=== PATIENT | female | born 1995 | race Caucasian/White ===

== ENCOUNTER 2021-05-22 11:01 | Outpatient (REF) | payer OTHER, SELFPAY ==
[2021-05-22 12:09] LABS: MANUAL DIFF FLAG NO
[2021-05-22 12:16] LABS: Basophils Absolute Auto 0.1 X10*3/uL (0.0-0.2); Basophils Percent Auto 0.7 % (0-2); Eosinophils Percent Auto 0.5 % (0-4); Hematocrit 39.1 % (37.0-47.0); Hemoglobin 13.2 g/dl (12.0-16.0); Imm Gran Abs Auto 0.02 X10*3/uL (0.00-0.03); Imm Gran Pct Auto 0.3 % (0.0-0.4); Lymphocytes Absolute Auto 2.3 X10*3/uL (1.2-4.9); Lymphocytes Percent Auto 31.6 % (20-40); Mean Corpuscular HGB Conc 33.8 g/dl (31.0-35.0); Mean Corpuscular Hemoglobin 28.9 pg (27.0-33.0); Mean Corpuscular Volume 85.7 fL (80.0-98.0); Mean Platelet Volume 9.1 fL (9.4-12.3); Monocytes Absolute Auto 0.3 X10*3/uL (0.1-1.2); Monocytes Percent Auto 4.5 % (2-11); Neutrophils Absolute Auto 4.6 x10*3/uL (2.0-8.3); Neutrophils Percent Auto 62.4 % (45-73); Platelet Count 284 X10*3/uL (160-400); Red Blood Count 4.56 X10*6/uL (4.20-5.50); Red Cell Distribution Width 11.9 % (11.0-16.0); White Blood Count 7.3 X10*3/uL (4.8-10.8)
[2021-05-22 12:42] LABS: Alanine Aminotransferase 13 U/L (0-31); Albumin Level 4.6 g/dL (3.5-5.0); Alkaline Phosphatase 74 U/L (39-117); Anion Gap 10 (12-20); Aspartate Amino Transferase 12 U/L (5-31); Bilirubin Total 1.2 mg/dL (0.0-1.0); Blood Urea Nitrogen 8 mg/dL (9-16); C Reactive Protein 0.02 mg/dL (< or = 0.50); Calcium 10.1 mg/dL (8.4-10.2); Carbon Dioxide 28 mmol/L (22-29); Chloride 105 mmol/L (96-108); Estimated Glomerular Filt Rate > 60; Glucose Random 91 mg/dL (60-115); Potassium 3.7 mmol/L (3.3-5.1); Sodium 139 mmol/L (135-145); Total Protein 7.5 g/dL (6.5-8.0)
[2021-05-22 13:02] LABS: Ferritin 52 ng/mL (10-122); Vitamin D 25-OH Total 23.4 ng/mL (>30)
[2021-05-22 13:14] LABS: Folate 10.3 ng/mL (> or = 4.0); Vitamin B12 386 pg/mL (200-900)
[2021-05-23 03:56] LABS: HBS Num1 > 1000.00 mIU/mL (0-7.99); HBc Num1 0.09 S/CO (0.00-0.79); Hepatitis B Core Antibody Nonreactive (Nonreactive); ~Hepatitis B Surface Antibody REACTIVE (Nonreactive)
[2021-05-23 04:09] LABS: Hepatitis A Antibody IgM 0.38 Index (0-0.79); Hepatitis B Surface Antigen Negative (Negative); ~HepC Num1 0.11 S/CO (0.00-0.79); ~Hepatitis A Antibody IgM Nonreactive (Nonreactive); ~Hepatitis C Antibody Nonreactive (Nonreactive)
[2021-05-24 08:31] LABS: EBV-NA IgG Index <18.00 U/mL; EBV-VCA IgG Ab <18.00 U/mL; EBV-VCA IgM Ab <36.00 U/mL
[2021-05-24 22:17] LABS: TS Negative Control Passed; TS Panel A 0; TS Panel B 0; TS Positive Control Passed; TSpotTB Negative (Negative)
[2021-05-25 11:21] LABS: Nicotinamide <20 ng/mL; Vit B3 - Nicotinic Acid <20 ng/mL
[2021-05-26 17:11] LABS: Vitamin C 0.3 mg/dL (0.3-2.7)
[2021-05-27 16:37] LABS: Vitamin K1 172 pg/mL (130-1500)
[2021-05-28 06:06] LABS: Vitamin B6 3.6 ng/mL (2.1-21.7)
[2021-05-28 13:46] LABS: Zinc 77 mcg/dL (60-130)
[2021-05-28 16:36] LABS: Vitamin A 56 mcg/dL (38-98)
[2021-05-28 16:56] LABS: Alpha-Tocopherol 15.4 mg/L (5.7-19.9); Beta-Gamma Tocopherol <1.0 mg/L (<=4.3)
[2021-05-29 15:06] LABS: Vitamin B5 (Pantothenic Acid) <40 ng/mL (<275)
== END 2021-05-22 11:02 | disposition home or self-care (01) ==
LOC: HO.LAB 11:01
PROVIDERS: PCP Hospitalist; Referring Provider Hospitalist; Visit Provider Internal Medicine Gastroenterology
DX: Z01.84 Encounter for antibody response examination (principal); Z11.1 Encounter for screening for respiratory tuberculosis; K50.80 Crohn's disease of both small and large intestine without complications; K75.81 Nonalcoholic steatohepatitis (NASH)
CPT/HCPCS: 36415; 80053; 81335; 82180; 82306; 82607; 82728; 82746; 84207; 84446; 84590; 84591; 84597; 84630; 85025; 86140; 86481; 86664; 86665; 86704; 86706; 86709; 86803; 87340

== ENCOUNTER 2021-06-10 14:55 | Outpatient (REF) | payer OTHER, SELFPAY ==
[2021-06-10 15:29] LABS: COVID-19 Test Positive (Negative); IDNOW Serial# 08D9AD1C
== END 2021-06-10 14:56 | disposition home or self-care (01) ==
LOC: HO.LAB 14:55
PROVIDERS: Visit Provider Internal Medicine
DX: Z20.822 Contact with and (suspected) exposure to COVID-19 (principal)
CPT/HCPCS: 87635

== ENCOUNTER 2021-07-20 12:00 | Outpatient (REF) | payer OTHER, SELFPAY | END 2021-07-20 12:01 | disposition home or self-care (01) | LOC: HO.MDS 12:00 | PROVIDERS: PCP Hospitalist; Visit Provider Internal Medicine Gastroenterology | DX: K50.80 Crohn's disease of both small and large intestine without complications (principal) | CPT/HCPCS: 96375; 96413; 96415; J1745 ==

== ENCOUNTER 2021-09-12 11:50 | Outpatient (REF) | payer OTHER, SELFPAY | END 2021-09-12 11:51 | disposition home or self-care (01) | LOC: HO.MDS 11:50 | PROVIDERS: PCP Hospitalist; Visit Provider Internal Medicine Gastroenterology | DX: K50.80 Crohn's disease of both small and large intestine without complications (principal) | CPT/HCPCS: 96375; 96413; 96415; J1745 ==

== ENCOUNTER → 2021-09-21 10:47 | Outpatient (BNVA) | payer OTHER, SELFPAY | PROVIDERS: PCP Hospitalist; Referring Provider Hospitalist; Visit Provider Internal Medicine Gastroenterology | DX: Z13.89 Encounter for screening for other disorder (principal) ==

== ENCOUNTER 2021-11-06 11:42 | Outpatient (REF) | payer OTHER, SELFPAY | END 2021-11-06 11:43 | disposition home or self-care (01) | LOC: HO.MDS 11:42 | PROVIDERS: PCP Hospitalist; Visit Provider Internal Medicine Gastroenterology | DX: K50.80 Crohn's disease of both small and large intestine without complications (principal) | CPT/HCPCS: 96375; 96413; 96415; J1745 ==

== ENCOUNTER 2021-12-04 09:21 | Outpatient (REF) | payer SELFPAY ==
[2021-12-04 10:28] LABS: Alanine Aminotransferase 15 U/L (0-31); Albumin Level 4.7 g/dL (3.5-5.0); Alkaline Phosphatase 81 U/L (39-117); Anion Gap 13 (12-20); Aspartate Amino Transferase 18 U/L (5-31); Bilirubin Total 1.1 mg/dL (0.0-1.0); Blood Urea Nitrogen 12 mg/dL (9-16); Calcium 9.4 mg/dL (8.4-10.2); Carbon Dioxide 23 mmol/L (22-29); Chloride 107 mmol/L (96-108); Cholesterol 180 mg/dL; Estimated Glomerular Filt Rate > 60; Glucose Fasting 90 mg/dL (60-99); HDL Cholesterol 57 mg/dL; LDL Cholesterol Calculated 111 mg/dl; Potassium 4.4 mmol/L (3.3-5.1); Sodium 139 mmol/L (135-145); Total Protein 7.7 g/dL (6.5-8.0); Triglycerides 62 mg/dL
== END 2021-12-04 09:22 | disposition home or self-care (01) ==
LOC: HO.LAB 09:21
PROVIDERS: PCP Hospitalist; Visit Provider Hospitalist
DX: Z00.00 Encounter for general adult medical examination without abnormal findings (principal)
CPT/HCPCS: 36415; 80053; 80061; 84443

== ENCOUNTER 2022-01-21 10:26 | Outpatient (REF) | payer OTHER, SELFPAY | END 2022-01-21 10:27 | disposition home or self-care (01) | LOC: HO.MDS 10:26 | PROVIDERS: Visit Provider Internal Medicine Gastroenterology | DX: K50.80 Crohn's disease of both small and large intestine without complications (principal) | CPT/HCPCS: 96375; 96413; 96415; J1200; J1745; Q5103 ==

== ENCOUNTER 2022-03-18 08:02 | Outpatient (REF) | payer OTHER, SELFPAY | END 2022-03-18 08:03 | disposition home or self-care (01) | LOC: HO.MDS 08:02 | PROVIDERS: Visit Provider Internal Medicine Gastroenterology | DX: K50.80 Crohn's disease of both small and large intestine without complications (principal) | CPT/HCPCS: 96375; 96413; 96415; J1200; Q5103 ==

== ENCOUNTER 2022-05-13 08:22 | Outpatient (REF) | payer OTHER, SELFPAY ==
[2022-05-13 10:29] LABS: Hematocrit 42.2 % (37.0-47.0); Hemoglobin 14.4 g/dl (12.0-16.0); Mean Corpuscular HGB Conc 34.1 g/dl (31.0-35.0); Mean Corpuscular Hemoglobin 28.9 pg (27.0-33.0); Mean Corpuscular Volume 84.7 fL (80.0-98.0); Platelet Count 286 X10*3/uL (160-400); Red Blood Count 4.98 X10*6/uL (4.20-5.50); Red Cell Distribution Width 11.9 % (11.0-16.0); White Blood Count 8.2 X10*3/uL (4.8-10.8)
[2022-05-13 11:22] LABS: Alanine Aminotransferase 16 U/L (0-31); Albumin Level 4.8 g/dL (3.5-5.0); Alkaline Phosphatase 67 U/L (39-117); Anion Gap 11 (12-20); Aspartate Amino Transferase 15 U/L (5-31); Bilirubin Total 1.5 mg/dL (0.0-1.0); Blood Urea Nitrogen 9 mg/dL (9-16); Calcium 9.7 mg/dL (8.4-10.2); Carbon Dioxide 27 mmol/L (22-29); Chloride 102 mmol/L (96-108); Estimated Glomerular Filt Rate > 60; Glucose Random 76 mg/dL (60-115); Potassium 4.2 mmol/L (3.3-5.1); Sodium 136 mmol/L (135-145); Total Protein 7.3 g/dL (6.5-8.0)
[2022-05-15 11:38] LABS: CRP High Sensitivity <0.3 mg/L
[2022-05-15 22:44] LABS: TS Negative Control Passed; TS Panel A 0; TS Panel B 0; TS Positive Control Passed; TSpotTB Negative (Negative)
== END 2022-05-13 08:23 | disposition home or self-care (01) ==
LOC: HO.MDS 08:22
PROVIDERS: Visit Provider Internal Medicine Gastroenterology
DX: K50.80 Crohn's disease of both small and large intestine without complications (principal)
CPT/HCPCS: 36415; 80053; 85027; 86141; 86481; 96375; 96413; 96415; J1200; Q5103

== ENCOUNTER 2022-07-08 09:31 | Outpatient (REF) | payer OTHER, SELFPAY | END 2022-07-08 09:32 | disposition home or self-care (01) | LOC: HO.MDS 09:31 | PROVIDERS: Visit Provider Internal Medicine Gastroenterology | DX: K50.80 Crohn's disease of both small and large intestine without complications (principal); R19.7 Diarrhea, unspecified; G47.419 Narcolepsy without cataplexy; R41.9 Unspecified symptoms and signs involving cognitive functions and awareness | CPT/HCPCS: 36415; 80230; 82542; 96375; 96413; 96415; J1200; Q5103 ==

== ENCOUNTER 2022-08-07 13:17 | Outpatient (REF) | payer OTHER, SELFPAY ==
[2022-08-08 14:23] LABS: Influenza A PCR NEGATIVE (Negative); Influenza B PCR NEGATIVE (Negative); Resp Syncy Virus RNA Qual PCR NEGATIVE (Negative); SARS COV2 PCR INHOUSE NEGATIVE (Negative)
== END 2022-08-07 13:18 | disposition home or self-care (01) ==
LOC: HO.LNP 13:17
PROVIDERS: Visit Provider Hospitalist
DX: Z20.822 Contact with and (suspected) exposure to COVID-19 (principal); R68.89 Other general symptoms and signs
CPT/HCPCS: 0241U

== ENCOUNTER → 2022-08-26 15:47 | Outpatient (BNVA) | payer OTHER, SELFPAY | PROVIDERS: PCP Hospitalist; Visit Provider Nurse Practitioner Family | DX: Z13.89 Encounter for screening for other disorder (principal) ==

== ENCOUNTER 2022-12-24 09:00 | Outpatient (AMB) | payer OTHER, SELFPAY ==
[2022-12-24 09:02] VITALS: BP 120/78; PULSE 81; O2SAT 99; BMI 22.5
--- NOTE | 2022-12-24 09:02 | A.OFFVIS_ITS ---
Intake Vital Signs 12/24/22 09:02 Height 5 ft 8 in Weight 148 lb BMI 22.5 BP 120/78 Blood Pressure Location Lt brachial Position Sitting Pulse 81 Pulse Source Pulse Oximeter Pulse Oximetry (%) 99 Oxygen Delivery Method Room Air Intake Visit Reasons: 4 mo f/u Narcolepsy Intake Note: Pt presents as a 4 month f/u for Narcolepsy. pt states Things are going good, no concerns. Broadcasting Equipment Mechanic Required: No Allergies cat dander Allergy (Mild, Verified 12/24/22 09:06) sneezing pollen extracts Allergy (Verified 12/24/22 09:06) Unknown Medication List - Last Reconciled 12/24/22 by TIFFANIE Beltrán armodafinil 150 mg PO QAM 30 days ascorbate calcium (vitamin C) 500 mg PO DAILY bupropion HCl 150 mg PO QAM calcium carb and citrate-vitD3 600 mg-12.5 mcg (500 unit) ER 2 tabs PO DAILY docosahexaenoic acid (Algal [place]-3 DHA) mg PO fluoxetine 60 mg (3 x 20 mg) PO QAM 3 months fluticasone propionate 50 mcg/actuation (Allergy Relief (fluticasone)) 2 sprays intranasal DAILY 1 month glycopyrrolate 1 mg PO BID-TID PRN infliximab-dyyb (Inflectra) IV levonorgestrel (Mirena) intrauterine loratadine (Allergy Relief (loratadine)) 10 mg PO DAILY magnesium 250 mg PO DAILY melatonin mg PO PRN pitolisant (Wakix) 17.8 mg PO DAILY 30 days propranolol ER 60 mg PO BEDTIME 30 days sodium oxybate (Xyrem) 4.5 grams (9 mL) PO BID 30 days axjchor-orxv-tbpgl-oreg-capryl 100 mg-150 mg- 50 mg-150 mg caps PO zinc 15 mg PO DAILY HPI HPI Comments History of Present Illness Details Left-handed 27-yr-old female presents for f/u visit. She has been experiencing left 2nd-4th finger numbness and tingling, and she has noticed this in the right hand as well. She can wake uo with boyd numbness and tingling- can last for hours. Feels her left hand is weaker than right. Last week she misplaced her armodafinil- she thinks she may have thrown it out. Without the Armodafinil, she increased her caffeine intake- which helped but was not as effective and caused increased tremors. 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 [facility] Surgical History History of appendectomy (~2014) History of esophagogastroduodenoscopy (EGD) History of laparoscopy History of wisdom tooth extraction Hx of colonoscopy Family History Paternal Grandmother Substance abuse Maternal Grandmother Substance abuse Maternal Uncle Substance abuse Mother Bipolar 2 disorder Sister Panic attack Depression Maternal Grandfather Prostate cancer Paternal Grandfather Prostate cancer Cancer of kidney Other Anxiety Social History (Updated 12/24/22 @ 09:08 by Sheree Freeman CMA) Housing: Condominium Alcohol intake: never Patient Tobacco Use Status: Never used Tobacco e-Cigarette/Vaping Use: Never Used Substance Use Type: Marijuana service: No Current occupational status: employed 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 @ [employer] Cognitive needs: No Hearing needs: No Vision needs: No Review of Systems Const All systems reviewed & are unremarkable except as noted in HPI and below Physical Exam Vital Signs: Last Vital Signs Pulse 81 12/24/22 09:02 BP 120/78 12/24/22 09:02 Pulse Ox 99 12/24/22 09:02 Oxygen Delivery Method Room Air 12/24/22 09:02 BMI result Body Mass Index 22.5 Const General: cooperative and no acute distress Orientation/consciousness: patient oriented x3 HEENT Head: Yes normocephalic Resp Effort & Inspection: normal respiratory effort and able to speak in complete sentences Neuro Other: LUE- positive Tinnel, Phalen, medical compression test RUE- mild discomfort in hand/wrist elicited from Tinnel, Phalen, medical compression test MS 5/5, however left hand grasp just slightly weaker than non-dominant right hand. General: patient oriented x3, gait normal and CN's II-XI intact bilaterally Cognition (Neuro): normal cognition Motor exam (neuro): 5/5 motor strength present throughout Deep tendon reflexes (DTR's): Right triceps reflex intensity grade: 3+, Left triceps reflex intensity grade: 3+, Rt Biceps (C5, C6): 3+, Left biceps reflex intensity grade: 3+, Right brachioradialis reflex intensity grade: 3+, Left brachioradialis reflex intensity grade: 3+, Right patellar reflex intensity grade: 3+ and Left patellar reflex intensity grade: 3+ Psych Appearance: grossly normal Mental Status: mental status grossly normal Speech and movement: Normal speech and movement present Affect: normal affect Attitude: cooperative Thought process: Normal thought process present Thought content: Normal thought content present Insight: Good insight present (Psych) Judgement: Good judgement present (Psych) Assessment & Plan Assessment & Plan (1) Narcolepsy without cataplexy: Code(s): G47.419 - Narcolepsy without cataplexy (2) Tremor: Comment: ? familial, medication induced- h/o quetiapine and lamotrigine use, ? exaggerated physiological. Code(s): R25.1 - Tremor, unspecified (3) Paresthesia: Code(s): R20.2 - Paresthesia of skin Plan For BUE L > R numbness and parestehsias: Check labs for common etiologies. Pt advised to undergo BUE EMG/NCS Trial a LUE carpal-tunnel style wrist splint at night. For narcolespy: Continue Xyrem 4.5G bid (during nighttime). Continue Pitolisant 17.8mg po qam. Continue Armodafinil 150mg qam- keep locked up w/ her other narcolespy tx's. Continue Propranol ER 60mg qhs- helping HR control and tremor. Continue to optimize sleep hygiene. In regards to family planning- Pt again advised to have a high-risk OB consult- will refer pt to [facility]. Discussed if she were to come off her narcolepsy tx's, we would develop a plan to minimize her narcolepsy s/s. Future considerations: Sunosi. F/u in 4 months or sooner prn new/worsening s/s. Orders: Orders Vitamin B12 and Folate Today G47.419 - Narcolepsy without cataplexy, R00.0 - Tachycardia, unspecified, R20.2 - Paresthesia of skin, R25.1 - Tremor, unspecified Comprehensive Met. Panel Today G47.419 - Narcolepsy without cataplexy, R00.0 - Tachycardia, unspecified, R20.2 - Paresthesia of skin, R25.1 - Tremor, unspecified Hemoglobin A1c Today G47.419 - Narcolepsy without cataplexy, R00.0 - Tachycardia, unspecified, R20.2 - Paresthesia of skin, R25.1 - Tremor, unspecified TSH reflex Free T4 Today G47.419 - Narcolepsy without cataplexy, R00.0 - Tachycardia, unspecified, R20.2 - Paresthesia of skin, R25.1 - Tremor, unspecified Complete Blood Count Auto Diff Today G47.419 - Narcolepsy without cataplexy, R00.0 - Tachycardia, unspecified, R20.2 - Paresthesia of skin, R25.1 - Tremor, unspecified Erythrocyte Sedimentation Rate Today G47.419 - Narcolepsy without cataplexy, R00.0 - Tachycardia, unspecified, R20.2 - Paresthesia of skin, R25.1 - Tremor, unspecified NE electromyogram (EMG) Today R20.2 - Paresthesia of skin, R25.1 - Tremor, unspecified Referrals Maternal- Medicine Referral G47.419 - Narcolepsy without cataplexy, K50.80 - Crohn's disease of both small and large intestine without complications Coding Level of Care Code Est Pt Level 4 (18549) Diagnoses Narcolepsy without cataplexy G47.419 Tremor R25.1 Paresthesia R20.2
== END 2022-12-24 10:10 | disposition home or self-care (01) ==
PROVIDERS: Visit Provider Nurse Practitioner Family
DX: G47.419 Narcolepsy without cataplexy (principal); R25.1 Tremor, unspecified; R20.2 Paresthesia of skin
CPT/HCPCS: 99214

== ENCOUNTER → 2022-12-24 09:00 | Outpatient (BNVA) | payer OTHER, SELFPAY | PROVIDERS: Visit Provider Nurse Practitioner Family ==

== ENCOUNTER 2023-01-13 08:58 | Outpatient (AMB) | payer OTHER, SELFPAY ==
--- NOTE | 2023-01-13 09:01 | MHC.OFFVIS ---
Intake Vital Signs 01/13/23 09:02 Height 5 ft 8 in Weight 143 lb 4.807 oz BMI 21.8 BP 118/76 Blood Pressure Location Lt brachial Position Sitting Pulse 87 Intake Visit Reasons: 6 month follow up Intake Note: Rina presents in the office as a 6 month follow up. CC: She states that she is not having any concerns today just here for a follow up. Tire Curer Required: No Allergies cat dander Allergy (Mild, Verified 01/13/23 09:05) sneezing pollen extracts Allergy (Verified 01/13/23 09:05) Unknown HPI 6 month follow up HPI Details 27 yr old f with hx of anxiety, narcolepsy, anxiety,? Crohns disease being seen for f/u RECAP: Dx with Crohns 2014 aged 19 she had been having pain on her initial presentation at the time, She has disease of small and large bowels Has been receiving remicade 500 mg q 8 weeks with good response Has also tried MTX and folic acid for 1 yr in the past never smoker Surgeries: ileal resection, appendectomy, 2015 ovarian torsion and adhesions? 2016 IMAGINg: MRe: 2018-- no inflammation EGD/colonoscopy-- 2020 at [place] and was apparently nml LABS: TB test neg 05/23 Vit c low vit D low hep b ab pos I increased the dose of inflectra due to undetectable trough level INTERIM: She feels overall pretty well, actually unclear whether she got the higher dose of inflectra due to insuranc eissues no blood in stools goes to toilet once a day at least no mouth ulcers she denies joint swelling or pain narcolepsy is controlled taking Vit supplments EXAM: GENERAL: The patient is well developed and nontoxic. VITAL SIGNS:see workflow HEENT: Nonicteric sclerae, PERRLA, EOMI. Oropharynx clear. Moist mucous membranes. Conjunctivae appear well perfused. No thyroid mass. CHEST: Chest wall is nontender. HEART: Regular rate and rhythm without murmurs. LUNGS: Clear to auscultation bilaterally. ABDOMEN: Soft, positive bowel sounds, nontender, no organomegaly.no flank tenderness SKIN: No rash, no excessive bruising, petechiae, or purpura. NEUROLOGIC: Cranial nerves II-XII intact without motor/sensory deficit. A/P: 1/ Crohns -large and small bowel - dose increased to 650 mg due to undetectable trough, no antibodies seen but unlcear if she got this dose due to insurance issues PLAN: 1/ check wiht home infusion compant actual dose she is getting and remeasure levels before next infusion ?? PFSH Surgical History History of appendectomy (~2014) History of esophagogastroduodenoscopy (EGD) History of laparoscopy History of wisdom tooth extraction Hx of colonoscopy Family History Paternal Grandmother Substance abuse Maternal Grandmother Substance abuse Maternal Uncle Substance abuse Mother Bipolar 2 disorder Sister Panic attack Depression Maternal Grandfather Prostate cancer Paternal Grandfather Prostate cancer Cancer of kidney Other Anxiety Social History Housing: Condominium Alcohol intake: never Patient Tobacco Use Status: Never used Tobacco e-Cigarette/Vaping Use: Never Used Substance Use Type: Marijuana service: No Current occupational status: employed 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
[2023-01-13 09:02] VITALS: BP 118/76; PULSE 87; BMI 21.8
== END 2023-01-13 09:25 | disposition home or self-care (01) ==
PROVIDERS: PCP Hospitalist; Visit Provider Internal Medicine Gastroenterology
DX: K50.80 Crohn's disease of both small and large intestine without complications (principal)
CPT/HCPCS: 99213

== ENCOUNTER → 2023-01-13 08:58 | Outpatient (BNVA) | payer OTHER, SELFPAY | PROVIDERS: PCP Hospitalist; Visit Provider Internal Medicine Gastroenterology ==

== ENCOUNTER 2023-01-29 08:45 | Outpatient (REF) | payer OTHER, SELFPAY ==
--- NOTE | 2023-01-29 08:51 | EMG_ITS ---
Please see scanned EMG / Nerve Conduction Report. MTDD
== END 2023-01-29 08:46 | disposition home or self-care (01) ==
LOC: HO.NEURO 08:45
PROVIDERS: PCP Hospitalist; Visit Provider Nurse Practitioner Family
DX: R20.2 Paresthesia of skin (principal); R25.1 Tremor, unspecified
CPT/HCPCS: 95885; 95913

== ENCOUNTER 2023-04-29 07:55 | Outpatient (AMB) | payer OTHER, SELFPAY ==
--- NOTE | 2023-04-29 07:56 | A.OFFVIS_ITS ---
Intake Vital Signs 04/29/23 07:57 Height 5 ft 8 in Weight 151 lb BMI 23.0 BP 110/74 Blood Pressure Location Rt brachial Position Sitting Pulse 94 Pulse Source Pulse Oximeter Pulse Oximetry (%) 99 Oxygen Delivery Method Room Air Intake Visit Reasons: 4m follow up Narcolepsy/Confirmed Intake Note: Patient presents for 4 month follow up. Allergies cat dander Allergy (Mild, Verified 04/29/23 07:59) sneezing pollen extracts Allergy (Verified 04/29/23 07:59) Unknown Medication List - Last Reconciled 04/29/23 by TIFFANIE Beltrán armodafinil 150 mg PO QAM 30 days ascorbate calcium (vitamin C) 500 mg PO DAILY bupropion HCl 150 mg PO QAM calcium carb and citrate-vitD3 600 mg-12.5 mcg (500 unit) ER 2 tabs PO DAILY fluoxetine 60 mg (3 x 20 mg) PO QAM 3 months fluticasone propionate 50 mcg/actuation (Allergy Relief (fluticasone)) 2 sprays intranasal DAILY 1 month glycopyrrolate 1 mg PO BID-TID PRN infliximab-dyyb (Inflectra) 650 mg IV levonorgestrel (Mirena) intrauterine loratadine (Allergy Relief (loratadine)) 10 mg PO DAILY magnesium 250 mg PO DAILY melatonin mg PO PRN omega 2-fro-fwb-fish oil 300-1,000 mg (Fish Oil) 1 cap PO DAILY pitolisant (Wakix) 17.8 mg PO DAILY 30 days propranolol ER 60 mg PO BEDTIME 30 days sodium oxybate (Xyrem) 4.5 grams (9 mL) PO BID 30 days iejpzux-grbj-ukkzx-oreg-capryl 100 mg-150 mg- 50 mg-150 mg caps PO zinc 15 mg PO DAILY HPI HPI Comments History of Present Illness Details 27-yr-old female presents for f/u visit. Pt denies any significant interval medical changes. Pt reports her narcolepsy symptoms are well-controlled on her current regimen. She is compliant w/ her regimen. She has not been noticing as much as tremor. She has noted decreased heart rate- now HR running in the 70s. She is noticing less anxiety overall. Tolerating the Propranolol ER 60mg qhs well- no lightheadedness. [facility] Surgical History Hx of colonoscopy History of esophagogastroduodenoscopy (EGD) History of wisdom tooth extraction History of laparoscopy History of appendectomy (~2014) Family History Paternal Grandmother Substance abuse Maternal Grandmother Substance abuse Maternal Uncle Substance abuse Mother Bipolar 2 disorder Sister Panic attack Depression Maternal Grandfather Prostate cancer Paternal Grandfather Prostate cancer Cancer of kidney Other Anxiety Housing: Condominium Alcohol intake: never Patient Tobacco Use Status: Never used Tobacco e-Cigarette/Vaping Use: Never Used Substance Use Type: Marijuana service: No Current occupational status: employed 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 @ [facility] Cognitive needs: No Hearing needs: No Vision needs: No Review of Systems Const All systems reviewed & are unremarkable except as noted in HPI and below Physical Exam Vital Signs: Last Vital Signs Pulse 94 04/29/23 07:57 BP 110/74 04/29/23 07:57 Pulse Ox 99 04/29/23 07:57 Oxygen Delivery Method Room Air 04/29/23 07:57 BMI result Body Mass Index 23.0 Const General: cooperative and no acute distress Orientation/consciousness: patient oriented x3 HEENT Head: Yes normocephalic Resp Effort & Inspection: normal respiratory effort and able to speak in complete sentences Neuro Other: BUE very mild postural tremor. General: patient oriented x3, gait normal and CN's II-XI intact bilaterally Cognition (Neuro): normal cognition Motor exam (neuro): 5/5 motor strength present throughout Psych Appearance: grossly normal Mental Status: mental status grossly normal Speech and movement: Normal speech and movement present Affect: normal affect Attitude: cooperative Thought process: Normal thought process present Thought content: Normal thought content present Insight: Good insight present (Psych) Judgement: Good judgement present (Psych) Assessment & Plan Assessment & Plan (1) Narcolepsy without cataplexy: Code(s): G47.419 - Narcolepsy without cataplexy (2) Tremor: Comment: ? familial, medication induced- h/o quetiapine and lamotrigine use, ? exaggerated physiological. Code(s): R25.1 - Tremor, unspecified Plan For BUE L > R numbness and parestehsias: Will monitor. BUE EMG/NCS- normal. LUE carpal-tunnel style wrist splint at night. ? For narcolespy: Continue Xyrem 4.5G bid (during nighttime). Continue Pitolisant 17.8mg po qam. Continue Armodafinil 150mg qam- keep locked up w/ her other narcolespy tx's. Continue Propranol ER 60mg qhs- helping HR control and tremor. Continue to optimize sleep hygiene. In regards to family planning- Pt again advised to have a high-risk OB consult- referal resent to [facility] last week- pt to notify us if she does not hear from them in 1-2 wks. Discussed if she were to come off her narcolepsy tx's, we would develop a plan to minimize her narcolepsy s/s. Future considerations: Sunosi. ? F/u in 4 months or sooner prn new/worsening s/s. Orders: Orders Zinc Today R25.1 - Tremor, unspecified Copper, serum Today R25.1 - Tremor, unspecified Coding Level of Care Code Est Pt Level 4 (56292) Diagnoses Narcolepsy without cataplexy G47.419 Tremor R25.1
[2023-04-29 07:57] VITALS: BP 110/74; PULSE 94; O2SAT 99; BMI 23.0
== END 2023-04-29 08:34 | disposition home or self-care (01) ==
PROVIDERS: PCP Hospitalist; Visit Provider Nurse Practitioner Family
DX: G47.419 Narcolepsy without cataplexy (principal); R25.1 Tremor, unspecified
CPT/HCPCS: 99214

== ENCOUNTER → 2023-04-29 07:55 | Outpatient (BNVA) | payer OTHER, SELFPAY | PROVIDERS: PCP Hospitalist; Visit Provider Nurse Practitioner Family | DX: R25.1 Tremor, unspecified (principal); R00.0 Tachycardia, unspecified; R20.2 Paresthesia of skin; G47.419 Narcolepsy without cataplexy; K50.80 Crohn's disease of both small and large intestine without complications ==

== ENCOUNTER 2023-05-16 09:00 | Outpatient (AMB) | payer OTHER, SELFPAY ==
[2023-05-16 09:04] VITALS: BP 119/72; PULSE 76; BMI 23.1
--- NOTE | 2023-05-16 09:04 | MHC.OFFVIS ---
Intake Vital Signs 05/16/23 09:04 Height 5 ft 8 in Weight 152 lb BMI 23.1 BP 119/72 Blood Pressure Location Lt brachial Position Sitting Pulse 76 Intake Visit Reasons: 4 month follow up Intake Note: Patient foll0w up for Crohn's disease. Patient denies any GI issues. 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 Required: No Accompanied by: Self / Same As Patient Allergies cat dander Allergy (Mild, Verified 05/16/23 09:04) sneezing pollen extracts Allergy (Verified 05/16/23 09:04) Unknown HPI 4 month follow up HPI Details 27 yr old f with hx of anxiety, narcolepsy, anxiety, Crohns disease being seen for f/u RECAP: Dx with Crohns 2014 aged 19 she had been having pain on her initial presentation at the time, She has disease of small and large bowels Has been receiving remicade 500 mg q 8 weeks with good response Has also tried MTX and folic acid for 1 yr in the past never smoker Surgeries: ileal resection, appendectomy, 2015 ovarian torsion and adhesions 2015 IMAGINg: MRe: 2018-- no inflammation EGD/colonoscopy-- 2020 at [place] and was apparently nml LABS: TB test neg 05/23 Vit c low vit D low hep b ab pos I increased the dose of inflectra due to undetectable trough level INTERIM: she is on higher dose of inflectra now 650 mg and tolerating well stress at work goes to toilet once a day at least--no blood in stools no mouth ulcers she denies joint swelling or pain no skin rashes taking Vit supplements as before--she stopped tumeric due to nausea EXAM: GENERAL: The patient is well developed and nontoxic. VITAL SIGNS:see workflow HEENT: Nonicteric sclerae, PERRLA, EOMI. Oropharynx clear. Moist mucous membranes. Conjunctivae appear well perfused. No thyroid mass. CHEST: Chest wall is nontender. HEART: Regular rate and rhythm without murmurs. LUNGS: Clear to auscultation bilaterally. ABDOMEN: Soft, positive bowel sounds, nontender, no organomegaly.no flank tenderness SKIN: No rash, no excessive bruising, petechiae, or purpura. NEUROLOGIC: Cranial nerves II-XII intact without motor/sensory deficit. A/P: 1/ Crohns -large and small bowel - dose increased to 650 mg due to undetectable trough, no antibodies seen PLAN: 1/ check trough level again on higher dose and recheck routine labs 2/ vitamin levels [facility] Surgical History Hx of colonoscopy History of esophagogastroduodenoscopy (EGD) History of wisdom tooth extraction History of laparoscopy History of appendectomy (~2014) Family History Paternal Grandmother Substance abuse Maternal Grandmother Substance abuse Maternal Uncle Substance abuse Mother Bipolar 2 disorder Sister Panic attack Depression Maternal Grandfather Prostate cancer Paternal Grandfather Prostate cancer Cancer of kidney Other Anxiety Social History Housing: Condominium Alcohol intake: never Patient Tobacco Use Status: Never used Tobacco e-Cigarette/Vaping Use: Never Used Substance Use Type: Marijuana service: No Current occupational status: employed 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 @ [employer] Cognitive needs: No Hearing needs: No Vision needs: No Physical Exam Vital Signs: Last Vital Signs Pulse 76 05/16/23 09:04 BP 119/72 05/16/23 09:04 BMI result Body Mass Index 23.1 Assessment & Plan Assessment & Plan (1) Crohn's disease of both small and large intestine: Code(s): K50.80 - Crohn's disease of both small and large intestine without complications Plan: A/P: 1/ Crohns -large and small bowel - dose increased to 650 mg due to undetectable trough, no antibodies seen PLAN: 1/ check trough level again on higher dose and recheck routine labs 2/ vitamin levels (2) Vitamin C deficiency: Code(s): E54 - Ascorbic acid deficiency Plan: A/P: 1/ Crohns -large and small bowel - dose increased to 650 mg due to undetectable trough, no antibodies seen PLAN: 1/ check trough level again on higher dose and recheck routine labs 2/ vitamin levels (3) Vitamin D deficiency: Code(s): E55.9 - Vitamin D deficiency, unspecified Plan: A/P: 1/ Crohns -large and small bowel - dose increased to 650 mg due to undetectable trough, no antibodies seen PLAN: 1/ check trough level again on higher dose and recheck routine labs 2/ vitamin levels Orders: Orders Vitamin C Today E54 - Ascorbic acid deficiency, E55.9 - Vitamin D deficiency, unspecified, K50.80 - Crohn's disease of both small and large intestine without complications Vitamin D 25-OH Total Today E54 - Ascorbic acid deficiency, E55.9 - Vitamin D deficiency, unspecified, K50.80 - Crohn's disease of both small and large intestine without complications Vitamin E Today E54 - Ascorbic acid deficiency, E55.9 - Vitamin D deficiency, unspecified, K50.80 - Crohn's disease of both small and large intestine without complications Vitamin B1 Today E54 - Ascorbic acid deficiency, E55.9 - Vitamin D deficiency, unspecified, K50.80 - Crohn's disease of both small and large intestine without complications Vitamin B3 (Niacin) Today E54 - Ascorbic acid deficiency, E55.9 - Vitamin D deficiency, unspecified, K50.80 - Crohn's disease of both small and large intestine without complications Vitamin B5 (Pantothenic Acid) Today E54 - Ascorbic acid deficiency, E55.9 - Vitamin D deficiency, unspecified, K50.80 - Crohn's disease of both small and large intestine without complications Ferritin Today E54 - Ascorbic acid deficiency, E55.9 - Vitamin D deficiency, unspecified, K50.80 - Crohn's disease of both small and large intestine without complications Vitamin K1 Today E54 - Ascorbic acid deficiency, E55.9 - Vitamin D deficiency, unspecified, K50.80 - Crohn's disease of both small and large intestine without complications Vitamin A Today E54 - Ascorbic acid deficiency, E55.9 - Vitamin D deficiency, unspecified, K50.80 - Crohn's disease of both small and large intestine without complications T Spot TB Today K50.80 - Crohn's disease of both small and large intestine without complications Vitamin B6 Today E54 - Ascorbic acid deficiency, E55.9 - Vitamin D deficiency, unspecified, K50.80 - Crohn's disease of both small and large intestine without complications Vitamin B12 and Folate Today E54 - Ascorbic acid deficiency, E55.9 - Vitamin D deficiency, unspecified, K50.80 - Crohn's disease of both small and large intestine without complications Zinc Today E54 - Ascorbic acid deficiency, E55.9 - Vitamin D deficiency, unspecified, K50.80 - Crohn's disease of both small and large intestine without complications Coding Level of Care Code Est Pt Level 3 (45081) Diagnoses Crohn's disease of both small and large intestine K50.80 Vitamin C deficiency E54 Vitamin D deficiency E55.9
== END 2023-05-16 09:24 | disposition home or self-care (01) ==
PROVIDERS: PCP Hospitalist; Visit Provider Internal Medicine Gastroenterology
DX: K50.80 Crohn's disease of both small and large intestine without complications (principal); E54 Ascorbic acid deficiency; E55.9 Vitamin D deficiency, unspecified
CPT/HCPCS: 99213

== ENCOUNTER → 2023-05-16 09:00 | Outpatient (BNVA) | payer OTHER, SELFPAY | PROVIDERS: PCP Hospitalist; Visit Provider Internal Medicine Gastroenterology ==

== ENCOUNTER 2023-06-24 16:03 | Outpatient (REF) | payer OTHER, SELFPAY ==
[2023-06-24 16:34] LABS: MANUAL DIFF FLAG NO
[2023-06-24 16:55] LABS: Basophils Absolute Auto 0.1 X10*3/uL (0.0-0.2); Basophils Percent Auto 0.8 % (0-2); Eosinophils Absolute Auto 0.1 X10*3/uL (0.0-0.4); Eosinophils Percent Auto 1.1 % (0-4); Hematocrit 43.9 % (37.0-47.0); Hemoglobin 14.9 g/dl (12.0-16.0); Imm Gran Abs Auto 0.02 X10*3/uL (0.00-0.03); Imm Gran Pct Auto 0.2 % (0.0-0.4); Lymphocytes Absolute Auto 3.3 X10*3/uL (1.2-4.9); Lymphocytes Percent Auto 34.9 % (20-40); Mean Corpuscular HGB Conc 33.9 g/dl (31.0-35.0); Mean Corpuscular Volume 88.5 fL (80.0-98.0); Mean Platelet Volume 9.6 fL (9.4-12.3); Monocytes Absolute Auto 0.5 X10*3/uL (0.1-1.2); Monocytes Percent Auto 5.6 % (2-11); Neutrophils Absolute Auto 5.4 x10*3/uL (2.0-8.3); Neutrophils Percent Auto 57.4 % (45-73); Platelet Count 335 X10*3/uL (160-400); Red Blood Count 4.96 X10*6/uL (4.20-5.50); Red Cell Distribution Width 11.6 % (11.0-16.0); White Blood Count 9.5 X10*3/uL (4.8-10.8)
[2023-06-24 17:03] LABS: Estimated Average Glucose 85 mg/dL; Hemoglobin A1c % 4.6 % (<6.0)
[2023-06-24 17:26] LABS: Alanine Aminotransferase 21 U/L (0-31); Albumin Level 4.8 g/dL (3.5-5.0); Alkaline Phosphatase 68 U/L (39-117); Anion Gap 10 (12-20); Aspartate Amino Transferase 15 U/L (5-31); Bilirubin Total 1.1 mg/dL (0.0-1.0); Blood Urea Nitrogen 11 mg/dL (9-16); C Reactive Protein < 0.04 mg/dL (< or = 0.50); Calcium 9.8 mg/dL (8.4-10.2); Carbon Dioxide 29 mmol/L (22-29); Chloride 102 mmol/L (96-108); Estimated Glomerular Filt Rate > 60; Glucose Random 83 mg/dL (60-115); Potassium 3.6 mmol/L (3.3-5.1); Sodium 137 mmol/L (135-145)
[2023-06-24 17:28] LABS: Alanine Aminotransferase 21 U/L (0-31); Albumin Level 4.7 g/dL (3.5-5.0); Alkaline Phosphatase 69 U/L (39-117); Anion Gap 10 (12-20); Aspartate Amino Transferase 15 U/L (5-31); Bilirubin Total 1.1 mg/dL (0.0-1.0); Blood Urea Nitrogen 11 mg/dL (9-16); Calcium 9.8 mg/dL (8.4-10.2); Carbon Dioxide 29 mmol/L (22-29); Chloride 102 mmol/L (96-108); Estimated Glomerular Filt Rate > 60; Glucose Random 83 mg/dL (60-115); Potassium 3.6 mmol/L (3.3-5.1); Sodium 137 mmol/L (135-145); Total Protein 8.1 g/dL (6.5-8.0)
[2023-06-24 17:37] LABS: Erythrocyte Sedimentation Rate 2 MM/HR (0-20)
[2023-06-24 17:43] LABS: Ferritin 62 ng/mL (10-122); TSH reflex Free T4 2.04 uIU/mL (0.32-4.0); Vitamin D 25-OH Total 32.7 ng/mL (>30)
[2023-06-24 17:52] LABS: Folate 11.9 ng/mL (> or = 4.0); Vitamin B12 1946 pg/mL (200-900)
[2023-06-24 17:56] LABS: Folate 11.7 ng/mL (> or = 4.0); Vitamin B12 1763 pg/mL (200-900)
[2023-06-27 15:19] LABS: Copper, serum 81 mcg/dL (70-175); Zinc 75 mcg/dL (60-130)
[2023-06-28 00:44] LABS: Zinc 85 mcg/dL (60-130)
[2023-06-28 07:07] LABS: Vitamin A 67 mcg/dL (38-98)
[2023-06-28 15:53] LABS: Alpha-Tocopherol 147.6 mg/L (5.7-19.9); Beta-Gamma Tocopherol <1.0 mg/L (<=4.3)
[2023-06-28 17:53] LABS: Vitamin C 1.4 mg/dL (0.3-2.7)
[2023-06-28 23:43] LABS: Vitamin B5 (Pantothenic Acid) <40 ng/mL (<275)
[2023-06-29 15:44] LABS: Vitamin B6 7.8 ng/mL (2.1-21.7)
[2023-06-29 17:09] LABS: Vitamin K1 169 pg/mL (130-1500)
[2023-06-30 15:13] LABS: Vitamin B1 16 nmol/L (8-30)
[2023-07-02 18:39] LABS: Nicotinamide 24 ng/mL; Vit B3 - Nicotinic Acid <20 ng/mL
== END 2023-06-24 16:04 | disposition home or self-care (01) ==
LOC: HO.LAB 16:03
PROVIDERS: Absent Provider Internal Medicine Gastroenterology; Visit Provider Nurse Practitioner Family
DX: E54 Ascorbic acid deficiency (principal); K50.80 Crohn's disease of both small and large intestine without complications; E55.9 Vitamin D deficiency, unspecified; K75.81 Nonalcoholic steatohepatitis (NASH); R25.1 Tremor, unspecified; R00.0 Tachycardia, unspecified; R20.2 Paresthesia of skin; G47.419 Narcolepsy without cataplexy; Z79.899 Other long term (current) drug therapy
CPT/HCPCS: 36415; 80053; 80230; 82180; 82306; 82525; 82542; 82607; 82728; 82746; 83036; 84207; 84425; 84443; 84446; 84590; 84591; 84597; 84630; 85025; 85652; 86140

== ENCOUNTER 2023-07-11 08:01 | Outpatient (AMB) | payer OTHER, SELFPAY ==
--- NOTE | 2023-07-11 08:18 | A.OFFPC_ITS ---
Vital Signs 07/11/23 08:19 Height 5 ft 8 in Weight 152 lb 4 oz BMI 23.1 BP 108/70 Blood Pressure Location Rt brachial Position Sitting Respiration 13 Pulse 102 H Pulse Source Pulse Oximeter Temp 97.8 F Temp Source Temporal Artery Scan Pulse Oximetry (%) 99 Oxygen Delivery Method Room Air Intake Visit Reasons: blood in urine, cramping Intake Note: Patient states that she also has blood in stool now. Patient states she had a stomach bug in the beginning of the week. Patient is states that she urinating less now. Patient states that when she is passing stool her anus begins to hurt and stomach begins to cramp. Commercial Insurance Underwriter Required: No Accompanied by: Self / Same As Patient Allergies cat dander Allergy (Mild, Verified 07/11/23 09:03) sneezing pollen extracts Allergy (Verified 07/11/23 09:03) Unknown Medication List - Last Reconciled 07/11/23 by Fanta Meyers, LIQUEFACTION SUPERVISOR- armodafinil 150 mg PO QAM 30 days ascorbate calcium (vitamin C) 500 mg PO DAILY bupropion HCl 150 mg PO QAM calcium carb and citrate-vitD3 600 mg-12.5 mcg (500 unit) ER 2 tabs PO DAILY fluoxetine 60 mg (3 x 20 mg) PO QAM 3 months fluticasone propionate 50 mcg/actuation (Allergy Relief (fluticasone)) 2 sprays intranasal DAILY 1 month glycopyrrolate 1 mg PO BID-TID PRN infliximab-dyyb (Inflectra) 650 mg IV levonorgestrel (Mirena) intrauterine loratadine (Allergy Relief (loratadine)) 10 mg PO DAILY magnesium 250 mg PO DAILY melatonin mg PO PRN omega 8-ore-roj-fish oil 300-1,000 mg (Fish Oil) 1 cap PO DAILY pitolisant (Wakix) 17.8 mg PO DAILY 30 days propranolol ER 60 mg PO BEDTIME 30 days sodium oxybate (Xyrem) 4.5 grams (9 mL) PO BID 30 days zinc 15 mg PO DAILY Tobacco use date assessed: 07/11/23 Dental Screening Dental Screen Date: 07/11/23 Did you have a dental visit in the last 12 months?: Yes Did you have a dental problem in the last 6 months where you did not have access to dental care?: No Was dental information given to patient?: Patient has dentist HPI HPI Comments History of Present Illness Details and friday at chicken she cooked at home - maybe undercooked Friday night started to feel sick to stomach; nauseas. Next AM upon waking cramping, heartburn, nausea. Took Tums. Tried to eat bland diet but this increased heartburn. Drank h20 and vomited x 1 Ate rice and soup and then developed vomiting and diarrhea. Used otc anti diarrheal on Friday night Friday AM felt better. cont w bland diet. No vomiting or diarrhea. Bucklin like she was dehydrated from the days prior. Drank h20. Friday missed work. Cont bland diet. All sx resolved. Returned to work on Friday w/o incident Fears becoming ill so limiting diet a lot. Reports chronic GI issues at baseline. Yesterday noticed blood in urine - bright red with pink tinged urine. Nothing upon wiping. Has IUD - no periods or vaginal bleeding. Thought maybe she had back pain. but really unsure. Last night reports blood in stool described as red streaks and BRBPR. Has chrons and this has happened before. [facility] Medical History (Updated 07/11/23 @ 08:48 by Fanta Meyers, [facility]) No pertinent past medical history Surgical History Hx of colonoscopy History of esophagogastroduodenoscopy (EGD) History of wisdom tooth extraction History of laparoscopy History of appendectomy (~2014) Family History Paternal Grandmother Substance abuse Maternal Grandmother Substance abuse Maternal Uncle Substance abuse Mother Bipolar 2 disorder Sister Panic attack Depression Maternal Grandfather Prostate cancer Paternal Grandfather Prostate cancer Cancer of kidney Other Anxiety Social History Housing: Condominium Alcohol intake: never Patient Tobacco Use Status: Never used Tobacco e-Cigarette/Vaping Use: Never Used Substance Use Type: Marijuana service: No Current occupational status: employed 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 Aiden Bajwa, Deborah Thompson, Bennie Bobby and colleagues, with an educational max from [employer]. Review of Systems Const All systems reviewed & are unremarkable except as noted in HPI and below Physical exam (Primary Care) Vital Signs: Last Vital Signs Temp 97.8 F 07/11/23 08:19 Pulse 102 H 07/11/23 08:19 Resp 13 07/11/23 08:19 BP 108/70 07/11/23 08:19 Pulse Ox 99 07/11/23 08:19 Oxygen Delivery Method Room Air 07/11/23 08:19 BMI result Body Mass Index 23.1 Tobacco/Smoking Status: Tobacco use Status Tobacco use date assessed 07/11/23 07/11/23 08:29 Patient Tobacco Use Status Never used Tobacco 07/11/23 08:19 e-Cigarette/Vaping Use Never Used 07/11/23 08:19 Thrive Assessment: Date of Thrive Assessment Date Thrive assessed 08/07/22 07/11/23 08:19 Const Other: Awake alert oriented no acute distress Sclera is nonicteric Mucous membranes moist Regular rate and rhythm Lung sounds clear to auscultation bilat CVAT negative bilat Abdomen soft, bowel sounds within normal limits x4 quads, no hepatosplenomegaly, no peritoneal signs Results AMB Urinalysis, Automated UA Leukoctes 1 Chavo/uL Last Edit by MATHEUS Peters on 07/11/23 09:36 UA Nitrite Negative Last Edit by MATHEUS Peters on 07/11/23 09:36 UA Urobilinogen 0 mg/dL Last Edit by MATHEUS Peters on 07/11/23 09:36 UA Protein 0 mg/dL Last Edit by MATHEUS Peters on 07/11/23 09:36 UA pH 8.0 Last Edit by MATHEUS Peters on 07/11/23 09:36 UA Blood 0 Ron/uL Last Edit by MATHEUS Peters on 07/11/23 09:36 UA Specific [place] 1.015 Last Edit by MATHEUS Peters on 07/11/23 09: 36 UA Ketone Negative Last Edit by MATHEUS Peters on 07/11/23 09:36 UA Bilirubin 0 mg/dL Last Edit by MATHEUS Peters on 07/11/23 09:36 UA Glucose 0 mg/dL Last Edit by MATHEUS Peters on 07/11/23 09:36 Assessment and Plan Assessment & Plan (1) Hematuria: Code(s): R31.9 - Hematuria, unspecified Qualifiers: Hematuria type: gross Qualified Code(s): R31.0 - Gross hematuria Plan: Urine dip done today negative for blood. We will send for urine culture. Advised this may be related to her decreased p.o. intake over the last few days. However the urine dip today does not show any signs of dehydration. Advised to hydrate liberally she will be called with the urine culture results and of course treated appropriately as needed for any positive findings (2) Passage of bloody stools: Code(s): K92.1 - Melena Plan: In the setting of Crohn's disease. We will check labs today along with stool samples to rule out infectious pathology as she reports that her symptoms started after eating undercooked chicken. At this time I have advised her to eat diet as tolerated. I will follow up with her once the results are back and treat as needed Plan Total time spent caring for the patient today was 60 minutes. This includes time spent before the visit reviewing the chart, time spent during the visit, and time spent after the visit on documentation This note is constructed using voice recognition software. While every effort has been made to ensure accuracy in rn family, still errors may have been included Sometimes, these errors may affect the content or meaning of the given sentence . Orders: Orders Complete Blood Count no Diff Today K92.1 - Melena, R31.9 - Hematuria, unspecified Camplyobacter jejuni Antibody Today K92.1 - Melena, R31.9 - Hematuria, unspecified Comprehensive Met. Panel Today K92.1 - Melena, R31.9 - Hematuria, unspecified AMB Urinalysis Automated Today K92.1 - Melena, R31.9 - Hematuria, unspecified Urine Culture Today K92.1 - Melena, R31.9 - Hematuria, unspecified H pylori Ag Stool Today K92.1 - Melena, R31.9 - Hematuria, unspecified Cyclospora & Isospora Stool Today K92.1 - Melena, R31.9 - Hematuria, unspecified Other Ref Test - Misc Today K92.1 - Melena, R31.9 - Hematuria, unspecified Coding Level of Care Code Est Pt Level 5 (80454) Diagnoses Gross hematuria R31.0 Hematuria type: gross Passage of bloody stools K92.1
[2023-07-11 08:19] VITALS: BP 108/70; PULSE 102; RESP 13; TEMP 36.6; O2SAT 99; BMI 23.1
== END 2023-07-11 09:39 | disposition home or self-care (01) ==
PROVIDERS: PCP Family Medicine; Visit Provider Nurse Practitioner Family
DX: K92.1 Melena (principal); R31.9 Hematuria, unspecified; R31.0 Gross hematuria
CPT/HCPCS: 81003; 99215

== ENCOUNTER 2023-07-11 09:01 | Outpatient (REF) | payer OTHER, SELFPAY | END 2023-07-11 09:02 | disposition home or self-care (01) | LOC: HO.LAB 09:01 | PROVIDERS: Visit Provider Nurse Practitioner Family | DX: K21.9 Gastro-esophageal reflux disease without esophagitis (principal); R31.9 Hematuria, unspecified | CPT/HCPCS: 87086; 87147 ==

== ENCOUNTER 2023-07-11 10:05 | Outpatient (REF) | payer OTHER, SELFPAY ==
[2023-07-11 11:44] LABS: MANUAL DIFF FLAG NO
[2023-07-11 11:53] LABS: Basophils Percent Auto 0.4 % (0-2); Eosinophils Absolute Auto 0.1 X10*3/uL (0.0-0.4); Eosinophils Percent Auto 0.6 % (0-4); Hemoglobin 14.4 g/dl (12.0-16.0); Imm Gran Abs Auto 0.03 X10*3/uL (0.00-0.03); Imm Gran Pct Auto 0.4 % (0.0-0.4); Lymphocytes Absolute Auto 2.7 X10*3/uL (1.2-4.9); Lymphocytes Percent Auto 34.1 % (20-40); Mean Corpuscular HGB Conc 34.3 g/dl (31.0-35.0); Mean Corpuscular Hemoglobin 29.8 pg (27.0-33.0); Monocytes Absolute Auto 0.4 X10*3/uL (0.1-1.2); Neutrophils Absolute Auto 4.7 x10*3/uL (2.0-8.3); Neutrophils Percent Auto 59.5 % (45-73); Platelet Count 306 X10*3/uL (160-400); Red Blood Count 4.83 X10*6/uL (4.20-5.50); Red Cell Distribution Width 11.6 % (11.0-16.0); White Blood Count 7.8 X10*3/uL (4.8-10.8)
[2023-07-11 12:38] LABS: Alanine Aminotransferase 28 U/L (0-31); Albumin Level 4.4 g/dL (3.5-5.0); Alkaline Phosphatase 64 U/L (39-117); Anion Gap 12 (12-20); Aspartate Amino Transferase 17 U/L (5-31); Bilirubin Total 1.1 mg/dL (0.0-1.0); Blood Urea Nitrogen 11 mg/dL (9-16); Calcium 9.1 mg/dL (8.4-10.2); Carbon Dioxide 27 mmol/L (22-29); Chloride 103 mmol/L (96-108); Estimated Glomerular Filt Rate > 60; Glucose Random 85 mg/dL (60-115); Potassium 3.7 mmol/L (3.3-5.1); Sodium 138 mmol/L (135-145); Total Protein 7.7 g/dL (6.5-8.0)
[2023-07-17 21:58] LABS: Camplyobacter jejuni Antibody <0.90
== END 2023-07-11 10:06 | disposition home or self-care (01) ==
LOC: HO.WFDLDS 10:05
PROVIDERS: Visit Provider Nurse Practitioner Family
DX: R25.1 Tremor, unspecified (principal); R00.0 Tachycardia, unspecified; R20.2 Paresthesia of skin; G47.419 Narcolepsy without cataplexy; K92.1 Melena; R31.9 Hematuria, unspecified
CPT/HCPCS: 36415; 80053; 85025; 85027; 86625

== ENCOUNTER 2023-08-26 08:28 | Outpatient (AMB) | payer OTHER, SELFPAY ==
--- NOTE | 2023-08-26 08:38 | A.OFFVIS_ITS ---
Intake Vital Signs 08/26/23 08:39 Height 5 ft 8 in Weight 154 lb BMI 23.4 BP 110/74 Blood Pressure Location Rt brachial Position Sitting Pulse 72 Pulse Source Pulse Oximeter Pulse Oximetry (%) 98 Oxygen Delivery Method Room Air Intake Visit Reasons: 4 mo f/u - Narcolepsy-LVM Intake Note: Patient presents for 4 month follow up narcolepsy. Allergies cat dander Allergy (Mild, Verified 08/26/23 08:44) sneezing pollen extracts Allergy (Verified 08/26/23 08:44) Unknown Medication List - Last Reconciled 08/26/23 by TIFFANIE Beltrán armodafinil 150 mg PO QAM 30 days ascorbate calcium (vitamin C) 500 mg PO DAILY bupropion HCl 150 mg PO QAM calcium carb and citrate-vitD3 600 mg-12.5 mcg (500 unit) ER 2 tabs PO DAILY fluoxetine 40 mg PO QAM fluticasone propionate 50 mcg/actuation (Allergy Relief (fluticasone)) 2 sprays intranasal DAILY 1 month glycopyrrolate 1 mg PO BID-TID PRN 30 days infliximab-dyyb (Inflectra) 650 mg IV levonorgestrel (Mirena) intrauterine loratadine (Allergy Relief (loratadine)) 10 mg PO DAILY magnesium 250 mg PO DAILY melatonin mg PO PRN omega 9-zsj-nda-fish oil 300-1,000 mg (Fish Oil) 1 cap PO DAILY pitolisant (Wakix) 17.8 mg PO DAILY 30 days propranolol ER 60 mg PO BEDTIME 30 days sodium oxybate (Xyrem) 4.5 grams (9 mL) PO BID 30 days sodium oxybate ER (Lumryz) 9 grams PO BEDTIME 30 days zinc 15 mg PO DAILY HPI HPI Comments History of Present Illness Details 27-yr-old female presents for f/u visit. Pt denies any significant interval medical changes. Pt has been receiving her Xyrem through a special bridge program through customer management specialist. Her Narcolepsy s/s are well-controlled on her current regimen. She is starting to wean off of her antidepressants, as she feels as these were started as her hypersomnia was attributed to depression prior to her being dx'd w/ narcolepsy. She is noticing more dreams. She does note, that prior to staring narcolepsy tx, she would easily fall asleep during the day and would quickly dream. She denies any h/o cataplexy s/s. [facility] Medical History (Updated 08/26/23 @ 21:15 by TIFFANIE Beltrán) No pertinent past medical history Surgical History Hx of colonoscopy History of esophagogastroduodenoscopy (EGD) History of wisdom tooth extraction History of laparoscopy History of appendectomy (~2014) Family History Paternal Grandmother Substance abuse Maternal Grandmother Substance abuse Maternal Uncle Substance abuse Mother Bipolar 2 disorder Sister Panic attack Depression Maternal Grandfather Prostate cancer Paternal Grandfather Prostate cancer Cancer of kidney Other Anxiety Social History Housing: Condominium Alcohol intake: never Patient Tobacco Use Status: Never used Tobacco e-Cigarette/Vaping Use: Never Used Substance Use Type: Marijuana service: No Current occupational status: employed 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 @ [facility] Cognitive needs: No Hearing needs: No Vision needs: No Physical Exam Vital Signs: Last Vital Signs Pulse 72 08/26/23 08:39 BP 110/74 08/26/23 08:39 Pulse Ox 98 08/26/23 08:39 Oxygen Delivery Method Room Air 08/26/23 08:39 BMI result Body Mass Index 23.4 Const General: cooperative and no acute distress Orientation/consciousness: patient oriented x3 Resp Effort & Inspection: normal respiratory effort and able to speak in complete sentences Neuro General: patient oriented x3 Cranial nerves: Yes CN's II-XII intact bilaterally Cognition (Neuro): normal cognition Psych Appearance: grossly normal Mental Status: mental status grossly normal Speech and movement: Normal speech and movement present Affect: normal affect Attitude: cooperative Assessment & Plan Assessment & Plan (1) Narcolepsy without cataplexy: Comment: MSLT results in setting of pt h/o hypersomnia, early onset REM c/w narcolepsy. Code(s): G47.419 - Narcolepsy without cataplexy (2) Tremor: Comment: ? familial, medication induced- h/o quetiapine and lamotrigine use, ? exaggerated physiological. Code(s): R25.1 - Tremor, unspecified Plan For BUE L > R numbness and parestehsias: Will monitor. BUE EMG/NCS- normal. LUE carpal-tunnel style wrist splint at night. ? For narcolespy: Trial Lumryz 9 gm qhs- reviewed instructions for use. Continue Xyrem 4.5G bid (during nighttime)- her insurance does not cover this. Continue Pitolisant 17.8mg po qam. Continue Armodafinil 150mg qam- keep locked up w/ her other narcolespy tx's. Continue Propranol ER 60mg qhs- helping HR control and tremor. Continue to optimize sleep hygiene. In regards to family planning- Pt has been advised to have high-risk OB consult- referal resent to [facility] last week- pt to notify us if she does not hear from them in 1-2 wks. Discussed if she were to come off her narcolepsy tx's, we would develop a plan to minimize her narcolepsy s/s. Future considerations: [place]. ? F/u in 4 months or sooner prn new/worsening s/s. Medications: New sodium oxybate ER (Lumryz) 9 grams PO BEDTIME 30 ea 1RF narcolepsy 30 days Changed From fluoxetine 60 mg (3 x 20 mg) PO QAM 270 caps 0RF 3 months To fluoxetine 40 mg PO QAM Coding Level of Care Code Est Pt Level 4 (73478) Diagnoses Narcolepsy without cataplexy G47.419 Tremor R25.1
[2023-08-26 08:39] VITALS: BP 110/74; PULSE 72; O2SAT 98; BMI 23.4
== END 2023-08-26 09:44 | disposition home or self-care (01) ==
PROVIDERS: PCP Hospitalist; Visit Provider Nurse Practitioner Family
DX: G47.419 Narcolepsy without cataplexy (principal); R25.1 Tremor, unspecified
CPT/HCPCS: 99214

== ENCOUNTER → 2023-08-26 08:28 | Outpatient (BNVA) | payer OTHER, SELFPAY | PROVIDERS: PCP Hospitalist; Visit Provider Nurse Practitioner Family ==

== ENCOUNTER 2023-09-05 09:02 | Outpatient (AMB) | payer OTHER, SELFPAY ==
--- NOTE | 2023-09-05 09:06 | A.OFFVIS_ITS ---
Intake Vital Signs 09/05/23 09:08 Height 5 ft 8 in Weight 156 lb 8.451 oz BMI 23.8 BP 138/76 Blood Pressure Location Lt brachial Position Sitting Pulse 88 Intake Visit Reasons: 4 month follow up Intake Note: Rina presents in the office as a 4 month follow up. CC: She has a medical leave form for you to sign. She is switching jobs. Allergies cat dander Allergy (Mild, Verified 09/05/23 09:08) sneezing pollen extracts Allergy (Verified 09/05/23 09:08) Unknown HPI 4 month follow up HPI Details 27 yr old f with hx of anxiety, narcolep sy, anxiety, Crohns disease being seen for f/u RECAP: Dx with Crohns 2014 aged 19 she had been having pain on her initial presentation at the time, She has disease of small and large bowels Has been receiving remicade 500 mg q 8 weeks with good response Has also tried MTX and folic acid for 1 yr in the past never smoker Surgeries: ileal resection, appendectomy, 2015 ovarian torsion and adhesions 2015 IMAGINg: MRe: 2018-- no inflammation EGD/colonoscopy-- 2020 at [place] and was apparently nml LABS: TB test neg 05/23 Vit c low vit D low hep b ab pos I increased the dose of inflectra due to undetectable trough level INTERIM: She has been doing well on inflectra 650 mg she had isolated epsiode of nausea, diarrhea for few days Jun 2023--now back to normal she is changing jobs, hoping for less stress no mouth ulcers she denies joint swelling or pain no skin rashes still taking vitamin supplements EXAM: GENERAL: The patient is well developed and nontoxic. VITAL SIGNS:see workflow HEENT: Nonicteric sclerae, PERRLA, EOMI. Oropharynx clear. Moist mucous membranes. Conjunctivae appear well perfused. No thyroid mass. CHEST: Chest wall is nontender. HEART: Regular rate and rhythm without murmurs. LUNGS: Clear to auscultation bilaterally. ABDOMEN: Soft, positive bowel sounds, nontender, no organomegaly.no flank tenderness SKIN: No rash, no excessive bruising, petechiae, or purpura. NEUROLOGIC: Cranial nerves II-XII intact without motor/sensory deficit. A/P: 1/ Crohns -large and small bowel - dose increased to 650 mg due to undetectable trough, no antibodies seen--seems to be doing well PLAN: 1/ still needs to get TB test 2/ fill out FMLA paper work 3/ needs colonoscopy for screening with chromoendoscopy PFSH Medical History No pertinent past medical history Surgical History Hx of colonoscopy History of esophagogastroduodenoscopy (EGD) History of wisdom tooth extraction History of laparoscopy History of appendectomy (~2014) Family History Paternal Grandmother Substance abuse Maternal Grandmother Substance abuse Maternal Uncle Substance abuse Mother Bipolar 2 disorder Sister Panic attack Depression Maternal Grandfather Prostate cancer Paternal Grandfather Prostate cancer Cancer of kidney Other Anxiety Social History Housing: Condominium Alcohol intake: never Patient Tobacco Use Status: Never used Tobacco e-Cigarette/Vaping Use: Never Used Substance Use Type: Marijuana service: No Current occupational status: employed 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 @ [employer] Cognitive needs: No Hearing needs: No Vision needs: No Physical Exam Vital Signs: Last Vital Signs Pulse 88 09/05/23 09:08 BP 138/76 09/05/23 09:08 BMI result Body Mass Index 23.8 Assessment & Plan Assessment & Plan (1) Crohn's disease of both small and large intestine: Code(s): K50.80 - Crohn's disease of both small and large intestine without complications Plan: PLAN: 1/ still needs to get TB test 2/ fill out FMLA paper work 3/ needs colonoscopy for screening with chromoendoscopy Medications: New sodium,potassium,mag sulfates 17.5-3.13-1.6 gram (Suprep Bowel Prep Kit) DILUTE; drink 1/2 at 6-8 pm and half at 11 PM- 1AM 354 mL 0RF Coding Level of Care Code Est Pt Level 4 (06915) Diagnoses Crohn's disease of both small and large intestine K50.80
[2023-09-05 09:08] VITALS: BP 138/76; PULSE 88; BMI 23.8
== END 2023-09-05 09:51 | disposition home or self-care (01) ==
PROVIDERS: PCP Hospitalist; Visit Provider Internal Medicine Gastroenterology
DX: K50.80 Crohn's disease of both small and large intestine without complications (principal)
CPT/HCPCS: 99214

== ENCOUNTER → 2023-09-05 09:02 | Outpatient (BNVA) | payer OTHER, SELFPAY | PROVIDERS: PCP Hospitalist; Visit Provider Internal Medicine Gastroenterology ==

== ENCOUNTER 2023-11-17 08:05 | Outpatient (AMB) | payer OTHER, SELFPAY ==
--- NOTE | 2023-11-17 08:07 | MHC.PC.OV ---
Vital Signs 11/17/23 08:14 Height 5 ft 6.34 in Weight 152 lb BMI 24.3 BP 98/72 Blood Pressure Location Rt brachial Position Sitting Respiration 12 Pulse 84 Pulse Source Pulse Oximeter Temp 98.4 F Temp Source Oral Pulse Oximetry (%) 98 Oxygen Delivery Method Room Air Intake Visit Reasons: PE transfer of care Intake Note: New patient visit [employer] Required: No Is last menstrual period known: No Allergies cat dander Allergy (Mild, Verified 11/17/23 08:28) sneezing pollen extracts Allergy (Verified 11/17/23 08:28) Unknown Medication List - Last Reconciled 11/17/23 by Fanta Meyers, [employer] armodafinil 150 mg PO QAM 30 days ascorbate calcium (vitamin C) 500 mg PO DAILY bupropion HCl XL 150 mg PO QAM calcium carb and citrate-vitD3 600 mg-12.5 mcg (500 unit) ER 2 tabs PO DAILY fluticasone propionate 50 mcg/actuation (Allergy Relief (fluticasone)) 2 sprays intranasal DAILY 1 month glycopyrrolate 1 mg PO BID-TID PRN 30 days infliximab-dyyb (Inflectra) 650 mg IV levonorgestrel (Mirena) intrauterine loratadine (Allergy Relief (loratadine)) 10 mg PO DAILY magnesium 250 mg PO DAILY melatonin mg PO PRN omega 1-ncz-usp-fish oil 300-1,000 mg (Fish Oil) 1 cap PO DAILY pitolisant (Wakix) 17.8 mg PO DAILY 30 days propranolol ER 60 mg PO BEDTIME 30 days sodium oxybate ER (Lumryz) 9 grams PO BEDTIME 30 days sodium,potassium,mag sulfates 17.5-3.13-1.6 gram (Suprep Bowel Prep Kit) DILUTE; drink 1/2 at 6-8 pm and half at 11 PM- 1AM zinc 15 mg PO DAILY Tobacco use date assessed: 11/17/23 Dental Screening Dental Screen Date: 07/11/23 HPI HPI Comments History of Present Illness Details 27-year-old female with MDD, generalized anxiety disorder, narcolepsy, seasonal allergies, vitamin-D deficiency, Crohn's disease status post colonoscopy, EGD, wisdom tooth extraction, laparoscopy, ileal resection, appendectomy, 2015, ovarian torsion and adhesions 2015 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 Will have repeat 01/2024 Tdap 2019 [facility] @ [facility] Here today to est care and for a CPE Vision: last eye exam 2018, does not wear corrective lenses or glasses Skin: has rash on left upper arm, being treated by Derm w/ topical steroids. Mom with severe osteoporosis. She is worried about this. States hx of right foot fracture, had a DEXA done at that time. Was placed on high dose Ca+. This was in 2020. Working on tapering off mental health meds; feeling better. On BB to prevent tachy r/t stimulant meds used for Narcolepsy Tremor are also controlled on BB Routine mgmt for Crohns and Narcolepsy Seasonal allergies controlled w/ flonase and claritin Last set of labs 07/2023 reviewed. [facility] Medical History (Updated 11/17/23 @ 08:53 by TIFFANIE Mckenzie-) Anxiety with depression No pertinent past medical history Surgical History Hx of colonoscopy History of esophagogastroduodenoscopy (EGD) History of wisdom tooth extraction History of laparoscopy History of appendectomy (~2014) Family History Paternal Grandmother Substance abuse Maternal Grandmother Substance abuse Maternal Uncle Substance abuse Mother Bipolar 2 disorder Sister Panic attack Depression Maternal Grandfather Prostate cancer Paternal Grandfather Prostate cancer Cancer of kidney Other Anxiety Social History (Updated 11/17/23 @ 08:11 by Lillian Gandhi CMA) Housing: Condominium Alcohol intake: never Patient Tobacco Use Status: Never used Tobacco e-Cigarette/Vaping Use: Never Used service: No Current occupational status: employed 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 1. Little interest or pleasure in doing things: not at all 2. Feeling down, depressed, or hopeless: not at all 3. Trouble falling or staying asleep, or sleeping too much: not at all 4. Feeling tired or having little energy: not at all 5. Poor appetite or overeating: not at all 6. Feeling bad about yourself - or that you are a failure or have let yourself or your family down: not at all 7. Trouble concentrating on things, such as reading the newspaper or watching television: not at all 8. Moving or speaking so slowly that other people could have noticed. Or the opposite - being so fidgety or restless that you have been moving around a lot more than usual: not at all 9. Thoughts that you would be better off or of hurting yourself in some way: not at all Total score: 0 Depression Screening Interpretation: Negative Depression Screening Done: Yes 82586 - PHQ-9 Billing: Yes Source: Developed by Drs. Aiden Bajwa, Deborah Thompson, Bennie Bobby and colleagues, with an educational max from [employer]. Thrive Questionnaire Date Thrive assessed: 11/17/23 I am a: Patient What is your living situation today?: I have a steady place to live Within the past 12 months, did the food you bought not last and you didn't have the money to get more?: Never true Within the past 12 months, did you worry whether your food would run out before you got money to buy more?: Never true Do you have trouble paying for medicines?: No Do you have trouble getting transportation to medical appointments?: No Do you have trouble paying your heating and electricity bill?: No Do you have trouble taking care of your child, family member or friend?: No Do you have trouble with day-to-day activities such as bathing, preparing meals, shopping, managing finances, etc.?: No Are you currently unemployed and looking for a job?: No Are you interested in more education?: No Please select the resources that you would like help with: None Currently or been in a relationship where the following occur: no concerns reported THRIVE Score: 0 AUDIT C Alcohol Use Questionnaire (AUDIT-C) 1. How often do you have a drink containing alcohol?: Monthly or less 2. How many drinks containing alcohol do you have on a typical day when you are drinking?: 1 or 2 3. How often do you have six or more drinks on one occasion?: Never Total Score: 1 Score Reviewed/Action Taken: Yes KEILA-7 AMB Questionnaire KEILA-7 Date KEILA - 7 assessed: 11/17/23 Feeling nervous, anxious, or on edge: 0 = Not at all Not being able to stop or control worryin = Not at all Worrying too much about different things: 0 = Not at all Trouble relaxin = Not at all Being so restless that it is hard to sit still: 0 = Not at all Becoming easily annoyed or irritable: 0 = Not at all Feeling afraid as if something awful might happen: 0 = Not at all Total KEILA-7 score (0-4 normal; 5-9 mild; 10-14 moderate; 15-21 severe): 0 Source: Developed by Drs. Aiden Bajwa, Deborah Thompson, Bennie Bobby and colleagues, with an educational max from [employer]. KEILA-7 Assessment Billing KEILA-7 Assessment Tool: KEILA-7 Assessment 24070 Review of Systems Const Details: Constitutional: Denies fever. Skin: Denies rash. Eye: Denies eye pain. ENMT: Denies sore throat and nasal congestion. Respiratory: Denies shortness of breath and cough. Gastrointestinal: Denies nausea, vomiting or abdominal pain. Cardiovascular: Denies chest pain and syncope. Genitourinary: Denies dysuria. Musculoskeletal: Denies back pain and extremity pain. Neurologic: Denies headaches, confusion, and weakness. Psychiatric: Denies suicidal thoughts and substance abuse. Allergy/ Immunologic: Denies impaired immunity. Physical exam (Primary Care) Vital Signs: Last Vital Signs Temp 98.4 F 11/17/23 08:14 Pulse 84 11/17/23 08:14 Resp 12 11/17/23 08:14 BP 98/72 11/17/23 08:14 Pulse Ox 98 11/17/23 08:14 Oxygen Delivery Method Room Air 11/17/23 08:14 BMI result Body Mass Index 24.3 Tobacco/Smoking Status: Tobacco use Status Tobacco use date assessed 11/17/23 11/17/23 08:11 Patient Tobacco Use Status Never used Tobacco 11/17/23 08:11 e-Cigarette/Vaping Use Never Used 11/17/23 08:11 PHQ-9: PHQ-9 Score PHQ-9: Total score 0 11/17/23 08:25 Depression Screening Interpretation: Negative Thrive Assessment: Date of Thrive Assessment Date Thrive assessed 11/17/23 11/17/23 08:16 Currently or been in a relationship where the following occur: no concerns reported Const Other: General: Well developed, well nourished, in no acute distress. Appears stated age. Head: Normocephalic, atraumatic. Eyes: Pupils are equal, round and reactive to light and accommodation. Conjunctivae are clear. Vision grossly normal. Ears: TMs clear AU, EACS WNL Nose: Patent, without discharge. Mouth: There are no ulcers or lesions noted. No inflammation, no post nasal drip, no plaques nor exudates. Neck: Supple, no adenopathy or thyromegaly. Lungs: Clear to auscultation bilaterally. No rales, rhonchi or wheeze noted. Good air flow in all limon. Heart: Regular rate and rhythm. No murmurs, click, rubs or gallops are noted. Abdomen: Bowel sounds present in all quadrants. The abdomen is soft, nontender, with no masses or organomegaly noted. No hernias are noted. Musculoskeletal: Joints are nontender, without swelling, redness, or effusions. Range of motion is observed to be normal. Pulses: Peripheral pulses are equal and palpable bilaterally. Extremities: No clubbing, cyanosis nor edema is noted. Neurologic: Gait and station normal. Cranial Nerves 2-12 intact. Motor strength grossly symmetrical and intact. No sensory loss. Balance normal. Skin: No ulcers or lesions noted. Turgor is good. Skin color is good. Hair and nails are without abnormalities. Left upper arm is an erythematous plaque with secondary excoriation Center scabbed without signs and symptoms of infection. Psych: Normal eye contact, affect and mood appropriate, and normal interactions. Patient is alert and appropriate to context. Assessment and Plan Assessment & Plan (1) Encounter for general adult medical examination without abnormal findings: Code(s): Z00.00 - Encounter for general adult medical examination without abnormal findings (2) Crohn's disease of both small and large intestine: Comment: Managed by [facility]. Code(s): K50.80 - Crohn's disease of both small and large intestine without complications Qualifiers: Digestive disease complication type: without complication Qualified Code(s): K50.80 - Crohn's disease of both small and large intestine without complications (3) Family hx osteoporosis: Comment: We will order a DEXA scan today given the family history as well as Crohn's. She is already currently on calcium plus vitamin-D. If DEXA is positive will refer to Rheumatology for further evaluation and treatment. Code(s): Z82.62 - Family history of osteoporosis (4) Tremor: Comment: Managed by Neurology with propranolol. Code(s): R25.1 - Tremor, unspecified (5) Narcolepsy without cataplexy: Comment: MSLT results in setting of pt h/o hypersomnia, early onset REM c/w narcolepsy. Managed by [facility] Neurology Code(s): G47.419 - Narcolepsy without cataplexy (6) Seasonal allergies: Comment: Well controlled with Claritin and Flonase Code(s): J30.2 - Other seasonal allergic rhinitis (7) Vitamin D deficiency: Comment: On supplementation Code(s): E55.9 - Vitamin D deficiency, unspecified (8) Vitamin C deficiency: Comment: On supplementation Code(s): E54 - Ascorbic acid deficiency (9) MDD (major depressive disorder), recurrent episode: Comment: Active with Psychiatry. Working on tapering off all of her medications. Code(s): F33.9 - Major depressive disorder, recurrent, unspecified Qualifiers: Major depression episode severity: mild Qualified Code(s): F33.0 - Major depressive disorder, recurrent, mild (10) KEILA (generalized anxiety disorder): Comment: See MDD care plan Code(s): F41.1 - Generalized anxiety disorder Orders: Orders XR DEXA appendicular skeleton Today K50.80 - Crohn's disease of both small and large intestine without complications, Z82.62 - Family history of osteoporosis Patient Instructions: RTO 1 year for CPE, sooner as needed. Health screenings for women You should visit your health care provider from time to time, even if you are healthy. The purpose of these visits is to: Screen for medical issues Assess your risk for future medical problems Encourage a healthy lifestyle Update vaccinations and other preventive care services Help you get to know your provider in case of an illness Information Even if you feel fine, you should still see your provider for regular checkups. These visits can help you avoid problems in the future. For example, the only way to find out if you have high blood pressure is to have it checked regularly. High blood sugar and high cholesterol levels also may not have any symptoms in the early stages. A simple blood test can check for these conditions. There are specific times when you should see your provider or receive specific health screenings. The [place] Preventive Services Task Force publishes a list of recommended screenings. Below are screening guidelines for women ages 18 to 39. BLOOD PRESSURE SCREENING Your blood pressure should be checked at least once every 3 to 5 years if: Your blood pressure is in the normal range (top number less than 120 mm Hg and bottom number less than 80 mm Hg) You don't have risk factors for high blood pressure Ask your provider if you need your blood pressure checked more often if: The top number is 120 to 129 mm Hg or the bottom number is 70 to 79 mm Hg You have diabetes, heart disease, kidney problems, are overweight, or have certain other health conditions You have a first-degree relative with high blood pressure You are Black You had high blood pressure during a If the top number is 130 mm Hg or greater or the bottom number is 80 mm Hg or greater, this is considered stage 1 hypertension. Schedule an appointment with your provider to learn how you can reduce your blood pressure. Watch for blood pressure screenings in your area. Ask your provider if you can stop in to have your blood pressure checked. BREAST CANCER SCREENING Experts do not agree about the benefits of breast self-exams in finding breast cancer or saving lives. Talk to your provider about what is best for you. A screening mammogram is not recommended for most women under age 40. Your provider may discuss and recommend mammograms, MRI scans, or ultrasounds if you have an increased risk for breast cancer, such as: A mother or sister who had breast cancer at a young age (most often starting screening earlier than the age the close relative was diagnosed) You carry a high-risk genetic marker CERVICAL CANCER SCREENING Cervical cancer screening should start at age 21 years unless your provider advises otherwise. After the first test: Women ages 21 through 29 should have a Pap test every 3 years. Exoprts do not agree on whether HPV testing is recommended for this age group. Women ages 30 through 65 should be screened with either a Pap test every 3 years or the HPV test every 5 years or both tests every 5 years (called cotesting ). Women who have been treated for precancer (cervical dysplasia) should continue to have Pap tests for 20 years after treatment or until age 65, whichever is longer. If you have had your uterus and cervix removed (total hysterectomy), and you have not been diagnosed with cervical cancer or precancer (high grade cervical neoplasia), you do not need cervical cancer screening. CHOLESTEROL SCREENING Cholesterol screening should begin at: Age 45 for women with no known risk factors for coronary heart disease Age 20 for women with known risk factors for coronary heart disease Repeat cholesterol screening should take place: Every 5 years for women with normal cholesterol levels More often if changes occur in lifestyle (including weight gain and diet) More often if you have diabetes, heart disease, kidney problems, or certain other conditions DIABETES SCREENING You should be screened for diabetes starting at age 35 and then repeated every 3 years if you have no risk factors for diabetes. Screening may need to start earlier and be repeated more often if you have other risk factors for diabetes, such as: You have a first degree relative with diabetes. You are overweight or have obesity. You have high blood pressure, prediabetes, or a history of heart disease. Screening for diabetes should be done if you are planning to become and you are overweight and have other risk factors such as high blood pressure. DENTAL EXAM Go to the dentist once or twice every year for an exam and cleaning. Your dentist will evaluate if you need more frequent visits. EYE EXAM Have an eye exam every 5 to 10 years before age 40. If you have vision problems, have an eye exam every 2 years or more often if recommended by your provider. You should have an eye exam that includes an examination of your retina (back of your eye) at least every year if you have diabetes. IMMUNIZATIONS Commonly needed vaccines include: Flu shot: get one every year. COVID-19 vaccine: ask your provider what is best for you. Tetanus-diphtheria and acellular pertussis (Tdap) vaccine: have one at or after age 19 as one of your tetanus-diphtheria vaccines if you did not receive it as an adolescent. Tetanus-diphtheria: have a booster (or Tdap) every 10 years. Varicella vaccine: receive 2 doses if you never had chickenpox or the varicella vaccine. Hepatitis B vaccine: receive 2, 3, or 4 doses, depending on your exact circumstances. Measles, mumps, and rubella (MMR) vaccine: receive 1 to 2 doses if you are not already immune to MMR. Your provider can tell you if you are immune. Ask your provider about the human papillomavirus (HPV) vaccine if: You have not received the HPV vaccine in the past You have not completed the full vaccine series (you should catch up on this shot) Ask your provider if you should receive other immunizations if you have certain health problems that increase your risk for some diseases such as pneumonia. INFECTIOUS DISEASE SCREENING Women who are sexually active should be screened for chlamydia and gonorrhea up until age 25. Women 25 years and older should be screened for chlamydia and gonorrhea if at high risk. Screening for hepatitis C: All adults ages 18 to 79 should get a one-time test for hepatitis C. people should be screened at every . Screening for human immunodeficiency virus (HIV): All people ages 15 to 65 should get a one-time test for HIV. Depending on your lifestyle and medical history, you may also need to be screened for infections such as syphilis and HIV, as well as other infections. PHYSICAL EXAM All adults should visit their provider from time to time, even if they are healthy. The purpose of these visits is to: Screen for disease Assess your risk of future medical problems Encourage a healthy lifestyle Update your vaccinations and other preventive care services Maintain a relationship with a provider in case of an illness Your height, weight, and BMI should be checked at every exam. During your exam, your provider may ask you about: Depression and anxiety Diet and exercise Alcohol and tobacco use Safety issues, such as using seat belts, smoke detectors, and intimate partner violence Your medicines and risk for interactions SKIN SELF-EXAM Your provider may check your skin for signs of skin cancer, especially if you're at high risk, such as if you: Have had skin cancer before Have close relatives with skin cancer Have a weakened immune system OTHER SCREENING Talk with your provider about colon cancer screening if you have a strong family history of colon cancer or polyps, or if you have had inflammatory bowel disease or polyps yourself. Routine bone density screening of women under 40 is not recommended. Coding Level of Care Code Est Pt Prev Care 18-39y(34464) Diagnoses Encounter for general adult medical examination without abnormal findings Z00.00 Crohn's disease of both small and large intestine without complication K50.80 Digestive disease complication type: without complication Family hx osteoporosis Z82.62 Tremor R25.1 Narcolepsy without cataplexy G47.419 Seasonal allergies J30.2 Vitamin D deficiency E55.9 Vitamin C deficiency E54 Mild episode of recurrent major depressive disorder F33.0 Major depression episode severity: mild KEILA (generalized anxiety disorder) F41.1 Additional Codes KEILA-7 Assessment Billing - KEILA-7 Assessment Tool: KEILA-7 Assessment 30467 ([id number])
[2023-11-17 08:14] VITALS: BP 98/72; PULSE 84; RESP 12; TEMP 36.9; O2SAT 98; BMI 24.3
== END 2023-11-17 08:44 | disposition home or self-care (01) ==
PROVIDERS: PCP Nurse Practitioner Family; Visit Provider Nurse Practitioner Family
DX: Z00.00 Encounter for general adult medical examination without abnormal findings (principal); K50.80 Crohn's disease of both small and large intestine without complications; F33.0 Major depressive disorder, recurrent, mild; Z82.62 Family history of osteoporosis; R25.1 Tremor, unspecified; G47.419 Narcolepsy without cataplexy; J30.2 Other seasonal allergic rhinitis; E55.9 Vitamin D deficiency, unspecified; E54 Ascorbic acid deficiency; F41.1 Generalized anxiety disorder
CPT/HCPCS: 99395

== ENCOUNTER 2023-12-12 08:22 | Outpatient (REF) | payer OTHER, SELFPAY ==
--- NOTE | ~2023-12-12 | MM_ITS ---
EXAMINATION: BONE DENSITOMETRY CLINICAL INDICATION: Crohn's disease of both small and large intestine without complication. COMPARISON: This is the patient's baseline examination. TECHNIQUE: Using a [employer] DXA System (software version: 13.1) manufactured by [employer], dual-energy x-ray absorptiometry was performed of the lumbar spine and left hip. The images are of good technical quality. Based on ISCD (International Society for Clinical Densitometry) standards of reporting, Z-scores instead of T-scores are reported in this premenopausal woman. Summary results are attached. FINDINGS: AP SPINE L1-L4: BMD 0.911 g/cm2, T-score -2.2, Z-score -2.4, Z-score below expected range for age. LEFT FEMUR, NECK: BMD 0.846 g/cm2, T-score -1.4, Z-score -1.4, Z-score within expected range for age. LEFT FEMUR, TOTAL: BMD 0.912 g/cm2, T-score -0.8, Z-score -0.9, Z-score within expected range for age. IDENTIFIED RISK FACTORS: Secondary osteoporosis (intestinal or bowel disease). HISTORY OF FRACTURE: None listed. MEDICATIONS: Calcium or multivitamin. Vitamin D. MM/XR DEXA axial skeleton IMPRESSION: 1. DIAGNOSIS: Based on the lowest Z-score value of -2.4 in the lumbar spine, the patient's bone density is below the expected range for age. 2. 10-YEAR FRACTURE RISK PREDICTION, FRAX: Not performed in this patient outside the age range of 40-90 years. 3. Treatment Recommendations: NOF guidelines recommend consideration for treatment in postmenopausal women and men age 50 and older presenting with the following: -A hip or vertebral (clinical or morphometric) fracture. -T-score less than or equal to -2.5 at the femoral neck or spine after appropriate evaluation to exclude secondary causes. -Low bone mass at the hip or spine and a 10-year fracture probability by FRAX of greater than or equal to 3% for hip fracture or greater than or equal to 20% for major osteoporotic fracture based on the [place] adapted WHO algorithm. 4. Other Recommendations: All treatment decisions require clinical judgment and consideration of individual patient factors, including patient preferences, comorbidities, previous drug use, risk factors not captured in the FRAX model (e.g. frailty, falls, vitamin D deficiency, increased bone turnover, interval significant decline in bone density) and possible under or overestimation of fracture risk by FRAX. Additional medical evaluation for secondary cause of low bone mineral density may be appropriate. FUTURE SCAN RECOMMENDATION: People with diagnosed cases of osteoporosis or at high risk for fracture should have regular bone mineral density tests. For patients eligible for Medicare, routine testing is allowed once every 2 years. The testing frequency can be increased to one year for patients who have rapidly progressing disease, those who are receiving or discontinuing medical therapy to restore bone mass, or have additional risk factors.
== END 2023-12-12 08:23 | disposition home or self-care (01) ==
LOC: HO.MAMMO 08:22
PROVIDERS: PCP Nurse Practitioner Family; Visit Provider Nurse Practitioner Family
DX: Z13.820 Encounter for screening for osteoporosis (principal); K50.80 Crohn's disease of both small and large intestine without complications; Z82.62 Family history of osteoporosis; M81.8 Other osteoporosis without current pathological fracture
CPT/HCPCS: 77080

== ENCOUNTER → 2024-01-13 07:43 | Day surgery (SDC) | payer OTHER, SELFPAY ==
[2024-01-09 13:51] VITALS: BMI 23.7
--- NOTE | 2024-01-12 12:44 | HO.ANESPROP2 ---
HPI - Anesthesia Eval Consult details Narrative: Cx'd d/t unable to obtain IV access 28yo F for [facility]oscopy and Colonoscopy PMFSH Active Problems Active Problems: All Active Problems KEILA (generalized anxiety disorder) (Acute) MDD (major depressive disorder), recurrent episode (Acute) Encounter for general adult medical examination without abnormal findings (Acute) Family hx osteoporosis (Acute) Tremor (Acute) Narcolepsy without cataplexy (Acute) Seasonal allergies (Acute) Normal physical exam (Acute) Vitamin D deficiency (Acute) Vitamin C deficiency (Acute) Crohn's disease of both small and large intestine (Acute) Past Medical History Medical History (Updated 01/22/24 @ 13:20 by TIFFANIE Beltrán) No pertinent past medical history Anxiety with depression Family History Family History Paternal Grandmother Substance abuse Maternal Grandmother Substance abuse Maternal Uncle Substance abuse Mother Bipolar 2 disorder Sister Panic attack Depression Maternal Grandfather Prostate cancer Paternal Grandfather Prostate cancer Cancer of kidney Other Anxiety Surgical History Surgical History Hx of colonoscopy History of esophagogastroduodenoscopy (EGD) History of wisdom tooth extraction History of laparoscopy History of appendectomy (~2014) Social History Social History Housing: Condominium Alcohol intake: never Patient Tobacco Use Status: Never used Tobacco e-Cigarette/Vaping Use: Never Used service: No Current occupational status: employed 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 @ [facility] Cognitive needs: No Hearing needs: No Vision needs: No Meds Allergies Allergy/AdvReac Type Severity Reaction Status Date / Time cat dander Allergy Mild sneezing Verified 01/22/24 10:59 pollen extracts Allergy Unknown Verified 01/22/24 10:59 Home Medications ?Medication ?Instructions ?Recorded ?Confirmed ?Last Taken ?Type levonorgestrel 21 mcg/24 hr (up to intrauterine 04/04/21 01/22/24 Unknown History 8 years) 52 mg intrauterine device (Mirena) zinc 50 mg tablet 15 mg PO DAILY 05/22/21 01/22/24 Unknown History melatonin 5 mg capsule mg PO PRN Sleep 04/08/22 01/22/24 Unknown History ascorbate calcium (vitamin C) 500 500 mg PO DAILY 08/26/22 01/22/24 Unknown History mg tablet calcium carb,cit ER 600 mg-vit D3 2 tab PO DAILY 11/12/22 01/22/24 Unknown History 12.5 mcg (500 unit) tablet,ext.rel magnesium 250 mg tablet 250 mg PO DAILY 11/12/22 01/22/24 Unknown History omega 3-nue-evd-fish oil 300 1 cap PO DAILY 01/13/23 01/22/24 Unknown History mg-1,000 mg capsule (Fish Oil) infliximab-dyyb 100 mg intravenous 650 mg IV 04/29/23 01/22/24 Unknown History solution (Inflectra) Exam Height,Weight and Vital Signs: Height 5 ft 8 in Weight 70.76 kg Pertinent Lab Results Pertinent Lab Results: Laboratory Tests 07/11/23 07/11/23 10:15 10:20 WBC 7.8 Hgb 14.4 Hct 42.0 Plt Count 306 Sodium 138 Potassium 3.7 Chloride 103 Carbon Dioxide 27 BUN 11 Creatinine 0.58 Assessment and Plan Assessment Anesthesia Assessment: Chart Reviewed
--- NOTE | 2024-01-13 10:59 | P.HPSUR_ITS ---
Pre-Procedural Eval Section A - 24 Hr Update-Section A only Date of Service: 01/13/24 Section B - Complete if H&P > 30 days Chief Complaint: Encounter for screening for malignant neoplasm of Relevant Family History (Specify if Yes): No Relevant Social History: Other (specify) (thc) Present Medications: see Short Stay Collaborative assessment Medical History: Significant History (crohns) History of Previous Operations: Relevant previous surgery/procedure and date(s) (Hx of colonoscopy History of esophagogastroduodenoscopy (EGD) History of wisdom tooth extraction History of laparoscopy History of appendectomy (~2014)) Allergies: Allergies Allergy/AdvReac Type Severity Reaction Status Date / Time cat dander Allergy Mild sneezing Verified 11/17/23 08:28 pollen extracts Allergy Unknown Verified 11/17/23 08:28 Review of Systems Sugical H&P ROS: Negative: Constitution, Cardiovascular, Respiratory, Neurological, Psychiatric, Hem-Onc, Allergic/Immunologic, Gastrointestinal, Genitourinary, Musculoskeletal, Integumentary, Endocrine and Eyes/Ears/Nose/Th roat Exam Surgical H&P Exam: Normal: HEENT, Normal: Heart, Normal: Lungs, Normal: Extremities, Normal: Abdomen, Normal: Skin and Normal: Neurological Plan Diagnosis/Plan: Unchanged I have reviewed the history and physical and performed a pertinent physical examination on my patient. No changes have occurred unless specified. Time Spent With Patient Time: Total time managing care of this patient today ____ minutes.
[2024-01-13 11:08] LABS: UPreg QC Valid YES; Urine Pregnancy NEGATIVE (NEGATIVE)
[2024-01-13 11:18] VITALS: BMI 22.3
[2024-01-13 11:29] VITALS: BP 125/82; PULSE 73; RESP 15; TEMP 36.8; O2SAT 100
[2024-01-13 11:34] VITALS: BMI 22.3
--- NOTE | 2024-01-13 13:30 | PC.NURSE ---
Several iv insertion attempts by 3 RN's and Anesthesia - unsuccessful. Pt procedure canceled.
== END ==
LOC: HO.SSS 07:44
PROVIDERS: Nurse Practitioner; PCP Nurse Practitioner Family; Visit Provider Internal Medicine Gastroenterology
DX: Z12.11 Encounter for screening for malignant neoplasm of colon (principal); Z53.8 Procedure and treatment not carried out for other reasons; K50.80 Crohn's disease of both small and large intestine without complications; Z79.620 Long term (current) use of immunosuppressive biologic
CPT/HCPCS: 81025; Q9968

== ENCOUNTER 2024-01-22 10:55 | Outpatient (AMB) | payer OTHER, SELFPAY ==
--- NOTE | 2024-01-22 10:57 | MHC.OFFVIS ---
Vital Signs 01/22/24 10:58 Height 5 ft 8 in Weight 147 lb BMI 22.3 BP 114/78 Blood Pressure Location Rt brachial Position Sitting Pulse 94 Pulse Source Pulse Oximeter Pulse Oximetry (%) 99 Oxygen Delivery Method Room Air Intake Visit Reasons: follow up Narcolepsy-LVM Intake Note: Patient presents for follow up narcolepsy. Allergies cat dander Allergy (Mild, Verified 01/22/24 10:59) sneezing pollen extracts Allergy (Verified 01/22/24 10:59) Unknown Medication List - Last Reconciled 01/22/24 by TIFFANIE Beltrán armodafinil 150 mg PO QAM 30 days ascorbate calcium (vitamin C) 500 mg PO DAILY bupropion HCl XL 150 mg PO QAM calcium carb and citrate-vitD3 600 mg-12.5 mcg (500 unit) ER 2 tabs PO DAILY fluticasone propionate 50 mcg/actuation (Allergy Relief (fluticasone)) 2 sprays intranasal DAILY 1 month glycopyrrolate 1 mg PO BID-TID PRN 30 days infliximab-dyyb (Inflectra) 650 mg IV levonorgestrel (Mirena) intrauterine loratadine (Allergy Relief (loratadine)) 10 mg PO DAILY magnesium 250 mg PO DAILY melatonin mg PO PRN omega 5-qgc-krx-fish oil 300-1,000 mg (Fish Oil) 1 cap PO DAILY pitolisant (Wakix) 17.8 mg PO DAILY 30 days propranolol ER 60 mg PO BEDTIME 30 days sodium oxybate ER (Lumryz) 9 grams PO BEDTIME 30 days sodium,potassium,mag sulfates 17.5-3.13-1.6 gram (Suprep Bowel Prep Kit) DILUTE; drink 1/2 at 6-8 pm and half at 11 PM- 1AM zinc 15 mg PO DAILY HPI Comments Details: 28-yr-old female presents for f/u visit. Pt denies any significant interval medical changes. Since the last visit, pt switched from Xyrem to Lumryz. Pt reports she has toelrated the switch well. Her narcolepsy s/s are well-controlled on her current tx regimen. She does note that she thinks she is sleeping more soundly. And has started to notice more numbness/tingling in her extremities upon awakening- as if she has not moved enough during the night. Her partner tells her that she does move, but ends up in weird positions. She has had numbness in her right posterior 1st finger. Denies weakness. Tried a finger brace but this caused distal forearm discomfort. Notes her mother has a h/o UE palsy x's 2- once from napping proprred on her arm during a [place] flight, another from falling asleep on the same arm. Dtr states [facility] Medical History (Updated 01/22/24 @ 13:20 by TIFFANIE Beltrán) No pertinent past medical history Anxiety with depression Surgical History Hx of colonoscopy History of esophagogastroduodenoscopy (EGD) History of wisdom tooth extraction History of laparoscopy History of appendectomy (~2014) Family History Paternal Grandmother Substance abuse Maternal Grandmother Substance abuse Maternal Uncle Substance abuse Mother Bipolar 2 disorder Sister Panic attack Depression Maternal Grandfather Prostate cancer Paternal Grandfather Prostate cancer Cancer of kidney Other Anxiety Social History Housing: Condominium Alcohol intake: never Patient Tobacco Use Status: Never used Tobacco e-Cigarette/Vaping Use: Never Used service: No Current occupational status: employed 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 Cognitive needs: No Hearing needs: No Vision needs: No Review of Systems Const All systems reviewed & are unremarkable except as noted in HPI and below Physical Exam Vital Signs: Last Vital Signs Pulse 94 01/22/24 10:58 BP 114/78 01/22/24 10:58 Pulse Ox 99 01/22/24 10:58 Oxygen Delivery Method Room Air 01/22/24 10:58 BMI result Body Mass Index 22.3 Const General: cooperative and no acute distress Orientation/consciousness: patient oriented x3 Resp Effort & Inspection: normal respiratory effort and able to speak in complete sentences Neuro Other: Right wrist- + medial and radial nerve compression and Tinnel tests, + Phalen. Right posterior 1st thumb decreased sensation. BUE MS 5/5 Richard R > L muscle tightness. Spurling neg- but does cause non-radiating discomfort. BUE mild postural tremor. General: patient oriented x3, gait normal and CN's II-XI intact bilaterally Cognition (Neuro): normal cognition Motor exam (neuro): 5/5 motor strength present throughout Deep tendon reflexes (DTR's): Right triceps reflex intensity grade: 2+, Left triceps reflex intensity grade: 2+, Rt Biceps (C5, C6): 2+, Left biceps reflex intensity grade: 2+, Right brachioradialis reflex intensity grade: 2+, Left brachioradialis reflex intensity grade: 2+, Right patellar reflex intensity grade: 2+ and Left patellar reflex intensity grade: 2+ Psych Appearance: grossly normal Mental Status: mental status grossly normal Speech and movement: Clear speech present Affect: normal affect Attitude: cooperative Thought process: Normal thought process present Assessment & Plan Assessment & Plan (1) Narcolepsy without cataplexy: Comment: MSLT results in setting of pt h/o hypersomnia, early onset REM c/w narcolepsy. Managed by [facility] Code(s): G47.419 - Narcolepsy without cataplexy Category: Medical (2) Tremor: Comment: Managed by Neurology with propranolol. Code(s): R25.1 - Tremor, unspecified Category: Medical (3) Paresthesia of right thumb: Code(s): R20.2 - Paresthesia of skin Category: Medical Plan For BUE L > R numbness and paresthesias: 01/22/23, BUE EMG/NCS- normal. LUE carpal-tunnel style wrist splint at night. Try using a softer carpal tunnel splint/brace to RUE at night. Offered referral to OT- pt declines at this time. Trial Ibuprofen 600-800mg q 6-8hrs prn w/ food. Advised to discuss w/ her mother if she has been evaluated for possibility of HNPP- Hereditary neuropathy with liability to pressure palsies. Pt herself has not had EMG evidence of neuropathy, however does have clinical indications. Pt declines f/u EMG/NCS at this time. Advised to be aware to avoid body positioning that increases risk for compressive neuropathies, such as crossing legs, resting head on hands during naps, etc. Future considerations- referral to society reporter or ortho. Trial of alpha-lipoic acid. ? For narcolepsy: Continue Lumryz 9 gm qhs- as pt is having good clincial effect from use. Continue Pitolisant 17.8mg po qam. Continue Armodafinil 150mg qam- keep locked up w/ her other narcolespy tx's. Continue Propranol ER 60mg qhs- helping HR control and tremor. Continue to optimize sleep hygiene. In regards to family planning- high-risk OB consult. Discussed if she were to come off her narcolepsy tx's, we would develop a plan to minimize her narcolepsy s/s. Future considerations: [place]. Previous trials: Continue Xyrem 4.5G bid (during nighttime)- her insurance no longer covers this. For tremor: Continue Propranolol. ? F/u in 4-6 months or sooner prn new/worsening s/s. Coding Level of Care Code Est Pt Level 4 (21761) Diagnoses Narcolepsy without cataplexy G47.419 Tremor R25.1 Paresthesia of right thumb R20.2
[2024-01-22 10:58] VITALS: BP 114/78; PULSE 94; O2SAT 99; BMI 22.3
== END 2024-01-22 11:48 | disposition home or self-care (01) ==
PROVIDERS: PCP Hospitalist; Visit Provider Nurse Practitioner Family
DX: G47.419 Narcolepsy without cataplexy (principal); R25.1 Tremor, unspecified; R20.2 Paresthesia of skin
CPT/HCPCS: 99214

== ENCOUNTER → 2024-01-22 10:55 | Outpatient (BNVA) | payer OTHER, SELFPAY | PROVIDERS: PCP Hospitalist; Visit Provider Nurse Practitioner Family ==

== ENCOUNTER 2024-03-31 15:28 | Outpatient (REF) | payer OTHER, SELFPAY ==
[2024-04-03 03:14] LABS: TS Negative Control Passed; TS Panel A 0; TS Panel B 0; TS Positive Control Passed; TSpotTB Negative (Negative)
== END 2024-03-31 15:29 | disposition home or self-care (01) ==
LOC: HO.LAB 15:28
PROVIDERS: PCP Nurse Practitioner Family; Visit Provider Nurse Practitioner Family
DX: Z11.1 Encounter for screening for respiratory tuberculosis (principal)
CPT/HCPCS: 36415; 86481

== ENCOUNTER 2024-04-02 08:43 | Outpatient (AMB) | payer OTHER, SELFPAY ==
--- NOTE | 2024-04-02 08:44 | A.OFFVIS_ITS ---
Intake Visit Reasons: 6 month f/u Intake Note: Rina presents as a phone call 6 month follow up. CC: She states she has been having some cramping and diarrhea. She gets the usual constipation but that is after she takes an antidiarrheal medication. Pesticide Use Medical Coordinator Required: No Allergies cat dander Allergy (Mild, Verified 01/22/24 10:59) sneezing pollen extracts Allergy (Verified 01/22/24 10:59) Unknown HPI HPI 6 month f/u: Details: 28 yr old f with hx of anxiety, narcolepsy, anxiety, Crohns disease being seen for f/u RECAP: Dx with Crohns 2014 aged 19 she had been having pain on her initial presentation at the time, She has disease of small and large bowels Has been receiving remicade 500 mg q 8 weeks with good response Has also tried MTX and folic acid for 1 yr in the past never smoker Surgeries: ileal resection, appendectomy, 2015 ovarian torsion and adhesions 2015 IMAGINg: MRe: 2018-- no inflammation EGD/colonoscopy-- 2020 at [facility] and was apparently nml LABS: TB test neg 05/23 Vit c low vit D low hep b ab pos I increased the dose of inflectra due to undetectable trough level she was supposed to get colonoscopy but was cancelled as anesthesia could not get access INTERIM: She conts doing well on inflectra 650 mg she has occ bouts of mix of diarrhea and constipation, unsure if due to stress no mouth ulcers she denies joint swelling or pain no skin rashes EXAM: GENERAL: The patient is well developed and nontoxic, seems relaxed A/P: 1/ Crohns -large and small bowel - dose increased to 650 mg due to undetectable trough, no antibodies seen--seems to be doing well with occ bouts of altered bowel habits ?co existent IBS or bile acid PLAN: 1/recheck labs and lactoferrin, may need to change treatment, maybe add bila acid binder 2/ she will r/s for colonoscopy, discussed a picc line but she doesn;t want to do it PFSH Medical History No pertinent past medical history Anxiety with depression Surgical History Hx of colonoscopy History of esophagogastroduodenoscopy (EGD) History of wisdom tooth extraction History of laparoscopy History of appendectomy (~2014) Family History Paternal Grandmother Substance abuse Maternal Grandmother Substance abuse Maternal Uncle Substance abuse Mother Bipolar 2 disorder Sister Panic attack Depression Maternal Grandfather Prostate cancer Paternal Grandfather Prostate cancer Cancer of kidney Other Anxiety Social History Housing: Condominium Alcohol intake: never Patient Tobacco Use Status: Never used Tobacco e-Cigarette/Vaping Use: Never Used service: No Current occupational status: employed 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 @ [facility] Cognitive needs: No Hearing needs: No Vision needs: No Telehealth Telehealth Telehealth Platform: [employer] Location of provider rendering services: practice address Location of patient: address on file Patient Identification confirmed using: Name, : Yes Telehealth method: video Patient verbally consented to treatment: Yes Patient verbally consented to billing insurance company: Yes Patient informed of any privacy concerns related to visit: Yes Minutes spent on Phone/Video with Pt.: 16 Assessment & Plan Assessment & Plan (1) Crohn's disease of both small and large intestine: Comment: Managed by [facility]. Code(s): K50.80 - Crohn's disease of both small and large intestine without complications Category: Medical Qualifiers: Digestive disease complication type: without complication Qualified Code(s): K50.80 - Crohn's disease of both small and large intestine without complications Plan: see above Orders: Orders C Reactive Protein Today K50.80 - Crohn's disease of both small and large intestine without complications Comprehensive Met. Panel Today K50.80 - Crohn's disease of both small and large intestine without complications, K75.81 - Nonalcoholic steatohepatitis ([place]ANGURA) Complete Blood Count Auto Diff Today K50.80 - Crohn's disease of both small and large intestine without complications Lactoferrin, Fecal, Quant. Today K50.80 - Crohn's disease of both small and large intestine without complications, K51.50 - Left sided colitis without complications Coding Level of Care Code Tele Est Pt Level 3 (89739) Diagnoses Crohn's disease of both small and large intestine without complication K50.80 Digestive disease complication type: without complication
== END 2024-04-02 13:11 | disposition home or self-care (01) ==
LOC: HO.HGI 08:43
PROVIDERS: PCP Nurse Practitioner Family; Visit Provider Internal Medicine Gastroenterology
DX: K50.80 Crohn's disease of both small and large intestine without complications (principal)
CPT/HCPCS: 99213

== ENCOUNTER → 2024-04-02 08:43 | Outpatient (BNVA) | payer OTHER, SELFPAY | PROVIDERS: PCP Nurse Practitioner Family; Visit Provider Internal Medicine Gastroenterology ==

== ENCOUNTER 2024-04-16 09:15 | Outpatient (AMB) | payer OTHER, SELFPAY ==
--- NOTE | 2024-04-16 09:17 | MHC.OFFVIS ---
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 Patient states her symptoms have been constant for the past few weeks. She says her symptoms range but she is having something going on daily. She has numbness in her right thumb and tingling in her wrist that radiates half way up her forearm. She says some days at the end of the day her thumb becomes sore or if she uses her right hand for a long period of time such as driving. She says she has some difficulty with lifting, pinching, and grasping. She Marco Antonio reports her right hand will occasionally cramps after prolonged use. She has tried an OTC hand braces, compression gloves and sleeves however found no relief and developed stiffness. She has googled hand exercises but says these didn't seem to improve anything. She slept wrong on her hand one day and says thinks she may have compresses a nerve. 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 The patient states that she is on medication for narcolepsy, and this causes her to go into a deep sleep where she frequently falls asleep in strange positions with her hands and wrists. The patient states that approximately 2-3 weeks ago, she experienced when he these episodes, and awoke to numbness being present on the dorsal aspect of her right thumb. Patient also states that approximately 1-2 weeks ago she fell asleep in an awkward position in her left hand and wrist, and began to experience a wrist drop, but the patient states that this resolved the next day. Patient does state that she has continued to experience weakness in the right hand since this incident as well. Denies any other numbness or tingling in the right hand, or any numbness and tingling in the left hand. No other acute complaints or concerns at this time. [facility] Medical History No pertinent past medical history Anxiety with depression Surgical History Hx of colonoscopy History of esophagogastroduodenoscopy (EGD) History of wisdom tooth extraction History of laparoscopy History of appendectomy (~2014) Family History Paternal Grandmother Substance abuse Maternal Grandmother Substance abuse Maternal Uncle Substance abuse Mother Bipolar 2 disorder Sister Panic attack Depression Maternal Grandfather Prostate cancer Paternal Grandfather Prostate cancer Cancer of kidney Other Anxiety Social History Housing: Condominium Alcohol intake: never Patient Tobacco Use Status: Never used Tobacco e-Cigarette/Vaping Use: Never Used service: No Current occupational status: employed 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 Normal sensation to all other digits in the right hand today. Normal sensation in the tips of all digits of the left hand today. No thenar or intrinsic wasting. Good APB muscle firing and good finger cross. Patient is able to make a thumbs up Vascular: Capillary refill brisk. ROM: Patient can make a fist and extend all their digits. Skin: No lacerations or abrasions noted. General: No ecchymosis. No erythema or evidence of infection. Assessment & Plan Assessment & Plan (1) Paresthesia of right thumb: Code(s): R20.2 - Paresthesia of skin Category: Medical Plan 1. Paresthesia of dorsal aspect of right thumb Likely secondary to positioning while asleep Ongoing for approximately 2-3 weeks Patient is educated about this condition and the typical recovery course At this time, patient was informed that these nerve palsies that occur due to sleeping position can take weeks to even 1-2 months to heal Patient was offered EMG and nerve conduction study to assess the health of the nerves of the right upper extremity, but patient states she would like to defer this for now, as she did have an EMG done in 2022 and reports that this was a very unpleasant experience Patient is also provided with bilateral Velcro wrist splints to be worn while sleeping in order to keep the bilateral hands and wrists in a position where they are less likely to experience a nerve palsy Patient was amenable to this plan Patient will follow-up in 6 weeks for reassessment, sooner with any acute concerns Coding Level of Care Code New Pt Level 3 (81340) Diagnoses Paresthesia of right thumb R20.2
[2024-04-16 09:19] VITALS: BMI 22.0
== END 2024-04-16 10:07 | disposition home or self-care (01) ==
PROVIDERS: PCP Hospitalist
DX: R20.2 Paresthesia of skin (principal)
CPT/HCPCS: 99203

== ENCOUNTER → 2024-04-16 09:15 | Outpatient (BNVA) | payer OTHER, SELFPAY | PROVIDERS: PCP Hospitalist ==

== ENCOUNTER 2024-08-05 08:07 | Outpatient (AMB) | payer OTHER, SELFPAY ==
--- NOTE | 2024-08-05 08:12 | A.OFFVIS_ITS ---
Vital Signs 08/05/24 08:17 Height 5 ft 8 in Weight 155 lb BMI 23.6 BP 100/70 Blood Pressure Location Rt brachial Position Sitting Intake Visit Reasons: Follow up Intake Note: Patient presents follow up narcolepsy/Tremor Overhauler Helper Required: No Accompanied by: Self / Same As Patient Allergies cat dander Allergy (Mild, Verified 08/05/24 08:14) sneezing pollen extracts Allergy (Verified 08/05/24 08:14) Unknown Medication List - Last Reconciled 08/05/24 by TIFFANIE Beltrán armodafinil 150 mg PO QAM 90 days ascorbate calcium (vitamin C) 500 mg PO DAILY bupropion HCl XL (Wellbutrin XL) 300 mg PO QAM calcium carb, citrate-vit D3 600 mg-12.5 mcg (500 unit) ER 2 tabs PO DAILY fluticasone propionate 50 mcg/actuation (Allergy Relief (fluticasone)) 2 sprays intranasal DAILY 1 month glycopyrrolate 1 mg PO BID-TID PRN 30 days infliximab-dyyb (Inflectra) 650 mg IV levonorgestrel (Mirena) intrauterine loratadine (Allergy Relief (loratadine)) 10 mg PO DAILY magnesium 250 mg PO DAILY mecobalamin (vitamin B12) 1,000 mcg PO DAILY melatonin mg PO PRN omega 1-xpk-exj-fish oil 300-1,000 mg (Fish Oil) 1 cap PO DAILY pitolisant (Wakix) 17.8 mg PO DAILY 30 days propranolol ER 60 mg PO BEDTIME 90 days sodium oxybate ER (Lumryz) 9 grams PO BEDTIME 30 days zinc 15 mg PO DAILY HPI Comments Details: 28-yr-old female presents for f/u visit for narcolepsy and BLE paresthesia. Narcolepsy: - Patient reports that symptoms are currently controlled, but there is difficu lty distinguishing between fatigue from narcolepsy versus fatigue due to inadequate sleep from late nights caused by anxiety. Anxiety and Depression: - Reporting some difficulty with anxiety and depression; Wellbutrin dosage has been increased. Patient is in therapy and under psychiatric care. Sleep - Bedtime varies; consistency is an issue due to variable sleep routines. - Sleep onset delayed by late nights due to anxiety. - Wake time not fixed; recommended to maintain a regular wake-up time. - Reports trouble with maintaining consistent sleep pattern. - Tries different alarm mechanisms to ensure waking. Employment - Engaged in a position with autonomy but lacks structured schedule. - Experiences challenges with managing time effectively due to variability in work structure. - Reports benefit from structured environments. Paresthesias: - Patient states that she started hand therapy, which was very effective. She has adopted better ergonomic equipment for her workspace, which is also helping. [facility] Medical History No pertinent past medical history Anxiety with depression Surgical History Hx of colonoscopy History of esophagogastroduodenoscopy (EGD) History of wisdom tooth extraction History of laparoscopy History of appendectomy (~2014) Family History Paternal Grandmother Substance abuse Maternal Grandmother Substance abuse Maternal Uncle Substance abuse Mother Bipolar 2 disorder Sister Panic attack Depression Maternal Grandfather Prostate cancer Paternal Grandfather Prostate cancer Cancer of kidney Other Anxiety Social History Housing: Condominium Alcohol intake: never Patient Tobacco Use Status: Never used Tobacco e-Cigarette/Vaping Use: Never Used service: No Current occupational status: employed 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 Cognitive needs: No Hearing needs: No Vision needs: No Physical Exam Vital Signs: Last Vital Signs BP 100/70 08/05/24 08:17 BMI result Body Mass Index 23.6 Const General: cooperative and no acute distress Orientation/consciousness: patient oriented x3 Resp Effort & Inspection: normal respiratory effort and able to speak in complete sentences Neuro Other: No visible tremor today General: patient oriented x3, gait normal and CN's II-XI intact bilaterally Cognition (Neuro): normal cognition Motor exam (neuro): 5/5 motor strength present throughout Psych Appearance: grossly normal Mental Status: mental status grossly normal Speech and movement: Clear speech present Affect: normal affect Attitude: cooperative Thought process: Normal thought process present Assessment & Plan Assessment & Plan (1) Narcolepsy without cataplexy: Comment: MSLT results in setting of pt h/o hypersomnia, early onset REM c/w narcolepsy. Managed by [facility] Neurology Code(s): G47.419 - Narcolepsy without cataplexy Category: Medical (2) Tremor: Comment: Managed by Neurology with propranolol. Code(s): R25.1 - Tremor, unspecified Category: Medical (3) Paresthesia of right thumb: Code(s): R20.2 - Paresthesia of skin Category: Medical Plan Discussion Notes We discussed the management of narcolepsy, emphasizing the importance of maintaining a regular wake-up time and the role of physical activity to enhance sleep quality. We reviewed the overlap between anxiety-related sleep disturbances and narcoleptic symptoms, and strategies to differentiate between them. The patient expressed understanding and agreed to work with her psychiatrist regarding anxiety management and its impact on sleep. Encouragement was provided to explore consistent routines and avoid sleep procrastination. We touched on the use of Wellbutrin and Hher narcolepsy medications in managing her symptoms and the need to align medication timing with her daily schedule. Patient was informed and verbally consented to the use of an ambient scribe for clinic note documentation during this visit. For BUE L > R numbness and paresthesias: 01/22/23, BUE EMG/NCS- normal. LUE carpal-tunnel style wrist splint at night. Continue PT exercises and using work space ergonomic equipment. ? For narcolepsy: Continue Lumryz 9 gm qhs- as pt is having good clincial effect from use. Continue Pitolisant 17.8mg po qam. Continue Armodafinil 150mg qam- keep locked up w/ her other narcolespy tx's. Continue Propranol ER 60mg qhs- helping HR control and tremor. Encouraged to optimize sleep hygiene- with emphasis on maintaining a consistent wake up time and regular physical activity.. Previous discussion: in regards to family planning- high-risk OB consult. Discussed if she were to come off her narcolepsy tx's, we would develop a plan to minimize her narcolepsy s/s. Future considerations: [place]. Previous trials: Continue Xyrem 4.5G bid (during nighttime)- her insurance no longer covers this. For tremor: Continue Propranolol. ? F/u in 4-6 months or sooner prn new/worsening s/s. Coding Level of Care Code Est Pt Level 4 (01533) Diagnoses Narcolepsy without cataplexy G47.419 Tremor R25.1 Paresthesia of right thumb R20.2
[2024-08-05 08:17] VITALS: BP 100/70; BMI 23.6
--- OUTSIDE RECORDS SUMMARY | 2024-08-05 08:18 | XMS_ITS | Encounter Summary ---
Author Organization [facility] Address [address] [place] [address] Care Team Providers Care Compliance Review Officer Name Role Phone Steve Zamarripa MD Primary Care Provider [phone] Marco Mathur MD Unavailable [phone] Steve Zamarripa MD Unavailable [phone] Pcp, No Primary Care Provider Unavailabl e Steve Zamarripa MD Primary Care Provider [phone] Pcp, No Primary Care Provider Unavailabl e Encounter Details Date Type Department Care Team (Late st Contact Info) Description 10/01/2017 Scanned Document [address] [phone] Provider, Generic Social History Tobacco Use Types Packs/Day Years Used Date Smoking Tobacco: Never Smokeless Tobacco: Never Alcohol Use Standard Drinks/Week Comments Yes 0 (1 standard drink = 0.6 oz pur e alcohol) drinks once or twice a month Sex and Gender Information Value Date Recorded Sex Assigned at Not on file Gender Identity Not on file Sexual Orientation Not on file documented as of this encounter Plan of Treatment Not on file documented as of this encounter Visit Diagnoses Not on filedocumented in this encounter Care Teams Compliance Review Officer Relationship Specialty Start Date End Date Steve Zamarripa MD PCP - General Family Medicine 06/04/16 02/05/21 Steve Zamarripa MD [facility] [place] [address] PCP - [place] Commercial Attributed 01/01/20 07/30/20 Pcp, No PCP - General General Medicine 02/06/21 06/10/22 Steve Zamarripa MD PCP - General 06/11/22 08/27/22 Pcp, No PCP - General General Medicine 08/28/22 Marco Mathur MD [address] [place] [address] Job Setter Pediatric Gastroenterology 11/26/18 documented as of this encounter
--- OUTSIDE RECORDS SUMMARY | 2024-08-05 08:18 | XMS_ITS | Encounter Summary ---
Author Organization [facility] Address [address] [place] [address] Care Team Providers Care Cyber Workforce Developer And Manager Name Role Phone Steve Zamarripa MD Primary Care Provider [phone] Marco Mathur MD Unavailable [phone] Steve Zamarripa MD Unavailable [phone] Pcp, No Primary Care Provider Unavailabl e Steve Zamarripa MD Primary Care Provider [phone] Pcp, No Primary Care Provider Unavailabl e Encounter Details Date Type Department Care Team (Late st Contact Info) Description 10/01/2017 Scanned Document [address] [phone] Provider, Generic Social History Tobacco [...] on filedocumented in this encounter Care Teams Cyber Workforce Developer And Manager Relationship Specialty Start Date End Date Steve Zamarripa MD PCP - General Family Medicine 06/04/16 02/05/21 Steve Zamarripa MD [facility] [place] [address] PCP - [place] Commercial Attributed 01/01/20 07/30/20 Pcp, No PCP - General General Medicine 02/06/21 06/10/22 Steve Zamarripa MD PCP - General 06/11/22 08/27/22 Pcp, No PCP - General General Medicine 08/28/22 Marco Mathur MD [address] [place] [address] [place] Dyer Pediatric Gastroenterology 11/26/18 documented as of this encounter
--- OUTSIDE RECORDS SUMMARY | 2024-08-05 08:18 | XMS_ITS | Encounter Summary ---
Author Organization [facility] Address [address] [place] [address] Care Team Providers Care Media Account Executive Name Role Phone Steve Zamarripa MD Primary Care Provider [phone] Marco Mathur MD Unavailable [phone] Steve Zamarripa MD Unavailable [phone] Pcp, No Primary Care Provider Unavailabl e Steve Zamarripa MD Primary Care Provider [phone] Pcp, No Primary Care Provider Unavailabl e Encounter Details Date Type Department Care Team (Late st Contact Info) Description 07/09/2018 Scanned Document [address] [phone] Pulmonary, Scan Social History Tobacco Use Types Packs/Day Years [...] on filedocumented in this encounter Care Teams Media Account Executive Relationship Specialty Start Date End Date Steve Zamarripa MD PCP - General Family Medicine 06/04/16 02/05/21 Steve Zamarripa MD [facility] [place] [address] PCP - [place] Commercial Attributed 01/01/20 07/30/20 Pcp, No PCP - General General Medicine 02/06/21 06/10/22 Steve Zamarripa MD PCP - General 06/11/22 08/27/22 Pcp, No PCP - General General Medicine 08/28/22 Marco Mathur MD [address] [place] [address] [place] Pediatric Gastroenterology 11/26/18 documented as of this encounter
--- OUTSIDE RECORDS SUMMARY | 2024-08-05 08:18 | XMS_ITS | Encounter Summary ---
Author Organization [facility] Address [address] [place] [address] Care Team Providers Care Actuarial Intern Name Role Phone Steve Zamarripa MD Primary Care Provider [phone] Marco Mathur MD Unavailable [phone] Steve Zamarripa MD Unavailable [phone] Pcp, No Primary Care Provider Unavailabl e Setve Zamarripa MD Primary Care Provider [phone] Pcp, No Primary Care Provider Unavailabl e Encounter Details Date Type Department Care Team (Late st Contact Info) Description 06/18/2018 Scanned Document [address] [phone] Pediatric Gastroenterology, Scan Social History Tobacco Use Types Packs/Day [...] on filedocumented in this encounter Care Teams Actuarial Intern Relationship Specialty Start Date End Date Steve Zamarripa MD PCP - General Family Medicine 06/04/16 02/05/21 Steve Zamarripa MD [address] [place] [address] PCP - [place] Commercial Attributed 01/01/20 07/30/20 Pcp, No PCP - General General Medicine 02/06/21 06/10/22 Steve Zamarripa MD PCP - General 06/11/22 08/27/22 Pcp, No PCP - General General Medicine 08/28/22 Marco Mathur MD [address] [place] [address] Chemical Tester Pediatric Gastroenterology 11/26/18 documented as of this encounter
--- OUTSIDE RECORDS SUMMARY | 2024-08-05 08:18 | XMS_ITS | Encounter Summary ---
Author Organization [facility] Address [address] [place] [address] Care Team Providers Care Geriatric Aide Name Role Phone Steve Zamarripa MD Primary Care Provider [phone] Marco Mathur MD Unavailable [phone] Steve Zamarripa MD Unavailable [phone] Pcp, No Primary Care Provider Unavailabl e Steve Zamraripa MD Primary Care Provider [phone] Pcp, No Primary Care Provider Unavailabl e Encounter Details Date Type Department Care Team (Late st Contact Info) Description 11/27/2017 Scanned Document [address] [phone] Provider, Generic Social History Tobacco [...] on filedocumented in this encounter Care Teams Geriatric Aide Relationship Specialty Start Date End Date Steve Zamarripa MD PCP - General Family Medicine 06/04/16 02/05/21 Steve Zamarripa MD [facility] [place] [address] PCP - [place] Commercial Attributed 01/01/20 07/30/20 Pcp, No PCP - General General Medicine 02/06/21 06/10/22 Steve Zamarripa MD PCP - General 06/11/22 08/27/22 Pcp, No PCP - General General Medicine 08/28/22 Marco Mathur MD [address] [place] [address] Plastics Nurse Pediatric Gastroenterology 11/26/18 documented as of this encounter
--- OUTSIDE RECORDS SUMMARY | 2024-08-05 08:18 | XMS_ITS | Encounter Summary ---
Author Organization [facility] Address [address] [place] [address] Care Team Providers Care Supervising Bailiff Name Role Phone Steve Zamarripa MD Primary Care Provider [phone] Marco Mathur MD Unavailable [phone] Steve Zamarripa MD Unavailable [phone] Pcp, No Primary Care Provider Unavailabl e Steve Zamarripa MD Primary Care Provider [phone] Pcp, No Primary Care Provider Unavailabl e Encounter Details Date Type Department Care Team (Late st Contact Info) Description 08/24/2017 Scanned Document [address] [phone] Provider, Generic Social History Tobacco [...] on filedocumented in this encounter Care Teams Supervising Bailiff Relationship Specialty Start Date End Date Steve Zamarripa MD PCP - General Family Medicine 06/04/16 02/05/21 Steve Zamarripa MD [facility] [place] [address] PCP - [place] Commercial Attributed 01/01/20 07/30/20 Pcp, No PCP - General General Medicine 02/06/21 06/10/22 Steve Zamarripa MD PCP - General 06/11/22 08/27/22 Pcp, No PCP - General General Medicine 08/28/22 Marco Mathur MD [address] [place] [address] [place] Pediatric Gastroenterology 11/26/18 documented as of this encounter
--- OUTSIDE RECORDS SUMMARY | 2024-08-05 08:19 | XMS_ITS | Encounter Summary ---
Author Organization [facility] Address [address] [place] [address] Care Team Providers Care Pourer Off Name Role Phone Steve Zamarripa MD Primary Care Provider [phone] Marco Mathur MD Unavailable [phone] Steve Zamarripa MD Unavailable [phone] Pcp, No Primary Care Provider Unavailabl e Steve Zamarripa MD Primary Care Provider [phone] Pcp, No Primary Care Provider Unavailabl e Encounter Details Date Type Department Care Team (Late st Contact Info) Description 08/23/2017 Scanned Document [address] [phone] Provider, Generic Social History Tobacco [...] on filedocumented in this encounter Care Teams Pourer Off Relationship Specialty Start Date End Date Steve Zamarripa MD PCP - General Family Medicine 06/04/16 02/05/21 Steve Zamarripa MD [facility] [place] [address] PCP - [place] Commercial Attributed 01/01/20 07/30/20 Pcp, No PCP - General General Medicine 02/06/21 06/10/22 Steve Zamarripa MD PCP - General 06/11/22 08/27/22 Pcp, No PCP - General General Medicine 08/28/22 Marco Mathur MD [address] [place] [address] [place] Selector Pediatric Gastroenterology 11/26/18 documented as of this encounter
--- OUTSIDE RECORDS SUMMARY | 2024-08-05 08:19 | XMS_ITS | Encounter Summary ---
Author Organization [facility] Address [address] [place] [address] Care Team Providers Care Rental Salesperson Name Role Phone Steve Zamarripa MD Primary Care Provider [phone] Marco Mathur MD Unavailable [phone] Steve Zamarripa MD Unavailable [phone] Pcp, No Primary Care Provider Unavailabl e Steve Zamarripa MD Primary Care Provider [phone] Pcp, No Primary Care Provider Unavailabl e Encounter Details Date Type Department Care Team (Late st Contact Info) Description 09/11/2018 Scanned Document [address] [phone] Steve Zamarripa MD [address] [place] [id number] Social History Tobacco Use Types Packs/Day Years [...] on filedocumented in this encounter Care Teams Rental Salesperson Relationship Specialty Start Date End Date Steve Zamarripa MD PCP - General Family Medicine 06/04/16 02/05/21 Steve Zamarripa MD [address] [place] [address] [place] [address] PCP - [place] Commercial Attributed 01/01/20 07/30/20 Pcp, No PCP - General General Medicine 02/06/21 06/10/22 Steve Zamarripa MD PCP - General 06/11/22 08/27/22 Pcp, No PCP - General General Medicine 08/28/22 Marco Mathur MD [address] [place] [address] Machine Shop Worker Pediatric Gastroenterology 11/26/18 documented as of this encounter
--- OUTSIDE RECORDS SUMMARY | 2024-08-05 08:19 | XMS_ITS | Encounter Summary ---
Author Organization [facility] Address [address] [place] [address] Care Team Providers Care Sand Worker Name Role Phone Steve Zamarripa MD Primary Care Provider [phone] Marco Mathur MD Unavailable [phone] Steve Zamarripa MD Unavailable [phone] Pcp, No Primary Care Provider Unavailabl e Steve Zamarripa MD Primary Care Provider [phone] Pcp, No Primary Care Provider Unavailabl e Encounter Details Date Type Department Care Team (Late st Contact Info) Description 08/23/2017 Scanned Document [address] [phone] Provider, Generic Social History Tobacco [...] on filedocumented in this encounter Care Teams Sand Worker Relationship Specialty Start Date End Date Steve Zamarripa MD PCP - General Family Medicine 06/04/16 02/05/21 Steve Zamarripa MD [facility] [place] [address] PCP - [place] Commercial Attributed 01/01/20 07/30/20 Pcp, No PCP - General General Medicine 02/06/21 06/10/22 Steve Zamarripa MD PCP - General 06/11/22 08/27/22 Pcp, No PCP - General General Medicine 08/28/22 Marco Mathur MD [address] [place] [address] Manager Cardiovascular Pediatric Gastroenterology 11/26/18 documented as of this encounter
--- OUTSIDE RECORDS SUMMARY | 2024-08-05 08:20 | XMS_ITS | Encounter Summary ---
Author Organization [facility] Address [address] [place] [address] Care Team Providers Care Reliability Manager Name Role Phone Jessica Cotto MD Primary Care Provider [phone] Steve Zamarripa MD Primary Care Provider [phone] Marco Mathur MD Unavailable [phone] Reason for Visit * Reason Comments Medication Refill Encounter Details Date Type Department Care Team (Late st Contact Info) Description 08/02/2015 Refill [facility] Gastroenterology, [address], [address] [place] [address] Marco Mathur MD [address] [place] [address] Crohn's disease of both small and large intestine without complication (Primary Dx) Social History Tobacco Use Types Packs/Day Years Used Date Smoking Tobacco: Never Smokeless Tobacco: Never Alcohol Use Standard Drinks/Week Comments Not Asked 0 (1 standard drink = 0.6 oz pur e alcohol) Comments No Sex and Gender Information Value Date Recorded Sex Assigned at Not on file Legal Sex Female 2:23 AM EST Gender Identity Not on file Sexual Orientation Not on file documented as of this encounter Miscellaneous Notes * Telephone Encounter - Pat Alegre RN - 08/03/2015 9:23 AM EST Dose is correct documented in this encounter Plan of Treatment Not on file documented as of this encounter Visit Diagnoses Diagnosis Crohn's disease of both small and large intestine without complication- Primary documented in this encounter Care Teams Reliability Manager Relationship Specialty Start Date End Date Jessica Cotto MD [address] [place], [place] [id number] PCP - General 12/10/14 11/11/16 Steve Zamarripa MD [address] [place] [address] PCP - General Internal Medicine 11/12/16 Marco Mathur MD [address] [place] [address] Consulting Physician Gastroenterology 11/12/18 documented as of this encounter
--- OUTSIDE RECORDS SUMMARY | 2024-08-05 08:20 | XMS_ITS | Encounter Summary ---
Author Organization [facility] Address [address] [place] [address] Care Team Providers Care Nut Sifter Name Role Phone Steve Zamarripa MD Primary Care Provider [phone] Marco Mathur MD Unavailable [phone] Steve Zamarripa MD Unavailable [phone] Pcp, No Primary Care Provider Unavailabl e Steve Zamarripa MD Primary Care Provider [phone] Pcp, No Primary Care Provider Unavailabl e Encounter Details Date Type Department Care Team (Late st Contact Info) Description 06/12/2017 Scanned Document [address] [phone] Provider, Generic Social History Tobacco Use Types Packs/Day Years Used Date Smoking Tobacco: Never Alcohol Use Standard Drinks/Week Comments [...] on filedocumented in this encounter Care Teams Nut Sifter Relationship Specialty Start Date End Date Steve Zamarripa MD PCP - General Family Medicine 06/04/16 02/05/21 Steve Zamarripa MD [address] [place], [place] [address] [address] PCP - [place] Commercial Attributed 01/01/20 07/30/20 Pcp, No PCP - General General Medicine 02/06/21 06/10/22 Steve Zamarripa MD PCP - General 06/11/22 08/27/22 Pcp, No PCP - General General Medicine 08/28/22 Marco Mathur MD [address] [place] [address] Chip Crusher Operator Pediatric Gastroenterology 11/26/18 documented as of this encounter
--- OUTSIDE RECORDS SUMMARY | 2024-08-05 08:20 | XMS_ITS | Clinical Summary ---
Author Organization [facility] Address [address] [place] [address] Care Team Providers Care Pet Resort Concierge Name Role Phone Steve Zamarripa MD Primary Care Provider [phone] Allergies No known active allergies Medications FLUoxetine (PROzac) 20 mg capsule daily. 60mg daily 0 8 Active levonorgestrel (MIRENA) intrauterine device 1 Intra Uterine Device by intrauterine route once. Active CALCIUM CARBONATE-VITAMI N D3 ORAL 1200-800 Active buPROPion SR (WELLBUTRIN SR) 200 mg 12 hr tablet 150 mg daily. 8 Active inFLIXimab (REMICADE) 100 mg injection Infuse 400 mg/kg into a venous catheter. EVERY 8 WEEKS Active ZINC GLUCONATE-ZINC PICOLINATE ORAL 0 Active magnesium glycinate 100 mg tablet 200 mg. 0 Active glycopyrrolate (ROBINUL) 1 mg tablet Take 1 mg by mouth 2 times daily. 0 Active hydrOXYzine (ATARAX) 50 mg tablet Take 50 mg by mouth as needed for itching. Active doxepin (SINEquan) 10 mg capsule 2 Active propranolol LA (INDERAL LA) 60 mg 24 hr capsule Take by mouth. 2 Active loratadine (CLARITIN) 10 mg tablet Take 10 mg by mouth daily. Active fluticasone propionate (FLONASE) 50 mcg/actuation nasal spray INSTILL 2 SPRAYS IN EACH NOSTRIL DAILY FOR 1 MONTH 2 Active pitolisant (Wakix) 4.45 mg tabletIndication s:Primary narcolepsy without cataplexy Take 8.9 mg by mouth daily. Take two 4.45 mg tablets every morning. 14 tablet 2 Active Additional Information Patient taking differently: 17.8 mgoral Daily,(No instructions reported), Reported on 02/11/2022 sodium oxybate (Xyrem) 500 mg/mL solutionIndicati ons:Primary narcolepsy without cataplexy 4.5 gm + (2.5-4 hours later) 4.5 gm = total dose at night of 9 grams 540 mL 5 2 Active pitolisant (Wakix) 17.8 mg tablet Take 17.8 mg by mouth daily. 30 tablet 11 2 Active Active Problems Problem Noted Date Diagnosed Date Low bone density in premenopausal patient 2020 Overview (05/21/2021): Last Assessment & Plan: May be related to glucocorticoids or may be genetic. No other serious risk factors identified. Usually with low bone density in premenopausal patients, decision to treat with antiresorptives is based on overall risk of fracture, defined by Z score <-3, chronic daily prednisone use >7.5 mg daily, frequent steroid pulses >30 mg for several weeks, definite osteoporotic fractures, or rapid decline in BMD. Stress fractures would not typically be considered osteoporotic fractures and actually have been shown to heal more slowly on bisphosphonates. She does not otherwise have any risk factors that would place her at moderate- high risk for fractures in the next 10-20 years. Per GIOP guidelines I would recommend repeating DEXA in ~1 year to ensure no rapid (>10%) decline in BMD. Otherwise I would recommend continuing calcium and vit D supplementation (agree with current doses) and starting weight-bearing strength training. My goal would be to improve her BMD as much as possible over the next 6-7 years using these lifestyle interventions. Primary narcolepsy without cataplexy 12/30/2017 Overview (12/30/2017): Diagnosed on MSLT 09/21/2016 with mean sleep latency 5 minutes and REM on 3 out of 5 naps. On modafinil. Immunosuppression 11/21/2016 Depression 11/21/2016 Anxiety 06/13/2016 History of resection of small bowel 06/13/2016 Overview (12/30/2017): Overview: In 2014 Moderate episode of recurrent major depressive d isorder 06/13/2016 Small bowel obstruction due to adhesions 016 Acute epigastric pain 11/21/2015 Benign ovarian cyst 11/09/2015 Crohn's disease of both small and large intestin e 11/09/2015 Ileitis 12/12/2014 Right lower quadrant abdominal pain 12/12/2014 Immunizations Name Administration Dates Next Due HPV, Quadrivalent 11/30/2013,07/31/2013,06/02/19 14 Influenza TIV (IM) 03/19/2021,03/24/2018 Influenza, Quadrivalent 03/03/2017 PPD Test 10/07/2016,01/06/2015 Pneumococcal Polysaccharide PCV-23 06/13/2016 Social History Tobacco Use Types Packs/Day Years Used Date Smoking Tobacco: Never Smokeless Tobacco: Never Alcohol Use Standard Drinks/Week Comments Yes 0 (1 standard drink = 0.6 oz pure alcohol) I occasionally have a beer maybe once a month Comments Unknown Sex and Gender Information Value Date Recorded Sex Assigned at Female 01/02/2021 10:39 AM EDT Legal Sex Female 5:03 AM EST Gender Identity Female 01/02/2021 10:39 AM EDT Sexual Orientation Not on file Last Filed Vital Signs Vital Sign Reading Time Taken Comments Blood Pressure 118/70 11/07/2021 11:30 AM EDT Pulse 96 11/07/2021 11:30 AM EDT Temperature 36.4 ??C (97.5 ??F) 05/21/2021 1:38 PM ES T Respiratory Rate 15 11/07/2021 11:30 AM EDT Oxygen Saturation 98% 11/07/2021 11:30 AM EDT Inhaled Oxygen Concentration - - Weight 71.2 kg (157 lb) 11/07/2021 11:30 AM EDT Height 172.7 cm (5' 8 ) 11/07/2021 11:30 AM EDT Body Mass Index 23.87 11/07/2021 11:30 AM EDT Plan of Treatment Health Maintenance Due Date Last Done Comments HIV Screening 1996 Hepatitis C Screening 2014 Zoster Vaccines (1 of 2) 12/09/2015 Pneumococcal Vaccine: Pediatrics (0 to 5 Years) and At-Risk Patients (6 to 64 Years) (2 of 2 - PCV) 06/13/2017 06/13/2016 Hepatitis B Vaccines (4 of 4 - Hep B Twinrix 4-dose series) 02/03/2020 10/26/2020, 09/28/2020, 02/02/2019 COVID-19 Vaccine (3 - Moderna risk series) 09/01/2020 08/04/2020, 06/30/2020 Pap Smear 09/20/2023 09/19/2020 Influenza Vaccine (#1) 2024 , 03/09/2021, 03/05/2020, Additional history exists DTaP,Tdap,and Td Vaccines (2 - Td or Tdap) 11/26/2028 11/26/2018 HPV Vaccines Completed 11/30/2013, 03/0 06/2013, 06/02/2013 Hepatitis A Vaccines Aged Out 10/26/2020, 09/28/2020, 02/02/2019 No longer eligible based on patient's age to complete this topic MMR Vaccines Aged Out No longer eligi ble based on patient's age to complete this topic Meningococcal Vaccine Aged Out No franklin chris eligible based on patient's age to complete this topic Insurance () [facility] Member Subscriber Plan / Payer (Ef fective 2021-Present) Name:Andree Boss Relation to Subscriber:Self Name:Andree Boss Payer ID:[id number] (NAIC) Type:HMO Address: [place] [id number] [facility] PPO Care Teams Pet Resort Concierge Relationship Specialty Start Date End Date Steve Zamarripa MD PCP - General Internal Medicine 07/09/18
--- OUTSIDE RECORDS SUMMARY | 2024-08-05 08:20 | XMS_ITS | Encounter Summary ---
Author Organization [facility] Address [address] [place] [address] Care Team Providers Care Senior Consumer Insights Consultant Name Role Phone Jessica Cotto MD Primary Care Provider [phone] Steve Zamarripa MD Primary Care Provider [phone] Marco Mathur MD Unavailable [phone] Reason for Visit * Reason Comments Medication Refill Encounter Details Date Type Department Care Team (Late st Contact Info) Description 08/11/2015 Refill [facility] Gastroenterology, [address], [address] [place] [address] Marco Mathur MD [address] [place] [address] Crohn's disease of both small and large [...] Telephone Encounter - Pat Alegre RN - 08/11/2015 10:44 AM EST Dose correct documented in this encounter Plan of Treatment Not on file documented as of this encounter Visit Diagnoses Diagnosis Crohn's disease of both small and large intestine without complication- Primary documented in this encounter Care Teams Senior Consumer Insights Consultant Relationship Specialty Start Date End Date Jessica Cotto MD [address] [place], [place] [address] PCP - General 12/10/14 11/11/16 Steve Zamarripa MD [address] [place] [address] PCP - General Internal Medicine 11/12/16 Marco Mathur MD [address] [place] [address] Consulting Physician Gastroenterology 11/12/18 documented as of this encounter
--- OUTSIDE RECORDS SUMMARY | 2024-08-05 08:20 | XMS_ITS | Encounter Summary ---
Author Organization [facility] Address [address] [place] [address] Care Team Providers Care Hook Up Driver Name Role Phone Steve Zamarripa MD Primary Care Provider [phone] Marco Mathur MD Unavailable [phone] Steve Zamarripa MD Unavailable [phone] Pcp, No Primary Care Provider Unavailabl e Steve Zamarripa MD Primary Care Provider [phone] Pcp, No Primary Care Provider Unavailabl e Encounter Details Date Type Department Care Team (Late st Contact Info) Description 09/20/2016 Scanned Document [address] [id number] Provider, Generic Social History Tobacco [...] on filedocumented in this encounter Care Teams Hook Up Driver Relationship Specialty Start Date End Date Steve Zamarripa MD PCP - General Family Medicine 06/04/16 02/05/21 Steve Zamarripa MD [address] [place], [place] [address] [address] PCP - [place] Commercial Attributed 01/01/20 07/30/20 Pcp, No PCP - General General Medicine 02/06/21 06/10/22 Steve Zamarripa MD PCP - General 06/11/22 08/27/22 Pcp, No PCP - General General Medicine 08/28/22 Marco Mathur MD [address] [place] [address] [employer] Pediatric Gastroenterology 11/26/18 documented as of this encounter
--- OUTSIDE RECORDS SUMMARY | 2024-08-05 08:20 | XMS_ITS | Encounter Summary ---
Author Organization [facility] Address [address] [place] [address] Care Team Providers Care Pastoral Worker Name Role Phone Jessica Cotto MD Primary Care Provider [phone] Steve Zamarripa MD Primary Care Provider [phone] Marco Mathur MD Unavailable [phone] Reason for Visit * Reason Comments Medication Refill Encounter Details Date Type Department Care Team (Late st Contact Info) Description 08/26/2016 Refill [facility] Gastroenterology, [address], [address] [place] [address] Marco Mathur MD [address] [place] [address] Crohn's disease of both small and large intestine without complication (Primary Dx) Social History Tobacco Use Types Packs/Day Years Used Date Smoking Tobacco: Never Smokeless Tobacco: Never Alcohol Use Standard Drinks/Week Comments Yes 0 (1 standard drink = 0.6 oz pur e alcohol) occasional Comments No Sex and Gender Information Value Date Recorded Sex Assigned at Not on file Legal Sex Female 2:23 AM EST Gender Identity Not on file Sexual Orientation Not on file documented as of this encounter Miscellaneous Notes * Telephone Encounter - Vilma Segura RN - 08/26/2016 11:13 AM EDT Last visit-05/23/16 Next visit-11/21/16 Weight-60.2 kg Current dose-correct as noted Allergies-reviewed documented in this encounter Plan of Treatment Not on file documented as of this encounter Visit Diagnoses Diagnosis Crohn's disease of both small and large intestine without complication- Primary documented in this encounter Care Teams Pastoral Worker Relationship Specialty Start Date End Date Jessica Cotto MD [address] [place] [address] PCP - General 12/10/14 11/11/16 Steve Zamarripa MD [address] [place] [address] PCP - General Internal Medicine 11/12/16 Marco Mathur MD [address] [place] [address] Consulting Physician Gastroenterology 11/12/18 documented as of this encounter
--- OUTSIDE RECORDS SUMMARY | 2024-08-05 08:20 | XMS_ITS | Encounter Summary ---
Author Organization [facility] Address [address] [place] [address] Care Team Providers Care Rotary Soil Stabilizer Name Role Phone Steve Zamarripa MD Primary Care Provider [phone] Encounter Details Date Type Department Care Team (Late st Contact Info) Description 04/20/2021 Orders Only [facility] Department of Pulmonology [address] [place] [address] Cj Batista MD [address] [place] [address] Social History Tobacco Use Types Packs/Day Years [...] AM EDT Sexual Orientation Not on file COVID-19 Exposure Response Date Recorded In the last month, have you been in contact with someone who was confirmed or suspected to have Coronavirus / COVID-19? No / Unsure 04/19/2021 10:11 AM EST documented as of this encounter Plan of Treatment Not on file documented as of this encounter Visit Diagnoses Not on filedocumented in this encounter Care Teams Rotary Soil Stabilizer Relationship Specialty Start Date End Date Steve Zamarripa MD PCP - General Internal Medicine 07/09/18 documented as of this encounter
--- OUTSIDE RECORDS SUMMARY | 2024-08-05 08:20 | XMS_ITS | Encounter Summary ---
Author Organization [facility] Address [address] [place] [address] Care Team Providers Care Forestry Tree Pruner Name Role Phone Jessica Cotto MD Primary Care Provider [phone] Steve Zamarripa MD Primary Care Provider [phone] Marco Mathur MD Unavailable [phone] Reason for Visit * Reason Comments Medication Refill Encounter Details Date Type Department Care Team (Late st Contact Info) Description 08/19/2016 Refill [facility] Gastroenterology, [address], [address] [place] [address] Marco Mathur MD [address] [place] [address] Crohn's disease of both small and large [...] Telephone Encounter - Pat Alegre RN - 08/19/2016 1:24 PM EDT Dose correct Seen in May documented in this encounter Plan of Treatment Not on file documented as of this encounter Visit Diagnoses Diagnosis Crohn's disease of both small and large intestine without complication- Primary documented in this encounter Care Teams Forestry Tree Pruner Relationship Specialty Start Date End Date Jessica Cotto MD [address] [place], [place] [id number] PCP - General 12/10/14 11/11/16 Steve Zamarripa MD [address] [place] [address] PCP - General Internal Medicine 11/12/16 aMrco Mathur MD [address] [place] [address] Consulting Physician Gastroenterology 11/12/18 documented as of this encounter
--- OUTSIDE RECORDS SUMMARY | 2024-08-05 08:20 | XMS_ITS | Encounter Summary ---
Author Organization [facility] Address [address] [place] [address] Care Team Providers Care Sales Program Manager Name Role Phone Steve Zamarripa MD Primary Care Provider [phone] Marco Mathur MD Unavailable [phone] Steve Zamarripa MD Unavailable [phone] Pcp, No Primary Care Provider Unavailabl e Steve Zamarripa MD Primary Care Provider [phone] Pcp, No Primary Care Provider Unavailabl e Encounter Details Date Type Department Care Team (Late st Contact Info) Description 07/26/2017 Telephone [facility] [address] [id number] Verónica Vogel [address] [place] [address] Social History Tobacco Use Types Packs/Day Years [...] encounter Miscellaneous Notes * Telephone Encounter - Verónica Vogel - 07/26/2017 12:03 PM EST CC (MARÍA) documented in this encounter Plan of Treatment Not on file documented as of this encounter Visit Diagnoses Not on filedocumented in this encounter Care Teams Sales Program Manager Relationship Specialty Start Date End Date Steve Zamarripa MD PCP - General Family Medicine 06/04/16 02/05/21 Steve Zamarripa MD [address] [place] [address] PCP - [place] Commercial Attributed 01/01/20 07/30/20 Pcp, No PCP - General General Medicine 02/06/21 06/10/22 Steve Zamarripa MD PCP - General 06/11/22 08/27/22 Pcp, No PCP - General General Medicine 08/28/22 Marco Mathur MD [address] [place] [address] Heat Treater Pediatric Gastroenterology 11/26/18 documented as of this encounter
--- OUTSIDE RECORDS SUMMARY | 2024-08-05 08:20 | XMS_ITS | Encounter Summary ---
Author Organization [facility] Address [address] [place] [address] Care Team Providers Care Guest Experience Representative Name Role Phone Jessica Cotto MD Primary Care Provider [phone] Steve Zamarripa MD Primary Care Provider [phone] Marco Mathur MD Unavailable [phone] Reason for Visit * Reason Comments Medication Refill Encounter Details Date Type Department Care Team (Late st Contact Info) Description 02/09/2016 Refill [facility] Gastroenterology, [address], [address] [place] [address] Marco Mathur MD [address] [place] [address] Crohn's disease of both small and large [...] Telephone Encounter - Pat Alegre RN - 02/09/2016 9:38 AM EDT Dose correct Seen November 2015 documented in this encounter Plan of Treatment Not on file documented as of this encounter Visit Diagnoses Diagnosis Crohn's disease of both small and large intestine without complication- Primary documented in this encounter Care Teams Guest Experience Representative Relationship Specialty Start Date End Date Jessica Cotto MD [address] [place], [place] [id number] PCP - General 12/10/14 11/11/16 Steve Zamarripa MD [address] [place] [address] PCP - General Internal Medicine 11/12/16 Marco Mathur MD [address] [place] [address] Consulting Physician Gastroenterology 11/12/18 documented as of this encounter
--- OUTSIDE RECORDS SUMMARY | 2024-08-05 08:20 | XMS_ITS | Encounter Summary ---
Author Organization [facility] Address [address] [place] [address] Care Team Providers Care Frame Pulley Mortising Machine Operator Name Role Phone Steve Zamarripa MD Primary Care Provider [phone] Encounter Details Date Type Department Care Team (Late st Contact Info) Description 07/23/2017 3:47 PM EST Hospital Encounter [facility] [address] [place] [address] Víctor Rutledge MD [address] [place] [address] Social History Tobacco Use Types Packs/Day Years [...] clear. Cardiomediastinal and hilar silhouette are unremarkable. ??Pulmonary vascularity is normal. No pleural effusion or pneumothorax. Osseous structures are intact for age. Procedure Note Gopi Gonzalez MD - 07/23/2017 XR CHEST 2 VIEWS: 07/23/2017 3:47 PM CLINICAL HISTORY: Cough. Cough. FINDINGS: Lungs are clear. Cardiomediastinal and hilar silhouette are unremarkable.Pulmonary vascularity is normal. No pleural effusion or pneumothorax.Osseous structures are intact for age. IMPRESSION: Normal chest. [facility] LOTT IMG DIAGNOSTIC IMAGI NG ORDERABLES documented in this encounter Visit Diagnoses Not on filedocumented in this encounter Care Teams Frame Pulley Mortising Machine Operator Relationship Specialty Start Date End Date Steve Zamarripa MD PCP - General Family Medicine 06/04/16 02/05/21 documented as of this encounter
--- OUTSIDE RECORDS SUMMARY | 2024-08-05 08:20 | XMS_ITS | Encounter Summary ---
Author Organization [facility] Address [address] [place] [address] Care Team Providers Care Cryptological Technician Name Role Phone Jessica Cotto MD Primary Care Provider [phone] Steve Zamarripa MD Primary Care Provider [phone] Marco Mathur MD Unavailable [phone] Reason for Visit * Reason Comments Medication Refill Encounter Details Date Type Department Care Team (Late st Contact Info) Description 06/05/2016 Refill [facility] Gastroenterology, [address], [address] [place] [address] Marco Mathur MD [address] [place] [address] Crohn's disease of both small and large [...] Telephone Encounter - Pat Alegre RN - 06/05/2016 3:02 PM EST Dose correct Seen in May documented in this encounter Plan of Treatment Not on file documented as of this encounter Visit Diagnoses Diagnosis Crohn's disease of both small and large intestine without complication- Primary documented in this encounter Care Teams Cryptological Technician Relationship Specialty Start Date End Date Jessica Cotto MD [address] [place], [place] [id number] PCP - General 12/10/14 11/11/16 Steve Zamarripa MD [address] [place] [address] PCP - General Internal Medicine 11/12/16 Marco Mathur MD [address] [place] [address] Consulting Physician Gastroenterology 11/12/18 documented as of this encounter
--- OUTSIDE RECORDS SUMMARY | 2024-08-05 08:20 | XMS_ITS | Encounter Summary ---
Author Organization [facility] Address [address] [place] [address] Care Team Providers Care Operator Command Support Systems Name Role Phone Steve Zamarripa MD Primary Care Provider [phone] Encounter Details Date Type Department Care Team (Late st Contact Info) Description 12/20/2021 Orders Only [facility] Department of Pulmonology [address] [place] [address] Cj Batista MD [address] [place] [address] Social History Tobacco Use Types Packs/Day Years [...] AM EDT Sexual Orientation Not on file documented as of this encounter Plan of Treatment Not on file documented as of this encounter Visit Diagnoses Not on filedocumented in this encounter Care Teams Operator Command Support Systems Relationship Specialty Start Date End Date Steve Zamarripa MD PCP - General Internal Medicine 07/09/18 documented as of this encounter
--- OUTSIDE RECORDS SUMMARY | 2024-08-05 08:20 | XMS_ITS | Encounter Summary ---
Author Organization [facility] Address [address] [place] [address] Care Team Providers Care Airborne Mission Systems Name Role Phone Steve Zamarripa MD Primary Care Provider [phone] Marco Mathur MD Unavailable [phone] Steve Zamarripa MD Unavailable [phone] Pcp, No Primary Care Provider Unavailabl e Steve Zamarripa MD Primary Care Provider [phone] Pcp, No Primary Care Provider Unavailabl e Encounter Details Date Type Department Care Team (Late st Contact Info) Description 05/29/2017 Scanned Document [address] [phone] Provider, Generic Social History Tobacco [...] on filedocumented in this encounter Care Teams [employer] Systems Relationship Specialty Start Date End Date Steve Zamarripa MD PCP - General Family Medicine 06/04/16 02/05/21 Steve Zamarripa MD [address] [place], [place] [address] [place] [address] PCP - [place] Commercial Attributed 01/01/20 07/30/20 Pcp, No PCP - General General Medicine 02/06/21 06/10/22 Steve Zamarripa MD PCP - General 06/11/22 08/27/22 Pcp, No PCP - General General Medicine 08/28/22 Marco Mathur MD [address] [place] [address] Videotape Operator Pediatric Gastroenterology 11/26/18 documented as of this encounter
--- OUTSIDE RECORDS SUMMARY | 2024-08-05 08:20 | XMS_ITS | Clinical Summary ---
Author Organization [facility] Address [address] [place] [address] Care Team Providers Care Drafter Cartographic Name Role Phone Marco Mathur MD Unavailable [phone] Pcp, No Primary Care Provider Unavailabl e Allergies No known active allergies Medications Medication Sig Dispensed Refills Start Date End Date Status FLUoxetine (PROzac) 40 MG capsule 40 mg daily. Active inFLIXimab (REMICADE) 100 MG injection Infuse 400 mg/kg into a venous catheter once. 400mg infusion every 8 weeks Active modafinil (PROVIGIL) 200 MG tablet Take 200 mg by mouth daily. Active levonorgestrel (MIRENA) 20 mcg/24hr IUD 1 each by Intrauterine route once. Active Probiotic Product (PROBIOTIC-10 PO) Take by mouth Acti ve buPROPion (WELLBUTRIN SR) 200 MG 12 hr tablet 200 mg 2 (two) times a day. 04/07/2018 Active Cholecalciferol (VITAMIN D-[address]) 1000 units tablet Take 1,000 Units by mouth daily Active multivitamin (multivitamin) Tab tablet Take 1 tablet by mouth daily Active ondansetron (ZOFRAN) 4 MG tablet 4 mg. 12/06/2016 Active XYREM 500 MG/ML Solution 08/12/2018 Active Active Problems Problem Noted Date Diagnosed Date Narcolepsy 08/01/2017 Moderate episode of recurrent major depressive d isorder 06/13/2016 Anxiety 06/13/2016 History of resection of small bowel 06/13/2016 Overview (06/13/2016): In 2015 Crohn's disease of both small and large intestin e 11/09/2015 Immunizations Name Administration Dates Next Due HPV Quadrivalent 11/30/2013,07/31/2013, 4 PPD Test 11/26/2018,10/07/2016 Pneumococcal Polysaccharide 23-Valent 06/13/2016 Tdap 11/26/2018 Family History Medical History Relation Name Comments Kidney Stones Father Relation Name Status Comments Father Social History Tobacco Use Types Packs/Day Years Used Date Smoking Tobacco: Never Smokeless Tobacco: Never Alcohol Use Standard Drinks/Week Comments Yes 0 (1 standard drink = 0.6 oz pur e alcohol) drinks once or twice a month Sex and Gender Information Value Date Recorded Sex Assigned at Not on file Gender Identity Not on file Sexual Orientation Not on file Last Filed Vital Signs Vital Sign Reading Time Taken Comments Blood Pressure 138/100 02/06/2021 10:13 PM EDT Pulse 116 02/06/2021 10:13 PM EDT Temperature 36.7 ??C (98 ??F) 02/06/2021 10:13 PM EDT Respiratory Rate 16 02/06/2021 10:13 PM EDT Oxygen Saturation 100% 02/06/2021 10:13 PM EDT Inhaled Oxygen Concentration - - Weight 58.5 kg (129 lb) 11/26/2018 5:22 PM EDT Height 172.1 cm (5' 7.75 ) 11/26/2018 5:22 PM ED T Body Mass Index 19.76 11/26/2018 5:22 PM EDT Plan of Treatment Health Maintenance Due Date Last Done Comments Hepatitis C Virus Screening 1996 COVID-19 Vaccine (#1) 2001 Quantiferon Gold TB 2006 HIV Screening 2009 Hepatitis B Vaccines (1 of 3 - 19+ 3-dose series) 12/09/2015 Pneumococcal Vaccine: Pediat marcos (0-5 Years) and At-Risk Patients (6 to 49 Years) (2 of 2 - PCV) 06/13/2017 06/13/2016 Pap Smear (Ages 21-65) 2017 Influenza Vaccine 01/01/2024 02/11/2020, , 03/24/2018, Additional history exists DTaP/Tdap/Td Vaccines (2 - T d or Tdap) 11/26/2028 11/26/2018 HPV Vaccines Completed 11/30/2013, 06/2013, 06/02/2013 Care Teams Drafter Cartographic Relationship Specialty Start Date End Date Pcp, No PCP - General General Medicine 08/28/22 Marco Mathru MD [address] [place] [address] Chemist Proteins Pediatric Gastroenterology 11/26/18
--- OUTSIDE RECORDS SUMMARY | 2024-08-05 08:20 | XMS_ITS | Encounter Summary ---
Author Organization [facility] Address [address] [place] [address] Care Team Providers Care Information Scientist Name Role Phone Jessica Cotto MD Primary Care Provider [phone] Steve Zamarripa MD Primary Care Provider [phone] Marco Mathur MD Unavailable [phone] Reason for Visit * Reason Comments Medication Refill Encounter Details Date Type Department Care Team (Late st Contact Info) Description 07/04/2015 Refill [facility] Gastroenterology, [address], [address] [place] [address] Marco Mathur MD [address] [place] [address] Crohn's disease of both small and large [...] Telephone Encounter - Pat Alegre RN - 07/05/2015 10:54 AM EST Dose is correct documented in this encounter Plan of Treatment Not on file documented as of this encounter Visit Diagnoses Diagnosis Crohn's disease of both small and large intestine without complication- Primary documented in this encounter Care Teams Information Scientist Relationship Specialty Start Date End Date Jessica Cotto MD [address] [place], [place] [id number] PCP - General 12/10/14 11/11/16 Steve Zamarripa MD [address] [place] [address] PCP - General Internal Medicine 11/12/16 Marco Mathur MD [address] [place] [address] Consulting Physician Gastroenterology 11/12/18 documented as of this encounter
--- OUTSIDE RECORDS SUMMARY | 2024-08-05 08:20 | XMS_ITS | Encounter Summary ---
Author Organization [facility] Address [address] [place] [address] Care Team Providers Care Oracle Reports Developer Name Role Phone Steve Zamarripa MD Primary Care Provider [phone] Marco Mathur MD Unavailable [phone] Steve Zamarripa MD Unavailable [phone] Pcp, No Primary Care Provider Unavailabl e Steve Zamarripa MD Primary Care Provider [phone] Pcp, No Primary Care Provider Unavailabl e Encounter Details Date Type Department Care Team (Late st Contact Info) Description 10/22/2016 Scanned Document [address] [phone] Provider, Generic Social History Tobacco Use Types [...] on filedocumented in this encounter Care Teams Oracle Reports Developer Relationship Specialty Start Date End Date Steve Zamarripa MD PCP - General Family Medicine 06/04/16 02/05/21 Steve Zamarripa MD [address] [place], [place] [address] [place] [address] PCP - [place] [employer] Attributed 01/01/20 07/30/20 Pcp, No PCP - General General Medicine 02/06/21 06/10/22 Steve Zamarripa MD PCP - General 06/11/22 08/27/22 Pcp, No PCP - General General Medicine 08/28/22 Marco Mathur MD [address] [place] [address] Front End Alignment Specialist Pediatric Gastroenterology 11/26/18 documented as of this encounter
--- OUTSIDE RECORDS SUMMARY | 2024-08-05 08:20 | XMS_ITS | Encounter Summary ---
Author Organization [facility] Address [address] [place] [address] Care Team Providers Care Discharge Planner Name Role Phone Steve Zamarripa MD Primary Care Provider [phone] Marco Mathur MD Unavailable [phone] Reason for Visit * Reason Comments Medication Refill Encounter Details Date Type Department Care Team (Late st Contact Info) Description 10/08/2017 Refill [facility] Gastroenterology, [address] [facility], [address] [place] [address] Marco Mathur MD [address] [place] [address] Crohn's disease of both small and large intestine without complication Social History Tobacco Use Types Packs/Day Years [...] Telephone Encounter - Pat Alegre RN - 10/08/2017 3:02 PM EDT Dose lowered to 7.5 mg in May documented in this encounter Plan of Treatment Not on file documented as of this encounter Visit Diagnoses Diagnosis Crohn's disease of both small and large intestine without complication documented in this encounter Care Teams Discharge Planner Relationship Specialty Start Date End Date Steve Zamarripa MD [address] [place] [address] PCP - General Internal Medicine 11/12/16 Marco Mathur MD [address] [place] [address] Consulting Physician Gastroenterology 11/12/18 documented as of this encounter
--- OUTSIDE RECORDS SUMMARY | 2024-08-05 08:20 | XMS_ITS | Clinical Summary ---
Author Organization [facility] Address [address] [place] [address] Care Team Providers Care Touch Up Edger Name Role Phone Steve Zamarripa MD Primary Care Provider [phone] Marco Mathur MD Unavailable [phone] Source Comments Please note that some or all of the patient's information could have additional privacy protections. State laws allow health care providers to render certain types of treatment to minors without parental consent. Please do not assume that this information can be shared solely by obtaining just the consent of the patient's parent/guardian. Please determine if all or part of the patient's care was rendered without parent/guardian involvement. And, if so, obtain the minor's consent prior to disclosure.[facility] Allergies No known active allergies Medications INFLIXIMAB (REMICADE IV) Inject 500 mg into the vein every 8 weeks Active modafinil (PROVIGIL) 200 MG tablet Take 300 mg by mouth daily Active hyoscyamine (LEVSIN/SL) 0.125 mg SL tablet Take 0.125 mg by mouth every 4 (four) hours as needed for Cramping Reported on 03/14/2017 Active desvenlafaxine succinate 25 mg Tablet Extended Release 24 hr Take 25 mg by mouth daily Active calcium-vitamin D (CALCIUM-VITAMIN D) 500 mg(1,250mg) -200 unit per tablet Take 1 tablet by mouth Active multivitamin tablet Take 1 tablet by mouth daily Active FLUoxetine (PROZAC) 40 MG capsule Take 40 mg by mouth daily Active lactobacillus 3/FOS/pantethine (PROBIOTIC AND ACIDOPHILUS ORAL) Take by mouth Active buPROPion (WELLBUTRIN SR) 200 MG 12 hr tablet Take 400 mg by mouth 0 11/06/201 8 Active ondansetron (ZOFRAN) 4 MG tabletIndication s:Nausea TAKE 1 TABLET (4 MG) BY MOUTH EVERY 8 (EIGHT) HOURS NEEDED FOR NAUSEA 30 tablet 9 Active Additional Information Patient not taking.Reported on 11/12/2018 sodium oxybate (XYREM) 500 mg/mL SolutionIndicati ons:takes x2 at night Take 4.5 mLs by mouth 2 (two) times daily Active Active Problems Problem Noted Date Diagnosed Date Diarrhea 08/23/2017 Chronic immunosuppression 11/21/2016 Primary narcolepsy without cataplexy 11/21/2016 Anxiety 11/21/2016 Depression, unspecified depression type 11/22/19 17 Small bowel obstruction due to adhesions 016 Acute epigastric pain 11/21/2015 Crohn's disease of both smal l and large intestine without complication 11/09/2015 Benign ovarian cyst 11/09/2015 Right lower quadrant abdominal pain 12/12/2014 Ileitis 12/12/2014 Immunizations Name Administration Dates Next Due Influenza Seasonal, Injectable 03/24/2018,2016 PPD Test 01/06/2015 Family History Medical History Relation Name Comments Nephrolithiasis Father Anesthesia problems Neg Hx Bleeding disorder Neg Hx Crohn's disease Neg Hx Relation Name Status Comments Father Social History [...] Sign Reading Time Taken Comments Blood Pressure 125/80 11/20/2018 12:43 PM EDT Pulse 97 11/20/2018 12:43 PM EDT Temperature 37.1 ??C (98.8 ??F) 11/20/2018 12:43 PM E DT Respiratory Rate 17 11/20/2018 12:43 PM EDT Oxygen Saturation 99% 08/24/2017 11:28 AM EDT Inhaled Oxygen Concentration - - Weight 58.6 kg (129 lb 3 oz) 11/20/2018 10:39 AM EDT Height 173.4 cm (5' 8.25 ) 11/20/2018 10:39 AM E DT Body Mass Index 19.5 11/20/2018 10:39 AM EDT Plan of Treatment Health Maintenance Due Date Last Done Comments DTaP/TDAP/TD VACCINES (1 - Tdap) 12/09/2003 ADOLESCENT HIV SCREENING 2009 COVID-19 Vaccine ( - 2023- season) 2024 INFLUENZA (#1) 2024 03/24/2018, 03/03/2017 NIRSEVIMAB VACCINES UNDER 8 MONTHS Aged Out No longer eligible b ased on patient's age to complete this topic Insurance [facility] Care Teams Touch Up Edger Relationship Specialty Start Date End Date Steve Zamarripa MD [address] [place] [address] PCP - General Internal Medicine 11/12/16 Marco Mathur MD [address] [place] [address] Consulting Physician Gastroenterology 11/12/18
--- OUTSIDE RECORDS SUMMARY | 2024-08-05 08:20 | XMS_ITS | Encounter Summary ---
Author Organization [facility] Address [address] [place] [address] Care Team Providers Care Housing Inspectors Name Role Phone Steve Zamarripa MD Primary Care Provider [phone] Marco Mathur MD Unavailable [phone] Steve Zamarripa MD Unavailable [phone] Pcp, No Primary Care Provider Unavailabl e Steve Zamarripa MD Primary Care Provider [phone] Pcp, No Primary Care Provider Unavailabl e Encounter Details Date Type Department Care Team (Late st Contact Info) Description 06/14/2016 Scanned Document [address] [phone] Provider, Generic Social History Tobacco Use Types [...] on filedocumented in this encounter Care Teams Housing Inspectors Relationship Specialty Start Date End Date Steve Zamarripa MD PCP - General Family Medicine 06/04/16 02/05/21 Steve Zamarripa MD [address] [place], [place] [address] [place] [address] PCP - [place] [employer] Attributed 01/01/20 07/30/20 Pcp, No PCP - General General Medicine 02/06/21 06/10/22 Steve Zamarripa MD PCP - General 06/11/22 08/27/22 Pcp, No PCP - General General Medicine 08/28/22 Marco Mathur MD [address] [place] [address] Air Bag Curer Pediatric Gastroenterology 11/26/18 documented as of this encounter
--- OUTSIDE RECORDS SUMMARY | 2024-08-05 08:21 | XMS_ITS | Encounter Summary ---
Author Organization [facility] Address [address] [place] [address] Care Team Providers Care Children'S Book Author Name Role Phone Steve Zamarripa MD Primary Care Provider [phone] Marco Mathur MD Unavailable [phone] Reason for Visit * Reason Comments Medication Refill Encounter Details Date Type Department Care Team (Late st Contact Info) Description 11/27/2017 Refill [facility] [place] [phone] Marco Mathur MD [address] [place] [address] Crohn's disease of both small and large [...] Telephone Encounter - Pat Alegre RN - 11/27/2017 3:08 PM EDT Dose correct Seen today documented in this encounter Plan of Treatment Not on file documented as of this encounter Visit Diagnoses Diagnosis Crohn's disease of both small and large intestine without complication documented in this encounter Care Teams Children'S Book Author Relationship Specialty Start Date End Date Stvee Zamarripa MD [address] [place] [address] PCP - General Internal Medicine 11/12/16 Marco Mathur MD [address] [place] [address] Consulting Physician Gastroenterology 11/12/18 documented as of this encounter
--- OUTSIDE RECORDS SUMMARY | 2024-08-05 08:21 | XMS_ITS | Encounter Summary ---
Author Organization [facility] Address [address] [place] [address] Care Team Providers Care Car Wash Supervisor Name Role Phone Steve Zamarripa MD Primary Care Provider [phone] Marco Mathur MD Unavailable [phone] Reason for Visit * Reason Comments Medication Refill Encounter Details Date Type Department Care Team (Late st Contact Info) Description 06/08/2018 Refill [facility] Gastroenterology, [address] [facility], [address] [place] [address] Marco Mathur MD [address] [place] [address] Crohn's disease of both small and large intestine without complication; Nausea Social History Tobacco Use Types Packs/Day Years [...] Telephone Encounter - Pat Alegre RN - 06/08/2018 12:50 PM EST Dose correct Last seen in October documented in this encounter Plan of Treatment Not on file documented as of this encounter Visit Diagnoses Diagnosis Crohn's disease of both small and large intestine without complication Nausea Nausea alone documented in this encounter Care Teams Car Wash Supervisor Relationship Specialty Start Date End Date Steve Zamarripa MD [address] [place] [address] PCP - General Internal Medicine 11/12/16 Marco Mahtur MD [address] [place] [address] Consulting Physician Gastroenterology 11/12/18 documented as of this encounter
--- OUTSIDE RECORDS SUMMARY | 2024-08-05 08:21 | XMS_ITS ---
Author Name [facility] Organization Unknown History of Medication Use Medication Directions Dispensed Refills Start Date End Date Stat magnesium glycinate 100 mg tablet 200 mg. 11/07/2019 active pitolisant (Wakix) 4.45 mg tablet Take 8.9 mg by mouth daily. Take two 4.45 mg tablets every morning. 12/06/2021 active modafiniL (PROVIGIL) 100 mg tablet Take 1 tablet (100 mg total) by mouth daily as needed (For somnolence at work or need to drive.). Take it during or after lunch. 11/08/2021 01/21/2022 active ZINC GLUCONATE-ZINC PICOLINATE ORAL 06/18/2019 active FLUoxetine (PROzac) 20 mg capsule daily. 60mg daily 12/05/2017 acti ve pitolisant (Wakix) 17.8 mg tablet Take 17.8 mg by mouth daily. 12/06/2021 01/06/2022 active buPROPion SR (WELLBUTRIN SR) 200 mg 12 hr tablet 150 mg daily. 04/07/2018 active nortriptyline (PAMELOR) 10 mg capsule Take 20 mg by mouth daily. 05/02/2019 01/15/2022 active fluticasone propionate (FLONASE) 50 mcg/actuation nasal spray INSTILL 2 SPRAYS IN EACH NOSTRIL DAILY FOR 1 MONTH 10/24/2021 active levonorgestrel (MIRENA) intrauterine device 1 Intra Uterine Device by intrauterine route once. active loratadine (CLARITIN) 10 mg tablet Take 10 mg by mouth daily. active doxepin (SINEquan) 10 mg capsule 07/09/2021 active Problems Problem Status Onset Date Problem Type Date of Resoluti on Source Crohn's disease of both small and large intestine active 2015-11-[address] [facility] History of resection of small bowel active 2016-06-13 [facility] Benign ovarian cyst active 2015-11-09 Problem[facility] Depression active 2016-11-21 ProblemAct [facility] Primary narcolepsy without cataplexy active 2017-12-30 ProblemAct [facility] Moderate episode of recurrent major depressive disorder active 2016-06-13 ProblemAct [facility] Immunosuppression active 2016-11-21 ProblemAct [facility] Anxiety active 2016-06-13 ProblemAct [facility] Ileitis active 2014-12-12 ProblemAct [facility] Right lower quadrant abdominal pain active 2014-12-12 ProblemAct [facility] Acute epigastric pain active 2015-11-21 ProblemAct [facility] Small bowel obstruction due to adhesions active 2015-11-28 ProblemAct [facility] Low bone density in premenopausal patient active 2020-09-13 ProblemAct [facility]
--- OUTSIDE RECORDS SUMMARY | 2024-08-05 08:21 | XMS_ITS | Encounter Summary ---
Author Organization [facility] Address [address] [place] [address] Care Team Providers Care Bacon De Rinder Name Role Phone Steve Zamarripa MD Primary Care Provider [phone] Marco Mathur MD Unavailable [phone] Reason for Visit * Reason Comments Medication Refill Encounter Details Date Type Department Care Team (Late st Contact Info) Description 12/06/2016 Refill [facility] Gastroenterology, [address] [facility], [address] [place] [address] Marco Mathur MD [address] [place] [address] Crohn's disease of both small and large [...] Telephone Encounter - Pat Alegre RN - 12/09/2016 9:09 AM EDT Dose correct, seen in October Also sent in refill on 11/28/16 documented in this encounter Plan of Treatment Not on file documented as of this encounter Visit Diagnoses Diagnosis Crohn's disease of both small and large intestine without complication- Primary documented in this encounter Care Teams Bacon De Rinder Relationship Specialty Start Date End Date Steve Zamarripa MD [address] [place] [address] PCP - General Internal Medicine 11/12/16 Marco Mathur MD [address] [place] [address] Consulting Physician Gastroenterology 11/12/18 documented as of this encounter
--- OUTSIDE RECORDS SUMMARY | 2024-08-05 08:21 | XMS_ITS | Encounter Summary ---
Author Organization [facility] Address [address] [place] [address] Care Team Providers Care Education Supervisor Name Role Phone Steve Zamarripa MD Primary Care Provider [phone] Marco Mathur MD Unavailable [phone] Reason for Visit * Reason Comments Medication Refill Encounter Details Date Type Department Care Team (Late st Contact Info) Description 11/27/2016 Refill [facility] Gastroenterology, [address], [address] [place] [address] Marco Mathur MD [address] [place] [address] Crohn's disease of both small and large intestine with intestinal obstruction (Primary Dx) Social History Tobacco Use Types [...] disease of both small and large intestine with intestinal obstruction- Primary documented in this encounter Care Teams Education Supervisor Relationship Specialty Start Date End Date Steve Zamarripa MD [address] [place] [address] PCP - General Internal Medicine 11/12/16 Marco Mathur MD [address] [place] [address] Consulting Physician Gastroenterology 11/12/18 documented as of this encounter
--- OUTSIDE RECORDS SUMMARY | 2024-08-05 08:21 | XMS_ITS | Encounter Summary ---
Author Organization [facility] Address [address] [place] [address] Care Team Providers Care Event Staff Name Role Phone Steve Zamarripa MD Primary Care Provider [phone] Marco Mathur MD Unavailable [phone] Reason for Visit * Reason Comments Medication Refill Encounter Details Date Type Department Care Team (Late st Contact Info) Description 07/29/2018 Refill [facility] [place] [phone] Marco Mathur MD [address] [place] [address] Crohn's disease of both small and large [...] complication documented in this encounter Care Teams Event Staff Relationship Specialty Start Date End Date Steve Zamarripa MD [address] [place] [address] PCP - General Internal Medicine 11/12/16 Marco Mathur MD [address] [place] [address] Consulting Physician Gastroenterology 11/12/18 documented as of this encounter
--- OUTSIDE RECORDS SUMMARY | 2024-08-05 08:21 | XMS_ITS | Encounter Summary ---
Author Organization [facility] Address [address] [place] [address] Care Team Providers Care School Business Administrator Name Role Phone Steve Zamarripa MD Primary Care Provider [phone] Marco Mathur MD Unavailable [phone] Reason for Visit * Reason Comments Medication Refill Encounter Details Date Type Department Care Team (Late st Contact Info) Description 10/31/2017 Refill [facility] [place] [phone] Marco Mathur MD [address] [place] [address] Crohn's disease of both small and large [...] Telephone Encounter - Pat Alegre RN - 10/31/2017 1:57 PM EDT Dose correct Last seen 05/18 documented in this encounter Plan of Treatment Not on file documented as of this encounter Visit Diagnoses Diagnosis Crohn's disease of both small and large intestine without complication documented in this encounter Care Teams School Business Administrator Relationship Specialty Start Date End Date Steve Zamarripa MD [address] [place] [address] PCP - General Internal Medicine 11/12/16 Marco Mathur MD [address] [place] [address] Consulting Physician Gastroenterology 11/12/18 documented as of this encounter
--- OUTSIDE RECORDS SUMMARY | 2024-08-05 08:21 | XMS_ITS | Encounter Summary ---
Author Organization [facility] Address [address] [place] [address] Care Team Providers Care Title Agent Name Role Phone Steve Zamarripa MD Primary Care Provider [phone] Marco Mathur MD Unavailable [phone] Reason for Visit * Reason Comments Medication Refill Encounter Details Date Type Department Care Team (Late st Contact Info) Description 11/22/2016 Refill [facility] Gastroenterology, [address], [address] [place] [address] Marco Mathur MD [address] [place] [address] Crohn's disease of both small and large [...] Telephone Encounter - Pat Alegre RN - 11/22/2016 12:17 PM EDT Dose correct Seen yesterday documented in this encounter Plan of Treatment Not on file documented as of this encounter Visit Diagnoses Diagnosis Crohn's disease of both small and large intestine without complication- Primary documented in this encounter Care Teams Title Agent Relationship Specialty Start Date End Date Steve Zamarripa MD [address] [place] [address] PCP - General Internal Medicine 11/12/16 Marco Mathur MD [address] [place] [address] Consulting Physician Gastroenterology 11/12/18 documented as of this encounter
--- OUTSIDE RECORDS SUMMARY | 2024-08-05 08:21 | XMS_ITS | Encounter Summary ---
Author Organization [facility] Address [address] [place] [address] Care Team Providers Care Aquatic Biologist Name Role Phone Steve Zamarripa MD Primary Care Provider [phone] Macro Mathur MD Unavailable [phone] Reason for Visit * Reason Comments Medication Refill Encounter Details Date Type Department Care Team ([facility] st Contact Info) Description 04/29/2018 Refill [facility] [place] [address] Kel Green MD [address] [place] [address] Crohn's disease of both small and large [...] Telephone Encounter - Pat Alegre RN - 04/29/2018 8:44 AM EST Skinner correct Last seen in October documented in this encounter Plan of Treatment Not on file documented as of this encounter Visit Diagnoses Diagnosis Crohn's disease of both small and large intestine without complication documented in this encounter Care Teams Aquatic Biologist Relationship Specialty Start Date End Date Steve Zamarripa MD [address] [place] [address] PCP - General Internal Medicine 11/12/16 Marco Mathur MD [address] [place] [address] Consulting Physician Gastroenterology 11/12/18 documented as of this encounter
== END 2024-08-05 08:57 | disposition home or self-care (01) ==
PROVIDERS: PCP Hospitalist; Visit Provider Nurse Practitioner Family
DX: G47.419 Narcolepsy without cataplexy (principal); R25.1 Tremor, unspecified; R20.2 Paresthesia of skin
CPT/HCPCS: 99214

== ENCOUNTER → 2024-08-05 08:07 | Outpatient (BNVA) | payer OTHER, SELFPAY | PROVIDERS: PCP Hospitalist; Visit Provider Nurse Practitioner Family ==

== ENCOUNTER 2024-08-09 12:28 | Outpatient (AMB) | payer OTHER, SELFPAY ==
--- NOTE | 2024-08-09 12:29 | MHC.OFFVIS ---
Intake Visit Reasons: f/u Intake Note: ESTABLISHED PATIENT for mgmt of Crohn's Chief Complaint; Intermittent / Episodic sx; BRB per rectum + mild to moderate pain, diarrhea, mild reflux, mild abd pain / cramping generalized to the navel area. Pt occasionally takes tums for reflux, imodium for diarrhea. Pt denies any additional concerns. Pt states that they are asymptomatic at the moment. Product Marketing Executive Required: No Accompanied by: Self / Same As Patient Allergies cat dander Allergy (Mild, Verified 08/05/24 08:14) sneezing pollen extracts Allergy (Verified 08/05/24 08:14) Unknown HPI HPI f/u: Details: 28 yr old f with hx of anxiety, narcolepsy, anxiety, Crohns disease being seen for f/u RECAP: Dx with Crohns 2014 aged 19 she had been having pain on her initial presentation at the time, She has disease of small and large bowels Has been receiving remicade 500 mg q 8 weeks with good response Has also tried MTX and folic acid for 1 yr in the past never smoker Surgeries: ileal resection, appendectomy, 2014 ovarian torsion and adhesions 2015 IMAGINg: MRe: 2018-- no inflammation EGD/colonoscopy-- 2020 at [facility] and was apparently nml LABS: TB test neg 05/23 Vit c low vit D low hep b ab pos I increased the dose of inflectra due to undetectable trough level she was supposed to get colonoscopy but was cancelled as anesthesia could not get access INTERIM: She conts doing well on inflectra 650 mg she has occ flares of abdo pain, every few months can be bad for few days --but can still go to work etc no mouth ulcers she denies joint swelling or pain no skin rashes EXAM: GENERAL: The patient is well developed and nontoxic, seems relaxed A/P: 1/ Crohns -large and small bowel - dose increased to 650 mg due to undetectable trough, no antibodies seen--seems to be doing well with occ bouts of altered bowel habits ?co existent IBS or bile acid PLAN: 1/recheck labs and lactoferrin, may need to change treatment, check inlfectra level 2/ she will r/s for colonoscopy, morning case, declines picc at this time --[facility] Medical History No pertinent past medical history Anxiety with depression Surgical History Hx of colonoscopy History of esophagogastroduodenoscopy (EGD) History of wisdom tooth extraction History of laparoscopy History of appendectomy (~2014) Family History Paternal Grandmother Substance abuse Maternal Grandmother Substance abuse Maternal Uncle Substance abuse Mother Bipolar 2 disorder Sister Panic attack Depression Maternal Grandfather Prostate cancer Paternal Grandfather Prostate cancer Cancer of kidney Other Anxiety Social History Housing: Condominium Alcohol intake: never Patient Tobacco Use Status: Never used Tobacco e-Cigarette/Vaping Use: Never Used service: No Current occupational status: employed 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 @ [employer] Cognitive needs: No Hearing needs: No Vision needs: No Telehealth Telehealth Telehealth Platform: [employer] Location of provider rendering services: practice address Location of patient: address on file Patient Identification confirmed using: Name, : Yes Telehealth method: video Patient verbally consented to treatment: Yes Patient verbally consented to billing insurance company: Yes Patient informed of any privacy concerns related to visit: Yes Assessment & Plan Assessment & Plan (1) Crohn's disease of both small and large intestine: Comment: Managed by [facility] Gastroenterology. Code(s): K50.80 - Crohn's disease of both small and large intestine without complications Category: Medical Qualifiers: Digestive disease complication type: without complication Qualified Code(s): K50.80 - Crohn's disease of both small and large intestine without complications Plan: as above Medications: New sodium,potassium,mag sulfates 17.5-3.13-1.6 gram (Suprep Bowel Prep Kit) DILUTE; drink 1/2 at 6-8 pm and half at 11 PM- 1AM 354 mL 0RF Coding Level of Care Code Tele Est Pt Level 3 (75387) Diagnoses Crohn's disease of both small and large intestine without complication K50.80 Digestive disease complication type: without complication
--- OUTSIDE RECORDS SUMMARY | 2024-08-09 14:00 | XMS_ITS | Clinical Summary ---
Author Organization [facility] Address [address] [place] [address] Care Team Providers Care Ur Coordinator Name Role Phone Marco Mathur MD Unavailable [phone] Pcp, No Primary Care Provider Unavailabl e [...] Vaccines Completed 11/30/2013, 06/2013, 06/02/2013 Care Teams Ur Coordinator Relationship Specialty Start Date End Date Pcp, No PCP - General General Medicine 08/28/22 Marco Mathur MD [address] [place] [address] Steel Buffer Pediatric Gastroenterology 11/26/18
--- OUTSIDE RECORDS SUMMARY | 2024-08-09 14:00 | XMS_ITS | Encounter Summary ---
Author Organization [facility] Address [address] [place] [address] Care Team Providers Care Die Welder Name Role Phone Steve Zamarripa MD Primary Care Provider [phone] Marco Mathur MD Unavailable [phone] Steve Zamarripa MD Unavailable [phone] Pcp, No Primary Care Provider Unavailabl e Steve Zamarripa MD Primary Care Provider [phone] Pcp, No Primary Care Provider Unavailabl e Encounter Details Date Type Department Care Team (Late st Contact Info) Description 10/01/2017 Scanned Document [address] [phone] Provider, Generic Social History Tobacco [...] on filedocumented in this encounter Care Teams Die Welder Relationship Specialty Start Date End Date Steve Zamarripa MD PCP - General Family Medicine 06/04/16 02/05/21 Steve Zamarripa MD [facility] [place] [address] PCP - [place] Commercial Attributed 01/01/20 07/30/20 Pcp, No PCP - General General Medicine 02/06/21 06/10/22 Steve Zamarripa MD PCP - General 06/11/22 08/27/22 Pcp, No PCP - General General Medicine 08/28/22 Marco Mathur MD [address] [place] [address] Supervisor [employer] Pediatric Gastroenterology 11/26/18 documented as of this encounter
--- OUTSIDE RECORDS SUMMARY | 2024-08-09 14:00 | XMS_ITS | Encounter Summary ---
Author Organization [facility] Address [address] [place] [address] Care Team Providers Care Solicitor Patent Name Role Phone Steve Zamarripa MD Primary Care Provider [phone] Marco Mathur MD Unavailable [phone] Steve Zamarripa MD Unavailable [phone] Pcp, No Primary Care Provider Unavailabl e Steve Zamarripa MD Primary Care Provider [phone] Pcp, No Primary Care Provider Unavailabl e Encounter Details Date Type Department Care Team (Late st Contact Info) Description 09/11/2018 Scanned Document [address] [phone] Steve Zamarripa MD [address] [place] [address] [id number] Social History Tobacco Use Types Packs/Day Years [...] on filedocumented in this encounter Care Teams Solicitor Patent Relationship Specialty Start Date End Date Steve Zamarripa MD PCP - General Family Medicine 06/04/16 02/05/21 Steve Zamarripa MD [address] [place] [address] [place] [address] PCP - [place] Commercial Attributed 01/01/20 07/30/20 Pcp, No PCP - General General Medicine 02/06/21 06/10/22 Steve Zamarripa MD PCP - General 06/11/22 08/27/22 Pcp, No PCP - General General Medicine 08/28/22 Marco Mathur MD [address] [place] [address] Cutter Apprentice Hand Pediatric Gastroenterology 11/26/18 documented as of this encounter
--- OUTSIDE RECORDS SUMMARY | 2024-08-09 14:00 | XMS_ITS | Encounter Summary ---
Author Organization [facility] Address [address] [place] [address] Care Team Providers Care Ratings Analyst Name Role Phone Steve Zamarripa MD Primary Care Provider [phone] Marco Mathur MD Unavailable [phone] Steve Zamarripa MD Unavailable [phone] Pcp, No Primary Care Provider Unavailabl e Steve Zamarripa MD Primary Care Provider [phone] Pcp, No Primary Care Provider Unavailabl e Encounter Details Date Type Department Care Team (Late st Contact Info) Description 08/23/2017 Scanned Document [address] [phone] Provider, Generic Social History Tobacco [...] on filedocumented in this encounter Care Teams Ratings Analyst Relationship Specialty Start Date End Date Steve Zamarripa MD PCP - General Family Medicine 06/04/16 02/05/21 Steve Zamarripa MD [facility] [place] [address] PCP - [place] Commercial Attributed 01/01/20 07/30/20 Pcp, No PCP - General General Medicine 02/06/21 06/10/22 Steve Zamarripa MD PCP - General 06/11/22 08/27/22 Pcp, No PCP - General General Medicine 08/28/22 Marco Mathur MD [address] [place] [address] Gelatin Powder Mixer Pediatric Gastroenterology 11/26/18 documented as of this encounter
--- OUTSIDE RECORDS SUMMARY | 2024-08-09 14:00 | XMS_ITS | Clinical Summary ---
Author Organization [facility] Address [address] [place] [address] Care Team Providers Care Leave Manager Name Role Phone Steve Zamarripa MD Primary Care Provider [phone] Marco Mathur MD Unavailable [phone] Source Comments Please note that some or [...] so, obtain the minor's consent prior to disclosure.[facility] Allergies No known active allergies Medications [...] patient's age to complete this topic Insurance [facility] Care Teams Leave Manager Relationship Specialty Start Date End Date Steve Zamarripa MD [address] [place] [address] PCP - General Internal Medicine 11/12/16 Marco Mathur MD [address] [place] [address] Consulting Physician Gastroenterology 11/12/18
--- OUTSIDE RECORDS SUMMARY | 2024-08-09 14:00 | XMS_ITS | Encounter Summary ---
Author Organization [facility] Address [address] [place] [address] Care Team Providers Care Bi Application Developer Name Role Phone Steve Zamarripa MD Primary Care Provider [phone] Marco Mathur MD Unavailable [phone] Steve Zamarripa MD Unavailable [phone] Pcp, No Primary Care Provider Unavailabl e Steve Zamarripa MD Primary Care Provider [phone] Pcp, No Primary Care Provider Unavailabl e Encounter Details Date Type Department Care Team (Late st Contact Info) Description 10/01/2017 Scanned Document [address] [phone] Provider, Generic Social History Tobacco [...] on filedocumented in this encounter Care Teams Bi Application Developer Relationship Specialty Start Date End Date Steve Zamarripa MD PCP - General Family Medicine 06/04/16 02/05/21 Steve Zamarripa MD [facility] [place] [address] PCP - [place] Commercial Attributed 01/01/20 07/30/20 Pcp, No PCP - General General Medicine 02/06/21 06/10/22 Steve Zamarripa MD PCP - General 06/11/22 08/27/22 Pcp, No PCP - General General Medicine 08/28/22 Marco Mathur MD [address] [place] [address] Hand Candy Dipper Pediatric Gastroenterology 11/26/18 documented as of this encounter
--- OUTSIDE RECORDS SUMMARY | 2024-08-09 14:00 | XMS_ITS | Encounter Summary ---
Author Organization [facility] Address [address] [place] [address] Care Team Providers Care Auto Damage Appraiser Name Role Phone Steve Zamarripa MD Primary Care Provider [phone] Marco Mathur MD Unavailable [phone] Steve Zamarripa MD Unavailable [phone] Pcp, No Primary Care Provider Unavailabl e Steve Zamarripa MD Primary Care Provider [phone] Pcp, No Primary Care Provider Unavailabl e Encounter Details Date Type Department Care Team (Late st Contact Info) Description 08/24/2017 Scanned Document [address] [phone] Provider, Generic Social History Tobacco [...] on filedocumented in this encounter Care Teams Auto Damage Appraiser Relationship Specialty Start Date End Date Steve Zamarripa MD PCP - General Family Medicine 06/04/16 02/05/21 Steve Zamarripa MD [facility] [place] [address] PCP - [place] Commercial Attributed 01/01/20 07/30/20 Pcp, No PCP - General General Medicine 02/06/21 06/10/22 Steve Zamarripa MD PCP - General 06/11/22 08/27/22 Pcp, No PCP - General General Medicine 08/28/22 Marco Mathur MD [address] [place] [address] Cutter Grinder Operator Pediatric Gastroenterology 11/26/18 documented as of this encounter
--- OUTSIDE RECORDS SUMMARY | 2024-08-09 14:00 | XMS_ITS | Encounter Summary ---
Author Organization [facility] Address [address] [place] [address] Care Team Providers Care Bait Man Name Role Phone Steve Zamarripa MD Primary Care Provider [phone] Marco Mathur MD Unavailable [phone] Steve Zamarripa MD Unavailable [phone] Pcp, No Primary Care Provider Unavailabl e Steve Zamarripa MD Primary Care Provider [phone] Pcp, No Primary Care Provider Unavailabl e Encounter Details Date Type Department Care Team (Late st Contact Info) Description 06/18/2018 Scanned Document [address] [phone] Pediatric Gastroenterology, Scan Social History Tobacco Use [...] on filedocumented in this encounter Care Teams Bait Man Relationship Specialty Start Date End Date Steve Zamarripa MD PCP - General Family Medicine 06/04/16 02/05/21 Steve Zamarripa MD [address] [place] [address] PCP - [place] Commercial Attributed 01/01/20 07/30/20 Pcp, No PCP - General General Medicine 02/06/21 06/10/22 Steve Zamarripa MD PCP - General 06/11/22 08/27/22 Pcp, No PCP - General General Medicine 08/28/22 Marco Mathur MD [address] [place] [address] Ux Interaction Designer Pediatric Gastroenterology 11/26/18 documented as of this encounter
--- OUTSIDE RECORDS SUMMARY | 2024-08-09 14:00 | XMS_ITS | Encounter Summary ---
Author Organization Pending sale to [facility] Address [address] [place] [address] Care Team Providers Care Venetian Blind Mechanic Name Role Phone Steve Zamarripa MD Primary Care Provider [phone] Encounter Details Date Type Department Care Team (Late st Contact Info) Description 04/20/2021 Orders Only Pending sale to [facility] Department of Pulmonology [address] [place] [address] Cj Batista MD [address] [place] [address] Social History Tobacco Use Types Packs/Day Years [...] on filedocumented in this encounter Care Teams Venetian Blind Mechanic Relationship Specialty Start Date End Date Steve Zamarripa MD PCP - General Internal Medicine 07/09/18 documented as of this encounter
--- OUTSIDE RECORDS SUMMARY | 2024-08-09 14:00 | XMS_ITS | Encounter Summary ---
Author Organization [facility] Address [address] [place] [address] Care Team Providers Care Pipe Processor Name Role Phone Steve Zamarripa MD Primary Care Provider [phone] Marco Mathur MD Unavailable [phone] Steve Zamarripa MD Unavailable [phone] Pcp, No Primary Care Provider Unavailabl e Steve Zamarripa MD Primary Care Provider [phone] Pcp, No Primary Care Provider Unavailabl e Encounter Details Date Type Department Care Team (Late st Contact Info) Description 07/09/2018 Scanned Document [address] [phone] Pulmonary, Scan Social History Tobacco Use Types [...] on filedocumented in this encounter Care Teams Pipe Processor Relationship Specialty Start Date End Date Steve Zamarripa MD PCP - General Family Medicine 06/04/16 02/05/21 Steve Zamarripa MD [facility] [place] [address] PCP - [place] Commercial Attributed 01/01/20 07/30/20 Pcp, No PCP - General General Medicine 02/06/21 06/10/22 Steve Zamarripa MD PCP - General 06/11/22 08/27/22 Pcp, No PCP - General General Medicine 08/28/22 Marco Mathur MD [address] [place] [address] Museum Host/Hostess Pediatric Gastroenterology 11/26/18 documented as of this encounter
--- OUTSIDE RECORDS SUMMARY | 2024-08-09 14:00 | XMS_ITS | Encounter Summary ---
Author Organization [facility] Address [address] [place] [address] Care Team Providers Care Cfo Controller Name Role Phone Steve Zamarripa MD Primary Care Provider [phone] Marco Mathur MD Unavailable [phone] Steve Zamarripa MD Unavailable [phone] Pcp, No Primary Care Provider Unavailabl e Steve Zamarripa MD Primary Care Provider [phone] Pcp, No Primary Care Provider Unavailabl e Encounter Details Date Type Department Care Team (Late st Contact Info) Description 12/09/2018 Scanned Document [address] [phone] Primary Care, Scan Social History Tobacco Use Types Packs/Day [...] on filedocumented in this encounter Care Teams Cfo Controller Relationship Specialty Start Date End Date Steve Zamarripa MD PCP - General Family Medicine 06/04/16 02/05/21 Steve Zamarripa MD [place] [address] PCP - [place] Commercial Attributed 01/01/20 07/30/20 Pcp, No PCP - General General Medicine 02/06/21 06/10/22 Steve Zamarripa MD PCP - General 06/11/22 08/27/22 Pcp, No PCP - General General Medicine 08/28/22 Marco Mathur MD [address] [place] [address] Gang Investigator Pediatric Gastroenterology 11/26/18 documented as of this encounter
--- OUTSIDE RECORDS SUMMARY | 2024-08-09 14:00 | XMS_ITS | Encounter Summary ---
Author Organization [facility] Address [address] [place] [address] Care Team Providers Care Tool Grinding Technician Name Role Phone Steve Zamarripa MD Primary Care Provider [phone] Marco Mathur MD Unavailable [phone] Steve Zamarripa MD Unavailable [phone] Pcp, No Primary Care Provider Unavailabl e Steve Zamarripa MD Primary Care Provider [phone] Pcp, No Primary Care Provider Unavailabl e Encounter Details Date Type Department Care Team (Late st Contact Info) Description 11/27/2017 Scanned Document [address] [phone] Provider, Generic Social History Tobacco [...] on filedocumented in this encounter Care Teams Tool Grinding Technician Relationship Specialty Start Date End Date Steve Zamarripa MD PCP - General Family Medicine 06/04/16 02/05/21 Steve Zamarripa MD [facility] [place] [address] PCP - [place] Commercial Attributed 01/01/20 07/30/20 Pcp, No PCP - General General Medicine 02/06/21 06/10/22 Steve Zamarripa MD PCP - General 06/11/22 08/27/22 Pcp, No PCP - General General Medicine 08/28/22 Marco Mathur MD [address] [place] [address] Sheet Metal Superintendent Pediatric Gastroenterology 11/26/18 documented as of this encounter
--- OUTSIDE RECORDS SUMMARY | 2024-08-09 14:00 | XMS_ITS | Encounter Summary ---
Author Organization [facility] Address [address] [place] [address] Care Team Providers Care Maintenance Aide Name Role Phone Steve Zamarripa MD Primary Care Provider [phone] Marco Mathur MD Unavailable [phone] Steve Zamarripa MD Unavailable [phone] Pcp, No Primary Care Provider Unavailabl e Steve Zamarripa MD Primary Care Provider [phone] Pcp, No Primary Care Provider Unavailabl e Encounter Details Date Type Department Care Team (Late st Contact Info) Description 08/23/2017 Scanned Document [address] [phone] Provider, Generic Social History Tobacco [...] on filedocumented in this encounter Care Teams Maintenance Aide Relationship Specialty Start Date End Date Steve Zamarripa MD PCP - General Family Medicine 06/04/16 02/05/21 Steve Zamarripa MD [facility] [place] [address] PCP - [place] Commercial Attributed 01/01/20 07/30/20 Pcp, No PCP - General General Medicine 02/06/21 06/10/22 Steve Zamarripa MD PCP - General 06/11/22 08/27/22 Pcp, No PCP - General General Medicine 08/28/22 Marco Mathur MD [address] [place] [address] Superintendent Drilling Pediatric Gastroenterology 11/26/18 documented as of this encounter
--- OUTSIDE RECORDS SUMMARY | 2024-08-09 14:01 | XMS_ITS | Encounter Summary ---
Author Organization [facility] Address [address] [place] [address] Care Team Providers Care Groundskeeper Name Role Phone Steve Zamarripa MD Primary Care Provider [phone] Marco Mathur MD Unavailable [phone] Reason for Visit * Reason Comments Medication Refill Encounter Details Date Type Department Care Team (Late st Contact Info) Description 10/31/2017 Refill [facility] [place] [phone] Marco Mathur MD [address] [place] [address] Crohn's disease of both small and large [...] complication documented in this encounter Care Teams Groundskeeper Relationship Specialty Start Date End Date Steve Zamarripa MD [address] [place] [address] PCP - General Internal Medicine 11/12/16 Marco Mathur MD [address] [place] [address] Consulting Physician Gastroenterology 11/12/18 documented as of this encounter
--- OUTSIDE RECORDS SUMMARY | 2024-08-09 14:01 | XMS_ITS | Encounter Summary ---
Author Organization [facility] Address [address] [place] [address] Care Team Providers Care Marshmallow Runner Name Role Phone Jessica Cotto MD Primary Care Provider [phone] Steve Zamarripa MD Primary Care Provider [phone] Marco Mathur MD Unavailable [phone] Reason for Visit * Reason Comments Medication Refill Encounter Details Date Type Department Care Team (Late st Contact Info) Description 08/26/2016 Refill [facility] Gastroenterology, [address], [address] [place] [address] Marco Mathur MD [address] [place] [address] Crohn's disease of both small and large [...] Primary documented in this encounter Care Teams Marshmallow Runner Relationship Specialty Start Date End Date Jessica Cotto MD [address] [place] [address] PCP - General 12/10/14 11/11/16 Steve Zamarripa MD [address] [place] [address] PCP - General Internal Medicine 11/12/16 Marco Mathur MD [address] [place] [address] Consulting Physician Gastroenterology 11/12/18 documented as of this encounter
--- OUTSIDE RECORDS SUMMARY | 2024-08-09 14:01 | XMS_ITS | Encounter Summary ---
Author Organization [facility] Address [address] [place] [address] Care Team Providers Care Team Automobile Assembler Name Role Phone Jessica Cotto MD Primary Care Provider [phone] Steve Zamarripa MD Primary Care Provider [phone] Marco Mathur MD Unavailable [phone] Reason for Visit * Reason Comments Medication Refill Encounter Details Date Type Department Care Team (Late st Contact Info) Description 08/19/[address] [facility] Gastroenterology, [address] 1[address], [address] [place] [address] Marco Mathur MD [address] [place] [address] Crohn's disease of both small and large [...] Primary documented in this encounter Care Teams Team Automobile Assembler Relationship Specialty Start Date End Date Jessica Cotto MD [address] [place], [place] [id number] PCP - General 12/10/14 11/11/16 Steve Zamarripa MD [address] [place] [address] PCP - General Internal Medicine 11/12/16 Marco Mathur MD [address] [place] [address] Consulting Physician Gastroenterology 11/12/18 documented as of this encounter
--- OUTSIDE RECORDS SUMMARY | 2024-08-09 14:01 | XMS_ITS | Encounter Summary ---
Author Organization [facility] Address [address] [place] [address] Care Team Providers Care Mortar Man Name Role Phone Steve Zamarripa MD Primary Care Provider [phone] Marco Mathur MD Unavailable [phone] Reason for Visit * Reason Comments Medication Refill Encounter Details Date Type Department Care Team (Late st Contact Info) Description 06/08/2018 Refill [facility] Gastroenterology, [address] 1st [facility], [address] [place] [address] Marco Mathur MD [address] [place] [address] Crohn's disease of both small and large [...] alone documented in this encounter Care Teams Mortar Man Relationship Specialty Start Date End Date Steve Zamarripa MD [address] [place] [address] PCP - General Internal Medicine 11/12/16 Marco Mathur MD [address] [place] [address] Consulting Physician Gastroenterology 11/12/18 documented as of this encounter
--- OUTSIDE RECORDS SUMMARY | 2024-08-09 14:01 | XMS_ITS | Encounter Summary ---
Author Organization [facility] Address [address] [place] [address] Care Team Providers Care Continuity Tester Name Role Phone Jessica Cotto MD Primary Care Provider [phone] Steve Zamarripa MD Primary Care Provider [phone] Marco Mathur MD Unavailable [phone] Reason for Visit * Reason Comments Medication Refill Encounter Details Date Type Department Care Team (Late st Contact Info) Description 06/05/2016 Refill [facility] Gastroenterology, [address], [address] [place] [address] Marco Mathur MD [address] [place] [address] Crohn's disease of both small and large [...] Primary documented in this encounter Care Teams Continuity Tester Relationship Specialty Start Date End Date Jessica Cotto MD [address] [place], [place] [id number] PCP - General 12/10/14 11/11/16 Steve Zamarripa MD [address] [place] [address] PCP - General Internal Medicine 11/12/16 Marco Mathur MD [address] [place] [address] Consulting Physician Gastroenterology 11/12/18 documented as of this encounter
--- OUTSIDE RECORDS SUMMARY | 2024-08-09 14:01 | XMS_ITS | Encounter Summary ---
Author Organization [facility] Address [address] [place] [address] Care Team Providers Care Ultrasound Specialist Name Role Phone Steve Zamarripa MD Primary Care Provider [phone] Marco Mathur MD Unavailable [phone] Reason for Visit * Reason Comments Medication Refill Encounter Details Date Type Department Care Team (Late st Contact Info) Description 07/29/2018 Refill [facility] [place] [phone] Marco Mathur MD [address] [place] [address] Crohn's disease of both small and large [...] complication documented in this encounter Care Teams Ultrasound Specialist Relationship Specialty Start Date End Date Steve Zamarripa MD [address] [place] [address] PCP - General Internal Medicine 11/12/16 Marco Mathur MD [address] [place] [address] Consulting Physician Gastroenterology 11/12/18 documented as of this encounter
--- OUTSIDE RECORDS SUMMARY | 2024-08-09 14:01 | XMS_ITS | Encounter Summary ---
Author Organization [facility] Address [address] [place] [address] Care Team Providers Care Injection Molder Name Role Phone Steve Zamarripa MD Primary Care Provider [phone] Marco Mathur MD Unavailable [phone] Steve Zamarripa MD Unavailable [phone] Pcp, No Primary Care Provider Unavailabl e Steve Zamarripa MD Primary Care Provider [phone] Pcp, No Primary Care Provider Unavailabl e Encounter Details Date Type Department Care Team (Late st Contact Info) Description 07/26/2017 Telephone [facility] [address] [phone] Verónica Vogel [address] [place] [address] Social History Tobacco Use Types Packs/Day Years [...] on filedocumented in this encounter Care Teams Injection Molder Relationship Specialty Start Date End Date Steve Zamarripa MD PCP - General Family Medicine 06/04/16 02/05/21 Steve Zamarripa MD [address] [place] [address] PCP - [place] Commercial Attributed 01/01/20 07/30/20 Pcp, No PCP - General General Medicine 02/06/21 06/10/22 Steve Zamarripa MD PCP - General 06/11/22 08/27/22 Pcp, No PCP - General General Medicine 08/28/22 Marco Mathur MD [address] [place] [address] Loom Control Chain Builder Pediatric Gastroenterology 11/26/18 documented as of this encounter
--- OUTSIDE RECORDS SUMMARY | 2024-08-09 14:01 | XMS_ITS | Encounter Summary ---
Author Organization [facility] Address [address] [place] [address] Care Team Providers Care Service Station Manager Name Role Phone Jessica Cotto MD Primary Care Provider [phone] Steve Zamarripa MD Primary Care Provider [phone] Marco Mathur MD Unavailable [phone] Reason for Visit * Reason Comments Medication Refill Encounter Details Date Type Department Care Team (Late st Contact Info) Description 07/04/2015 Refill [facility] Gastroenterology, [address], [address] [place] [address] Marco Mathur MD [address] [place] [address] Crohn's disease of both small and large [...] Primary documented in this encounter Care Teams Service Station Manager Relationship Specialty Start Date End Date Jessica Cotto MD [address] [place], [place] [id number] PCP - General 12/10/14 11/11/16 Steve Zamarripa MD [address] [place] [address] PCP - General Internal Medicine 11/12/16 Marco Mathur MD [address] [place] [address] Consulting Physician Gastroenterology 11/12/18 documented as of this encounter
--- OUTSIDE RECORDS SUMMARY | 2024-08-09 14:01 | XMS_ITS | Clinical Summary ---
Author Organization [facility] Address [address] [facility] [place] [address] Care Team Providers Care Repairer Cylinder Heads Name Role Phone Steve Zamarripa MD Primary Care Provider [phone] Allergies No known active allergies Medications FLUoxetine [...] age to complete this topic Insurance () [facility] Member Subscriber Plan / Payer (Ef fective 2021-Present) Name:Andree Boss Relation to Subscriber:Self Name:Andree Boss Payer ID:[id number] (NAIC) Type:HMO Address: [place] [id number] [facility] PPO Care Teams Repairer Cylinder Heads Relationship Specialty Start Date End Date Steve Zamarripa MD PCP - General Internal Medicine 07/09/18
--- OUTSIDE RECORDS SUMMARY | 2024-08-09 14:01 | XMS_ITS | Encounter Summary ---
Author Organization [facility] Address [address] [place] [address] Care Team Providers Care Nurse Staff Name Role Phone Steve Zamarripa MD Primary Care Provider [phone] Marco Mathur MD Unavailable [phone] Reason for Visit * Reason Comments Medication Refill Encounter Details Date Type Department Care Team ([facility] st Contact Info) Description 04/29/2018 Refill [facility] [place] [address] Kel Green MD [address] [place] [address] Crohn's disease of both small and large [...] complication documented in this encounter Care Teams Nurse Staff Relationship Specialty Start Date End Date Steve Zamarripa MD [address] [place] [address] PCP - General Internal Medicine 11/12/16 Marco Mathur MD [address] [place] [address] Consulting Physician Gastroenterology 11/12/18 documented as of this encounter
--- OUTSIDE RECORDS SUMMARY | 2024-08-09 14:01 | XMS_ITS | Encounter Summary ---
Author Organization [facility] Address [address] [place] [address] Care Team Providers Care Cartridge Maker Name Role Phone Steve Zamarripa MD Primary Care Provider [phone] Marco Mathur MD Unavailable [phone] Reason for Visit * Reason Comments Medication Refill Encounter Details Date Type Department Care Team (Late st Contact Info) Description 12/06/2016 Refill [facility] Gastroenterology, [address]st [facility], [address] [place] [address] Marco Mathur MD [address] [place] [address] Crohn's disease of both small and large [...] Primary documented in this encounter Care Teams Cartridge Maker Relationship Specialty Start Date End Date Steve Zamarripa MD [address] [place] [address] PCP - General Internal Medicine 11/12/16 Marco Mathur MD [address] [place] [address] Consulting Physician Gastroenterology 11/12/18 documented as of this encounter
--- OUTSIDE RECORDS SUMMARY | 2024-08-09 14:01 | XMS_ITS | Encounter Summary ---
Author Organization [facility] Address [address] [place] [address] Care Team Providers Care Mixer Slagman Name Role Phone Steve Zamarripa MD Primary Care Provider [phone] Marco Mathur MD Unavailable [phone] Reason for Visit * Reason Comments Medication Refill Encounter Details Date Type Department Care Team (Late st Contact Info) Description 10/08/2017 Refill [facility] Gastroenterology, [address] 1st [facility], [address] [place] [address] Marco Mathur MD [address] [place] [address] Crohn's disease of both small and large [...] complication documented in this encounter Care Teams Mixer Slagman Relationship Specialty Start Date End Date Steve Zamarripa MD [address] [place] [address] PCP - General Internal Medicine 11/12/16 Marco Mathur MD [address] [place] [address] Consulting Physician Gastroenterology 11/12/18 documented as of this encounter
--- OUTSIDE RECORDS SUMMARY | 2024-08-09 14:01 | XMS_ITS | Encounter Summary ---
Author Organization [facility] Address [address] [place] [address] Care Team Providers Care Security System Sales Consultant Name Role Phone Steve Zamarripa MD Primary Care Provider [phone] Marco Mathur MD Unavailable [phone] Reason for Visit * Reason Comments Medication Refill Encounter Details Date Type Department Care Team (Late st Contact Info) Description 11/27/2016 Refill [facility] Gastroenterology, [address], [address] [place] [address] Marco Mathur MD [address] [place] [address] Crohn's disease of both small and large [...] Primary documented in this encounter Care Teams Security System Sales Consultant Relationship Specialty Start Date End Date Steve Zamarripa MD [address] [place] [address] PCP - General Internal Medicine 11/12/16 Marco Mathur MD [address] [place] [address] Consulting Physician Gastroenterology 11/12/18 documented as of this encounter
--- OUTSIDE RECORDS SUMMARY | 2024-08-09 14:01 | XMS_ITS | Encounter Summary ---
Author Organization [facility] Address [address] [place] [address] Care Team Providers Care Pedigree Tracer Name Role Phone Jessica Cotto MD Primary Care Provider [phone] Steve Zamarripa MD Primary Care Provider [phone] Marco Mathur MD Unavailable [phone] Reason for Visit * Reason Comments Medication Refill Encounter Details Date Type Department Care Team (Late st Contact Info) Description 02/09/2016 Refill [facility] Gastroenterology, [address] 1[address], [address] [place] [address] Marco Mathur MD [address] [place] [address] Crohn's disease of both small and large [...] Primary documented in this encounter Care Teams Pedigree Tracer Relationship Specialty Start Date End Date Jessica Cotto MD [address] [place], [place] [phone] PCP - General 12/10/14 11/11/16 Steve Zamarripa MD [address] [place] [address] PCP - General Internal Medicine 11/12/16 Marco Mathur MD [address] [place] [address] Consulting Physician Gastroenterology 11/12/18 documented as of this encounter
--- OUTSIDE RECORDS SUMMARY | 2024-08-09 14:01 | XMS_ITS | Encounter Summary ---
Author Organization [facility] Address [address] [place] [address] Care Team Providers Care Career Education Teacher Name Role Phone Jessica Cotto MD Primary Care Provider [phone] Steve Zamarripa MD Primary Care Provider [phone] Marco Mathur MD Unavailable [phone] Reason for Visit * Reason Comments Medication Refill Encounter Details Date Type Department Care Team (Late st Contact Info) Description 08/11/2015 Refill [facility] Gastroenterology, [address] [place] [address] 1st [facility], [address] [place] [address] Marco Mathur MD [address] [place] [address] Crohn's disease of both small and large [...] Primary documented in this encounter Care Teams Career Education Teacher Relationship Specialty Start Date End Date Jessica Cotto MD [address] [place], [place] [address] PCP - General 12/10/14 11/11/16 Steve Zamarripa MD [address] [place] [address] PCP - General Internal Medicine 11/12/16 Marco Mathur MD [address] [place] [address] Consulting Physician Gastroenterology 11/12/18 documented as of this encounter
--- OUTSIDE RECORDS SUMMARY | 2024-08-09 14:01 | XMS_ITS | Encounter Summary ---
Author Organization [facility] Address [address] [place] [address] Care Team Providers Care Quickbooks Bookkeeper Name Role Phone Steve Zamarripa MD Primary Care Provider [phone] Marco Mathur MD Unavailable [phone] Reason for Visit * Reason Comments Medication Refill Encounter Details Date Type Department Care Team (Late st Contact Info) Description 11/22/2016 Refill [facility] Gastroenterology, [address] 1[address], [address] [place] [address] Marco Mathur MD [address] [place] [address] Crohn's disease of both small and large [...] Primary documented in this encounter Care Teams Quickbooks Bookkeeper Relationship Specialty Start Date End Date Steve Zamarripa MD [address] [place] [address] PCP - General Internal Medicine 11/12/16 Marco Mathur MD [address] [place] [address] Consulting Physician Gastroenterology 11/12/18 documented as of this encounter
--- OUTSIDE RECORDS SUMMARY | 2024-08-09 14:01 | XMS_ITS | Encounter Summary ---
Author Organization [facility] Address [address] [place] [address] Care Team Providers Care Contract Consultant Name Role Phone Steve Zamarripa MD Primary Care Provider [phone] Marco Mathur MD Unavailable [phone] Steve Zamarripa MD Unavailable [phone] Pcp, No Primary Care Provider Unavailabl e Steve Zamarripa MD Primary Care Provider [phone] Pcp, No Primary Care Provider Unavailabl e Encounter Details Date Type Department Care Team (Late st Contact Info) Description 06/12/2017 Scanned Document [address] [address] Provider, Generic Social History Tobacco [...] on filedocumented in this encounter Care Teams Contract Consultant Relationship Specialty Start Date End Date Steve Zamarripa MD PCP - General Family Medicine 06/04/16 02/05/21 Steve Zamarripa MD [address] [place], [place] [address] [place] [address] PCP - [place] Commercial Attributed 01/01/20 07/30/20 Pcp, No PCP - General General Medicine 02/06/21 06/10/22 Steve Zamarripa MD PCP - General 06/11/22 08/27/22 Pcp, No PCP - General General Medicine 08/28/22 Marco Mathur MD [address] [place] [address] Gis Application Developer Pediatric Gastroenterology 11/26/18 documented as of this encounter
--- OUTSIDE RECORDS SUMMARY | 2024-08-09 14:01 | XMS_ITS | Encounter Summary ---
Author Organization [facility] Address [address] [place] [address] Care Team Providers Care Mattress And Foundation Sewer Name Role Phone Steve Zamarripa MD Primary Care Provider [phone] Marco Mathur MD Unavailable [phone] Steve Zamarripa MD Unavailable [phone] Pcp, No Primary Care Provider Unavailabl e Steve Zamarripa MD Primary Care Provider [phone] Pcp, No Primary Care Provider Unavailabl e Encounter Details Date Type Department Care Team (Late st Contact Info) Description 10/22/2016 Scanned Document [address] [address] Provider, Generic Social History Tobacco [...] on filedocumented in this encounter Care Teams Mattress And Foundation Sewer Relationship Specialty Start Date End Date Steve Zamarripa MD PCP - General Family Medicine 06/04/16 02/05/21 Steve Zamarripa MD [address] [place], [place] [address] [place] [address] PCP - [place] Commercial Attributed 01/01/20 07/30/20 Pcp, No PCP - General General Medicine 02/06/21 06/10/22 Steve Zamarripa MD PCP - General 06/11/22 08/27/22 Pcp, No PCP - General General Medicine 08/28/22 Marco Mathur MD [address] [place] [address] Pull Tab Dealer Pediatric Gastroenterology 11/26/18 documented as of this encounter
--- OUTSIDE RECORDS SUMMARY | 2024-08-09 14:01 | XMS_ITS | Encounter Summary ---
Author Organization [facility] Address [address] [place] [address] Care Team Providers Care Regulatory Affairs Strategy Specialist Name Role Phone Jessica Cotto MD Primary Care Provider [phone] Steve Zamarripa MD Primary Care Provider [phone] Marco Mathur MD Unavailable [phone] Reason for Visit * Reason Comments Medication Refill Encounter Details Date Type Department Care Team (Late st Contact Info) Description 08/02/2015 Refill [facility] Gastroenterology, [address] 1[address], [address] [place] [address] Marco Mathur MD [address] [place] [address] Crohn's disease of both small and large [...] Primary documented in this encounter Care Teams Regulatory Affairs Strategy Specialist Relationship Specialty Start Date End Date Jessica Cotto MD [address] [place], [place] [address] PCP - General 12/10/14 11/11/16 Steve Zamarripa MD [address] [place] [address] PCP - General Internal Medicine 11/12/16 Marco Mathur MD [address] [place] [address] Consulting Physician Gastroenterology 11/12/18 documented as of this encounter
--- OUTSIDE RECORDS SUMMARY | 2024-08-09 14:01 | XMS_ITS | Encounter Summary ---
Author Organization [facility] Address [address] [place] [address] Care Team Providers Care Algology Teacher Name Role Phone Steve Zamarripa MD Primary Care Provider [phone] Marco Mathur MD Unavailable [phone] Reason for Visit * Reason Comments Medication Refill Encounter Details Date Type Department Care Team (Late st Contact Info) Description 11/27/2017 Refill [facility] [place] [phone] Marco Mathur MD [address] [place] [address] Crohn's disease of both small and large [...] complication documented in this encounter Care Teams Algology Teacher Relationship Specialty Start Date End Date Steve Zamarripa MD [address] [place] [address] PCP - General Internal Medicine 11/12/16 Marco Mathur MD [address] [place] [address] Consulting Physician Gastroenterology 11/12/18 documented as of this encounter
--- OUTSIDE RECORDS SUMMARY | 2024-08-09 14:01 | XMS_ITS | Encounter Summary ---
Author Organization [facility] Address [address] [place] [address] Care Team Providers Care Parimutuel Ticket Seller Name Role Phone Steve Zamarripa MD Primary Care Provider [phone] Encounter Details Date Type Department Care Team (Late st Contact Info) Description 07/23/2017 3:47 PM EST Hospital Encounter [facility] [address] [place] [address] Víctor Rutledge MD [address] [place] [address] Social History Tobacco Use Types Packs/Day Years [...] on filedocumented in this encounter Care Teams Parimutuel Ticket Seller Relationship Specialty Start Date End Date Steve Zamarripa MD PCP - General Family Medicine 06/04/16 02/05/21 documented as of this encounter
--- OUTSIDE RECORDS SUMMARY | 2024-08-09 14:01 | XMS_ITS | Encounter Summary ---
Author Organization [facility] Address [address] [place] [address] Care Team Providers Care Tire Buffer Name Role Phone Steve Zamarripa MD Primary Care Provider [phone] Marco Mathur MD Unavailable [phone] Steve Zamarripa MD Unavailable [phone] Pcp, No Primary Care Provider Unavailabl e Steve Zamarripa MD Primary Care Provider [phone] Pcp, No Primary Care Provider Unavailabl e Encounter Details Date Type Department Care Team (Late st Contact Info) Description 06/14/2016 Scanned Document [address] [phone] Provider, Generic Social History Tobacco Use Types [...] on filedocumented in this encounter Care Teams Tire Buffer Relationship Specialty Start Date End Date Steve Zamarripa MD PCP - General Family Medicine 06/04/16 02/05/21 Steve Zamarripa MD [address] [place], [place] [address] [place] [address] PCP - [place] Commercial Attributed 01/01/20 07/30/20 Pcp, No PCP - General General Medicine 02/06/21 06/10/22 Steve Zamarripa MD PCP - General 06/11/22 08/27/22 Pcp, No PCP - General General Medicine 08/28/22 Marco Mathur MD [address] [place] [address] Hardwood Finisher Pediatric Gastroenterology 11/26/18 documented as of this encounter
--- OUTSIDE RECORDS SUMMARY | 2024-08-09 14:01 | XMS_ITS | Encounter Summary ---
Author Organization [facility] Address [address] [place] [address] Care Team Providers Care Data Analytics Analyst Name Role Phone Steve Zamarripa MD Primary Care Provider [phone] Encounter Details Date Type Department Care Team (Late st Contact Info) Description 12/20/2021 Orders Only [facility] Department of Pulmonology [address] [place] [address] Cj Batsita MD [address] [place] [address] Social History Tobacco Use Types Packs/Day Years [...] on filedocumented in this encounter Care Teams Data Analytics Analyst Relationship Specialty Start Date End Date Steve Zamarripa MD PCP - General Internal Medicine 07/09/18 documented as of this encounter
--- OUTSIDE RECORDS SUMMARY | 2024-08-09 14:01 | XMS_ITS | Encounter Summary ---
Author Organization [facility] Address [address] [place] [address] Care Team Providers Care Sulphate Tester Name Role Phone Steve Zamarripa MD Primary Care Provider [phone] Marco Mathur MD Unavailable [phone] Steve Zamarripa MD Unavailable [phone] Pcp, No Primary Care Provider Unavailabl e Steve Zamarripa MD Primary Care Provider [phone] Pcp, No Primary Care Provider Unavailabl e Encounter Details Date Type Department Care Team (Late st Contact Info) Description 05/29/2017 Scanned Document [address] [phone] Provider, Generic Social History Tobacco [...] on filedocumented in this encounter Care Teams Sulphate Tester Relationship Specialty Start Date End Date Steve Zamarripa MD PCP - General Family Medicine 06/04/16 02/05/21 Steve Zamarripa MD [address] [place], [place] [address] [place] [address] PCP - [place] Commercial Attributed 01/01/20 07/30/20 Pcp, No PCP - General General Medicine 02/06/21 06/10/22 Steve Zamarripa MD PCP - General 06/11/22 08/27/22 Pcp, No PCP - General General Medicine 08/28/22 Marco Mathur MD [address] [place] [address] Software Clerk Pediatric Gastroenterology 11/26/18 documented as of this encounter
--- OUTSIDE RECORDS SUMMARY | 2024-08-09 14:01 | XMS_ITS | Encounter Summary ---
Author Organization [facility] Address [address] [place] [address] Care Team Providers Care Medical Billing Assistant Name Role Phone Steve Zamarripa MD Primary Care Provider [phone] Marco Mathur MD Unavailable [phone] Steve Zamarripa MD Unavailable [phone] Pcp, No Primary Care Provider Unavailabl e Steve Zamarripa MD Primary Care Provider [phone] Pcp, No Primary Care Provider Unavailabl e Encounter Details Date Type Department Care Team (Late st Contact Info) Description 09/20/2016 Scanned Document [address] [phone] Provider, Generic Social History Tobacco [...] on filedocumented in this encounter Care Teams Medical Billing Assistant Relationship Specialty Start Date End Date Steve Zamarripa MD PCP - General Family Medicine 06/04/16 02/05/21 Steve Zamarripa MD [address] [place], [place] [address] [place] [address] PCP - [place] Commercial Attributed 01/01/20 07/30/20 Pcp, No PCP - General General Medicine 02/06/21 06/10/22 Steve Zamarripa MD PCP - General 06/11/22 08/27/22 Pcp, No PCP - General General Medicine 08/28/22 Marco Mathur MD [address] [place] [address] Billet Recorder Pediatric Gastroenterology 11/26/18 documented as of this encounter
== END 2024-08-09 13:39 | disposition home or self-care (01) ==
LOC: HO.HGI 12:28
PROVIDERS: PCP Hospitalist; Visit Provider Internal Medicine Gastroenterology
DX: K50.80 Crohn's disease of both small and large intestine without complications (principal)
CPT/HCPCS: 98005

== ENCOUNTER 2024-08-31 14:54 | Outpatient (REF) | payer OTHER, SELFPAY ==
[2024-08-31 15:13] LABS: MANUAL DIFF FLAG NO
[2024-08-31 15:51] LABS: Basophils Absolute Auto 0.1 X10*3/uL (0.0-0.2); Basophils Percent Auto 0.5 % (0-2); Eosinophils Absolute Auto 0.1 X10*3/uL (0.0-0.4); Eosinophils Percent Auto 1.1 % (0-4); Hematocrit 40.1 % (37.0-47.0); Hemoglobin 13.8 g/dl (12.0-16.0); Imm Gran Abs Auto 0.03 X10*3/uL (0.00-0.03); Imm Gran Pct Auto 0.3 % (0.0-0.4); Lymphocytes Absolute Auto 3.2 X10*3/uL (1.2-4.9); Lymphocytes Percent Auto 33.4 % (20-40); Mean Corpuscular HGB Conc 34.4 g/dl (31.0-35.0); Mean Corpuscular Hemoglobin 29.9 pg (27.0-33.0); Mean Platelet Volume 10.1 fL (9.4-12.3); Monocytes Absolute Auto 0.5 X10*3/uL (0.1-1.2); Monocytes Percent Auto 5.3 % (2-11); Neutrophils Absolute Auto 5.6 x10*3/uL (2.0-8.3); Neutrophils Percent Auto 59.4 % (45-73); Platelet Count 310 X10*3/uL (160-400); Red Blood Count 4.61 X10*6/uL (4.20-5.50); Red Cell Distribution Width 12.3 % (11.0-16.0); White Blood Count 9.4 X10*3/uL (4.8-10.8)
--- OUTSIDE RECORDS SUMMARY | 2024-08-31 17:46 | XMS_ITS | Encounter Summary ---
Author Organization [facility] Address [address] [place] [address] Care Team Providers Care Advance Agent Name Role Phone Steve Zamarripa MD Primary Care Provider [phone] Marco Mathur MD Unavailable [phone] Reason for Visit * Reason Comments Medication Refill Encounter Details Date Type Department Care Team ([facility] st Contact Info) Description 04/29/2018 Refill [facility] [address] Kel Green MD [address] [place] [address] Crohn's disease of both small and large [...] complication documented in this encounter Care Teams Advance Agent Relationship Specialty Start Date End Date Steve Zamarripa MD [address] [place] [address] PCP - General Internal Medicine 11/12/16 Marco Mathur MD [address] [place] [address] Consulting Physician Gastroenterology 11/12/18 documented as of this encounter
--- OUTSIDE RECORDS SUMMARY | 2024-08-31 17:46 | XMS_ITS | Clinical Summary ---
Author Organization [facility] Address [address] [place] [address] Care Team Providers Care Hospital Housekeeper Name Role Phone Steve Zamarripa MD Primary Care Provider [phone] Marco Mathur MD Unavailable [phone] Source Comments Please note that some or [...] so, obtain the minor's consent prior to disclosure.[facility] Allergies No known active allergies Medications [...] quadrant abdominal pain 12/12/2014 Ileitis 12/12/2014 Immunizations Immunization Administration Dates Next Due Influenza Seasonal, Injectable [...] to complete this topic Insurance [facility] Care Teams Hospital Housekeeper Relationship Specialty Start Date End Date Steve Zamarripa MD [address] [place] [address] PCP - General Internal Medicine 11/12/16 Marco Mathur MD [address] [place] [address] Consulting Physician Gastroenterology 11/12/18
--- OUTSIDE RECORDS SUMMARY | 2024-08-31 17:46 | XMS_ITS | Encounter Summary ---
Author Organization [facility] Address [address] [place] [address] Care Team Providers Care Manager Estate Name Role Phone Steve Zamarripa MD Primary Care Provider [phone] Marco Mathur MD Unavailable [phone] Reason for Visit * Reason Comments Medication Refill Encounter Details Date Type Department Care Team (Late st Contact Info) Description 11/27/2017 Refill [facility] [place] [phone] Marco Mathur MD [address] [place] [address] Crohn's disease of both small and large [...] complication documented in this encounter Care Teams Manager Estate Relationship Specialty Start Date End Date Steve Zamarripa MD [address] [place] [address] PCP - General Internal Medicine 11/12/16 Marco Mathur MD [address] [place] [address] Consulting Physician Gastroenterology 11/12/18 documented as of this encounter
--- OUTSIDE RECORDS SUMMARY | 2024-08-31 17:46 | XMS_ITS | Encounter Summary ---
Author Organization [facility] Address [address] [place] [address] Care Team Providers Care Cmo Name Role Phone Steve Zamarripa MD Primary Care Provider [phone] Marco Mathur MD Unavailable [phone] Reason for Visit * Reason Comments Medication Refill Encounter Details Date Type Department Care Team (Late st Contact Info) Description 11/27/2016 Refill [facility] G[facility]enterology, [address], [address] [place] [address] Marco Mathur MD [address] [place] [address] Crohn's disease of both small and large [...] Primary documented in this encounter Care Teams Cmo Relationship Specialty Start Date End Date Steve Zamarripa MD [address] [place] [address] PCP - General Internal Medicine 11/12/16 Marco Mathur MD [address] [place] [address] Consulting Physician Gastroenterology 11/12/18 documented as of this encounter
--- OUTSIDE RECORDS SUMMARY | 2024-08-31 17:46 | XMS_ITS | Encounter Summary ---
Author Organization [facility] Address [address] [address] Care Team Providers Care Fisher Sponge Hooking Name Role Phone Steve Zamarripa MD Primary Care Provider [phone] Marco Mathur MD Unavailable [phone] Reason for Visit * Reason Comments Medication Refill Encounter Details Date Type Department Care Team (Late st Contact Info) Description 06/08/2018 Refill [facility] Gastroenterology, [address] 1st [facility], [address] [place] [address] Marco Mathur MD [address] [place] [address] Crohn's disease of both small and large [...] alone documented in this encounter Care Teams Fisher Sponge Hooking Relationship Specialty Start Date End Date Steve Zamarripa MD [address] [place] [address] PCP - General Internal Medicine 11/12/16 Marco Mathur MD [address] [place] [address] Consulting Physician Gastroenterology 11/12/18 documented as of this encounter
--- OUTSIDE RECORDS SUMMARY | 2024-08-31 17:46 | XMS_ITS | Encounter Summary ---
Author Organization [facility] Address [address] [place] [address] Care Team Providers Care Salt Cutter Name Role Phone Jessica Cotto MD Primary Care Provider [phone] Steve Zamarripa MD Primary Care Provider [phone] Marco Mathur MD Unavailable [phone] Reason for Visit * Reason Comments Medication Refill Encounter Details Date Type Department Care Team (Late st Contact Info) Description 08/19/2016 Refill [facility] Gastroenterology, [address], [address] [place] [address] Marco Mathur MD [address] [place] [address] Crohn's disease of both small and large [...] Primary documented in this encounter Care Teams Salt Cutter Relationship Specialty Start Date End Date Jessica Cotto MD PCP - General 12/10/14 11/11/16 Steve Zamarripa MD [address] [place] [address] PCP - General Internal Medicine 11/12/16 Marco Mathur MD [address] [place] [address] Consulting Physician Gastroenterology 11/12/18 documented as of this encounter
--- OUTSIDE RECORDS SUMMARY | 2024-08-31 17:46 | XMS_ITS | Encounter Summary ---
Author Organization [facility] Address [address] [place] [address] Care Team Providers Care Braille Transcriber Name Role Phone Steve Zamarripa MD Primary Care Provider [phone] Marco Mathur MD Unavailable [phone] Steve Zamarripa MD Unavailable [phone] Pcp, No Primary Care Provider Unavailabl e Steve Zamarripa MD Primary Care Provider [phone] Pcp, No Primary Care Provider Unavailabl e Encounter Details Date Type Department Care Team (Late st Contact Info) Description 07/26/2017 Telephone [facility] [address] [id number] Verónica Vogel [address] [place] [address] Social History Tobacco Use Types Packs/Day Years [...] on filedocumented in this encounter Care Teams Braille Transcriber Relationship Specialty Start Date End Date Steve Zamarripa MD PCP - General Family Medicine 06/04/16 02/05/21 Steve Zamarripa MD [address] [place] [address] PCP - [place] Commercial Attributed 01/01/20 07/30/20 Pcp, No PCP - General General Medicine 02/06/21 06/10/22 Steve Zamarripa MD PCP - General 06/11/22 08/27/22 Pcp, No PCP - General General Medicine 08/28/22 Marco Mathur MD [address] [place] [address] Rn Managed Care Pediatric Gastroenterology 11/26/18 documented as of this encounter
--- OUTSIDE RECORDS SUMMARY | 2024-08-31 17:46 | XMS_ITS | Encounter Summary ---
Author Organization [facility] Address [address] [place] [address] Care Team Providers Care Field Nurse Case Manager Name Role Phone Steve Zamarripa MD Primary Care Provider [phone] Encounter Details Date Type Department Care Team (Late st Contact Info) Description 07/23/2017 3:47 PM EST Hospital Encounter [facility] [address] [place] [address] Víctor Rutledge MD [address] [place] [address] Social History Tobacco Use Types Packs/Day Years [...] on filedocumented in this encounter Care Teams Field Nurse Case Manager Relationship Specialty Start Date End Date Steve Zamarripa MD PCP - General Family Medicine 06/04/16 02/05/21 documented as of this encounter
--- OUTSIDE RECORDS SUMMARY | 2024-08-31 17:46 | XMS_ITS | Encounter Summary ---
Author Organization [facility] Address [address] [place] [address] Care Team Providers Care Optical Fabrication Technician Name Role Phone Steve Zamarripa MD Primary Care Provider [phone] Marco Mathur MD Unavailable [phone] Reason for Visit * Reason Comments Medication Refill Encounter Details Date Type Department Care Team (Late st Contact Info) Description 07/29/2018 Refill [facility] [place] [phone] Marco Mathur MD [address] [place] [address] Crohn's disease of both small and large [...] complication documented in this encounter Care Teams Optical Fabrication Technician Relationship Specialty Start Date End Date Steve Zamarripa MD [address] [place] [address] PCP - General Internal Medicine 11/12/16 Marco Mathur MD [address] [place] [address] Consulting Physician Gastroenterology 11/12/18 documented as of this encounter
--- OUTSIDE RECORDS SUMMARY | 2024-08-31 17:46 | XMS_ITS | Encounter Summary ---
Author Organization [facility] Address [address] [place] [address] Care Team Providers Care Career Based Intervention Coordinator Name Role Phone Steve Zamarripa MD Primary Care Provider [phone] Marco Mathur MD Unavailable [phone] Steve Zamarripa MD Unavailable [phone] Pcp, No Primary Care Provider Unavailabl e Steve Zamarripa MD Primary Care Provider [phone] Pcp, No Primary Care Provider Unavailabl e Encounter Details Date Type Department Care Team (Late st Contact Info) Description 06/14/2016 Scanned Document [address] [phone] Provider, Generic Social History Tobacco Use Types [...] on filedocumented in this encounter Care Teams Career Based Intervention Coordinator Relationship Specialty Start Date End Date Steve Zamarripa MD PCP - General Family Medicine 06/04/16 02/05/21 Steve Zamarripa MD [address] [place], [place] [address] [place] [address] PCP - [place] Commercial Attributed 01/01/20 07/30/20 Pcp, No PCP - General General Medicine 02/06/21 06/10/22 Steve Zamarripa MD PCP - General 06/11/22 08/27/22 Pcp, No PCP - General General Medicine 08/28/22 Marco Mathur MD [address] [place] [address] Literacy Consultant Pediatric Gastroenterology 11/26/18 documented as of this encounter
--- OUTSIDE RECORDS SUMMARY | 2024-08-31 17:46 | XMS_ITS | Encounter Summary ---
Author Organization [facility] Address [address] [place] [address] Care Team Providers Care Setter Cold Rolling Machine Name Role Phone Steve Zamarripa MD Primary Care Provider [phone] Marco Mathur MD Unavailable [phone] Steve Zamarripa MD Unavailable [phone] Pcp, No Primary Care Provider Unavailabl e Steve Zamarripa MD Primary Care Provider [phone] Pcp, No Primary Care Provider Unavailabl e Encounter Details Date Type Department Care Team (Late st Contact Info) Description 08/24/2017 Scanned Document [address] [place] [address] [phone] Provider, Generic Social History [...] on filedocumented in this encounter Care Teams Setter Cold Rolling Machine Relationship Specialty Start Date End Date Steve Zamarripa MD PCP - General Family Medicine 06/04/16 02/05/21 Steve Zamarripa MD [facility] [place] [address] PCP - [place] Commercial Attributed 01/01/20 07/30/20 Pcp, No PCP - General General Medicine 02/06/21 06/10/22 Steve Zamarripa MD PCP - General 06/11/22 08/27/22 Pcp, No PCP - General General Medicine 08/28/22 Marco Mathur MD [address] [place] [address] Overhead Cleaner Pediatric Gastroenterology 11/26/18 documented as of this encounter
--- OUTSIDE RECORDS SUMMARY | 2024-08-31 17:46 | XMS_ITS | Clinical Summary ---
Author Organization [facility] Address [address] [facility] [place] [address] Care Team Providers Care Editing Computer Publisher Name Role Phone Steve Zamarripa MD Primary Care Provider [phone] Allergies No known active allergies Medications FLUoxetine [...] Right lower quadrant abdominal pain 12/12/2014 Immunizations Immunization Administration Dates Next Due HPV, Quadrivalent 11/30/2013,07/31/2013,06/02/19 [...] 5 Years) and At-Risk Patients (6 to 49 Years) (2 of 2 - PCV) 06/13/2017 06/13/2016 Hepatitis B Vaccines (4 of 4 - Hep B Twinrix 4-dose series) 02/03/2020 10/26/2020, 09/28/2020, 02/02/2019 COVID-19 Vaccine (3 - Moderna risk series) 09/01/2020 08/04/2020, 06/30/2020 Pap Smear 09/20/2023 09/19/2020 Influenza Vaccine (Season Ended) 2025 03/19/2021, 03/09/2021, 03/05/2020, Additional history exists DTaP,Tdap,and Td Vaccines (2 - Td or Tdap) 11/26/2028 11/26/2018 HPV Vaccines Completed 11/30/2013, 030 06/2013, 06/02/2013 Hepatitis A Vaccines Aged Out 10/26/2020, 09/28/2020, 02/02/2019 No longer eligible based on patient's age to complete this topic MMR Vaccines Aged Out No longer eligi ble based on patient's age to complete this topic Meningococcal Vaccine Aged Out No franklin chris eligible based on patient's age to complete this topic Insurance () [facility] Member Subscriber Plan / Payer (Ef fective 2021-Present) Name:Andree Boss Relation to Subscriber:Self Name:Andree Boss Payer ID:[id number] (NAIC) Type:HMO Address: [place] [id number] [facility] PPO Care Teams Editing Computer Publisher Relationship Specialty Start Date End Date Steve Zamarripa MD PCP - General Internal Medicine 07/09/18
--- OUTSIDE RECORDS SUMMARY | 2024-08-31 17:46 | XMS_ITS | Encounter Summary ---
Author Organization [facility] Address [address] [place] [address] Care Team Providers Care Repairer Switchgear Name Role Phone Steve Zamarripa MD Primary Care Provider [phone] Marco Mathur MD Unavailable [phone] Steve Zamarripa MD Unavailable [phone] Pcp, No Primary Care Provider Unavailabl e Steve Zamarripa MD Primary Care Provider [phone] Pcp, No Primary Care Provider Unavailabl e Encounter Details Date Type Department Care Team (Late st Contact Info) Description 11/27/2017 Scanned Document [address] [phone] Provider, Generic Social History Tobacco [...] on filedocumented in this encounter Care Teams Repairer Switchgear Relationship Specialty Start Date End Date Steve Zamarripa MD PCP - General Family Medicine 06/04/16 02/05/21 Steve Zamarripa MD [facility] [place] [address] PCP - [place] Commercial Attributed 01/01/20 07/30/20 Pcp, No PCP - General General Medicine 02/06/21 06/10/22 Steve Zamarripa MD PCP - General 06/11/22 08/27/22 Pcp, No PCP - General General Medicine 08/28/22 Marco Mahtur MD [address] [place] [address] Research Laboratory Specialist Pediatric Gastroenterology 11/26/18 documented as of this encounter
--- OUTSIDE RECORDS SUMMARY | 2024-08-31 17:46 | XMS_ITS | Encounter Summary ---
Author Organization [facility] Address [address] [place] [address] Care Team Providers Care Window Maker Name Role Phone Jessica Cotto MD Primary Care Provider [phone] Steve Zamarripa MD Primary Care Provider [phone] Marco Mathur MD Unavailable [phone] Reason for Visit * Reason Comments Medication Refill Encounter Details Date Type Department Care Team (Late st Contact Info) Description 06/05/2016 Refill [facility] Gastroenterology, [address], [address] [place] [address] Marco Mathur MD [address] [place] [address] Crohn's disease of both small and large [...] Primary documented in this encounter Care Teams Window Maker Relationship Specialty Start Date End Date Jessica Cotto MD PCP - General 12/10/14 11/11/16 Steve Zamarripa MD [address] [place] [address] PCP - General Internal Medicine 11/12/16 Maroc Mathur MD [address] [place] [address] Consulting Physician Gastroenterology 11/12/18 documented as of this encounter
--- OUTSIDE RECORDS SUMMARY | 2024-08-31 17:46 | XMS_ITS | Encounter Summary ---
Author Organization [facility] Address [address] [place] [address] Care Team Providers Care Sludge Control Attendant Name Role Phone Steve Zamarripa MD Primary Care Provider [phone] Marco Mathur MD Unavailable [phone] Reason for Visit * Reason Comments Medication Refill Encounter Details Date Type Department Care Team (Late st Contact Info) Description 12/06/2016 Refill [facility] Gastroenterology, [address]st [facility], [address] [place] [address] Marco Mathur MD [address] [place] [address] Crohn's disease of both small and large [...] Primary documented in this encounter Care Teams Sludge Control Attendant Relationship Specialty Start Date End Date Steve Zamarripa MD [address] [place] [address] PCP - General Internal Medicine 11/12/16 Marco Mathur MD [address] [place] [address] Consulting Physician Gastroenterology 11/12/18 documented as of this encounter
--- OUTSIDE RECORDS SUMMARY | 2024-08-31 17:46 | XMS_ITS | Encounter Summary ---
Author Organization [facility] Address [address] [place] [address] Care Team Providers Care Seed Core Operator Name Role Phone Steve Zamarripa MD Primary Care Provider [phone] Marco Mathur MD Unavailable [phone] Steve Zamarripa MD Unavailable [phone] Pcp, No Primary Care Provider Unavailabl e Steve Zamarripa MD Primary Care Provider [phone] Pcp, No Primary Care Provider Unavailabl e Encounter Details Date Type Department Care Team (Late st Contact Info) Description 06/12/2017 Scanned Document [address] [phone] Provider, Generic Social History Tobacco [...] on filedocumented in this encounter Care Teams Seed Core Operator Relationship Specialty Start Date End Date Steve Zamarripa MD PCP - General Family Medicine 06/04/16 02/05/21 Steve Zamarripa MD [address] [place], [place] [address] [place] [address] PCP - [place] Commercial Attributed 01/01/20 07/30/20 Pcp, No PCP - General General Medicine 02/06/21 06/10/22 Steve Zamarripa MD PCP - General 06/11/22 08/27/22 Pcp, No PCP - General General Medicine 08/28/22 Marco Mathur MD [address] [place] [address] Wrapping Machine Helper Pediatric Gastroenterology 11/26/18 documented as of this encounter
--- OUTSIDE RECORDS SUMMARY | 2024-08-31 17:46 | XMS_ITS | Encounter Summary ---
Author Organization [facility] Address [address] [place] [address] Care Team Providers Care Knurling Machine Tender Name Role Phone Steve Zamarripa MD Primary Care Provider [phone] Marco Mathur MD Unavailable [phone] Steve Zamarripa MD Unavailable [phone] Pcp, No Primary Care Provider Unavailabl e Steve Zamarripa MD Primary Care Provider [phone] Pcp, No Primary Care Provider Unavailabl e Encounter Details Date Type Department Care Team (Late st Contact Info) Description 07/09/2018 Scanned Document [address] [phone] Pulmonary, Scan Social History Tobacco Use Types [...] on filedocumented in this encounter Care Teams Knurling Machine Tender Relationship Specialty Start Date End Date Steve Zamarripa MD PCP - General Family Medicine 06/04/16 02/05/21 Steve Zamarripa MD [facility] [place] [address] PCP - [place] Commercial Attributed 01/01/20 07/30/20 Pcp, No PCP - General General Medicine 02/06/21 06/10/22 Steve Zamarripa MD PCP - General 06/11/22 08/27/22 Pcp, No PCP - General General Medicine 08/28/22 Marco Mathur MD [address] [place] [address] Barrow Worker Pediatric Gastroenterology 11/26/18 documented as of this encounter
--- OUTSIDE RECORDS SUMMARY | 2024-08-31 17:46 | XMS_ITS | Encounter Summary ---
Author Organization [facility] Address [address] [place] [address] Care Team Providers Care Plant Care Worker Name Role Phone Steve Zamarripa MD Primary Care Provider [phone] Encounter Details Date Type Department Care Team (Late st Contact Info) Description 12/20/2021 Orders Only [facility] Department of Pulmonology [address] [place] [address] Cj Batista MD [address] [place] [address] Social History Tobacco Use Types Packs/Day Years [...] on filedocumented in this encounter Care Teams Plant Care Worker Relationship Specialty Start Date End Date Steve Zamarripa MD PCP - General Internal Medicine 07/09/18 documented as of this encounter
--- OUTSIDE RECORDS SUMMARY | 2024-08-31 17:46 | XMS_ITS | Encounter Summary ---
Author Organization [facility] Address [address] [place] [address] Care Team Providers Care Account Executive Agribusiness Name Role Phone Steve Zamarripa MD Primary Care Provider [phone] Marco Mathur MD Unavailable [phone] Steve Zamarripa MD Unavailable [phone] Pcp, No Primary Care Provider Unavailabl e Steve Zamarripa MD Primary Care Provider [phone] Pcp, No Primary Care Provider Unavailabl e Encounter Details Date Type Department Care Team (Late st Contact Info) Description 06/18/2018 Scanned Document [address] [id number] Pediatric Gastroenterology, Scan Social History Tobacco Use [...] on filedocumented in this encounter Care Teams Account Executive Agribusiness Relationship Specialty Start Date End Date Steve Zamarripa MD PCP - General Family Medicine 06/04/16 02/05/21 Steve Zamarripa MD [address] [place] [address] PCP - [place] Commercial Attributed 01/01/20 07/30/20 Pcp, No PCP - General General Medicine 02/06/21 06/10/22 Steve Zamarripa MD PCP - General 06/11/22 08/27/22 Pcp, No PCP - General General Medicine 08/28/22 Marco Mathur MD [address] [place] [address] Senior Air Director Pediatric Gastroenterology 11/26/18 documented as of this encounter
--- OUTSIDE RECORDS SUMMARY | 2024-08-31 17:46 | XMS_ITS | Encounter Summary ---
Author Organization [facility] Address [address] [place] [address] Care Team Providers Care Healthcare Administrative Assistant Name Role Phone Steve Zamarripa MD Primary Care Provider [phone] Marco Mathur MD Unavailable [phone] Steve Zamarripa MD Unavailable [phone] Pcp, No Primary Care Provider Unavailabl e Steve Zamarripa MD Primary Care Provider [phone] Pcp, No Primary Care Provider Unavailabl e Encounter Details Date Type Department Care Team (Late st Contact Info) Description 09/20/2016 Scanned Document [address] [address] Provider, Generic Social History Tobacco [...] on filedocumented in this encounter Care Teams Healthcare Administrative Assistant Relationship Specialty Start Date End Date Steve Zamarripa MD PCP - General Family Medicine 06/04/16 02/05/21 Steve Zamarripa MD [address] [place], [place] [address] [address] PCP - [place] Commercial Attributed 01/01/20 07/30/20 Pcp, No PCP - General General Medicine 02/06/21 06/10/22 Steve Zamarripa MD PCP - General 06/11/22 08/27/22 Pcp, No PCP - General General Medicine 08/28/22 Marco Mathur MD [address] [place] [address] Dressage Instructor Pediatric Gastroenterology 11/26/18 documented as of this encounter
--- OUTSIDE RECORDS SUMMARY | 2024-08-31 17:46 | XMS_ITS | Encounter Summary ---
Author Organization [facility] Address [address] [place] [address] Care Team Providers Care Highway Engineer Name Role Phone Steve Zamarripa MD Primary Care Provider [phone] Marco Mathur MD Unavailable [phone] Steve Zamarripa MD Unavailable [phone] Pcp, No Primary Care Provider Unavailabl e Steve Zamarripa MD Primary Care Provider [phone] Pcp, No Primary Care Provider Unavailabl e Encounter Details Date Type Department Care Team (Late st Contact Info) Description 08/23/2017 Scanned Document [address] [address] Provider, Generic Social History Tobacco [...] on filedocumented in this encounter Care Teams Highway Engineer Relationship Specialty Start Date End Date Steve Zamarripa MD PCP - General Family Medicine 06/04/16 02/05/21 Steve Zamarripa MD [facility] [place] [address] PCP - [place] Commercial Attributed 01/01/20 07/30/20 Pcp, No PCP - General General Medicine 02/06/21 06/10/22 Steve Zamarripa MD PCP - General 06/11/22 08/27/22 Pcp, No PCP - General General Medicine 08/28/22 Marco Mathur MD [address] [place] [address] Hydraulics Engineer Pediatric Gastroenterology 11/26/18 documented as of this encounter
--- OUTSIDE RECORDS SUMMARY | 2024-08-31 17:46 | XMS_ITS | Encounter Summary ---
Author Organization [facility] Address [address] [place] [address] Care Team Providers Care Wood Car Builder Name Role Phone Jessica Cotto MD Primary Care Provider [phone] Steve Zamarripa MD Primary Care Provider [phone] Marco Mathur MD Unavailable [phone] Reason for Visit * Reason Comments Medication Refill Encounter Details Date Type Department Care Team (Late st Contact Info) Description 07/04/2015 Refill [facility] Gastroenterology, [address], [address] [place] [address] Marco Mathur MD [address] [place] [address] Crohn's disease of both small and large [...] Primary documented in this encounter Care Teams Wood Car Builder Relationship Specialty Start Date End Date Jessica Cotto MD PCP - General 12/10/14 11/11/16 Steve Zamarripa MD [address] [place] [address] PCP - General Internal Medicine 11/12/16 Marco Mathur MD [address] [place] [address] Consulting Physician Gastroenterology 11/12/18 documented as of this encounter
--- OUTSIDE RECORDS SUMMARY | 2024-08-31 17:46 | XMS_ITS | Clinical Summary ---
Author Organization [facility] Address [address] [place] [address] Care Team Providers Care Billing Supervisor Name Role Phone Marco Mathur MD Unavailable [phone] Pcp, No Primary Care Provider Unavailabl e [...] Vaccines Completed 11/30/2013, 06/2013, 06/02/2013 Care Teams Billing Supervisor Relationship Specialty Start Date End Date Pcp, No PCP - General General Medicine 08/28/22 Marco Mathur MD [address] [place] [address] Communication Studies Professor Pediatric Gastroenterology 11/26/18
--- OUTSIDE RECORDS SUMMARY | 2024-08-31 17:46 | XMS_ITS | Encounter Summary ---
Author Organization [facility] Address [address] [place] [address] Care Team Providers Care Mechanical Manufacturing Technician Name Role Phone Steve Zamarripa MD Primary Care Provider [phone] Marco Mathur MD Unavailable Reason for Visit * Reason Comments Medication Refill Encounter Details Date Type Department Care Team (Late st Contact Info) Description 10/31/2017 Refill [facility] [place] [phone] Marco Mathur MD [address] [place] [address] Crohn's disease of both small and large [...] complication documented in this encounter Care Teams Mechanical Manufacturing Technician Relationship Specialty Start Date End Date Steve Zamarripa MD [address] [place] [address] PCP - General Internal Medicine 11/12/16 Marco Mathur MD [address] [place] [address] Consulting Physician Gastroenterology 11/12/18 documented as of this encounter"
--- OUTSIDE RECORDS SUMMARY | 2024-08-31 17:46 | XMS_ITS | Encounter Summary ---
Author Organization [facility] Address [address] [place] [address] Care Team Providers Care Computing Systems Mechanic Name Role Phone Jessica Cotto MD Primary Care Provider [phone] Steve Zamarripa MD Primary Care Provider [phone] Marco Mathur MD Unavailable [phone] Reason for Visit * Reason Comments Medication Refill Encounter Details Date Type Department Care Team (Late st Contact Info) Description 02/09/2016 Refill [facility] Gastroenterology, [address], [address] [place] [address] Marco Mathur MD [address] [place] [address] Crohn's disease of both small and large [...] Primary documented in this encounter Care Teams Computing Systems Mechanic Relationship Specialty Start Date End Date Jessica Cotto MD PCP - General 12/10/14 11/11/16 Steve Zamarripa MD [address] [place] [address] PCP - General Internal Medicine 11/12/16 Marco Mathur MD [address] [place] [address] Consulting Physician Gastroenterology 11/12/18 documented as of this encounter
--- OUTSIDE RECORDS SUMMARY | 2024-08-31 17:46 | XMS_ITS | Encounter Summary ---
Author Organization [facility] Address [address] [place] [address] Care Team Providers Care Kick Boxer Name Role Phone Steve Zamarripa MD Primary Care Provider [phone] Encounter Details Date Type Department Care Team (Late st Contact Info) Description 04/20/2021 Orders Only [facility] Department of Pulmonology [address] [place] [address] Cj Batista MD [address] [place] [address] Social History Tobacco Use Types Packs/Day Years [...] on filedocumented in this encounter Care Teams Kick Boxer Relationship Specialty Start Date End Date Steve Zamarripa MD PCP - General Internal Medicine 07/09/18 documented as of this encounter
--- OUTSIDE RECORDS SUMMARY | 2024-08-31 17:46 | XMS_ITS | Encounter Summary ---
Author Organization [facility] Address [address] [place] [address] Care Team Providers Care Car Chaser Name Role Phone Steve Zamarripa MD Primary Care Provider [phone] Marco Mathur MD Unavailable [phone] Steve Zamarripa MD Unavailable [phone] Pcp, No Primary Care Provider Unavailabl e Steve Zamarripa MD Primary Care Provider [phone] Pcp, No Primary Care Provider Unavailabl e Encounter Details Date Type Department Care Team (Late st Contact Info) Description 12/09/2018 Scanned Document [address] [address] Primary Care, Scan Social History [...] on filedocumented in this encounter Care Teams Car Chaser Relationship Specialty Start Date End Date Steve Zamarripa MD PCP - General Family Medicine 06/04/16 02/05/21 Steve Zamarripa MD [facility] [place] [address] PCP - [place] Commercial Attributed 01/01/20 07/30/20 Pcp, No PCP - General General Medicine 02/06/21 06/10/22 Steve Zamarripa MD PCP - General 06/11/22 08/27/22 Pcp, No PCP - General General Medicine 08/28/22 Marco Mathur MD [address] [place] [address] Gasoline Dragline Operator Pediatric Gastroenterology 11/26/18 documented as of this encounter
--- OUTSIDE RECORDS SUMMARY | 2024-08-31 17:46 | XMS_ITS | Encounter Summary ---
Author Organization [facility] Address [address] [place] [address] Care Team Providers Care Repeat Chief Name Role Phone Steve Zamarripa MD Primary Care Provider [phone] Marco Mathur MD Unavailable [phone] Reason for Visit * Reason Comments Medication Refill Encounter Details Date Type Department Care Team (Late st Contact Info) Description 10/08/2017 Refill [facility] Gastroenterology, [address] [facility], [address] [place] [address] Marco Mathur MD [address] [place] [address] Crohn's disease of both small and large [...] complication documented in this encounter Care Teams Repeat Chief Relationship Specialty Start Date End Date Steve Zamarripa MD [address] [place] [address] PCP - General Internal Medicine 11/12/16 Marco Mathur MD [address] [place] [address] Consulting Physician Gastroenterology 11/12/18 documented as of this encounter
--- OUTSIDE RECORDS SUMMARY | 2024-08-31 17:46 | XMS_ITS | Encounter Summary ---
Author Organization [facility] Address [address] [place] [address] Care Team Providers Care Crane Ladle Person Name Role Phone Steve Zamarripa MD Primary Care Provider [phone] Marco Mathur MD Unavailable [phone] Steve Zamarripa MD Unavailable [phone] Pcp, No Primary Care Provider Unavailabl e Steve Zamarripa MD Primary Care Provider [phone] Pcp, No Primary Care Provider Unavailabl e Encounter Details Date Type Department Care Team (Late st Contact Info) Description 10/01/2017 Scanned Document [address] [id number] Provider, Generic Social History Tobacco [...] on filedocumented in this encounter Care Teams Crane Ladle Person Relationship Specialty Start Date End Date Steve Zamarripa MD PCP - General Family Medicine 06/04/16 02/05/21 Steve Zamarripa MD [facility] [place] [address] PCP - [place] Commercial Attributed 01/01/20 07/30/20 Pcp, No PCP - General General Medicine 02/06/21 06/10/22 Steve Zamarripa MD PCP - General 06/11/22 08/27/22 Pcp, No PCP - General General Medicine 08/28/22 Marco Mathur MD [address] [place] [address] Financial Recording Clerk Pediatric Gastroenterology 11/26/18 documented as of this encounter
--- OUTSIDE RECORDS SUMMARY | 2024-08-31 17:46 | XMS_ITS | Encounter Summary ---
Author Organization [facility] Address [address] [place] [address] Care Team Providers Care Reefer Engineer Name Role Phone Jessica Cotto MD Primary Care Provider [phone] Steve Zamarripa MD Primary Care Provider [phone] Marco Mathur MD Unavailable [phone] Reason for Visit * Reason Comments Medication Refill Encounter Details Date Type Department Care Team (Late st Contact Info) Description 08/02/2015 Refill [facility] Gastroenterology, [address], [address] [place] [address] Marco Mathur MD [address] [place] [address] Crohn's disease of both small and large [...] Primary documented in this encounter Care Teams Reefer Engineer Relationship Specialty Start Date End Date Jessica Cotto MD PCP - General 12/10/14 11/11/16 Steve Zamarripa MD [address] [place] [address] PCP - General Internal Medicine 11/12/16 Marco Mathur MD [address] [place] [address] Consulting Physician Gastroenterology 11/12/18 documented as of this encounter
--- OUTSIDE RECORDS SUMMARY | 2024-08-31 17:46 | XMS_ITS | Encounter Summary ---
Author Organization [facility] Address [address] [place] [address] Care Team Providers Care Sole Rounding Machine Operator Name Role Phone Steve Zamarripa MD Primary Care Provider [phone] Marco Mathur MD Unavailable [phone] Steve Zamarripa MD Unavailable [phone] Pcp, No Primary Care Provider Unavailabl e Steve Zamarripa MD Primary Care Provider [phone] Pcp, No Primary Care Provider Unavailabl e Encounter Details Date Type Department Care Team (Late st Contact Info) Description 10/01/2017 Scanned Document [address] [address] Provider, Generic Social History Tobacco [...] on filedocumented in this encounter Care Teams Sole Rounding Machine Operator Relationship Specialty Start Date End Date Steve Zamarripa MD PCP - General Family Medicine 06/04/16 02/05/21 Steve Zamarripa MD [facility] [place] [address] PCP - [place] Commercial Attributed 01/01/20 07/30/20 Pcp, No PCP - General General Medicine 02/06/21 06/10/22 Steve Zamarripa MD PCP - General 06/11/22 08/27/22 Pcp, No PCP - General General Medicine 08/28/22 Marco Mathur MD [address] [place] [address] Oracle Database Consultant Pediatric Gastroenterology 11/26/18 documented as of this encounter
--- OUTSIDE RECORDS SUMMARY | 2024-08-31 17:46 | XMS_ITS | Encounter Summary ---
Author Organization [facility] Address [address] [place] [address] Care Team Providers Care Photogrammetric Technician Name Role Phone Jessica Cotto MD Primary Care Provider [phone] Steve Zamarripa MD Primary Care Provider [phone] Marco Mathur MD Unavailable [phone] Reason for Visit * Reason Comments Medication Refill Encounter Details Date Type Department Care Team (Late st Contact Info) Description 08/26/2016 Refill [facility] Gastroenterology, [address], [address] [place] [address] Marco Mathur MD [address] [place] [address] Crohn's disease of both small and large [...] Primary documented in this encounter Care Teams Photogrammetric Technician Relationship Specialty Start Date End Date Jessica Cotto MD PCP - General 12/10/14 11/11/16 Steve Zamarripa MD [address] [place] [address] PCP - General Internal Medicine 11/12/16 Marco Mathur MD [address] [place] [address] Consulting Physician Gastroenterology 11/12/18 documented as of this encounter
--- OUTSIDE RECORDS SUMMARY | 2024-08-31 17:46 | XMS_ITS | Encounter Summary ---
Author Organization [facility] Address [address] [place] [address] Care Team Providers Care Electronic Imaging System Operator Name Role Phone Steve Zamarripa MD Primary Care Provider [phone] Marco Mathur MD Unavailable [phone] Steve Zamarripa MD Unavailable [phone] Pcp, No Primary Care Provider Unavailabl e Steve Zamarripa MD Primary Care Provider [phone] Pcp, No Primary Care Provider Unavailabl e Encounter Details Date Type Department Care Team (Late st Contact Info) Description 08/23/2017 Scanned Document [address] [id number] Provider, Generic Social History Tobacco [...] on filedocumented in this encounter Care Teams Electronic Imaging System Operator Relationship Specialty Start Date End Date Steve Zamarripa MD PCP - General Family Medicine 06/04/16 02/05/21 Steve Zamarripa MD [facility] [place] [address] PCP - [place] Commercial Attributed 01/01/20 07/30/20 Pcp, No PCP - General General Medicine 02/06/21 06/10/22 Steve Zamarripa MD PCP - General 06/11/22 08/27/22 Pcp, No PCP - General General Medicine 08/28/22 Marco Mathur MD [address] [place] [address] Sales Planner Pediatric Gastroenterology 11/26/18 documented as of this encounter
--- OUTSIDE RECORDS SUMMARY | 2024-08-31 17:46 | XMS_ITS | Encounter Summary ---
Author Organization [facility] Address [address] [place] [address] Care Team Providers Care Barrel Planer Name Role Phone Steve Zamarripa MD Primary Care Provider [phone] Marco Mathur MD Unavailable [phone] Steve Zamarripa MD Unavailable [phone] Pcp, No Primary Care Provider Unavailabl e Steve Zamarripa MD Primary Care Provider [phone] Pcp, No Primary Care Provider Unavailabl e Encounter Details Date Type Department Care Team (Late st Contact Info) Description 09/11/2018 Scanned Document [address] [id number] Steve Zamarripa MD [address] [place] [address] Social History Tobacco Use Types Packs/Day Years [...] on filedocumented in this encounter Care Teams Barrel Planer Relationship Specialty Start Date End Date Steve Zamarripa MD PCP - General Family Medicine 06/04/16 02/05/21 Steve Zamarripa MD [address] [place] [address] [place] [address] PCP - [place] Commercial Attributed 01/01/20 07/30/20 Pcp, No PCP - General General Medicine 02/06/21 06/10/22 Steve Zamarripa MD PCP - General 06/11/22 08/27/22 Pcp, No PCP - General General Medicine 08/28/22 Marco Mathur MD [address] [place] [address] Shelter Director Pediatric Gastroenterology 11/26/18 documented as of this encounter
--- OUTSIDE RECORDS SUMMARY | 2024-08-31 17:46 | XMS_ITS | Encounter Summary ---
Author Organization [facility] Address [address] [place] [address] Care Team Providers Care Dethistler Operator Name Role Phone Steve Zamarripa MD Primary Care Provider [phone] Marco Mathur MD Unavailable [phone] Reason for Visit * Reason Comments Medication Refill Encounter Details Date Type Department Care Team (Late st Contact Info) Description 11/22/2016 Refill [facility] Gastroenterology, [address], [address] [place] [address] Marco Mathur MD [address] [place] [address] Crohn's disease of both small and large [...] Primary documented in this encounter Care Teams Dethistler Operator Relationship Specialty Start Date End Date Steve Zamarripa MD [address] [place] [address] PCP - General Internal Medicine 11/12/16 Marco Mathur MD [address] [place] [address] Consulting Physician Gastroenterology 11/12/18 documented as of this encounter
--- OUTSIDE RECORDS SUMMARY | 2024-08-31 17:46 | XMS_ITS | Encounter Summary ---
Author Organization [facility] Address [address] [place] [address] Care Team Providers Care Perioperative Assistant Name Role Phone Jessica Cotto MD Primary Care Provider [phone] Steve Zamarripa MD Primary Care Provider [phone] Marco Mathur MD Unavailable [phone] Reason for Visit * Reason Comments Medication Refill Encounter Details Date Type Department Care Team (Late st Contact Info) Description 08/11/2015 Refill [facility] Gastroenterology, [address], [address] [place] [address] Marco Mathur MD [address] [place] [address] Crohn's disease of both small and large [...] Primary documented in this encounter Care Teams Perioperative Assistant Relationship Specialty Start Date End Date Jessica Cotto MD PCP - General 12/10/14 11/11/16 Steve Zamarripa MD [address] [place] [address] PCP - General Internal Medicine 11/12/16 Marco Mathur MD [address] [place] [address] Consulting Physician Gastroenterology 11/12/18 documented as of this encounter
--- OUTSIDE RECORDS SUMMARY | 2024-08-31 17:46 | XMS_ITS | Encounter Summary ---
Author Organization [facility] Address [address] [place] [address] Care Team Providers Care Courtroom Reporter Name Role Phone Steve Zamarripa MD Primary Care Provider [phone] Marco Mathur MD Unavailable [phone] Steve Zamarripa MD Unavailable [phone] Pcp, No Primary Care Provider Unavailabl e Steve Zamarripa MD Primary Care Provider [phone] Pcp, No Primary Care Provider Unavailabl e Encounter Details Date Type Department Care Team (Late st Contact Info) Description 10/22/2016 Scanned Document [address] [id number] Provider, Generic Social History Tobacco [...] on filedocumented in this encounter Care Teams Courtroom Reporter Relationship Specialty Start Date End Date Steve Zamarripa MD PCP - General Family Medicine 06/04/16 02/05/21 Steve Zamarripa MD [address] [place], [place] [address] [place] [address] PCP - [place] Commercial Attributed 01/01/20 07/30/20 Pcp, No PCP - General General Medicine 02/06/21 06/10/22 Steve Zamarripa MD PCP - General 06/11/22 08/27/22 Pcp, No PCP - General General Medicine 08/28/22 Marco Mathur MD [address] [place] [address] Lamp Inspector Pediatric Gastroenterology 11/26/18 documented as of this encounter
--- OUTSIDE RECORDS SUMMARY | 2024-08-31 17:46 | XMS_ITS | Encounter Summary ---
Author Organization [facility] Address [address] [place] [address] Care Team Providers Care Family Practice Md Name Role Phone Steve Zamarripa MD Primary Care Provider [phone] Marco Mathur MD Unavailable [phone] Steve Zamarripa MD Unavailable [phone] Pcp, No Primary Care Provider Unavailabl e Steve Zamarripa MD Primary Care Provider [phone] Pcp, No Primary Care Provider Unavailabl e Encounter Details Date Type Department Care Team (Late st Contact Info) Description 05/29/2017 Scanned Document [address] [id number] Provider, Generic Social History [...] on filedocumented in this encounter Care Teams Family Practice Md Relationship Specialty Start Date End Date Steve Zamarripa MD PCP - General Family Medicine 06/04/16 02/05/21 Steve Zamarripa MD [address] [place], [place] [address] [place] [address] PCP - [place] Commercial Attributed 01/01/20 07/30/20 Pcp, No PCP - General General Medicine 02/06/21 06/10/22 Steve Zamarripa MD PCP - General 06/11/22 08/27/22 Pcp, No PCP - General General Medicine 08/28/22 Marco Mathur MD [address] [place] [address] Transcribing Machine Mechanic Pediatric Gastroenterology 11/26/18 documented as of this encounter
[2024-08-31 17:51] LABS: Alanine Aminotransferase 21 U/L (0-31); Albumin Level 4.5 g/dL (3.5-5.0); Alkaline Phosphatase 60 U/L (39-117); Anion Gap 9 (12-20); Aspartate Amino Transferase 19 U/L (5-31); Blood Urea Nitrogen 7 mg/dL (9-16); C Reactive Protein 0.13 mg/dL (< or = 0.50); Calcium 9.2 mg/dL (8.4-10.2); Carbon Dioxide 26 mmol/L (22-29); Chloride 106 mmol/L (96-108); Estimated Glomerular Filt Rate > 60; Glucose Random 84 mg/dL (60-115); Potassium 3.6 mmol/L (3.3-5.1); Sodium 137 mmol/L (135-145); Total Protein 7.4 g/dL (6.5-8.0)
== END 2024-08-31 14:55 | disposition home or self-care (01) ==
LOC: HO.LAB 14:54
PROVIDERS: PCP Nurse Practitioner Family; Visit Provider Internal Medicine Gastroenterology
DX: K50.80 Crohn's disease of both small and large intestine without complications (principal); K75.81 Nonalcoholic steatohepatitis (NASH)
CPT/HCPCS: 36415; 80053; 80230; 82542; 85025; 86140

== ENCOUNTER 2024-09-02 12:56 | Outpatient (REF) | payer OTHER, SELFPAY ==
--- OUTSIDE RECORDS SUMMARY | 2024-09-03 14:47 | XMS_ITS | Clinical Summary ---
Author Organization [facility] Address [address] [place] [address] Care Team Providers Care Sales Account Director Name Role Phone Steve Zamarripa MD Primary Care Provider [phone] Marco Mathur MD Unavailable [phone] Source Comments Please note that some or [...] patient's age to complete this topic Insurance [facility] Care Teams Sales Account Director Relationship Specialty Start Date End Date Steve Zamarripa MD [address] [place] [address] PCP - General Internal Medicine 11/12/16 Marco Mathur MD [address] [place] [address] Consulting Physician Gastroenterology 11/12/18
--- OUTSIDE RECORDS SUMMARY | 2024-09-03 14:47 | XMS_ITS | Encounter Summary ---
Author Organization [facility] Address [address] [place] [address] Care Team Providers Care Merchandise Examiner Name Role Phone Steve Zamarripa MD Primary Care Provider [phone] Marco Mathur MD Unavailable [phone] Steve Zamarripa MD Unavailable [phone] Pcp, No Primary Care Provider Unavailabl e Steve Zamarripa MD Primary Care Provider [phone] Pcp, No Primary Care Provider Unavailabl e Encounter Details Date Type Department Care Team (Late st Contact Info) Description 05/29/2017 Scanned Document [address] [phone] Provider, Generic Social History [...] on filedocumented in this encounter Care Teams Merchandise Examiner Relationship Specialty Start Date End Date Steve Zamarripa MD PCP - General Family Medicine 06/04/16 02/05/21 Steve Zamarripa MD [address] [place], [place] [address] [place] [address] PCP - [place] Commercial Attributed 01/01/20 07/30/20 Pcp, No PCP - General General Medicine 02/06/21 06/10/22 Steve Zamarripa MD PCP - General 06/11/22 08/27/22 Pcp, No PCP - General General Medicine 08/28/22 Marco Mathur MD [address] [place] [address] Personal Assistant Pediatric Gastroenterology 11/26/18 documented as of this encounter
--- OUTSIDE RECORDS SUMMARY | 2024-09-03 14:47 | XMS_ITS | Encounter Summary ---
Author Organization [facility] Address [address] [place] [address] Care Team Providers Care Shipping And Receiving Coordinator Name Role Phone Jessica Cotto MD Primary Care Provider [phone] Steve Zamarripa MD Primary Care Provider [phone] Marco Mathur MD Unavailable [phone] Reason for Visit * Reason Comments Medication Refill Encounter Details Date Type Department Care Team (Late st Contact Info) Description 08/11/2015 Refill [facility] Gastroenterology, [address], [address] [place] [address] Marco Mathur MD [address] [place] [address] Crohn's disease of both small and large [...] Primary documented in this encounter Care Teams Shipping And Receiving Coordinator Relationship Specialty Start Date End Date Jessica Cotto MD PCP - General 12/10/14 11/11/16 Steve Zamarripa MD [address] [place] [address] PCP - General Internal Medicine 11/12/16 Marco Mathur MD [address] [place] [address] Consulting Physician Gastroenterology 11/12/18 documented as of this encounter
--- OUTSIDE RECORDS SUMMARY | 2024-09-03 14:47 | XMS_ITS | Encounter Summary ---
Author Organization [facility] Address [address] [place] [address] Care Team Providers Care Customer Service Sales Consultant Name Role Phone Steve Zamarripa MD Primary Care Provider [phone] Marco Mathur MD Unavailable [phone] Steve Zamarripa MD Unavailable [phone] Pcp, No Primary Care Provider Unavailabl e Steve Zamarripa MD Primary Care Provider [phone] Pcp, No Primary Care Provider Unavailabl e Encounter Details Date Type Department Care Team (Late st Contact Info) Description 08/23/2017 Scanned Document [address] [phone] Provider, Generic Social History Tobacco [...] on filedocumented in this encounter Care Teams Customer Service Sales Consultant Relationship Specialty Start Date End Date Steve Zamarripa MD PCP - General Family Medicine 06/04/16 02/05/21 Steve Zamarripa MD [facility] [place] [address] PCP - [place] Commercial Attributed 01/01/20 07/30/20 Pcp, No PCP - General General Medicine 02/06/21 06/10/22 Steve Zamarripa MD PCP - General 06/11/22 08/27/22 Pcp, No PCP - General General Medicine 08/28/22 Marco Mathur MD [address] [place] [address] Air Conditioning Engineer Pediatric Gastroenterology 11/26/18 documented as of this encounter
--- OUTSIDE RECORDS SUMMARY | 2024-09-03 14:47 | XMS_ITS | Encounter Summary ---
Author Organization [facility] Address [address] [place] [address] Care Team Providers Care Aircraft Systems Repairer Name Role Phone Steve Zamarripa MD Primary Care Provider [phone] Marco Mathur MD Unavailable [phone] Reason for Visit * Reason Comments Medication Refill Encounter Details Date Type Department Care Team (Late st Contact Info) Description 11/22/2016 Refill [facility] Gastroenterology, [address], [address] [place] [address] Marco Mathur MD [address] [place] [address] Crohn's disease of both small and large [...] Primary documented in this encounter Care Teams Aircraft Systems Repairer Relationship Specialty Start Date End Date Steve Zamarripa MD [address] [place] [address] PCP - General Internal Medicine 11/12/16 Marco Mathur MD [address] [place] [address] Consulting Physician Gastroenterology 11/12/18 documented as of this encounter
--- OUTSIDE RECORDS SUMMARY | 2024-09-03 14:47 | XMS_ITS | Encounter Summary ---
Author Organization [facility] Address [address] [place] [address] Care Team Providers Care Wiping Rag Washer Name Role Phone Steve Zamarripa MD Primary Care Provider [phone] Encounter Details Date Type Department Care Team (Late st Contact Info) Description 07/23/2017 3:47 PM EST Hospital Encounter [facility] [address] [place] [address] Víctor Rutledge MD [address] [place] [address] Social History Tobacco Use Types Packs/Day Years [...] on filedocumented in this encounter Care Teams Wiping Rag Washer Relationship Specialty Start Date End Date Steve Zamarripa MD PCP - General Family Medicine 06/04/16 02/05/21 documented as of this encounter
--- OUTSIDE RECORDS SUMMARY | 2024-09-03 14:47 | XMS_ITS | Encounter Summary ---
Author Organization [facility] Address [address] [place] [address] Care Team Providers Care Cafeteria Operator Name Role Phone Steve Zamarripa MD Primary Care Provider [phone] Marco Mathur MD Unavailable [phone] Reason for Visit * Reason Comments Medication Refill Encounter Details Date Type Department Care Team (Late st Contact Info) Description 11/27/2017 Refill [facility] [place] [phone] Marco Mathur MD [address] [place] [address] Crohn's disease of both small and large [...] complication documented in this encounter Care Teams Cafeteria Operator Relationship Specialty Start Date End Date Steve Zamarripa MD [address] [place] [address] PCP - General Internal Medicine 11/12/16 Marco Mathur MD [address] [place] [address] Consulting Physician Gastroenterology 11/12/18 documented as of this encounter
--- OUTSIDE RECORDS SUMMARY | 2024-09-03 14:47 | XMS_ITS | Encounter Summary ---
Author Organization [facility] Address [address] [place] [address] Care Team Providers Care Social Work Professor Name Role Phone Steve Zamarripa MD Primary Care Provider [phone] Marco Mathur MD Unavailable [phone] Steve Zamarripa MD Unavailable [phone] Pcp, No Primary Care Provider Unavailabl e Steve Zamarripa MD Primary Care Provider [phone] Pcp, No Primary Care Provider Unavailabl e Encounter Details Date Type Department Care Team (Late st Contact Info) Description 10/01/2017 Scanned Document [address] [phone] Provider, Generic Social History Tobacco [...] on filedocumented in this encounter Care Teams Social Work Professor Relationship Specialty Start Date End Date Steve Zamarripa MD PCP - General Family Medicine 06/04/16 02/05/21 Steve Zamarripa MD [facility] [place] [address] PCP - [place] Commercial Attributed 01/01/20 07/30/20 Pcp, No PCP - General General Medicine 02/06/21 06/10/22 Steve Zamarripa MD PCP - General 06/11/22 08/27/22 Pcp, No PCP - General General Medicine 08/28/22 Marco Mathur MD [address] [place] [address] Hide And Skin Colerer Pediatric Gastroenterology 11/26/18 documented as of this encounter
--- OUTSIDE RECORDS SUMMARY | 2024-09-03 14:47 | XMS_ITS | Encounter Summary ---
Author Organization [facility] Address [address] [place] [address] Care Team Providers Care Brick Mason Name Role Phone Steve Zamarripa MD Primary Care Provider [phone] Marco Mathur MD Unavailable [phone] Steve Zamarripa MD Unavailable [phone] Pcp, No Primary Care Provider Unavailabl e Steve Zamarripa MD Primary Care Provider [phone] Pcp, No Primary Care Provider Unavailabl e Encounter Details Date Type Department Care Team (Late st Contact Info) Description 11/27/2017 Scanned Document [address] [phone] Provider, Generic Social History Tobacco [...] on filedocumented in this encounter Care Teams Brick Mason Relationship Specialty Start Date End Date Steve Zamarripa MD PCP - General Family Medicine 06/04/16 02/05/21 Steve Zamarripa MD [facility] [place] [address] PCP - [place] Commercial Attributed 01/01/20 07/30/20 Pcp, No PCP - General General Medicine 02/06/21 06/10/22 Steve Zamarripa MD PCP - General 06/11/22 08/27/22 Pcp, No PCP - General General Medicine 08/28/22 Marco Mathur MD [address] [place] [address] Special Certificate Dictator Pediatric Gastroenterology 11/26/18 documented as of this encounter
--- OUTSIDE RECORDS SUMMARY | 2024-09-03 14:47 | XMS_ITS | Encounter Summary ---
Author Organization [facility] Address [address] [place] [address] Care Team Providers Care Credit Report Checker Name Role Phone Steve Zamarripa MD Primary Care Provider + [phone] Encounter Details Date Type Department Care Team (Late st Contact Info) Description 12/20/2021 Orders Only [facility] Department of Pulmonology [address] [place] [address] Cj Batista MD [address] [place] [address] Social History Tobacco Use Types Packs/Day Years [...] on filedocumented in this encounter Care Teams Credit Report Checker Relationship Specialty Start Date End Date Steve Zamarripa MD PCP - General Internal Medicine 07/09/18 documented as of this encounter
--- OUTSIDE RECORDS SUMMARY | 2024-09-03 14:47 | XMS_ITS | Encounter Summary ---
Author Organization [facility] Address [address] [place] [address] Care Team Providers Care Director Of Content Marketing Name Role Phone Steve Zamarripa MD Primary Care Provider [phone] Marco Mathur MD Unavailable [phone] Reason for Visit * Reason Comments Medication Refill Encounter Details Date Type Department Care Team (Late st Contact Info) Description 10/31/2017 Refill [facility] [place] [phone] Marco Mathur MD [address] [place] [address] Crohn's disease of both small and large [...] complication documented in this encounter Care Teams Director Of Content Marketing Relationship Specialty Start Date End Date Steve Zamarripa MD [address] [place] [address] PCP - General Internal Medicine 11/12/16 Marco Mathur MD [address] [place] [address] Consulting Physician Gastroenterology 11/12/18 documented as of this encounter
--- OUTSIDE RECORDS SUMMARY | 2024-09-03 14:47 | XMS_ITS | Encounter Summary ---
Author Organization [facility] Address [address] [place] [address] Care Team Providers Care Stock Manager Name Role Phone Jessica Cotto MD Primary Care Provider [phone] Steve Zamarripa MD Primary Care Provider [phone] Marco Mathur MD Unavailable [phone] Reason for Visit * Reason Comments Medication Refill Encounter Details Date Type Department Care Team (Late st Contact Info) Description 06/05/2016 Refill [facility] Gastroenterology, [address], [address] [place] [address] Marco Mathur MD [address] [place] [address] Crohn's disease of both small and large [...] Primary documented in this encounter Care Teams Stock Manager Relationship Specialty Start Date End Date Jessica Cotto MD PCP - General 12/10/14 11/11/16 Steve Zamarripa MD [address] [place] [address] PCP - General Internal Medicine 11/12/16 Marco Mathur MD [address] [place] [address] Consulting Physician Gastroenterology 11/12/18 documented as of this encounter
--- OUTSIDE RECORDS SUMMARY | 2024-09-03 14:47 | XMS_ITS | Encounter Summary ---
Author Organization [facility] Address [address] [place] [address] Care Team Providers Care Pipe Covering Molder Name Role Phone Steve Zamarripa MD Primary Care Provider [phone] Marco Mathur MD Unavailable [phone] Steve Zamarripa MD Unavailable [phone] Pcp, No Primary Care Provider Unavailabl e Steve Zamarripa MD Primary Care Provider [phone] Pcp, No Primary Care Provider Unavailabl e Encounter Details Date Type Department Care Team (Late st Contact Info) Description 10/01/2017 Scanned Document [address] [phone] Provider, Generic Social History Tobacco [...] filedocumented in this encounter Care Teams Pipe Covering Molder Relationship Specialty Start Date End Date Steve Zamarripa MD PCP - General Family Medicine 06/04/16 02/05/21 Steve Zamarripa MD [facility] [place] [address] PCP - [place] Commercial Attributed 01/01/20 07/30/20 Pcp, No PCP - General General Medicine 02/06/21 06/10/22 Steev Zamarripa MD PCP - General 06/11/22 08/27/22 Pcp, No PCP - General General Medicine 08/28/22 Marco Mathur MD [address] [place] [address] Steel Wool Machine Operator Pediatric Gastroenterology 11/26/18 documented as of this encounter
--- OUTSIDE RECORDS SUMMARY | 2024-09-03 14:47 | XMS_ITS | Encounter Summary ---
Author Organization [facility] Address [address] [place] [address] Care Team Providers Care Diesel Roller Operator Name Role Phone Steve Zamarripa MD Primary Care Provider [phone] Marco Mathur MD Unavailable [phone] Steve Zamarripa MD Unavailable [phone] Pcp, No Primary Care Provider Unavailabl e Steve Zamarripa MD Primary Care Provider [phone] Pcp, No Primary Care Provider Unavailabl e Encounter Details Date Type Department Care Team (Late st Contact Info) Description 06/14/2016 Scanned Document [address] [phone] Provider, Generic Social History Tobacco Use Types [...] on filedocumented in this encounter Care Teams Diesel Roller Operator Relationship Specialty Start Date End Date Steve Zamarripa MD PCP - General Family Medicine 06/04/16 02/05/21 Steve Zamarripa MD [address] [place], [place] [address] [place] [address] PCP - [place] Commercial Attributed 01/01/20 07/30/20 Pcp, No PCP - General General Medicine 02/06/21 06/10/22 Steve Zamarripa MD PCP - General 06/11/22 08/27/22 Pcp, No PCP - General General Medicine 08/28/22 Marco Mathur MD [address] [place] [address] Vacuum Cleaner Assembler Pediatric Gastroenterology 11/26/18 documented as of this encounter
--- OUTSIDE RECORDS SUMMARY | 2024-09-03 14:47 | XMS_ITS | Encounter Summary ---
Author Organization [facility] Address [address] [place] [address] Care Team Providers Care Para Professional Name Role Phone Jessica Cotto MD Primary Care Provider [phone] Steve Zamarripa MD Primary Care Provider [phone] Marco Mathur MD Unavailable [phone] Reason for Visit * Reason Comments Medication Refill Encounter Details Date Type Department Care Team (Late st Contact Info) Description 08/26/2016 Refill [facility] Gastroenterology, [address], [address] [place] [address] Marco Mathur MD [address] [place] [address] Crohn's disease of both small and large [...] Primary documented in this encounter Care Teams Para Professional Relationship Specialty Start Date End Date Jessica Cotto MD PCP - General 12/10/14 11/11/16 Steve Zamarripa MD [address] [place] [address] PCP - General Internal Medicine 11/12/16 Marco Mathur MD [address] [place] [address] Consulting Physician Gastroenterology 11/12/18 documented as of this encounter
--- OUTSIDE RECORDS SUMMARY | 2024-09-03 14:47 | XMS_ITS | Encounter Summary ---
Author Organization [facility] Address [address] [place] [address] Care Team Providers Care Instrument Tech Name Role Phone Steve Zamarripa MD Primary Care Provider [phone] Encounter Details Date Type Department Care Team (Late st Contact Info) Description 04/20/2021 Orders Only [facility] Department of Pulmonology [address] [place] [address] Cj Batista MD [address] [place] [address] Social History Tobacco Use Types Packs/Day Years [...] on filedocumented in this encounter Care Teams Instrument Tech Relationship Specialty Start Date End Date Steve Zamarripa MD PCP - General Internal Medicine 07/09/18 documented as of this encounter
--- OUTSIDE RECORDS SUMMARY | 2024-09-03 14:47 | XMS_ITS | Encounter Summary ---
Author Organization [facility] Address [address] [place] [address] Care Team Providers Care Foreign Language Professor Name Role Phone Steve Zamarripa MD Primary Care Provider [phone] Marco Mathur MD Unavailable [phone] Steve Zamarripa MD Unavailable [phone] Pcp, No Primary Care Provider Unavailabl e Steve Zamarripa MD Primary Care Provider [phone] Pcp, No Primary Care Provider Unavailabl e Encounter Details Date Type Department Care Team (Late st Contact Info) Description 06/12/2017 Scanned Document [address] [phone] Provider, Generic Social History Tobacco [...] on filedocumented in this encounter Care Teams Foreign Language Professor Relationship Specialty Start Date End Date Steve Zamarripa MD PCP - General Family Medicine 06/04/16 02/05/21 Steve Zamarripa MD [address] [place], [place] [address] [place] [address] PCP - [place] Commercial Attributed 01/01/20 07/30/20 Pcp, No PCP - General General Medicine 02/06/21 06/10/22 Steve Zamarripa MD PCP - General 06/11/22 08/27/22 Pcp, No PCP - General General Medicine 08/28/22 Marco Mathur MD [address] [place] [address] Passenger Representative Pediatric Gastroenterology 11/26/18 documented as of this encounter
--- OUTSIDE RECORDS SUMMARY | 2024-09-03 14:47 | XMS_ITS | Encounter Summary ---
Author Organization [facility] Address [address] [place] [address] Care Team Providers Care Accounting Specialist Name Role Phone Steve Zamarripa MD Primary Care Provider [phone] Marco Mathur MD Unavailable [phone] Steve Zamarripa MD Unavailable [phone] Pcp, No Primary Care Provider Unavailabl e Steve Zamarripa MD Primary Care Provider [phone] Pcp, No Primary Care Provider Unavailabl e Encounter Details Date Type Department Care Team (Late st Contact Info) Description 07/09/2018 Scanned Document [address] [phone] Pulmonary, Scan Social History Tobacco Use Types [...] on filedocumented in this encounter Care Teams Accounting Specialist Relationship Specialty Start Date End Date Steve Zamarripa MD PCP - General Family Medicine 06/04/16 02/05/21 Steve Zamarripa MD [facility] [place] [address] PCP - [place] Commercial Attributed 01/01/20 07/30/20 Pcp, No PCP - General General Medicine 02/06/21 06/10/22 Steve Zamarripa MD PCP - General 06/11/22 08/27/22 Pcp, No PCP - General General Medicine 08/28/22 Marco Mathur MD [address] [place] [address] Director Of Blood Pediatric Gastroenterology 11/26/18 documented as of this encounter
--- OUTSIDE RECORDS SUMMARY | 2024-09-03 14:47 | XMS_ITS | Encounter Summary ---
Author Organization [facility] Address [address] [place] [address] Care Team Providers Care Java Tech Lead Name Role Phone Jessica Cotto MD Primary Care Provider [phone] Steve Zamarripa MD Primary Care Provider [phone] Marco Mathur MD Unavailable [phone] Reason for Visit * Reason Comments Medication Refill Encounter Details Date Type Department Care Team (Late st Contact Info) Description 08/19/2016 Refill [facility] Gastroenterology, [address], [address] [place] [address] Marco Mathur MD [address] [place] [address] Crohn's disease of both small and large [...] Primary documented in this encounter Care Teams Java Tech Lead Relationship Specialty Start Date End Date Jessica Cotto MD PCP - General 12/10/14 11/11/16 Steve Zamarripa MD [address] [place] [address] PCP - General Internal Medicine 11/12/16 Marco Mathur MD [address] [place] [address] Consulting Physician Gastroenterology 11/12/18 documented as of this encounter
--- OUTSIDE RECORDS SUMMARY | 2024-09-03 14:47 | XMS_ITS | Encounter Summary ---
Author Organization [facility] Address [address] [place] [address] Care Team Providers Care Tube Winder Hand Name Role Phone Jessica Cotto MD Primary Care Provider [phone] Steve Zamarripa MD Primary Care Provider [phone] Marco Mathur MD Unavailable [phone] Reason for Visit * Reason Comments Medication Refill Encounter Details Date Type Department Care Team (Late st Contact Info) Description 07/04/2015 Refill [facility] Gastroenterology, [address], [address] [place] [address] Marco Mathur MD [address] [place] [address] Crohn's disease of both small and large [...] Primary documented in this encounter Care Teams Tube Winder Hand Relationship Specialty Start Date End Date Jessica Cotto MD PCP - General 12/10/14 11/11/16 Steve Zamarripa MD [address] [place] [address] PCP - General Internal Medicine 11/12/16 Marco Mathur MD [address] [place] [address] Consulting Physician Gastroenterology 11/12/18 documented as of this encounter
--- OUTSIDE RECORDS SUMMARY | 2024-09-03 14:47 | XMS_ITS | Encounter Summary ---
Author Organization [facility] Address [address] [place] [address] Care Team Providers Care Office Services Clerk Name Role Phone Steve Zamarripa MD Primary Care Provider [phone] Marco Mathur MD Unavailable [phone] Steve Zamarripa MD Unavailable [phone] Pcp, No Primary Care Provider Unavailabl e Steve Zamarripa MD Primary Care Provider [phone] Pcp, No Primary Care Provider Unavailabl e Encounter Details Date Type Department Care Team (Late st Contact Info) Description 09/11/2018 Scanned Document [address] [phone] Steve Zamarripa MD [address] [place] [id number] Social History Tobacco Use Types Packs/Day Years [...] on filedocumented in this encounter Care Teams Office Services Clerk Relationship Specialty Start Date End Date Steve Zamarripa MD PCP - General Family Medicine 06/04/16 02/05/21 Steve Zamarripa MD [address] [place] [address] [place] [address] PCP - [place] Commercial Attributed 01/01/20 07/30/20 Pcp, No PCP - General General Medicine 02/06/21 06/10/22 Steve Zamarripa MD PCP - General 06/11/22 08/27/22 Pcp, No PCP - General General Medicine 08/28/22 Marco Mathur MD [address] [place] [address] Crime Scene Technician Pediatric Gastroenterology 11/26/18 documented as of this encounter
--- OUTSIDE RECORDS SUMMARY | 2024-09-03 14:47 | XMS_ITS | Encounter Summary ---
Author Organization [facility] Address [address] [place] [address] Care Team Providers Care Market Asset Protection Manager Name Role Phone Steve Zamarripa MD Primary Care Provider [phone] Marco Mathur MD Unavailable [phone] Steve Zamarripa MD Unavailable [phone] Pcp, No Primary Care Provider Unavailabl e Steve Zamarripa MD Primary Care Provider [phone] Pcp, No Primary Care Provider Unavailabl e Encounter Details Date Type Department Care Team (Late st Contact Info) Description 10/22/2016 Scanned Document [address] [id number] Provider, Generic Social History Tobacco [...] on filedocumented in this encounter Care Teams Market Asset Protection Manager Relationship Specialty Start Date End Date Steve Zamarripa MD PCP - General Family Medicine 06/04/16 02/05/21 Steve Zamarripa MD [address] [place], [place] [address] [address] PCP - [place] Commercial Attributed 01/01/20 07/30/20 Pcp, No PCP - General General Medicine 02/06/21 06/10/22 Steve Zamarripa MD PCP - General 06/11/22 08/27/22 Pcp, No PCP - General General Medicine 08/28/22 Marco Mathur MD [address] [place] [address] Heel Nail Rasper Pediatric Gastroenterology 11/26/18 documented as of this encounter
--- OUTSIDE RECORDS SUMMARY | 2024-09-03 14:47 | XMS_ITS | Encounter Summary ---
Author Organization [facility] Address [address] [place] [address] Care Team Providers Care Infirmary Attendant Name Role Phone Steve Zamarripa MD Primary Care Provider [phone] Marco Mathur MD Unavailable [phone] Steve Zamarripa MD Unavailable [phone] Pcp, No Primary Care Provider Unavailabl e Steve Zamarripa MD Primary Care Provider [phone] Pcp, No Primary Care Provider Unavailabl e Encounter Details Date Type Department Care Team (Late st Contact Info) Description 08/24/2017 Scanned Document [address] [address] Provider, Generic Social History Tobacco [...] on filedocumented in this encounter Care Teams Infirmary Attendant Relationship Specialty Start Date End Date Steve Zamarripa MD PCP - General Family Medicine 06/04/16 02/05/21 Steve Zamarripa MD [facility] [place] [address] PCP - [place] Commercial Attributed 01/01/20 07/30/20 Pcp, No PCP - General General Medicine 02/06/21 06/10/22 Steve Zamarripa MD PCP - General 06/11/22 08/27/22 Pcp, No PCP - General General Medicine 08/28/22 Marco Mathur MD [address] [place] [address] Dial Mounter Pediatric Gastroenterology 11/26/18 documented as of this encounter
--- OUTSIDE RECORDS SUMMARY | 2024-09-03 14:47 | XMS_ITS | Encounter Summary ---
Author Organization [facility] Address [address] [place] [address] Care Team Providers Care Fire Department Marine Engineer Name Role Phone Steve Zamarripa MD Primary Care Provider [phone] Marco Mathur MD Unavailable [phone] Steve Zamarripa MD Unavailable [phone] Pcp, No Primary Care Provider Unavailabl e Steve Zamarripa MD Primary Care Provider [phone] Pcp, No Primary Care Provider Unavailabl e Encounter Details Date Type Department Care Team (Late st Contact Info) Description 07/26/2017 Telephone [facility] [address] [id number] Verónica Vogel [address] [place] [address] Social History Tobacco Use Types Packs/Day Years [...] on filedocumented in this encounter Care Teams Fire Department Marine Engineer Relationship Specialty Start Date End Date Steve Zamarripa MD PCP - General Family Medicine 06/04/16 02/05/21 Steve Zamarripa MD [address] [place] [address] PCP - [place] Commercial Attributed 01/01/20 07/30/20 Pcp, No PCP - General General Medicine 02/06/21 06/10/22 Steve Zamarripa MD PCP - General 06/11/22 08/27/22 Pcp, No PCP - General General Medicine 08/28/22 Marco Mathur MD [address] [place] [address] Percussion Teacher Pediatric Gastroenterology 11/26/18 documented as of this encounter
--- OUTSIDE RECORDS SUMMARY | 2024-09-03 14:47 | XMS_ITS | Encounter Summary ---
Author Organization [facility] Address [address] [place] [address] Care Team Providers Care Wafer Fabrication Technician Name Role Phone Steve Zamarripa MD Primary Care Provider [phone] Marco Mathur MD Unavailable [phone] Reason for Visit * Reason Comments Medication Refill Encounter Details Date Type Department Care Team (Late st Contact Info) Description 10/08/2017 Refill [facility] Gastroenterology, [address] [facility], [address] [place] [address] Marco Mathur MD [address] [place] [address] Crohn's disease of both small and large [...] complication documented in this encounter Care Teams Wafer Fabrication Technician Relationship Specialty Start Date End Date Steve Zamarripa MD [address] [place] [address] PCP - General Internal Medicine 11/12/16 Marco Mathur MD [address] [place] [address] Consulting Physician Gastroenterology 11/12/18 documented as of this encounter
--- OUTSIDE RECORDS SUMMARY | 2024-09-03 14:47 | XMS_ITS | Encounter Summary ---
Author Organization [facility] Address [address] [place] [address] Care Team Providers Care Photogrammetric Engineer Name Role Phone Jessica Cotto MD Primary Care Provider [phone] Steve Zamarripa MD Primary Care Provider [phone] Marco Mathur MD Unavailable [phone] Reason for Visit * Reason Comments Medication Refill Encounter Details Date Type Department Care Team (Late st Contact Info) Description 02/09/2016 Refill [facility] Gastroenterology, [address], [address] [place] [address] Marco Mathur MD [address] [place] [address] Crohn's disease of both small and large [...] documented in this encounter Care Teams Photogrammetric Engineer Relationship Specialty Start Date End Date Jessica Cotto MD PCP - General 12/10/14 11/11/16 Steve Zamarripa MD [address] [place] [address] PCP - General Internal Medicine 11/12/16 Marco Mathur MD [address] [place] [address] Consulting Physician Gastroenterology 11/12/18 documented as of this encounter
--- OUTSIDE RECORDS SUMMARY | 2024-09-03 14:47 | XMS_ITS | Clinical Summary ---
Author Organization [facility] Address [address] [facility] [place] [address] Care Team Providers Care Canteen Attendant Name Role Phone Steve Zamarripa MD Primary Care Provider [phone] Allergies No known active allergies Medications FLUoxetine [...] age to complete this topic Insurance () [facility] Member Subscriber Plan / Payer (Ef fective 2021-Present) Name:Andree Boss Relation to Subscriber:Self Name:Andree Boss Payer ID:[id number] (NAIC) Type:HMO Address: [place] [id number] [facility] PPO Care Teams Canteen Attendant Relationship Specialty Start Date End Date Steve Zamarripa MD PCP - General Internal Medicine 07/09/18
--- OUTSIDE RECORDS SUMMARY | 2024-09-03 14:47 | XMS_ITS | Encounter Summary ---
Author Organization [facility] Address [address] [place] [address] Care Team Providers Care Chiropractic Physician Name Role Phone Steve Zamarripa MD Primary Care Provider [phone] Marco Mathur MD Unavailable [phone] Steve Zamarripa MD Unavailable [phone] Pcp, No Primary Care Provider Unavailabl e Steve Zamarripa MD Primary Care Provider [phone] Pcp, No Primary Care Provider Unavailabl e Encounter Details Date Type Department Care Team (Late st Contact Info) Description 08/23/2017 Scanned Document [address] [address] Provider, Generic Social History Tobacco [...] on filedocumented in this encounter Care Teams Chiropractic Physician Relationship Specialty Start Date End Date Steve Zamarripa MD PCP - General Family Medicine 06/04/16 02/05/[address] [facility] [place] [address] PCP - [place] Commercial Attributed 01/01/20 07/30/20 Pcp, No PCP - General General Medicine 02/06/21 06/10/22 Steve Zamarripa MD PCP - General 06/11/22 08/27/22 Pcp, No PCP - General General Medicine 08/28/22 Marco Mathur MD [address] [place] [address] Dandy Operator Pediatric Gastroenterology 11/26/18 documented as of this encounter
--- OUTSIDE RECORDS SUMMARY | 2024-09-03 14:47 | XMS_ITS | Encounter Summary ---
Author Organization [facility] Address [address] [place] [address] Care Team Providers Care Electromechanical Assembly Technician Name Role Phone Steve Zamarripa MD Primary Care Provider [phone] Marco Mathur MD Unavailable [phone] Steve Zamarripa MD Unavailable [phone] Pcp, No Primary Care Provider Unavailabl e Steve Zamarripa MD Primary Care Provider [phone] Pcp, No Primary Care Provider Unavailabl e Encounter Details Date Type Department Care Team (Late st Contact Info) Description 06/18/2018 Scanned Document [address] [id number] Pediatric Gastroenterology, Scan Social History Tobacco Use [...] on filedocumented in this encounter Care Teams Electromechanical Assembly Technician Relationship Specialty Start Date End Date Steve Zamarripa MD PCP - General Family Medicine 06/04/16 02/05/21 Steve Zamarripa MD [address] [place] [address] PCP - [place] Commercial Attributed 01/01/20 07/30/20 Pcp, No PCP - General General Medicine 02/06/21 06/10/22 Steve Zamarripa MD PCP - General 06/11/22 08/27/22 Pcp, No PCP - General General Medicine 08/28/22 Marco Mathur MD [address] [place] [address] [address] Mechanical Engineer Pediatric Gastroenterology 11/26/18 documented as of this encounter
--- OUTSIDE RECORDS SUMMARY | 2024-09-03 14:47 | XMS_ITS | Encounter Summary ---
Author Organization [facility] Address [address] [place] [address] Care Team Providers Care Radiology Practitioner Assistant Name Role Phone Jessica Cotto MD Primary Care Provider [phone] Steve Zamarripa MD Primary Care Provider [phone] Marco Mathur MD Unavailable [phone] Reason for Visit * Reason Comments Medication Refill Encounter Details Date Type Department Care Team (Late st Contact Info) Description 08/02/2015 Refill [facility] Gastroenterology, [address], [address] [place] [address] Marco Mathur MD [address] [place] [address] Crohn's disease of both small and large [...] Primary documented in this encounter Care Teams Radiology Practitioner Assistant Relationship Specialty Start Date End Date Jessica Cotto MD PCP - General 12/10/14 11/11/16 Steve Zamarripa MD [address] [place] [address] PCP - General Internal Medicine 11/12/16 Marco Mathur MD [address] [place] [address] Consulting Physician Gastroenterology 11/12/18 documented as of this encounter
--- OUTSIDE RECORDS SUMMARY | 2024-09-03 14:47 | XMS_ITS | Encounter Summary ---
Author Organization [facility] Address [address] [place] [address] Care Team Providers Care Powerhouse Laborer Name Role Phone Steve Zamarripa MD Primary Care Provider [phone] Marco Mathur MD Unavailable [phone] Steve Zamarripa MD Unavailable [phone] Pcp, No Primary Care Provider Unavailabl e Steve Zamarripa MD Primary Care Provider [phone] Pcp, No Primary Care Provider Unavailabl e Encounter Details Date Type Department Care Team (Late st Contact Info) Description 09/20/2016 Scanned Document [address] [id number] Provider, Generic Social History Tobacco [...] on filedocumented in this encounter Care Teams Powerhouse Laborer Relationship Specialty Start Date End Date Steve Zamarripa MD PCP - General Family Medicine 06/04/16 02/05/21 Steve Zamarripa MD [address] [place], [place] [address] [place] [address] PCP - [place] Commercial Attributed 01/01/20 07/30/20 Pcp, No PCP - General General Medicine 02/06/21 06/10/22 Steve Zamarripa MD PCP - General 06/11/22 08/27/22 Pcp, No PCP - General General Medicine 08/28/22 Marco Mathur MD [address] [place] [address] Shaping Machine Tender Pediatric Gastroenterology 11/26/18 documented as of this encounter
--- OUTSIDE RECORDS SUMMARY | 2024-09-03 14:47 | XMS_ITS | Encounter Summary ---
Author Organization [facility] Address [address] [place] [address] Care Team Providers Care Returned Goods Receiving Clerk Name Role Phone Steve Zamarripa MD Primary Care Provider [phone] Marco Mathur MD Unavailable [phone] Steve Zamarripa MD Unavailable [phone] Pcp, No Primary Care Provider Unavailabl e Steve Zamarripa MD Primary Care Provider [phone] Pcp, No Primary Care Provider Unavailabl e Encounter Details Date Type Department Care Team (Late st Contact Info) Description 12/09/2018 Scanned Document [address] [address] Primary Care, Scan Social History [...] on filedocumented in this encounter Care Teams Returned Goods Receiving Clerk Relationship Specialty Start Date End Date Steve Zamarripa MD PCP - General Family Medicine 06/04/16 02/05/21 Steve Zamarripa MD [place] [address] PCP - [place] Commercial Attributed 01/01/20 07/30/20 Pcp, No PCP - General General Medicine 02/06/21 06/10/22 Steve Zamarripa MD PCP - General 06/11/22 08/27/22 Pcp, No PCP - General General Medicine 08/28/22 Marco Mathur MD [address] [place] [address] Glove Examiner Pediatric Gastroenterology 11/26/18 documented as of this encounter
--- OUTSIDE RECORDS SUMMARY | 2024-09-03 14:48 | XMS_ITS | Encounter Summary ---
Author Organization [facility] Address [address] [place] [address] Care Team Providers Care Build Manager Name Role Phone Steve Zamarripa MD Primary Care Provider [phone] Marco Mathur MD Unavailable [phone] Reason for Visit * Reason Comments Medication Refill Encounter Details Date Type Department Care Team (Late st Contact Info) Description 07/29/2018 Refill [facility] [place] [phone] Marco Mathur MD [address] [place] [address] Crohn's disease of both small and large [...] complication documented in this encounter Care Teams Build Manager Relationship Specialty Start Date End Date Steve Zamarripa MD [address] [place] [address] PCP - General Internal Medicine 11/12/16 Marco Mathur MD [address] [place] [address] Consulting Physician Gastroenterology 11/12/18 documented as of this encounter
--- OUTSIDE RECORDS SUMMARY | 2024-09-03 14:48 | XMS_ITS | Encounter Summary ---
Author Organization [facility] Address [address] [place] [address] Care Team Providers Care Mines Inspector Name Role Phone Steve Zamarripa MD Primary Care Provider [phone] Marco Mahtur MD Unavailable [phone] Reason for Visit * Reason Comments Medication Refill Encounter Details Date Type Department Care Team (Late st Contact Info) Description 06/08/2018 Refill [facility] Gastroenterology, [address] 1st [facility], [address] [place] [address] Marco Mathur MD [address] [place] [address] Crohn's disease of both small and large [...] alone documented in this encounter Care Teams Mines Inspector Relationship Specialty Start Date End Date Steve Zamarripa MD [address] [place] [address] PCP - General Internal Medicine 11/12/16 Marco Mathur MD [address] [place] [address] Consulting Physician Gastroenterology 11/12/18 documented as of this encounter
--- OUTSIDE RECORDS SUMMARY | 2024-09-03 14:48 | XMS_ITS | Encounter Summary ---
Author Organization [facility] Address [address] [place] [address] Care Team Providers Care Toll Gate Tender Name Role Phone Steve Zamarripa MD Primary Care Provider [phone] Marco Mathur MD Unavailable Reason for Visit * Reason Comments Medication Refill Encounter Details Date Type Department Care Team (Late st Contact Info) Description 12/06/2016 Refill [facility] Gastroenterology, [address] [facility], [address] [place] [address] Marco Mathur MD [address] [place] [address] Crohn's disease of both small and large [...] Primary documented in this encounter Care Teams Toll Gate Tender Relationship Specialty Start Date End Date Steve Zamarripa MD [address] [place] [address] PCP - General Internal Medicine 11/12/16 Marco Mathur MD [address] [place] [address] Consulting Physician Gastroenterology 11/12/18 documented as of this encounter
--- OUTSIDE RECORDS SUMMARY | 2024-09-03 14:48 | XMS_ITS | Encounter Summary ---
Author Organization [facility] Address [address] [place] [address] Care Team Providers Care Felling Bucking Supervisor Name Role Phone Steve Zamarripa MD Primary Care Provider [phone] Marco Mathur MD Unavailable [phone] Reason for Visit * Reason Comments Medication Refill Encounter Details Date Type Department Care Team ([facility] st Contact Info) Description 04/29/2018 Refill [facility] [place] [address] Kel Green MD [address] [place] [address] Crohn's disease of both small and large [...] complication documented in this encounter Care Teams Felling Bucking Supervisor Relationship Specialty Start Date End Date Steve Zamarripa MD [address] [place] [address] PCP - General Internal Medicine 11/12/16 Marco Mathur MD [address] [place] [address] Consulting Physician Gastroenterology 11/12/18 documented as of this encounter
--- OUTSIDE RECORDS SUMMARY | 2024-09-03 14:48 | XMS_ITS | Encounter Summary ---
Author Organization [facility] Address [address] [place] [address] Care Team Providers Care Mail Processing Machine Operator Name Role Phone Steve Zamarripa MD Primary Care Provider [phone] Marco Mathur MD Unavailable [phone] Reason for Visit * Reason Comments Medication Refill Encounter Details Date Type Department Care Team (Late st Contact Info) Description 11/27/2016 Refill [facility] Gastroenterology, [address], [address] [place] [address] Marco Mathur MD [address] [place] [address] Crohn's disease of both small and large [...] Primary documented in this encounter Care Teams Mail Processing Machine Operator Relationship Specialty Start Date End Date Steve Zamarripa MD [address] [place] [address] PCP - General Internal Medicine 11/12/16 Marco Mathur MD [address] [place] [address] Consulting Physician Gastroenterology 11/12/18 documented as of this encounter
[2024-09-08 22:03] LABS: Lactoferrin, Fecal, Quant. <6.25 mcg/mL (<7.25)
== END 2024-09-02 12:57 | disposition home or self-care (01) ==
LOC: HO.LNP 12:56
PROVIDERS: Visit Provider Internal Medicine Gastroenterology
DX: K51.50 Left sided colitis without complications (principal); K50.80 Crohn's disease of both small and large intestine without complications
CPT/HCPCS: 83631

== ENCOUNTER 2024-10-21 06:04 | Day surgery (SDC) | payer OTHER, SELFPAY ==
--- OUTSIDE RECORDS SUMMARY | 2024-10-12 12:52 | XMS_ITS | Encounter Summary ---
Author Organization [facility] Address [address] [place] [address] Care Team Providers Care Principal Military Analyst Name Role Phone Steve Zamarripa MD Primary Care Provider [phone] Marco Mathur MD Unavailable [phone] Steve Zamarripa MD Unavailable [phone] Pcp, No Primary Care Provider Unavailabl e Steve Zamarripa MD Primary Care Provider [phone] Pcp, No Primary Care Provider Unavailabl e Encounter Details Date Type Department Care Team (Late st Contact Info) Description 08/24/2017 Scanned Document [address] [phone] Provider, Generic Social History [...] on filedocumented in this encounter Care Teams Principal Military Analyst Relationship Specialty Start Date End Date Steve Zamarripa MD PCP - General Family Medicine 06/04/16 02/05/21 Steve Zamarripa MD [facility] [place] [address] PCP - [place] Commercial Attributed 01/01/20 07/30/20 Pcp, No PCP - General General Medicine 02/06/21 06/10/22 Steve Zamarripa MD PCP - General 06/11/22 08/27/22 Pcp, No PCP - General General Medicine 08/28/22 Marco Mathur MD [address] [place] [address] Forging Engineer Pediatric Gastroenterology 11/26/18 documented as of this encounter
--- OUTSIDE RECORDS SUMMARY | 2024-10-12 12:52 | XMS_ITS | Encounter Summary ---
Author Organization [facility] Address [address] [place] [address] Care Team Providers Care Clinical Review Specialist Name Role Phone Steve Zamarripa MD Primary Care Provider [phone] Marco Mathur MD Unavailable [phone] Steve Zamarripa MD Unavailable [phone] Pcp, No Primary Care Provider Unavailabl e Steve Zamarripa MD Primary Care Provider [phone] Pcp, No Primary Care Provider Unavailabl e Encounter Details Date Type Department Care Team (Late st Contact Info) Description 07/09/2018 Scanned Document [address] [address] Pulmonary, Scan Social History Tobacco Use Types [...] on filedocumented in this encounter Care Teams Clinical Review Specialist Relationship Specialty Start Date End Date Steve Zamarripa MD PCP - General Family Medicine 06/04/16 02/05/21 Steve Zamarripa MD [facility] [place] [address] PCP - [place] Commercial Attributed 01/01/20 07/30/20 Pcp, No PCP - General General Medicine 02/06/21 06/10/22 Steve Zamarripa MD PCP - General 06/11/22 08/27/22 Pcp, No PCP - General General Medicine 08/28/22 Marco Mathur MD [address] [place] [address] Cd Technician Pediatric Gastroenterology 11/26/18 documented as of this encounter
--- OUTSIDE RECORDS SUMMARY | 2024-10-12 12:52 | XMS_ITS | Encounter Summary ---
Author Organization [facility] Address [address] [place] [address] Care Team Providers Care Maintenance Of Way Clerk Name Role Phone Steve Zamarripa MD Primary Care Provider [phone] Marco Mathur MD Unavailable [phone] Steve Zamarripa MD Unavailable [phone] Pcp, No Primary Care Provider Unavailabl e Steve Zamarripa MD Primary Care Provider [phone] Pcp, No Primary Care Provider Unavailabl e Encounter Details Date Type Department Care Team (Late st Contact Info) Description 06/18/2018 Scanned Document [address] [address] Pediatric Gastroenterology, Scan Social History [...] filedocumented in this encounter Care Teams Maintenance Of Way Clerk Relationship Specialty Start Date End Date Steve Zamarripa MD PCP - General Family Medicine 06/04/16 02/05/21 Steve Zamarripa MD [address] [place] [address] [place] [address] PCP - [place] Commercial Attributed 01/01/20 07/30/20 Pcp, No PCP - General General Medicine 02/06/21 06/10/22 Steve Zamarripa MD PCP - General 06/11/22 08/27/22 Pcp, No PCP - General General Medicine 08/28/22 Marco Mathur MD [address] [place] [address] Master Barber Pediatric Gastroenterology 11/26/18 documented as of this encounter
--- OUTSIDE RECORDS SUMMARY | 2024-10-12 12:53 | XMS_ITS | Encounter Summary ---
Author Organization [facility] Address [address] [place] [address] Care Team Providers Care Toll Operator Name Role Phone Jessica Cotto MD Primary Care Provider [phone] Steve Zamarripa MD Primary Care Provider [phone] Marco Mathur MD Unavailable [phone] Reason for Visit * Reason Comments Medication Refill Encounter Details Date Type Department Care Team (Late st Contact Info) Description 02/09/2016 Refill [facility] Gastroenterology, [address], [address] [place] [address] Marco Mathur MD [address] [place] [address] Crohn's disease of both small and large [...] documented in this encounter Care Teams Toll Operator Relationship Specialty Start Date End Date Jessica Cotto MD PCP - General 12/10/14 11/11/16 Steve Zamarripa MD [address] [place] [address] PCP - General Internal Medicine 11/12/16 Marco Mathur MD [address] [place] [address] Consulting Physician Gastroenterology 11/12/18 documented as of this encounter
--- OUTSIDE RECORDS SUMMARY | 2024-10-12 12:53 | XMS_ITS | Encounter Summary ---
Author Organization [facility] Address [address] [place] [address] Care Team Providers Care Rejected Items Clerk Name Role Phone Jessica Cotto MD Primary Care Provider [phone] Steve Zamarripa MD Primary Care Provider [phone] Marco Mathur MD Unavailable [phone] Reason for Visit * Reason Comments Medication Refill Encounter Details Date Type Department Care Team (Late st Contact Info) Description 08/02/2015 Refill [facility] Gastroenterology, [address], [address] [place] [address] Marco Mathur MD [address] [place] [address] Crohn's disease of both small and large [...] Primary documented in this encounter Care Teams Rejected Items Clerk Relationship Specialty Start Date End Date Jessica Cotto MD PCP - General 12/10/14 11/11/16 Steve Zamarripa MD [address] [place] [address] PCP - General Internal Medicine 11/12/16 Marco Mathur MD [address] [place] [address] Consulting Physician Gastroenterology 11/12/18 documented as of this encounter
--- OUTSIDE RECORDS SUMMARY | 2024-10-12 12:53 | XMS_ITS | Encounter Summary ---
Author Organization [facility] Address [address] [place] [address] Care Team Providers Care Bulk Mail Technician Name Role Phone Steve Zamarripa MD Primary Care Provider [phone] Marco Mathur MD Unavailable [phone] Steve Zamarripa MD Unavailable + [phone] Pcp, No Primary Care Provider Unavailabl e Steve Zamarripa MD Primary Care Provider [phone] Pcp, No Primary Care Provider Unavailabl e Encounter Details Date Type Department Care Team (Late st Contact Info) Description 12/09/2018 Scanned Document [address] [address] Primary Care, Scan Social History [...] on filedocumented in this encounter Care Teams Bulk Mail Technician Relationship Specialty Start Date End Date Steve Zamarripa MD PCP - General Family Medicine 06/04/16 02/05/21 Steve Zamarripa MD [address] [place], [place] [address] [place] [address] PCP - [place] Commercial Attributed 01/01/20 07/30/20 Pcp, No PCP - General General Medicine 02/06/21 06/10/22 Steve Zamarripa MD PCP - General 06/11/22 08/27/22 Pcp, No PCP - General General Medicine 08/28/22 Marco Mathur MD [address] [place] [address] Emt Pediatric Gastroenterology 11/26/18 documented as of this encounter
--- OUTSIDE RECORDS SUMMARY | 2024-10-12 12:53 | XMS_ITS | Encounter Summary ---
Author Organization [facility] Address [address] [place] [address] Care Team Providers Care Horticultural Farm Manager Name Role Phone Steve Zamarripa MD Primary Care Provider [phone] Marco Mathur MD Unavailable [phone] Steve Zamarripa MD Unavailable + [phone] Pcp, No Primary Care Provider Unavailabl e Steve Zamarripa MD Primary Care Provider [phone] Pcp, No Primary Care Provider Unavailabl e Encounter Details Date Type Department Care Team (Late st Contact Info) Description 09/20/2016 Scanned Document [address] [address] Provider, Generic Social History Tobacco [...] on filedocumented in this encounter Care Teams Horticultural Farm Manager Relationship Specialty Start Date End Date Steve Zamarripa MD PCP - General Family Medicine 06/04/16 02/05/21 Steve Zamarripa MD [place] [address] PCP - [place] Commercial Attributed 01/01/20 07/30/20 Pcp, No PCP - General General Medicine 02/06/21 06/10/22 Steve Zamarripa MD PCP - General 06/11/22 08/27/22 Pcp, No PCP - General General Medicine 08/28/22 Marco Mathur MD [address] [place] [address] Crystal Evaluator Pediatric Gastroenterology 11/26/18 documented as of this encounter
--- OUTSIDE RECORDS SUMMARY | 2024-10-12 12:53 | XMS_ITS | Encounter Summary ---
Author Organization [facility] Address [address] [place] [address] Care Team Providers Care Engineering Instructor Name Role Phone Steve Zamarripa MD Primary Care Provider [phone] Marco Mathur MD Unavailable [phone] Steve Zamarripa MD Unavailable + [phone] Pcp, No Primary Care Provider Unavailabl e Steve Zamarripa MD Primary Care Provider [phone] Pcp, No Primary Care Provider Unavailabl e Encounter Details Date Type Department Care Team (Late st Contact Info) Description 11/27/2017 Scanned Document [address] [address] Provider, Generic Social History Tobacco [...] on filedocumented in this encounter Care Teams Engineering Instructor Relationship Specialty Start Date End Date Steve Zamarripa MD PCP - General Family Medicine 06/04/16 02/05/21 Steve Zamarripa MD [facility] [place] [address] PCP - [place] Commercial Attributed 01/01/20 07/30/20 Pcp, No PCP - General General Medicine 02/06/21 06/10/22 Steve Zamarripa MD PCP - General 06/11/22 08/27/22 Pcp, No PCP - General General Medicine 08/28/22 Marco Mathur MD [address] [place] [address] Scalp Treatment Specialist Pediatric Gastroenterology 11/26/18 documented as of this encounter
--- OUTSIDE RECORDS SUMMARY | 2024-10-12 12:53 | XMS_ITS | Encounter Summary ---
Author Organization [facility] Address [address] [place] [address] Care Team Providers Care Nursing Educator Name Role Phone Steve Zamarripa MD Primary Care Provider [phone] Marco Mathur MD Unavailable [phone] Steve Zamarripa MD Unavailable + [phone] Pcp, No Primary Care Provider Unavailabl e Steve Zamarripa MD Primary Care Provider [phone] Pcp, No Primary Care Provider Unavailabl e Encounter Details Date Type Department Care Team (Late st Contact Info) Description 10/01/2017 Scanned Document [address] [address] Provider, Generic Social History Tobacco [...] on filedocumented in this encounter Care Teams Nursing Educator Relationship Specialty Start Date End Date Steve Zamarripa MD PCP - General Family Medicine 06/04/16 02/05/21 Steve Zamarripa MD [facility] [place] [address] PCP - [place] Commercial Attributed 01/01/20 07/30/20 Pcp, No PCP - General General Medicine 02/06/21 06/10/22 Steve Zamarripa MD PCP - General 06/11/22 08/27/22 Pcp, No PCP - General General Medicine 08/28/22 Marco Mathur MD [address] [place] [address] Brewery Technician Pediatric Gastroenterology 11/26/18 documented as of this encounter
--- OUTSIDE RECORDS SUMMARY | 2024-10-12 12:53 | XMS_ITS | Encounter Summary ---
Author Organization [facility] Address [address] [place] [address] Care Team Providers Care Drop Wire Hanger Name Role Phone Jessica Cotto MD Primary Care Provider [phone] Steve Zamarripa MD Primary Care Provider [phone] Marco Mathur MD Unavailable [phone] Reason for Visit * Reason Comments Medication Refill Encounter Details Date Type Department Care Team (Late st Contact Info) Description 08/26/2016 Refill [facility] Gastroenterology, [address], [address] [place] [address] Marco Mathur MD [address] [place] [address] Crohn's disease of both small and large [...] Primary documented in this encounter Care Teams Drop Wire Hanger Relationship Specialty Start Date End Date Jessica Cotto MD PCP - General 12/10/14 11/11/16 Steve Zamarripa MD [address] [place] [address] PCP - General Internal Medicine 11/12/16 Marco Mathur MD [address] [place] [address] Consulting Physician Gastroenterology 11/12/18 documented as of this encounter
--- OUTSIDE RECORDS SUMMARY | 2024-10-12 12:53 | XMS_ITS | Encounter Summary ---
Author Organization [facility] Address [address] [place] [address] Care Team Providers Care Skip Tender Name Role Phone Jessica Cotto MD Primary Care Provider [phone] Steve Zamarripa MD Primary Care Provider [phone] Marco Mahtur MD Unavailable [phone] Reason for Visit * Reason Comments Medication Refill Encounter Details Date Type Department Care Team (Late st Contact Info) Description 08/11/2015 Refill [facility] Gastroenterology, [address], [address] [place] [address] Marco Mathur MD [address] [place] [address] Crohn's disease of both small and large [...] Primary documented in this encounter Care Teams Skip Tender Relationship Specialty Start Date End Date Jessica Cotto MD PCP - General 12/10/14 11/11/16 Steve Zamarripa MD [address] [place] [address] PCP - General Internal Medicine 11/12/16 Marco Mathur MD [address] [place] [address] Consulting Physician Gastroenterology 11/12/18 documented as of this encounter
--- OUTSIDE RECORDS SUMMARY | 2024-10-12 12:53 | XMS_ITS | Encounter Summary ---
Author Organization [facility] Address [address] [place] [address] Care Team Providers Care Hat Mender Name Role Phone Steve Zamarripa MD Primary Care Provider [phone] Encounter Details Date Type Department Care Team (Late st Contact Info) Description 04/20/2021 Orders Only [facility] Department of Pulmonology [address] [place] [address] Cj Batista MD [address] [place] [address] Social History Tobacco Use Types Packs/Day Years [...] on filedocumented in this encounter Care Teams Hat Mender Relationship Specialty Start Date End Date Steve Zamarripa MD PCP - General Internal Medicine 07/09/18 documented as of this encounter
--- OUTSIDE RECORDS SUMMARY | 2024-10-12 12:53 | XMS_ITS | Encounter Summary ---
Author Organization [facility] Address [address] [place] [address] Care Team Providers Care Sales Floor Team Member Name Role Phone Steve Zamarripa MD Primary Care Provider [phone] Marco Mathur MD Unavailable [phone] Steve Zamarripa MD Unavailable + [phone] Pcp, No Primary Care Provider Unavailabl e Steve Zamarriap MD Primary Care Provider [phone] Pcp, No Primary Care Provider Unavailabl e Encounter Details Date Type Department Care Team (Late st Contact Info) Description 09/11/2018 Scanned Document [address] [address] Steve Zamarripa MD [address] [place] [address] 654381 Social History Tobacco Use Types Packs/Day Years [...] filedocumented in this encounter Care Teams Sales Floor Team Member Relationship Specialty Start Date End Date Steve Zamarripa MD PCP - General Family Medicine 06/04/16 02/05/21 Steve Zamarripa MD [address] [place] [address] PCP - [place] Commercial Attributed 01/01/20 07/30/20 Pcp, No PCP - General General Medicine 02/06/21 06/10/22 Steve Zamarripa MD PCP - General 06/11/22 08/27/22 Pcp, No PCP - General General Medicine 08/28/22 Marco Mathur MD [address] [place] [address] Drug Abuse Worker Pediatric Gastroenterology 11/26/18 documented as of this encounter
--- OUTSIDE RECORDS SUMMARY | 2024-10-12 12:53 | XMS_ITS | Encounter Summary ---
Author Organization [facility] Address [address] [place] [address] Care Team Providers Care Abstractor Name Role Phone Steve Zamarripa MD Primary Care Provider [phone] Marco Mathur MD Unavailable [phone] Steve Zamarripa MD Unavailable + [phone] Pcp, No Primary Care Provider Unavailabl e Steve Zamarripa MD Primary Care Provider [phone] Pcp, No Primary Care Provider Unavailabl e Encounter Details Date Type Department Care Team (Late st Contact Info) Description 10/22/2016 Scanned Document [address] [address] Provider, Generic Social History Tobacco [...] on filedocumented in this encounter Care Teams Abstractor Relationship Specialty Start Date End Date Steve Zamarripa MD PCP - General Family Medicine 06/04/16 02/05/21 Steve Zamarripa MD [facility] [place] [address] PCP - [place] Commercial Attributed 01/01/20 07/30/20 Pcp, No PCP - General General Medicine 02/06/21 06/10/22 Steve Zamarripa MD PCP - General 06/11/22 08/27/22 Pcp, No PCP - General General Medicine 08/28/22 Marco Mathur MD [address] [place] [address] Glue Specialty Supervisor Pediatric Gastroenterology 11/26/18 documented as of this encounter
--- OUTSIDE RECORDS SUMMARY | 2024-10-12 12:53 | XMS_ITS | Clinical Summary ---
Author Organization [facility] Address [address] [place] [address] Care Team Providers Care Pc Technician Name Role Phone Marco Mathur MD Unavailable [phone] Pcp, No Primary Care Provider Unavailabl e Allergies No known active allergies Medications FLUoxetine (PROzac) 40 MG capsule 40 mg daily. Active inFLIXimab (REMICADE) 100 MG injection Infuse 400 mg/kg into a venous catheter once. 400mg infusion every 8 weeks Active modafinil (PROVIGIL) 200 MG tablet Take 200 mg by mouth daily. Active levonorgestrel (MIRENA) 20 mcg/24hr IUD 1 each by Intrauterine route once. Active Probiotic Product (PROBIOTIC-10 PO) Take by mouth Active buPROPion (WELLBUTRIN SR) 200 MG 12 hr tablet 200 mg 2 (two) times a day. 8 Active Cholecalciferol (VITAMIN D-[address]) 1000 units tablet Take 1,000 Units by mouth daily Active multivitamin (multivitamin) Tab tablet Take 1 tablet by mouth daily Active ondansetron (ZOFRAN) 4 MG tablet 4 mg. 7 Active XYREM 500 MG/ML Solution 9 Active Active Problems Problem Noted Date Diagnosed Date Narcolepsy 08/01/2017 Moderate episode of recurrent major depressive d isorder 06/13/2016 Anxiety 06/13/2016 History of resection of small bowel 06/13/2016 Overview (06/13/2016): In 2014 Crohn's disease of both small and large intestin e 11/09/2015 Immunizations Immunization Administration Dates Next Due HPV Quadrivalent 11/30/2013,07/31/2013, [...] Pap Smear (Ages 21-65) 2017 Influenza Vaccine 12/31/2024 02/11/2020, , 03/24/2018, Additional history exists DTaP/Tdap/Td Vaccines (2 - T d or Tdap) 11/26/2028 11/26/2018 HPV Vaccines Completed 11/30/2013, 06/2013, 06/02/2013 Insurance [facility] - PPO Care Teams Pc Technician Relationship Specialty Start Date End Date Pcp, No PCP - General General Medicine 08/28/22 Marco Mathur MD [address] [place] [address] Audio Visual Coordinator Pediatric Gastroenterology 11/26/18
--- OUTSIDE RECORDS SUMMARY | 2024-10-12 12:53 | XMS_ITS | Encounter Summary ---
Author Organization [facility] Address [address] [place] [address] Care Team Providers Care Prizer Hand Name Role Phone Steve Zamarripa MD Primary Care Provider [phone] Marco Mathur MD Unavailable [phone] Steve Zamarripa MD Unavailable + [phone] Pcp, No Primary Care Provider Unavailabl e Steve Zamarripa MD Primary Care Provider [phone] Pcp, No Primary Care Provider Unavailabl e Encounter Details Date Type Department Care Team (Late st Contact Info) Description 08/23/2017 Scanned Document [address] [address] Provider, Generic Social History Tobacco [...] on filedocumented in this encounter Care Teams Prizer Hand Relationship Specialty Start Date End Date Steve Zamarripa MD PCP - General Family Medicine 06/04/16 02/05/21 Steve Zamarripa MD [facility] [place] [address] PCP - [place] Commercial Attributed 01/01/20 07/30/20 Pcp, No PCP - General General Medicine 02/06/21 06/10/22 Steve Zamarripa MD PCP - General 06/11/22 08/27/22 Pcp, No PCP - General General Medicine 08/28/22 Marco Mathur MD [address] [place] [address] Vendor Quality Supervisor Pediatric Gastroenterology 11/26/18 documented as of this encounter
--- OUTSIDE RECORDS SUMMARY | 2024-10-12 12:53 | XMS_ITS | Encounter Summary ---
Author Organization [facility] Address [address] [place] [address] Care Team Providers Care Foreign Car Mechanic Name Role Phone Steve Zamarripa MD Primary Care Provider [phone] Marco Mathur MD Unavailable Reason for Visit * Reason Comments Medication Refill Encounter Details Date Type Department Care Team (Late st Contact Info) Description 11/22/2016 Refill [facility] Gastroenterology, [address], [address] [place] [address] Marco Mathur MD [address] [place] [address] Crohn's disease of both small and large [...] Primary documented in this encounter Care Teams Foreign Car Mechanic Relationship Specialty Start Date End Date Steve Zamarripa MD [address] [place] [address] PCP - General Internal Medicine 11/12/16 Marco Mathur MD [address] [place] [address] Consulting Physician Gastroenterology 11/12/18 documented as of this encounter
--- OUTSIDE RECORDS SUMMARY | 2024-10-12 12:53 | XMS_ITS | Encounter Summary ---
Author Organization [facility] Address [address] [place] [address] Care Team Providers Care Box Machine Operator Name Role Phone Jessica Cotto MD Primary Care Provider [phone] Steve Zamarripa MD Primary Care Provider [phone] Marco Mathur MD Unavailable [phone] Reason for Visit * Reason Comments Medication Refill Encounter Details Date Type Department Care Team (Late st Contact Info) Description 07/04/2015 Refill [facility] Gastroenterology, [address], [address] [place] [address] Marco Mathur MD [address] [place] [address] Crohn's disease of both small and large [...] Primary documented in this encounter Care Teams Box Machine Operator Relationship Specialty Start Date End Date Jessica Cotto MD PCP - General 12/10/14 11/11/16 Steve Zamarripa MD [address] [place] [address] PCP - General Internal Medicine 11/12/16 Marco Mathur MD [address] [place] [place] [address] Consulting Physician Gastroenterology 11/12/18 documented as of this encounter
--- OUTSIDE RECORDS SUMMARY | 2024-10-12 12:53 | XMS_ITS | Encounter Summary ---
Author Organization [facility] Address [address] [place] [address] Care Team Providers Care Flosser Name Role Phone Steve Zamarripa MD Primary Care Provider [phone] Marco Mathur MD Unavailable [phone] Steve Zamarripa MD Unavailable + [phone] Pcp, No Primary Care Provider Unavailabl e Steve Zamarripa MD Primary Care Provider [phone] Pcp, No Primary Care Provider Unavailabl e Encounter Details Date Type Department Care Team (Late st Contact Info) Description 08/23/2017 Scanned Document [address] [address] Provider, Generic Social History Tobacco [...] on filedocumented in this encounter Care Teams Flosser Relationship Specialty Start Date End Date Steve Zamarripa MD PCP - General Family Medicine 06/04/16 02/05/21 Steve Zamarripa MD [facility] [place] [address] PCP - [place] Commercial Attributed 01/01/20 07/30/20 Pcp, No PCP - General General Medicine 02/06/21 06/10/22 Steve Zamarriap MD PCP - General 06/11/22 08/27/22 Pcp, No PCP - General General Medicine 08/28/22 Marco Mathur MD [address] [place] [address] Tribunal Member Pediatric Gastroenterology 11/26/18 documented as of this encounter
--- OUTSIDE RECORDS SUMMARY | 2024-10-12 12:53 | XMS_ITS | Encounter Summary ---
Author Organization [facility] Address [address] [place] [address] Care Team Providers Care Lawyer Name Role Phone Steve Zamarripa MD Primary Care Provider + [phone] Encounter Details Date Type Department Care Team (Late st Contact Info) Description 12/20/2021 Orders Only [facility] Department of Pulmonology [address] [place] [address] Cj Batista MD [address] [place] [address] Social History Tobacco Use Types Packs/Day Years [...] on filedocumented in this encounter Care Teams Lawyer Relationship Specialty Start Date End Date Steve Zamarripa MD PCP - General Internal Medicine 07/09/18 documented as of this encounter
--- OUTSIDE RECORDS SUMMARY | 2024-10-12 12:53 | XMS_ITS | Encounter Summary ---
Author Organization [facility] Address [address] [place] [address] Care Team Providers Care Mopper Name Role Phone Steve Zamarripa MD Primary Care Provider [phone] Marco Mathur MD Unavailable [phone] Steve Zamarripa MD Unavailable + [phone] Pcp, No Primary Care Provider Unavailabl e Steve Zamarripa MD Primary Care Provider [phone] Pcp, No Primary Care Provider Unavailabl e Encounter Details Date Type Department Care Team (Late st Contact Info) Description 06/14/2016 Scanned Document [address] [address] Provider, Generic Social History Tobacco [...] on filedocumented in this encounter Care Teams Mopper Relationship Specialty Start Date End Date Steve Zamarripa MD PCP - General Family Medicine 06/04/16 02/05/21 Steve Zamarripa MD [facility] [place] [address] PCP - [place] Commercial Attributed 01/01/20 07/30/20 Pcp, No PCP - General General Medicine 02/06/21 06/10/22 Steve Zamarripa MD PCP - General 06/11/22 08/27/22 Pcp, No PCP - General General Medicine 08/28/22 Marco Mathur MD [address] [place] [address] Supervisor Assembly Room Pediatric Gastroenterology 11/26/18 documented as of this encounter
--- OUTSIDE RECORDS SUMMARY | 2024-10-12 12:53 | XMS_ITS | Encounter Summary ---
Author Organization [facility] Address [address] [place] [address] Care Team Providers Care Bilingual Case Manager Name Role Phone Steve Zamarripa MD Primary Care Provider [phone] Encounter Details Date Type Department Care Team (Late st Contact Info) Description 07/23/2017 3:47 PM EST Hospital Encounter [facility] [address] [place] [address] Víctor Rutledge MD [address] [place], [place] [id number] Social History Tobacco Use Types Packs/Day Years [...] are intact for age. IMPRESSION: Normal chest. us [facility] IMG DIAGNOSTIC IMAGING ORDERABL ES Final Result documented in this encounter Visit Diagnoses Not on filedocumented in this encounter Care Teams Bilingual Case Manager Relationship Specialty Start Date End Date Steve Zamarripa MD PCP - General Family Medicine 06/04/16 02/05/21 documented as of this encounter
--- OUTSIDE RECORDS SUMMARY | 2024-10-12 12:53 | XMS_ITS | Encounter Summary ---
Author Organization [facility] Address [address] [place] [address] Care Team Providers Care Sales Engagement Executive Name Role Phone Jessica Cotto MD Primary Care Provider [phone] Steve Zamarripa MD Primary Care Provider [phone] Marco Mathur MD Unavailable [phone] Reason for Visit * Reason Comments Medication Refill Encounter Details Date Type Department Care Team (Late st Contact Info) Description 06/05/2016 Refill [facility] Gastroenterology, [address], [address] [place] [address] Marco Mathur MD [address] [place] [address] Crohn's disease of both small and large [...] Primary documented in this encounter Care Teams Sales Engagement Executive Relationship Specialty Start Date End Date Jessica Cotto MD PCP - General 12/10/14 11/11/16 Steve Zamarripa MD [address] [place] [address] PCP - General Internal Medicine 11/12/16 Marco Mathur MD [address] [place] [address] Consulting Physician Gastroenterology 11/12/18 documented as of this encounter
--- OUTSIDE RECORDS SUMMARY | 2024-10-12 12:53 | XMS_ITS | Encounter Summary ---
Author Organization [facility] Address [address] [place] [address] Care Team Providers Care Throw Out Clerk Name Role Phone Steve Zamarripa MD Primary Care Provider [phone] Marco Mathur MD Unavailable [phone] Steve Zamarripa MD Unavailable + [phone] Pcp, No Primary Care Provider Unavailabl e Steve Zamarripa MD Primary Care Provider [phone] Pcp, No Primary Care Provider Unavailabl e Encounter Details Date Type Department Care Team (Late st Contact Info) Description 05/29/2017 Scanned Document [address] [address] Provider, Generic Social History Tobacco [...] on filedocumented in this encounter Care Teams Throw Out Clerk Relationship Specialty Start Date End Date Steve Zamarripa MD PCP - General Family Medicine 06/04/16 02/05/21 Steve Zamarripa MD [facility] [place] [address] PCP - [place] Commercial Attributed 01/01/20 07/30/20 Pcp, No PCP - General General Medicine 02/06/21 06/10/22 Steve Zamarripa MD PCP - General 06/11/22 08/27/22 Pcp, No PCP - General General Medicine 08/28/22 Marco Mathur MD [address] [place] [address] Fixed Income Manager Pediatric Gastroenterology 11/26/18 documented as of this encounter
--- OUTSIDE RECORDS SUMMARY | 2024-10-12 12:53 | XMS_ITS | Clinical Summary ---
Author Organization [facility] Address [address] [place] [address] Care Team Providers Care Cocoa Bean Roaster Helper Name Role Phone Steve Zamarripa MD Primary Care Provider [phone] Allergies No known active allergies Medications FLUoxetine [...] both small and large intestin e 11/09/2015 Right lower quadrant abdominal pain 12/12/2014 Resolved Problems Problem Noted Date Diagnosed Date Resolved Date Ileitis 12/12/2014 09/21/2024 Immunizations Immunization Administration Dates Next Due HPV, [...] age to complete this topic Insurance () [facility] PPO Care Teams Cocoa Bean Roaster Helper Relationship Specialty Start Date End Date Steve Zamarripa MD PCP - General Internal Medicine 07/09/18
--- OUTSIDE RECORDS SUMMARY | 2024-10-12 12:53 | XMS_ITS | Encounter Summary ---
Author Organization [facility] Address [address] [place] [address] Care Team Providers Care Criminal Investigative Agent Name Role Phone Steve Zamarripa MD Primary Care Provider [phone] Marco Mathur MD Unavailable [phone] Steve Zamarripa MD Unavailable [phone] Pcp, No Primary Care Provider Unavailabl e Steve Zamarripa MD Primary Care Provider [phone] Pcp, No Primary Care Provider Unavailabl e Encounter Details Date Type Department Care Team (Late st Contact Info) Description 06/12/2017 Scanned Document [address] [address] Provider, Generic Social History Tobacco [...] on filedocumented in this encounter Care Teams Criminal Investigative Agent Relationship Specialty Start Date End Date Steve Zamarripa MD PCP - General Family Medicine 06/04/16 02/05/21 Steve Zamarripa MD [place] [address] PCP - [place] Commercial Attributed 01/01/20 07/30/20 Pcp, No PCP - General General Medicine 02/06/21 06/10/22 Steve Zamarripa MD PCP - General 06/11/22 08/27/22 Pcp, No PCP - General General Medicine 08/28/22 Marco Mathur MD [address] [place] [id number] Human Resource Adviser Pediatric Gastroenterology 11/26/18 documented as of this encounter
--- OUTSIDE RECORDS SUMMARY | 2024-10-12 12:53 | XMS_ITS | Encounter Summary ---
Author Organization [facility] Address [address] [place] [address] Care Team Providers Care Casino Accountant Name Role Phone Jessica Cotto MD Primary Care Provider [phone] Steve Zamarripa MD Primary Care Provider [phone] Marco Mathur MD Unavailable [phone] Reason for Visit * Reason Comments Medication Refill Encounter Details Date Type Department Care Team (Late st Contact Info) Description 08/19/2016 Refill [facility] G[facility]ology, [address], [address] [place] [address] Marco Mathur MD [address] [place] [address] Crohn's disease of both small and large [...] Primary documented in this encounter Care Teams Casino Accountant Relationship Specialty Start Date End Date Jessica Cotto MD PCP - General 12/10/14 11/11/16 Steve Zamarripa MD [address] [place] [address] PCP - General Internal Medicine 11/12/16 Marco Mathur MD [address] [place] [address] Consulting Physician Gastroenterology 11/12/18 documented as of this encounter
--- OUTSIDE RECORDS SUMMARY | 2024-10-12 12:53 | XMS_ITS | Encounter Summary ---
Author Organization [facility] Address [address] [place] [address] Care Team Providers Care Platform Stapler Name Role Phone Steve Zamarripa MD Primary Care Provider [phone] Marco Mathur MD Unavailable [phone] Steve Zamarripa MD Unavailable [phone] Pcp, No Primary Care Provider Unavailabl e Steve Zamarripa MD Primary Care Provider [phone] Pcp, No Primary Care Provider Unavailabl e Encounter Details Date Type Department Care Team (Late st Contact Info) Description 10/01/2017 Scanned Document [address] [address] Provider, Generic Social History [...] on filedocumented in this encounter Care Teams Platform Stapler Relationship Specialty Start Date End Date Steve Zamarripa MD PCP - General Family Medicine 06/04/16 02/05/21 Steve Zamarripa MD [facility] [place] [address] PCP - [place] Commercial Attributed 01/01/20 07/30/20 Pcp, No PCP - General General Medicine 02/06/21 06/10/22 Steve Zamarripa MD PCP - General 06/11/22 08/27/22 Pcp, No PCP - General General Medicine 08/28/22 Marco Mathur MD [address] [place] [address] Frog Shaker Pediatric Gastroenterology 11/26/18 documented as of this encounter
--- OUTSIDE RECORDS SUMMARY | 2024-10-12 12:53 | XMS_ITS | Encounter Summary ---
Author Organization [facility] Address [address] [place] [address] Care Team Providers Care Audio/Video Technician Name Role Phone Steve Zamarripa MD Primary Care Provider [phone] Marco Mathur MD Unavailable [phone] Steve Zamarripa MD Unavailable [phone] Pcp, No Primary Care Provider Unavailabl e Steve Zamarripa MD Primary Care Provider [phone] Pcp, No Primary Care Provider Unavailabl e Encounter Details Date Type Department Care Team (Late st Contact Info) Description 07/26/2017 Telephone [facility] [address] [address] Verónica Vogel [address] [place] [id number] Social History Tobacco Use Types Packs/Day Years [...] on filedocumented in this encounter Care Teams Audio/Video Technician Relationship Specialty Start Date End Date Steve Zamarripa MD PCP - General Family Medicine 06/04/16 02/05/21 Steve Zamarripa MD [address] [place] [address] PCP - [place] Commercial Attributed 01/01/20 07/30/20 Pcp, No PCP - General General Medicine 02/06/21 06/10/22 Steve Zamarripa MD PCP - General 06/11/22 08/27/22 Pcp, No PCP - General General Medicine 08/28/22 Marco Mathur MD [address] [place] [address] Metal Inspector Pediatric Gastroenterology 11/26/18 documented as of this encounter
--- OUTSIDE RECORDS SUMMARY | 2024-10-12 12:53 | XMS_ITS | Clinical Summary ---
Author Organization [facility] Address [address] [place] [address] Care Team Providers Care Erisa Attorney Name Role Phone Steve Zamarripa MD Primary Care Provider [phone] Marco Mathur MD Unavailable [phone] Source Comments Please note that some or [...] so, obtain the minor's consent prior to disclosure.[facility] Allergies No known active allergies Medications [...] patient's age to complete this topic Insurance [facility] Care Teams Erisa Attorney Relationship Specialty Start Date End Date Steve Zamarripa MD [address] [place] [address] PCP - General Internal Medicine 11/12/16 Marco Mathur MD [address] [place] [address] Consulting Physician Gastroenterology 11/12/18
--- OUTSIDE RECORDS SUMMARY | 2024-10-12 12:53 | XMS_ITS | Encounter Summary ---
Author Organization [facility] Address [address] [place] [address] Care Team Providers Care Weather Clerk Name Role Phone Steve Zamarripa MD Primary Care Provider [phone] Marco Mathur MD Unavailable [phone] Reason for Visit * Reason Comments Medication Refill Encounter Details Date Type Department Care Team (Late st Contact Info) Description 06/08/2018 Refill [facility] G[facility]enterology, [address] [facility], [address] [place] [address] Marco Mathur MD [address] [place] [address] Crohn's disease of both small and large [...] alone documented in this encounter Care Teams Weather Clerk Relationship Specialty Start Date End Date Steve Zamarripa MD [address] [place] [address] PCP - General Internal Medicine 11/12/16 Marco Mathur MD [address] [place] [address] Consulting Physician Gastroenterology 11/12/18 documented as of this encounter
--- OUTSIDE RECORDS SUMMARY | 2024-10-12 12:53 | XMS_ITS | Encounter Summary ---
Author Organization [facility] Address [address] [place] [address] Care Team Providers Care Real Time Analyst Name Role Phone Steve Zamarripa MD Primary Care Provider [phone] Marco Mathur MD Unavailable [phone] Reason for Visit * Reason Comments Medication Refill Encounter Details Date Type Department Care Team ([facility] st Contact Info) Description 04/29/2018 Refill [facility] [place] [address] Kel Green MD [address] [place] [address] Crohn's disease of both small and large [...] complication documented in this encounter Care Teams Real Time Analyst Relationship Specialty Start Date End Date Steve Zamarripa MD [address] [place] [address] PCP - General Internal Medicine 11/12/16 Marco Mathur MD [address] [place] [address] Consulting Physician Gastroenterology 11/12/18 documented as of this encounter
[2024-10-19 12:33] VITALS: BMI 23.6
--- NOTE | 2024-10-20 08:32 | P.CONAN_ITS ---
Documented by User: Sweetie Garnett NP 10/20/24 08:33 HPI - Anesthesia Eval Consult details Narrative: 28yo F for Colonoscopy Unable to obtain IV access last SSS PMFSH Active Problems Active Problems: All Active Problems Paresthesia of right thumb (Acute) KEILA (generalized anxiety disorder) (Acute) MDD (major depressive disorder), recurrent episode (Acute) Encounter for general adult medical examination without abnormal findings (Acute) Family hx osteoporosis (Acute) Tremor (Acute) Narcolepsy without cataplexy (Acute) Seasonal allergies (Acute) Normal physical exam (Acute) Vitamin D deficiency (Acute) Vitamin C deficiency (Acute) Crohn's disease of both small and large intestine (Acute) Past Medical History Medical History Seasonal allergies Crohn's disease Difficult intravenous access Tremor Narcolepsy Anxiety with depression Family History Family History Paternal Grandmother Substance abuse Maternal Grandmother Substance abuse Maternal Uncle Substance abuse Mother Bipolar 2 disorder Sister Panic attack Depression Maternal Grandfather Prostate cancer Paternal Grandfather Prostate cancer Cancer of kidney Other Anxiety Surgical History Surgical History Hx of colonoscopy History of esophagogastroduodenoscopy (EGD) History of wisdom tooth extraction History of laparoscopy History of appendectomy (~2014) Social History Social History Housing: Condominium Are you a primary wound care coordinator to a significant other at home: No Do you presently have visiting nurse or other home services: No Alcohol intake: never Patient Tobacco Use Status: Never used Tobacco e-Cigarette/Vaping Use: Never Used Have you been hit, kicked, punched, or otherwise hurt by someone within the past year? 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[employer] Cognitive needs: No Hearing needs: No Vision needs: No Meds Allergies Allergy/AdvReac Type Severity Reaction Status Date / Time cat dander Allergy Mild sneezing Verified 10/21/24 06:19 pollen extracts Allergy Unknown Verified 10/21/24 06:19 Home Medications ?Medication ?Instructions ?Recorded ?Confirmed ?Last Taken ?Type levonorgestrel 21 mcg/24 hr (up to intrauterine 04/04/21 08/05/24 Unknown History 8 years) 52 mg intrauterine device (Mirena) zinc 50 mg tablet 15 mg PO DAILY 05/22/21 10/21/24 Unknown History melatonin 5 mg capsule mg PO PRN Sleep 04/08/22 08/05/24 Unknown History ascorbate calcium (vitamin C) 500 500 mg PO DAILY 08/26/22 10/21/24 Unknown History mg tablet calcium ER 600 mg (as carb,cit)-D3 2 tab PO DAILY 11/12/22 10/21/24 Unknown History 12.5 mcg (500 unit) tablet, ext.rel magnesium 250 mg tablet 250 mg PO DAILY 11/12/22 10/21/24 Unknown History omega 8-pma-rhu-fish oil 300 1 cap PO DAILY 01/13/23 10/21/24 Unknown History mg-1,000 mg capsule (Fish Oil) infliximab-dyyb 100 mg intravenous 650 mg IV 04/29/23 08/05/24 Unknown History solution (Inflectra) mecobalamin (vitamin B12) 1,000 1,000 mcg PO DAILY 04/16/24 10/21/24 Unknown History mcg chewable tablet bupropion HCl 300 mg 24 hr tablet, 300 mg PO QAM 08/05/24 10/21/24 10/21/24 History extended release (Wellbutrin XL) Exam Height,Weight and Vital Signs: Height 5 ft 8 in Weight 70.307 kg Pertinent Lab Results Pertinent Lab Results: Laboratory Tests 08/31/24 15:12 WBC 9.4 Hgb 13.8 Hct 40.1 Plt Count 310 Sodium 137 Potassium 3.6 Chloride 106 Carbon Dioxide 26 BUN 7 L Creatinine 0.66 Assessment and Plan Assessment Anesthesia Assessment: Chart Reviewed Documented by User: Rommel Vega MD 10/21/24 07:08 HPI - Anesthesia Eval Consult details Narrative: 28yo F for Colonoscopy PMFSH Past Medical History Medical History Seasonal allergies Crohn's disease Difficult intravenous access Tremor Narcolepsy Anxiety with depression Functional capacity: independent ambulation Patient : No Family History Family History Paternal Grandmother Substance abuse Maternal Grandmother Substance abuse Maternal Uncle Substance abuse Mother Bipolar 2 disorder Sister Panic attack Depression Maternal Grandfather Prostate cancer Paternal Grandfather Prostate cancer Cancer of kidney Other Anxiety Family history of problems with anesthesia: No Surgical History Surgical History Hx of colonoscopy History of esophagogastroduodenoscopy (EGD) History of wisdom tooth extraction History of laparoscopy History of appendectomy (~2014) History of Problems with Anesthesia: No Social History [facility] Are you a primary wound care coordinator to a significant other at home: No Do you presently have visiting nurse or other home services: No Alcohol intake: never Patient Tobacco Use Status: Never used Tobacco e-Cigarette/Vaping Use: Never Used Have you been hit, kicked, punched, or otherwise hurt by someone within the past year? 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[employer] Cognitive needs: No Hearing needs: No Vision needs: No Meds Allergies Allergy/AdvReac Type Severity Reaction Status Date / Time cat dander Allergy Mild sneezing Verified 10/21/24 06:19 pollen extracts Allergy Unknown Verified 10/21/24 06:19 Home Medications ?Medication ?Instructions ?Recorded ?Confirmed ?Last Taken ?Type levonorgestrel 21 mcg/24 hr (up to intrauterine 04/04/21 08/05/24 Unknown History 8 years) 52 mg intrauterine device (Mirena) zinc 50 mg tablet 15 mg PO DAILY 05/22/21 10/21/24 Unknown History melatonin 5 mg capsule mg PO PRN Sleep 04/08/22 08/05/24 Unknown History ascorbate calcium (vitamin C) 500 500 mg PO DAILY 08/26/22 10/21/24 Unknown History mg tablet calcium ER 600 mg (as carb,cit)-D3 2 tab PO DAILY 11/12/22 10/21/24 Unknown History 12.5 mcg (500 unit) tablet, ext.rel magnesium 250 mg tablet 250 mg PO DAILY 11/12/22 10/21/24 Unknown History omega 0-uth-dpo-fish oil 300 1 cap PO DAILY 01/13/23 10/21/24 Unknown History mg-1,000 mg capsule (Fish Oil) infliximab-dyyb 100 mg intravenous 650 mg IV 04/29/23 08/05/24 Unknown History solution (Inflectra) mecobalamin (vitamin B12) 1,000 1,000 mcg PO DAILY 04/16/24 10/21/24 Unknown History mcg chewable tablet bupropion HCl 300 mg 24 hr tablet, 300 mg PO QAM 08/05/24 10/21/24 10/21/24 History extended release (Wellbutrin XL) Exam Airway Mallampati Class: I TM Dist: >3cm Neck ROM: Full Loose/Missing/Broken Teeth: No Heart: RRR Lungs: CTA Assessment and Plan Assessment Anesthesia Assessment: Anesthesia Plan Discussed Final Anesthetic Review Family History of Problems with Anesthesia: No History of Problems with Anesthesia: No ASA Class: I Final Preanesthetic Review: No Changes in Pt Med Stat, Meds/Allgs Chart Reviewed, Consent Obtained/Reviewed and Anes Risks/Benef Reviewed Anesthetic Plan Anesthetic Plan: GA and TIVA Disposition: Standard PACU
--- NOTE | 2024-10-20 14:34 | P.CONAN_ITS ---
HPI - Anesthesia Eval Consult details Narrative: Crohn's disease h/o, narcolepsy PMFSH Active Problems Active Problems: All Active Problems Paresthesia of right thumb (Acute) KEILA (generalized anxiety disorder) (Acute) MDD (major depressive disorder), recurrent episode (Acute) Encounter for general adult medical examination without abnormal findings (Acute) Family hx osteoporosis (Acute) Tremor (Acute) Narcolepsy without cataplexy (Acute) Seasonal allergies (Acute) Normal physical exam (Acute) Vitamin D deficiency (Acute) Vitamin C deficiency (Acute) Crohn's disease of both small and large intestine (Acute) Past Medical History Medical History Seasonal allergies Crohn's disease Difficult intravenous access Tremor Narcolepsy Anxiety with depression Functional capacity: independent ambulation Family History Family History Paternal Grandmother Substance abuse Maternal Grandmother Substance abuse Maternal Uncle Substance abuse Mother Bipolar 2 disorder Sister Panic attack Depression Maternal Grandfather Prostate cancer Paternal Grandfather Prostate cancer Cancer of kidney Other Anxiety Family history of problems with anesthesia: No Surgical History Surgical History Hx of colonoscopy History of esophagogastroduodenoscopy (EGD) History of wisdom tooth extraction History of laparoscopy History of appendectomy (~2014) History of Problems with Anesthesia: No Social History Social History Housing: Condominium Are you a primary primary care coordinator to a significant other at home: No Do you presently have visiting nurse or other home services: No Alcohol intake: never Patient Tobacco Use Status: Never used Tobacco e-Cigarette/Vaping Use: Never Used Have you been hit, kicked, punched, or otherwise hurt by someone within the past year? 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[employer] Cognitive needs: No Hearing needs: No Vision needs: No Travel History History of recent travel: No Narrative Narrative: 28 yo for colonoscopy h o Crohn disease Meds Allergies Allergy/AdvReac Type Severity Reaction Status Date / Time cat dander Allergy Mild sneezing Verified 10/21/24 06:19 pollen extracts Allergy Unknown Verified 10/21/24 06:19 Home Medications ?Medication ?Instructions ?Recorded ?Confirmed ?Last Taken ?Type levonorgestrel 21 mcg/24 hr (up to intrauterine 04/04/21 08/05/24 Unknown History 8 years) 52 mg intrauterine device (Mirena) zinc 50 mg tablet 15 mg PO DAILY 05/22/21 10/21/24 Unknown History melatonin 5 mg capsule mg PO PRN Sleep 04/08/22 08/05/24 Unknown History ascorbate calcium (vitamin C) 500 500 mg PO DAILY 08/26/22 10/21/24 Unknown Hi story mg tablet calcium ER 600 mg (as carb,cit)-D3 2 tab PO DAILY 11/12/22 10/21/24 Unknown History 12.5 mcg (500 unit) tablet, ext.rel magnesium 250 mg tablet 250 mg PO DAILY 11/12/22 10/21/24 Unknown History omega 0-hvi-olo-fish oil 300 1 cap PO DAILY 01/13/23 10/21/24 Unknown History mg-1,000 mg capsule (Fish Oil) infliximab-dyyb 100 mg intravenous 650 mg IV 04/29/23 08/05/24 Unknown History solution (Inflectra) mecobalamin (vitamin B12) 1,000 1,000 mcg PO DAILY 04/16/24 10/21/24 Unknown History mcg chewable tablet bupropion HCl 300 mg 24 hr tablet, 300 mg PO QAM 08/05/24 10/21/24 10/21/24 History extended release (Wellbutrin XL) Exam Height,Weight and Vital Signs: Height 5 ft 8 in Weight 155 lb Airway Mallampati Class: I TM Dist: >3cm Neck ROM: Full Heart: RRR Lungs: CTA Assessment and Plan Assessment Anesthesia Assessment: Anesthesia Plan Discussed Final Anesthetic Review Family History of Problems with Anesthesia: No History of Problems with Anesthesia: No NPO: Yes ASA Class: II Final Preanesthetic Review: No Changes in Pt Med Stat, Meds/Allgs Chart Reviewed, Consent Obtained/Reviewed and Anes Risks/Benef Reviewed Patient Risk: Low Procedure Risk: Low Anesthetic Plan Anesthetic Plan: GA and TIVA Disposition: Standard PACU
[2024-10-21 06:41] VITALS: BMI 22.2
[2024-10-21 06:46] LABS: UPreg QC Valid YES; Urine Pregnancy NEGATIVE (NEGATIVE)
[2024-10-21] MEDS: Lactated Ringers 1,000 ML 100 ML IVCONT (06:49)
[2024-10-21 06:56] VITALS: BP 134/80; PULSE 92; RESP 18; TEMP 36.8; O2SAT 100
--- NOTE | 2024-10-21 07:13 | P.CONAN_ITS ---
[facility] Active Problems Active Problems: All Active Problems Paresthesia of right thumb (Acute) KEILA (generalized anxiety disorder) (Acute) MDD (major depressive disorder), recurrent episode (Acute) Encounter for general adult medical examination without abnormal findings (Acute) Family hx osteoporosis (Acute) Tremor (Acute) Narcolepsy without cataplexy (Acute) Seasonal allergies (Acute) Normal physical exam (Acute) Vitamin D deficiency (Acute) Vitamin C deficiency (Acute) Crohn's disease of both small and large intestine (Acute) Past Medical History Medical History Seasonal allergies Crohn's disease Difficult intravenous access Tremor Narcolepsy Anxiety with depression Functional capacity: independent ambulation Family History Family History Paternal Grandmother Substance abuse Maternal Grandmother Substance abuse Maternal Uncle Substance abuse Mother Bipolar 2 disorder Sister Panic attack Depression Maternal Grandfather Prostate cancer Paternal Grandfather Prostate cancer Cancer of kidney Other Anxiety Family history of problems with anesthesia: No Surgical History Surgical History Hx of colonoscopy History of esophagogastroduodenoscopy (EGD) History of wisdom tooth extraction History of laparoscopy History of appendectomy (~2014) History of Problems with Anesthesia: No Social History [facility] Are you a primary director of medicare to a significant other at home: No Do you presently have visiting nurse or other home services: No Alcohol intake: never Patient Tobacco Use Status: Never used Tobacco e-Cigarette/Vaping Use: Never Used Have you been hit, kicked, punched, or otherwise hurt by someone within the past year? 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 @ [employer] Cognitive needs: No Hearing needs: No Vision needs: No Meds Allergies Allergy/AdvReac Type Severity Reaction Status Date / Time cat dander Allergy Mild sneezing Verified 10/21/24 06:19 pollen extracts Allergy Unknown Verified 10/21/24 06:19 Active Medications: Current Medications Lactated Ringer's (Lr) 1,000 mls @ 100 mls/hr IVCONT .Q10H KINA Last Admin: 10/21/24 06:49 Dose: 100 mls/hr Home Medications ?Medication ?Instructions ?Recorded ?Confirmed ?Last Taken ?Type levonorgestrel 21 mcg/24 hr (up to intrauterine 04/04/21 08/05/24 Unknown History 8 years) 52 mg intrauterine device (Mirena) zinc 50 mg tablet 15 mg PO DAILY 05/22/21 10/21/24 Unknown History melatonin 5 mg capsule mg PO PRN Sleep 04/08/22 08/05/24 Unknown History ascorbate calcium (vitamin C) 500 500 mg PO DAILY 08/26/22 10/21/24 Unknown History mg tablet calcium ER 600 mg (as carb,cit)-D3 2 tab PO DAILY 11/12/22 10/21/24 Unknown History 12.5 mcg (500 unit) tablet, ext.rel magnesium 250 mg tablet 250 mg PO DAILY 11/12/22 10/21/24 Unknown History omega 1-ect-arn-fish oil 300 1 cap PO DAILY 01/13/23 10/21/24 Unknown History mg-1,000 mg capsule (Fish Oil) infliximab-dyyb 100 mg intravenous 650 mg IV 04/29/23 08/05/24 Unknown History solution (Inflectra) mecobalamin (vitamin B12) 1,000 1,000 mcg PO DAILY 04/16/24 10/21/24 Unknown History mcg chewable tablet bupropion HCl 300 mg 24 hr tablet, 300 mg PO QAM 08/05/24 10/21/24 10/21/24 History extended release (Wellbutrin XL) Exam Height,Weight and Vital Signs: Height 5 ft 8 in Weight 66.225 kg Last Vital Signs Temp 98.2 F 10/21/24 06:56 Pulse 92 10/21/24 06:56 Resp 18 10/21/24 06:56 BP 134/80 10/21/24 06:56 Pulse Ox 100 10/21/24 06:56 O2 Del Method Room Air 10/21/24 06:56 Pertinent Lab Results Pertinent Lab Results: Laboratory Tests 10/21/24 06:30 Urine Test NEGATIVE Airway Mallampati Class: II TM Dist: >3cm Neck ROM: Full Assessment and Plan Assessment Anesthesia Assessment: Anesthesia Plan Discussed and Chart Reviewed Final Anesthetic Review Family History of Problems with Anesthesia: No History of Problems with Anesthesia: No NPO: Yes ASA Class: II Final Preanesthetic Review: No Changes in Pt Med Stat, Meds/Allgs Chart Reviewed, Consent Obtained/Reviewed and Anes Risks/Benef Reviewed Patient Risk: Low Procedure Risk: Low Anesthetic Plan Anesthetic Plan: TIVA Disposition: Standard PACU
--- NOTE | 2024-10-21 07:41 | P.HPSUR_ITS ---
Pre-Procedural Eval Section A - 24 Hr Update-Section A only Date of Service: 10/21/24 Section B - Complete if H&P > 30 days Chief Complaint: Crohn's disease of both small and large intestine Relevant Family History (Specify if Yes): No Relevant Social History: None Present Medications: see Short Stay Collaborative assessment Medical History: Significant History (Seasonal allergies Crohn's disease Diffi cult intravenous access Tremor Narcolepsy Anxiety with depression) History of Previous Operations: Relevant previous surgery/procedure and date(s) (Hx of colonoscopy History of esophagogastroduodenoscopy (EGD) History of wisdom tooth extraction History of laparoscopy History of appendectomy (~2014)) Allergies: Allergies Allergy/AdvReac Type Severity Reaction Status Date / Time cat dander Allergy Mild sneezing Verified 10/21/24 06:19 pollen extracts Allergy Unknown Verified 10/21/24 06:19 Review of Systems Sugical H&P ROS: Negative: Constitution, Cardiovascular, Respiratory, Neurological, Psychiatric, Hem-Onc, Allergic/Immunologic, Gastrointestinal, Genitourinary, Musculoskeletal, Integumentary, Endocrine and Eyes/Ears/Nose/Throat Exam Surgical H&P Exam: Normal: HEENT, Normal: Heart, Normal: Lungs, Normal: Extremities, Normal: Abdomen, Normal: Skin and Normal: Neurological Plan Diagnosis/Plan: Unchanged I have reviewed the history and physical and performed a pertinent physical examination on my patient. No changes have occurred unless specified. Time Spent With Patient Time: Total time managing care of this patient today ____ minutes.
--- NOTE | 2024-10-21 08:04 | P.OPN-COLO_ITS ---
Colonoscopy Operative Note Operative Note Date of Service: 10/21/24 Narrative: Operative Information Procedure Description: Colonoscopy Indication: hx of crohns and small bowel resection Anesthesia: MAC COLONOSCOPY Instrument: Olympus variable stiffness pediatric scope 190L Colonoscopy Monitoring: Vital signs and clinical assessment, continuous EKG monitoring, Pulse oximetry, Carbon Dioxide monitoring and blood pressure monitoring were done throughout the procedure. Colon withdrawal time was 10 minutes. Procedure: The patient was placed in the left lateral decubitis position and pre-procedure medications were administered. After a digital rectal examination of the ano-rectum, the video colonoscope was inserted into the rectum and advanced through the colon to the cecum/TI. The colonoscope was slowly withdrawn in a retrograde panoramic fashion and the colon mucosa was carefully examined including a retroflexed view of the rectum. Findings and interventions are described below. Procedure Difficulty: easy Findings: ileocolonic anastomosis noted, bx taken from small bowel also from anastomosis. The anastomosis had mild inflamamtion with very slight superficial linear ulceration. Random bx taken from right, left and rectal areas Ascending Colon: normal Transverse Colon -normal Descending Colon:normal Sigmoid Colon: normal Rectum: Retroflexion with small internal hemorrhoids seen, grade I Anorectum - normal Intervention: cold forceps Colon preparation: [place] Bowel Preparation Scale Right colon; 2 Transverse colon: 2 Left colon; 2 (0 = Unprepared colon segment with mucosa not seen due to solid stool that cannot be cleared. 1 = Portion of mucosa of the colon segment seen, but other areas of the colon segment not well seen due to staining, residual stool and/or opaque liquid. 2 = Minor amount of residual staining, small fragments of stool and/or opaque liquid, but mucosa of colon segment seen well. 3 = Entire mucosa of colon segment seen well with no residual staining, small fragments of stool or opaque liquid) Impression and Post Procedure Diagnosis: mild colitis at anastomosis internal hemorrhoids Plan: High fiber diet leaflet Avoid straining at stool, epsom salts and sitz bath, anusol supps or cream Repeat Colonoscopy in 1-2 years or earlier if clinically indicated Might consider changing inflectra as last trough was still low or increasing to q4 week dosing Above findings were reviewed with the patient and relevant handouts were provided if indicated.
[2024-10-21 08:10] VITALS: BP 99/51; PULSE 82; RESP 12; TEMP 36.2; O2SAT 100
[2024-10-21 08:25] VITALS: BP 115/77; PULSE 79; RESP 16; TEMP 36.2; O2SAT 100
== END 2024-10-21 09:02 | disposition home or self-care (01) ==
PROVIDERS: Nurse Practitioner; PCP Nurse Practitioner Family; Visit Provider Internal Medicine Gastroenterology
PROC: 0DJD8ZZ Inspection of Lower Intestinal Tract, Via Natural or Artificial Opening Endoscopic (ICD-10-PCS; CPT 45378; principal; 2024-10-21 07:30)
DX: K52.89 Other specified noninfective gastroenteritis and colitis (principal); K63.89 Other specified diseases of intestine; K64.0 First degree hemorrhoids; Z87.19 Personal history of other diseases of the digestive system; E55.9 Vitamin D deficiency, unspecified; Z79.899 Other long term (current) drug therapy
CPT/HCPCS: 45380; 81025; 88305; J2003; J2704

== ENCOUNTER → 2024-10-21 06:04 | Outpatient (BNV) | payer OTHER, SELFPAY | PROVIDERS: PCP Nurse Practitioner Family; Visit Provider Internal Medicine Gastroenterology | DX: K52.89 Other specified noninfective gastroenteritis and colitis (principal); K64.8 Other hemorrhoids; Z87.19 Personal history of other diseases of the digestive system | CPT/HCPCS: 45380 ==

== ENCOUNTER 2024-11-15 13:30 | Outpatient (AMB) | payer OTHER, SELFPAY ==
--- NOTE | 2024-11-15 13:31 | MHC.OFFVIS ---
Intake Visit Reasons: Discuss Pathology Per Franko Intake Note: Rina presents as a telehealth to discuss pathology report from colonoscopy. CC: She states that she is not having concerns - just results to the pathology reports. 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 Allergies cat dander Allergy (Mild, Verified 11/15/24 13:31) sneezing pollen extracts Allergy (Verified 11/15/24 13:31) Unknown HPI HPI Discuss Pathology Per Franko: Details: 28 yr old f with hx of anxiety, narcolepsy, anxiety, Crohns disease being seen for f/u RECAP: Dx with Crohns 2014 aged 19 she had been having pain on her initial presentation at the time, She has disease of small and large bowels Has been receiving remicade 500 mg q 8 weeks with good response Has also tried MTX and folic acid for 1 yr in the past never smoker Surgeries: ileal resection, appendectomy, 2015 ovarian torsion and adhesions 2015 IMAGINg: MRe: 2018-- no inflammation EGD/colonoscopy-- 2020 at [place] and was apparently nml LABS: TB test neg 05/23 Vit c low vit D low hep b ab pos I increased the dose of inflectra due to undetectable trough level she was supposed to get colonoscopy but was cancelled as anesthesia could not get access repeat trough still low at 2.8, 08/2024 Colonoscopy:09/2024 chronic colitis, enteritis at anasotmosis INTERIM: follow up on recent colo recurrence of disease around anastomosis, not reaching peak levels w/ biosimilar same way she was with remicade seh had a lot of qns she has no sx of obstruction A/P: 1/ Crohns -large and small bowel - dose increased to 650 mg due to undetectable trough, no antibodies seen- repeat testing with sub therapeutic level--on biosimilar, was ok with remicade PLAN: 1/option discussed of trying another biosimilar, or jumping class, she wants to think about it, and will let me know review classes with her [facility] Medical History Seasonal allergies Crohn's disease Difficult intravenous access Tremor Narcolepsy Anxiety with depression Surgical History (Updated 10/21/24 @ 09:48 by Fanta Meyers, TIFFANIE-) Hx of colonoscopy (~09/2024) History of esophagogastroduodenoscopy (EGD) History of wisdom tooth extraction History of laparoscopy History of appendectomy (~2014) Family History Paternal Grandmother Substance abuse Maternal Grandmother Substance abuse Maternal Uncle Substance abuse Mother Bipolar 2 disorder Sister Panic attack Depression Maternal Grandfather Prostate cancer Paternal Grandfather Prostate cancer Cancer of kidney Other Anxiety Social History Housing: Condominium Are you a primary post acute care nurse to a significant other at home: No Do you presently have visiting nurse or other home services: No Alcohol intake: never Patient Tobacco Use Status: Never used Tobacco e-Cigarette/Vaping Use: Never Used service: No Current occupational status: employed 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 @ [employer] Cognitive needs: No Hearing needs: No Vision needs: No Telehealth Telehealth Telehealth Platform: Telephone Location of provider rendering services: practice address Location of patient: address on file Patient Identification confirmed using: Name, : Yes Telehealth method: voice only Patient verbally consented to treatment: Yes Patient verbally consented to billing insurance company: Yes Patient informed of any privacy concerns related to visit: Yes Minutes spent on Phone/Video with Pt.: 29 Assessment & Plan Assessment & Plan (1) Crohn's disease of both small and large intestine: Comment: Managed by [facility]. Code(s): K50.80 - Crohn's disease of both small and large intestine without complications Category: Medical Qualifiers: Digestive disease complication type: without complication Qualified Code(s): K50.80 - Crohn's disease of both small and large intestine without complications Plan: as above Coding Level of Care Code Tele Est Pt Level 3 (35812) Diagnoses Crohn's disease of both small and large intestine without complication K50.80 Digestive disease complication type: without complication
--- OUTSIDE RECORDS SUMMARY | 2024-11-15 14:58 | XMS_ITS | Encounter Summary ---
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 Name Role Phone Steve Zamarripa MD Primary Care Provider [phone] Marco Mathur MD Unavailable [phone] Steve Zamarripa MD Unavailable [phone] Pcp, No Primary Care Provider Unavailabl e Steve Zamarripa MD Primary Care Provider [phone] Pcp, No Primary Care Provider Unavailabl e Encounter Details Date Type Department Care Team (Late st Contact Info) Description 08/24/2017 Scanned Document [address] [id number] Provider, Generic Social History Tobacco [...] on filedocumented in this encounter Care Teams Warping Mill Operator Relationship Specialty Start Date End Date Steve Zamarripa MD PCP - General Family Medicine 06/04/16 02/05/21 Steve Zamarripa MD [facility] [place] [address] PCP - Bunch Commercial Attributed 01/01/20 07/30/20 Pcp, No PCP - General General Medicine 02/06/21 06/10/22 Steve Zamarripa MD PCP - General 06/11/22 08/27/22 Pcp, No PCP - General General Medicine 08/28/22 Marco Mathur MD [address] [place] [id number] [facility] 11/26/18 documented as of this encounter
== END 2024-11-15 18:33 | disposition home or self-care (01) ==
LOC: HO.HGI 13:30
PROVIDERS: PCP Nurse Practitioner Family; Visit Provider Internal Medicine Gastroenterology
DX: K50.80 Crohn's disease of both small and large intestine without complications (principal)
CPT/HCPCS: 98013

== ENCOUNTER → 2024-11-15 13:30 | Outpatient (BNVA) | payer OTHER, SELFPAY | PROVIDERS: PCP Nurse Practitioner Family; Visit Provider Internal Medicine Gastroenterology ==

== ENCOUNTER 2024-11-17 08:03 | Outpatient (AMB) | payer OTHER, SELFPAY ==
--- NOTE | 2024-11-17 08:08 | MHC.PC.OV ---
Vital Signs 11/17/24 08:11 Height 5 ft 8 in Weight 142 lb BMI 21.6 BP 118/67 Blood Pressure Location Lt brachial Position Sitting Respiration 12 Pulse 77 Pulse Source Pulse Oximeter Temp 97.2 F Temp Source Oral Pulse Oximetry (%) 100 Oxygen Delivery Method Room Air Intake Visit Reasons: PE Intake Note: CPE Epic Interface Analyst Required: No Allergies cat dander Allergy (Mild, Verified 11/17/24 08:18) sneezing pollen extracts Allergy (Verified 11/17/24 08:18) Unknown Medication List - Last Reconciled 11/17/24 by Fanta Meyers, VOLUNTEER SERVICES DIRECTOR-BC armodafinil 150 mg PO QAM 90 days ascorbate calcium (vitamin C) 500 mg PO DAILY bupropion HCl XL (Wellbutrin XL) 300 mg PO QAM calcium carb, citrate-vit D3 600 mg-12.5 mcg (500 unit) ER 2 tabs PO DAILY clotrimazole-betamethasone 1-0.05 % appl topical fluticasone propionate 50 mcg/actuation (Allergy Relief (fluticasone)) 2 sprays intranasal DAILY 1 month glycopyrrolate 1 mg PO BID-TID PRN 30 days infliximab-dyyb (Inflectra) 650 mg IV levonorgestrel (Mirena) intrauterine loratadine (Allergy Relief (loratadine)) 10 mg PO DAILY magnesium 250 mg PO DAILY mecobalamin (vitamin B12) 1,000 mcg PO DAILY melatonin mg PO PRN omega 6-oqo-jid-fish oil 300-1,000 mg (Fish Oil) 1 cap PO DAILY pitolisant (Wakix) 17.8 mg PO DAILY 30 days propranolol ER 60 mg PO BEDTIME 90 days sodium fluoride-pot nitrate 1.1-5 % dental sodium oxybate ER (Lumryz) 9 grams PO BEDTIME 30 days zinc 15 mg PO DAILY Tobacco use date assessed: 11/17/24 Dental Screening Dental Screen Date: 11/17/24 Did you have a dental visit in the last 12 months?: Yes Did you have a dental problem in the last 6 months where you did not have access to dental care?: No Was dental information given to patient?: Patient has dentist HPI HPI Comments History of Present Illness Details 28-year-old female with MDD, generalized anxiety disorder, narcolepsy, seasonal allergies, vitamin-D deficiency, Crohn's disease status post colonoscopy, EGD, wisdom tooth extraction, laparoscopy, ileal resection, appendectomy, 2015, ovarian torsion and adhesions 2016 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 DIAGNOSIS: Based on the lowest Z-score value of -2.4 in the lumbar spine, the patient's bone density is below the expected range for age Last 08/24/20 Specialists GI last appt reviewed 10/2024 Needs med changes Neurology reviewed 07/2024 note no changes Psych @ [facility] & counselor Derm @ [facility] - no longer ff'd d/t insurance change , new referral placed to [facility] for acne History of Present Illness - The patient is a 28-year-old female presenting for an annual wellness examination. - Crohn's Disease, previously treated with Remicade, now on a less effective biosimilar due to insurance; recurrence noted, medication options under discussion. - Narcolepsy stable; medications unchanged. - Right thumb numbness treated with occupational therapy; improved, but mild pain persists. - Decreased bone density noted 2023, Family hx Osteoporosis, Recommend rheumatology referral due to Crohn's. - Family history of genetic hypercholesterolemia, Mom now on statin; requires further cholesterol evaluation. Vision: last eye exam 2018, does not wear corrective lenses or glasses Mom with severe osteoporosis. She is worried about this. States hx of right foot fracture, had a DEXA done at that time. Was placed on high dose Ca+. This was in 2020. . On BB to prevent tachy r/t stimulant meds used for Narcolepsy Tremor are also controlled on BB Seasonal allergies controlled w/ flonase and claritin - uncontrolled Mood stable on meds, active w/ outside presciber Family History - Mother: Genetically high cholesterol, on medication - Family history of prostate cancer - No genetic predisposition for breast or ovarian cancer - Paternal family: History of thyroid issues Health Maintenance - Bone density previously on lower side; monitoring advised due to Crohn's and family history. - Cholesterol last evaluated in 2021; due for reevaluation - Thyroid, vitamin D, vitamin B levels due for reassessment. Review of Systems - General: Denies feeling faint or weak. - Musculoskeletal: Reports improvement in thumb numbness, occasional recurrent pain. - Endocrine: Denies any thyroid-related symptoms, but family history of thyroid issues. - Neurologic: Reports stable narcolepsy symptoms. - Gastrointestinal: Reports recurrence of Crohn?s Disease; considering medication changes. - Cardiovascular: Denies any current symptoms, but family history of high cholesterol. Physical Exam General: Well developed, well nourished, in no acute distress. Appears stated age. Head: Normocephalic, atraumatic. Eyes: Pupils are equal, round and reactive to light and accommodation. Conjunctivae are clear. Vision grossly normal. Ears: TMs clear AU, EACS WNL Nose: Patent, without discharge. Neck: Supple, no adenopathy or thyromegaly. Breast: Edu on SBE Lungs: Clear to auscultation bilaterally. No rales, rhonchi or wheeze noted. Good air flow in all limon. Heart: Regular rate and rhythm. No murmurs, click, rubs or gallops are noted. Abdomen: Bowel sounds present in all quadrants. The abdomen is soft, nontender, with no masses or organomegaly noted. No hernias are noted. : Deferred. Reviewed recommendations for routine LOAN REVIEWER Pulses: Peripheral pulses are equal and palpable bilaterally. No swelling noted in ankles. Extremities: No clubbing, cyanosis nor edema is noted. Neurologic: Gait and station normal. Cranial Nerves 2-12 intact. Motor strength grossly symmetrical and intact. No sensory loss. Balance normal. Skin: No rashes, ulcers, or lesions noted. Turgor is good. Skin color is good. Hair and nails are without abnormalities. Psych: Normal eye contact, affect and mood appropriate, and normal interactions. Patient is alert and appropriate to context. Results Pending Discussion Notes During this visit, I reviewed the patient's recent colonoscopy results and GI recommendations regarding the recurrence of her Crohn's Disease. We discussed the potential medication adjustments, such as trying a different biosimilar or switching medication classes, dependent on insurance approval. I advised the patient on the familial hypercholesterolemia risk, suggesting further lab tests to assess for genetic markers. I explained the duration rheumatology appointments might take within the network and offered faster options outside the network. We discussed a referral to dermatology for acne management. Consent was not required for diagnostic testing or routine bloodwork planned in this visit. I suggested reevaluation of her bone health, considering the low bone density results linked to her Crohn's complications and family history. The patient is informed about necessary follow-ups concerning her routine labs for hypercholesterolemia risk. Assessment and Plan 1. Crohn's Disease - Evaluate medication options. Fu with [facility] GI 2. Narcolepsy - Stable, no medication changes needed. FU with [facility] Neuro 3. Thumb numbness, R - Continued exercises recommended. 4. Vitamin D deficiency - Lab recheck; consider supplementation. 5. Abnormal DEXA: - Monitoring advised; rheumatology referral planned. 6. Genetic Hypercholesterolemia Risk - Full lipid profile and genetic testing. 7. Cont call meds. For all meds increase claritin to 20mg BID. Or try OTC Xyzal 5mg instead. Can also use Azestaline nasal spray and/or eye drops to help. Local honey, too. RTO 1 YEAR CPE,SOONER PRN. Consent Patient was informed and verbally consented to the use of an ambient scribe for clinic note documentation during this visit. An additional 30 minutes was spent addressing the problem(s) noted at todays visit. This includes time spent before the visit reviewing the chart, time spent during the visit, and time spent after the visit on documentation reviewing laboratory results, diagnostic imaging, medications, performing a medically necessary evaluation, counseling on diagnoses, care coordination, ordering appropriate tests, ordering appropriate medications, review of tests performed by other providers, reporting test results with the patient, communication with other healthcare providers. [facility] Medical History (Updated 11/17/24 @ 08:51 by Fanta Meyers, VOLUNTEER SERVICES DIRECTOR-) Anxiety with depression Crohn's disease Difficult intravenous access Narcolepsy Seasonal allergies Tremor Surgical History (Updated 10/21/24 @ 09:48 by Fanta Meyers, TIFFANIE-) History of appendectomy (~2014) History of esophagogastroduodenoscopy (EGD) History of laparoscopy History of wisdom tooth extraction Hx of colonoscopy (~09/2024) Family History Paternal Grandmother Substance abuse Maternal Grandmother Substance abuse Maternal Uncle Substance abuse Mother Bipolar 2 disorder Sister Panic attack Depression Maternal Grandfather Prostate cancer Paternal Grandfather Prostate cancer Cancer of kidney Other Anxiety Social History Housing: Condominium Are you a primary social worker palliative care to a significant other at home: No Do you presently have visiting nurse or other home services: No Alcohol intake: never Patient Tobacco Use Status: Never used Tobacco e-Cigarette/Vaping Use: Never Used service: No Current occupational status: employed 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 1. Little interest or pleasure in doing things: not at all 2. Feeling down, depressed, or hopeless: several days 3. Trouble falling or staying asleep, or sleeping too much: several days 4. Feeling tired or having little energy: several days 5. Poor appetite or overeating: not at all 6. Feeling bad about yourself - or that you are a failure or have let yourself or your family down: several days 7. Trouble concentrating on things, such as reading the newspaper or watching television: not at all 8. Moving or speaking so slowly that other people could have noticed. Or the opposite - being so fidgety or restless that you have been moving around a lot more than usual: not at all 9. Thoughts that you would be better off or of hurting yourself in some way: not at all Total score: 4 Depression Screening Interpretation: Negative Depression Screening Done: Yes 10008 - PHQ-9 Billing: Yes Source: Developed by Drs. Aiden Bajwa, Deborah Thompson, Bennie Bobby and colleagues, with an educational max from [employer]. Thrive Questionnaire Date Thrive assessed: 11/17/24 I am a: Patient What is your living situation today?: I have a steady place to live Within the past 12 months, did the food you bought not last and you didn't have the money to get more?: Never true Within the past 12 months, did you worry whether your food would run out before you got money to buy more?: Never true Do you have trouble paying for medicines?: No Do you have trouble getting transportation to medical appointments?: No Do you have trouble paying your heating and electricity bill?: No Do you have trouble taking care of your child, family member or friend?: No Do you have trouble with day-to-day activities such as bathing, preparing meals, shopping, managing finances, etc.?: No Are you currently unemployed and looking for a job?: No Are you interested in more education?: No Please select the resources that you would like help with: None Currently or been in a relationship where the following occur: No concerns reported THRIVE Score: 0 AUDIT C Alcohol Use Questionnaire (AUDIT-C) 1. How often do you have a drink containing alcohol?: Monthly or less 2. How many drinks containing alcohol do you have on a typical day when you are drinking?: 1 or 2 3. How often do you have six or more drinks on one occasion?: Never Total Score: 1 Score Reviewed/Action Taken: Yes KEILA-7 AMB Questionnaire KEILA-7 Date KEILA - 7 assessed: 11/17/24 Feeling nervous, anxious, or on edge: 1 = Several days Not being able to stop or control worryin = Several days Worrying too much about different things: 1 = Several days Trouble relaxin = Several days Being so restless that it is hard to sit still: 0 = Not at all Becoming easily annoyed or irritable: 1 = Several days Feeling afraid as if something awful might happen: 1 = Several days Total KEILA-7 score (0-4 normal; 5-9 mild; 10-14 moderate; 15-21 severe): 6 Source: Developed by Drs. Aiden Bajwa, Deborah Thompson, Bennie Bobby and colleagues, with an educational max from [employer]. KEILA-7 Assessment Billing KEILA-7 Assessment Tool: KEILA-7 Assessment 77050 Physical exam (Primary Care) Vital Signs: Last Vital Signs Temp 97.2 F 11/17/24 08:11 Pulse 77 11/17/24 08:11 Resp 12 11/17/24 08:11 BP 118/67 11/17/24 08:11 Pulse Ox 100 11/17/24 08:11 Oxygen Delivery Method Room Air 11/17/24 08:11 BMI result Body Mass Index 21.6 Tobacco/Smoking Status: Tobacco use Status Tobacco use date assessed 11/17/24 11/17/24 08:12 Patient Tobacco Use Status Never used Tobacco 11/17/24 08:12 e-Cigarette/Vaping Use Never Used 11/17/24 08:12 PHQ-9: PHQ-9 Score PHQ-9: Total score 4 11/17/24 08:12 Depression Screening Interpretation: Negative Thrive Assessment: Date of Thrive Assessment Date Thrive assessed 11/17/24 11/17/24 08:12 Currently or been in a relationship where the following occur: No concerns reported Coding Level of Care Code Est Pt Level 4 (90605) Est Pt Prev Care 18-39y(22294) Diagnoses Normal physical exam Z00.00 Narcolepsy without cataplexy G47.419 KEILA (generalized anxiety disorder) F41.1 Mild episode of recurrent major depressive disorder F33.0 Major depression episode severity: mild Crohn's disease of both small and large intestine without complication K50.80 Digestive disease complication type: without complication Paresthesia of right thumb R20.2 Vitamin D deficiency E55.9 Tremor R25.1 Family hx osteoporosis Z82.62 Abnormal bone density screening R93.7 Family history of hypercholesterolemia Z83.42 Acne vulgaris L70.0 Acne type: acne vulgaris Seasonal allergies J30.2 Additional Codes KEILA-7 Assessment Billing - KEILA-7 Assessment Tool: KEILA-7 Assessment 62225 ([id number]) PHQ-9 - 07957 - PHQ-9 Billing: Yes ([id number]) Assessment & Plan Assessment & Plan (1) Normal physical exam: Onset Date: ~11/17/24 Code(s): Z00.00 - Encounter for general adult medical examination without abnormal findings Category: Medical (2) Narcolepsy without cataplexy: Comment: MSLT results in setting of pt h/o hypersomnia, early onset REM c/w narcolepsy. Managed by [facility] Code(s): G47.419 - Narcolepsy without cataplexy Category: Medical (3) KEILA (generalized anxiety disorder): Comment: See MDD care plan Code(s): F41.1 - Generalized anxiety disorder Category: Medical (4) MDD (major depressive disorder), recurrent episode: Comment: Active with Psychiatry. Code(s): F33.9 - Major depressive disorder, recurrent, unspecified Category: Medical Qualifiers: Major depression episode severity: mild Qualified Code(s): F33.0 - Major depressive disorder, recurrent, mild (5) Crohn's disease of both small and large intestine: Comment: Managed by [facility]. Code(s): K50.80 - Crohn's disease of both small and large intestine without complications Category: Medical Qualifiers: Digestive disease complication type: without complication Qualified Code(s): K50.80 - Crohn's disease of both small and large intestine without complications (6) Paresthesia of right thumb: Comment: resolved s/p OT Code(s): R20.2 - Paresthesia of skin Category: Medical (7) Vitamin D deficiency: Comment: On supplementation Code(s): E55.9 - Vitamin D deficiency, unspecified Category: Medical (8) Tremor: Comment: Managed by Neurology with propranolol. Code(s): R25.1 - Tremor, unspecified Category: Medical (9) Family hx osteoporosis: Comment: DEXA 12/2023: On calcium plus vitamin-D. refer to Rheumatology for further evaluation and treatment. Code(s): Z82.62 - Family history of osteoporosis Category: Medical (10) Abnormal bone density screening: Onset Date: ~2023 Code(s): R93.7 - Abnormal findings on diagnostic imaging of other parts of musculoskeletal system Category: Medical (11) Family history of hypercholesterolemia: Comment: Mom w/ familial HLD Code(s): Z83.42 - Family history of familial hypercholesterolemia Category: Medical (12) Acne: Code(s): L70.9 - Acne, unspecified Category: Medical Qualifiers: Acne type: acne vulgaris Qualified Code(s): L70.0 - Acne vulgaris (13) Seasonal allergies: Comment: not controlled with Claritin and Flonase Code(s): J30.2 - Other seasonal allergic rhinitis Category: Medical Plan . Orders: Orders TSH reflex Free T4 Today E55.9 - Vitamin D deficiency, unspecified, Z00.00 - Encounter for general adult medical examination without abnormal findings, Z82.62 - Family history of osteoporosis, Z83.42 - Family history of familial hypercholesterolemia Vitamin B12 and Folate Today E55.9 - Vitamin D deficiency, unspecified, Z00.00 - Encounter for general adult medical examination without abnormal findings, Z82.62 - Family history of osteoporosis, Z83.42 - Family history of familial hypercholesterolemia Lipid Panel Today E55.9 - Vitamin D deficiency, unspecified, Z00.00 - Encounter for general adult medical examination without abnormal findings, Z82.62 - Family history of osteoporosis, Z83.42 - Family history of familial hypercholesterolemia Apolipoprotein A1 Today E55.9 - Vitamin D deficiency, unspecified, Z00.00 - Encounter for general adult medical examination without abnormal findings, Z82.62 - Family history of osteoporosis, Z83.42 - Family history of familial hypercholesterolemia Apolipoprotein B Today E55.9 - Vitamin D deficiency, unspecified, Z00.00 - Encounter for general adult medical examination without abnormal findings, Z82.62 - Family history of osteoporosis, Z83.42 - Family history of familial hypercholesterolemia Vitamin D 25-OH Total Today E55.9 - Vitamin D deficiency, unspecified, Z00.00 - Encounter for general adult medical examination without abnormal findings, Z82.62 - Family history of osteoporosis, Z83.42 - Family history of familial hypercholesterolemia Referrals Rheumatology Referral K50.80 - Crohn's disease of both small and large intestine without complications, R93.7 - Abnormal findings on diagnostic imaging of other parts of musculoskeletal system, Z82.62 - Family history of osteoporosis Dermatology Referral L70.9 - Acne, unspecified Patient Instructions: Health screenings for women You should visit your health care provider from time to time, even if you are healthy. The purpose of these visits is to: Screen for medical issues Assess your risk for future medical problems Encourage a healthy lifestyle Update vaccinations and other preventive care services Help you get to know your provider in case of an illness Information Even if you feel fine, you should still see your provider for regular checkups. These visits can help you avoid problems in the future. For example, the only way to find out if you have high blood pressure is to have it checked regularly. High blood sugar and high cholesterol levels also may not have any symptoms in the early stages. A simple blood test can check for these conditions. There are specific times when you should see your provider or receive specific health screenings. The [place] Preventive Services Task Force publishes a list of recommended screenings. Below are screening guidelines for women ages 18 to 39. BLOOD PRESSURE SCREENING Your blood pressure should be checked at least once every 3 to 5 years if: Your blood pressure is in the normal range (top number less than 120 mm Hg and bottom number less than 80 mm Hg) You don't have risk factors for high blood pressure Ask your provider if you need your blood pressure checked more often if: The top number is 120 to 129 mm Hg or the bottom number is 70 to 79 mm Hg You have diabetes, heart disease, kidney problems, are overweight, or have certain other health conditions You have a first-degree relative with high blood pressure You are Black You had high blood pressure during a If the top number is 130 mm Hg or greater or the bottom number is 80 mm Hg or greater, this is considered stage 1 hypertension. Schedule an appointment with your provider to learn how you can reduce your blood pressure. Watch for blood pressure screenings in your area. Ask your provider if you can stop in to have your blood pressure checked. BREAST CANCER SCREENING Experts do not agree about the benefits of breast self-exams in finding breast cancer or saving lives. Talk to your provider about what is best for you. A screening mammogram is not recommended for most women under age 40. Your provider may discuss and recommend mammograms, MRI scans, or ultrasounds if you have an increased risk for breast cancer, such as: A mother or sister who had breast cancer at a young age (most often starting screening earlier than the age the close relative was diagnosed) You carry a high-risk genetic marker CERVICAL CANCER SCREENING Cervical cancer screening should start at age 21 years unless your provider advises otherwise. After the first test: Women ages 21 through 29 should have a Pap test every 3 years. Exoprts do not agree on whether HPV testing is recommended for this age group. Women ages 30 through 65 should be screened with either a Pap test every 3 years or the HPV test every 5 years or both tests every 5 years (called cotesting ). Women who have been treated for precancer (cervical dysplasia) should continue to have Pap tests for 20 years after treatment or until age 65, whichever is longer. If you have had your uterus and cervix removed (total hysterectomy), and you have not been diagnosed with cervical cancer or precancer (high grade cervical neoplasia), you do not need cervical cancer screening. CHOLESTEROL SCREENING Cholesterol screening should begin at: Age 45 for women with no known risk factors for coronary heart disease Age 20 for women with known risk factors for coronary heart disease Repeat cholesterol screening should take place: Every 5 years for women with normal cholesterol levels More often if changes occur in lifestyle (including weight gain and diet) More often if you have diabetes, heart disease, kidney problems, or certain other conditions DIABETES SCREENING You should be screened for diabetes starting at age 35 and then repeated every 3 years if you have no risk factors for diabetes. Screening may need to start earlier and be repeated more often if you have other risk factors for diabetes, such as: You have a first degree relative with diabetes. You are overweight or have obesity. You have high blood pressure, prediabetes, or a history of heart disease. Screening for diabetes should be done if you are planning to become and you are overweight and have other risk factors such as high blood pressure. DENTAL EXAM Go to the dentist once or twice every year for an exam and cleaning. Your dentist will evaluate if you need more frequent visits. EYE EXAM Have an eye exam every 5 to 10 years before age 40. If you have vision problems, have an eye exam every 2 years or more often if recommended by your provider. You should have an eye exam that includes an examination of your retina (back of your eye) at least every year if you have diabetes. IMMUNIZATIONS Commonly needed vaccines include: Flu shot: get one every year. COVID-19 vaccine: ask your provider what is best for you. Tetanus-diphtheria and acellular pertussis (Tdap) vaccine: have one at or after age 19 as one of your tetanus-diphtheria vaccines if you did not receive it as an adolescent. Tetanus-diphtheria: have a booster (or Tdap) every 10 years. Varicella vaccine: receive 2 doses if you never had chickenpox or the varicella vaccine. Hepatitis B vaccine: receive 2, 3, or 4 doses, depending on your exact circumstances. Measles, mumps, and rubella (MMR) vaccine: receive 1 to 2 doses if you are not already immune to MMR. Your provider can tell you if you are immune. Ask your provider about the human papillomavirus (HPV) vaccine if: You have not received the HPV vaccine in the past You have not completed the full vaccine series (you should catch up on this shot) Ask your provider if you should receive other immunizations if you have certain health problems that increase your risk for some diseases such as pneumonia. INFECTIOUS DISEASE SCREENING Women who are sexually active should be screened for chlamydia and gonorrhea up until age 25. Women 25 years and older should be screened for chlamydia and gonorrhea if at high risk. Screening for hepatitis C: All adults ages 18 to 79 should get a one-time test for hepatitis C. people should be screened at every . Screening for human immunodeficiency virus (HIV): All people ages 15 to 65 should get a one-time test for HIV. Depending on your lifestyle and medical history, you may also need to be screened for infections such as syphilis and HIV, as well as other infections. PHYSICAL EXAM All adults should visit their provider from time to time, even if they are healthy. The purpose of these visits is to: Screen for disease Assess your risk of future medical problems Encourage a healthy lifestyle Update your vaccinations and other preventive care services Maintain a relationship with a provider in case of an illness Your height, weight, and BMI should be checked at every exam. During your exam, your provider may ask you about: Depression and anxiety Diet and exercise Alcohol and tobacco use Safety issues, such as using seat belts, smoke detectors, and intimate partner violence Your medicines and risk for interactions SKIN SELF-EXAM Your provider may check your skin for signs of skin cancer, especially if you're at high risk, such as if you: Have had skin cancer before Have close relatives with skin cancer Have a weakened immune system OTHER SCREENING Talk with your provider about colon cancer screening if you have a strong family history of colon cancer or polyps, or if you have had inflammatory bowel disease or polyps yourself. Routine bone density screening of women under 40 is not recommended.
[2024-11-17 08:11] VITALS: BP 118/67; PULSE 77; RESP 12; TEMP 36.2; O2SAT 100; BMI 21.6
--- OUTSIDE RECORDS SUMMARY | 2024-11-17 08:16 | XMS_ITS | Encounter Summary ---
Author Organization [facility]ly [facility] Address [address] [place] [address] Care Team Providers Care Copy Lathe Operator Name Role Phone Steve Zamarripa MD Primary Care Provider [phone] Marco Mathur MD Unavailable [phone] Steve Zamarripa MD Unavailable [phone] Pcp, No Primary Care Provider Unavailabl e Steve Zamarripa MD Primary Care Provider [phone] Pcp, No Primary Care Provider Unavailabl e Encounter Details Date Type Department Care Team (Late st Contact Info) Description 08/24/2017 Scanned Document [address] [address] Provider, Generic Social History Tobacco [...] on filedocumented in this encounter Care Teams Copy Lathe Operator Relationship Specialty Start Date End Date Steve Zamarripa MD PCP - General Family Medicine 06/04/16 02/05/21 Steve Zamarripa MD [facility] [address] PCP - [place] [employer] Attributed 01/01/20 07/30/20 Pcp, No PCP - General General Medicine 02/06/21 06/10/22 Steve Zamarripa MD PCP - General 06/11/22 08/27/22 Pcp, No PCP - General General Medicine 08/28/22 Marco Mathur MD [address] [place] [address] Nurse Midwife Pediatric Gastroenterology 11/26/18 documented as of this encounter
== END 2024-11-17 09:22 | disposition home or self-care (01) ==
LOC: HO.HMCFM 08:04
PROVIDERS: PCP Nurse Practitioner Family; Visit Provider Nurse Practitioner Family
DX: Z00.00 Encounter for general adult medical examination without abnormal findings (principal); G47.419 Narcolepsy without cataplexy; K50.80 Crohn's disease of both small and large intestine without complications; F41.1 Generalized anxiety disorder; F33.0 Major depressive disorder, recurrent, mild; R20.2 Paresthesia of skin; E55.9 Vitamin D deficiency, unspecified; R25.1 Tremor, unspecified; Z82.62 Family history of osteoporosis; R93.7 Abnormal findings on diagnostic imaging of other parts of musculoskeletal system; Z83.42 Family history of familial hypercholesterolemia; L70.0 Acne vulgaris

== ENCOUNTER → 2024-11-17 08:03 | Outpatient (BNVA) | payer OTHER, SELFPAY | PROVIDERS: PCP Nurse Practitioner Family; Visit Provider Nurse Practitioner Family | DX: Z13.89 Encounter for screening for other disorder (principal) ==

== ENCOUNTER 2024-11-17 09:12 | Outpatient (REF) | payer OTHER, SELFPAY ==
[2024-11-17 12:11] LABS: Cholesterol 140 mg/dL (<200); HDL Cholesterol 53 mg/dL (>40); LDL Cholesterol Calculated 73 mg/dL (<100); Triglycerides 72 mg/dL (<150)
[2024-11-17 12:31] LABS: TSH reflex Free T4 1.48 uIU/mL (0.32-4.0); Vitamin D 25-OH Total 62.1 ng/mL (>30)
[2024-11-17 12:32] LABS: Folate 10.7 ng/mL (> or = 4.0); Vitamin B12 1845 pg/mL (200-900)
[2024-11-21 15:58] LABS: Apolipoprotein A1 139 mg/dL (>=125); Apolipoprotein B 75 mg/dL (<90)
== END 2024-11-17 09:13 | disposition home or self-care (01) ==
LOC: HO.WFDLDS 09:12
PROVIDERS: Visit Provider Nurse Practitioner Family
DX: Z00.00 Encounter for general adult medical examination without abnormal findings (principal); G47.419 Narcolepsy without cataplexy; F41.1 Generalized anxiety disorder; F33.0 Major depressive disorder, recurrent, mild; K50.80 Crohn's disease of both small and large intestine without complications; R20.2 Paresthesia of skin; E55.9 Vitamin D deficiency, unspecified; R25.1 Tremor, unspecified; R93.7 Abnormal findings on diagnostic imaging of other parts of musculoskeletal system; L70.0 Acne vulgaris; J30.2 Other seasonal allergic rhinitis; Z83.42 Family history of familial hypercholesterolemia; Z82.62 Family history of osteoporosis; Z13.31 Encounter for screening for depression
CPT/HCPCS: 36415; 80061; 82172; 82306; 82607; 82746; 84443; 96127

== ENCOUNTER 2024-12-14 13:43 | Outpatient (AMB) | payer OTHER, SELFPAY ==
--- NOTE | 2024-12-14 13:45 | MHC.OFFWIV ---
Intake Vital Signs 12/14/24 13:51 Height 5 ft 8 in Weight 145 lb BMI 22.0 BP 118/70 Blood Pressure Location Rt brachial Position Sitting Respiration 12 Pulse 105 H Pulse Source Pulse Oximeter Temp 97.2 F Temp Source Oral Pulse Oximetry (%) 100 Oxygen Delivery Method Room Air Intake Visit Reasons: bunp back in the knee RE Intake Note: Patient c/o a lump behind left knee x 1 week Patient Tobacco Use Status: Never used Tobacco Lead Application Architect Required: No Allergies cat dander Allergy (Mild, Verified 12/14/24 14:04) sneezing pollen extracts Allergy (Verified 12/14/24 14:04) Unknown Medication List - Last Reconciled 12/14/24 by Fanta Meyers, [employer] WORK[employer]-BC armodafinil 150 mg PO QAM 90 days ascorbate calcium (vitamin C) 500 mg PO DAILY bupropion HCl XL (Wellbutrin XL) 300 mg PO QAM calcium carb, citrate-vit D3 600 mg-12.5 mcg (500 unit) ER 2 tabs PO DAILY fluticasone propionate 50 mcg/actuation (Allergy Relief (fluticasone)) 2 sprays intranasal DAILY 1 month glycopyrrolate 1 mg PO BID-TID PRN 30 days infliximab-abda (Renflexis) 650 mg IV Q8W levonorgestrel (Mirena) intrauterine loratadine (Allergy Relief (loratadine)) 20 mg PO BID magnesium 250 mg PO DAILY mecobalamin (vitamin B12) 1,000 mcg PO DAILY melatonin mg PO PRN omega 6-qqn-cqo-fish oil 300-1,000 mg (Fish Oil) 1 cap PO DAILY pitolisant (Wakix) 17.8 mg PO DAILY 30 days propranolol ER 60 mg PO BEDTIME 90 days sodium fluoride-pot nitrate 1.1-5 % dental sodium oxybate ER (Lumryz) 9 grams PO BEDTIME 30 days zinc 15 mg PO DAILY Do you need a note to return to daycare/school/sports/work: No HPI HPI Comments History of Present Illness Details 29 year-old female with MDD, generalized anxiety disorder, narcolepsy, seasonal allergies, vitamin-D deficiency, Crohn's disease status post colonoscopy, EGD, wisdom tooth extraction, laparoscopy, ileal resection, appendectomy, 2015, ovarian torsion and adhesions 2016 Social: [employer] Family hx: Mom with familal HLD Health maintenance Pap @ [facility] 2023, normal per reports *will request record, next appt 10/2024 Colon 09/2024 at [facility] Colonoscopy:09/2024 chronic colitis, 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 DIAGNOSIS: Based on the lowest Z-score value of -2.4 in the lumbar spine, the patient's bone density is below the expected range for age Last 08/24/20 Specialists GI last appt reviewed 10/2024 Needs med changes Neurology reviewed 07/2024 note no changes Psych @ [facility] & counselor Derm @ [facility] - no longer ff'd d/t insurance change , new referral placed to [facility] for acne History of Present Illness - The patient is a 29-year-old female presenting with a lump behind the LEFT knee. - Noticed as a non-itchy bump, thought to be a bug bite on Friday - Lump persistent over time. - Stiffness in the lower leg present. - No fever or significant chills reported. - No knee redness or heat. - No trauma or prolonged immobility. - Regular physical activity, walking several miles. This is new, walking up to 7 miles/day - No foot numbness or tingling. Review of Systems - Skin: Reports lump behind right knee, non-itchy; reports recent rash. - Hematologic: Denies unexplained fevers; occasional mild chills. - Musculoskeletal: Reports stiffness in lower leg; denies prior injury. - Circulatory: Denies numbness or tingling. Physical Exam General: Well developed, well nourished, in no acute distress. Appears stated age. Head: Normocephalic, atraumatic. Musculoskeletal: Lump noted behind L knee, associated with tenderness. No redness or heat noted. No other joint swelling, redness, or effusions. Pulses: Peripheral pulses are equal and palpable bilaterally. Extremities: No clubbing, cyanosis nor edema is noted. Psych: Mood and affect appropriate. Discussion Notes I discussed the likely diagnosis of a Lew's cyst with the patient, mentioning that these are typically benign and often associated with activity. I also reviewed the possibility of a deep vein thrombosis (DVT), explaining the importance of ruling out a clot due to its seriousness. I recommended a stat ultrasound at [facility], providing instructions for immediate follow-up to confirm the nature of the lump. We reviewed potential scenarios and how the ultrasound results will guide further management, discussing the expectation that the ultrasound will either confirm a Lew's cyst or, less likely, identify a clot. If the ultrasound identifies a Lew cyst, the standard management approach includes monitoring without intervention unless symptoms worsen. I discussed alternatives like drainage or injection only if necessary due to patient discomfort. Additionally, we discussed the benefits of continuing physical activity should the diagnosis be Lew's cyst. Instructions to contact me through the patient portal for results and subsequent advice were given. Consent for the ultrasound was obtained by explaining the necessity and safety of the procedure. Assessment and Plan 1. Possible Lew's cyst - Stat ultrasound for lump evaluation. - Conservative management if confirmed. - Continue physical activities. - Follow-up via portal. Patient Instructions - Go for the stat ultrasound at [facility] today as discussed. - Continue walking and regular physical activities. - Check the patient portal for your ultrasound results later today. - If any new symptoms like significant pain or redness appear, seek immediate care. Consent Patient was informed and verbally consented to the use of an ambient scribe for clinic note documentation during this visit. Total time spent caring for the patient today was 30 minutes. This includes time spent before the visit reviewing the chart, time spent during the visit, and time spent after the visit on documentation, reviewing laboratory results, diagnostic imaging, medications, performing a medically necessary evaluation, counseling on diagnoses, care coordination, ordering appropriate tests, ordering appropriate medications, review of tests performed by other providers, reporting test results with the patient, communication with other healthcare providers. [facility] Medical History (Updated 12/14/24 @ 14:13 by Fanta Meyers, GLASS WORKER-) Anxiety with depression Crohn's disease Difficult intravenous access Narcolepsy Seasonal allergies Tremor Surgical History (Updated 10/21/24 @ 09:48 by TIFFANIE Mckenzei-HARISH) History of appendectomy (~2014) History of esophagogastroduodenoscopy (EGD) History of laparoscopy History of wisdom tooth extraction Hx of colonoscopy (~09/2024) Family History Paternal Grandmother Substance abuse Maternal Grandmother Substance abuse Maternal Uncle Substance abuse Mother Bipolar 2 disorder Sister Panic attack Depression Maternal Grandfather Prostate cancer Paternal Grandfather Prostate cancer Cancer of kidney Other Anxiety Social History Housing: Condominium Are you a primary manager intensive care to a significant other at home: No Do you presently have visiting nurse or other home services: No Alcohol intake: never Patient Tobacco Use Status: Never used Tobacco e-Cigarette/Vaping Use: Never Used service: No Current occupational status: employed Current occupation: [employer] Cognitive needs: No Hearing needs: No Vision needs: No Physical Exam Vital Signs: Last Vital Signs Temp 97.2 F 12/14/24 13:51 Pulse 105 H 12/14/24 13:51 Resp 12 12/14/24 13:51 BP 118/70 12/14/24 13:51 Pulse Ox 100 12/14/24 13:51 Oxygen Delivery Method Room Air 12/14/24 13:51 BMI result Body Mass Index 22.0 Assessment & Plan Assessment & Plan (1) Swelling of lower extremity: Code(s): M79.89 - Other specified soft tissue disorders Plan . Orders: Orders US venous duplex LE LT Today Fanta Meyers, [facility]- M79.89 - Other specified soft tissue disorders Medications: Changed From loratadine (Allergy Relief (loratadine)) 10 mg PO DAILY 90 tabs 1RF J30.2 - Other seasonal allergic rhinitis To loratadine (Allergy Relief (loratadine)) 20 mg PO BID J30.2 - Other seasonal allergic rhinitis Stacia Acevedo NP Coding Level of Care Code Est Pt Level 4 (21882) Diagnoses Swelling of lower extremity M79.89
[2024-12-14 13:51] VITALS: BP 118/70; PULSE 105; RESP 12; TEMP 36.2; O2SAT 100; BMI 22.0
--- OUTSIDE RECORDS SUMMARY | 2024-12-14 15:06 | XMS_ITS ---
Author Name [facility] Organization Unknown History of Medication Use Medication Directions Dispensed Refills Start Date End Date Stat us pitolisant (Wakix) 17.8 mg tablet Take 17.8 mg by mouth daily. 12/06/2021 01/06/2022 active pitolisant (Wakix) 4.45 mg tablet Take 8.9 mg by mouth daily. Take two 4.45 mg tablets every morning. 12/06/2021 active modafiniL (PROVIGIL) 100 mg tablet Take 1 tablet (100 mg total) by mouth daily as needed (For somnolence at work or need to drive.). Take it during or after lunch. 11/08/2021 01/21/2022 active fluticasone propionate (FLONASE) 50 mcg/actuation nasal spray INSTILL 2 SPRAYS IN EACH NOSTRIL DAILY FOR 1 MONTH 10/24/2021 active doxepin (SINEquan) 10 mg capsule 07/09/2021 active magnesium glycinate 100 mg tablet 200 mg. 11/07/2019 active ZINC GLUCONATE-ZINC PICOLINATE ORAL 06/18/2019 active nortriptyline (PAMELOR) 10 mg capsule Take 20 mg by mouth daily. 05/02/2019 01/15/2022 active buPROPion SR (WELLBUTRIN SR) 200 mg 12 hr tablet 150 mg daily. 04/07/2018 active FLUoxetine (PROzac) 20 mg capsule daily. 60mg daily 12/05/2017 acti ve levonorgestrel (MIRENA) intrauterine device 1 Intra Uterine Device by intrauterine route once. active loratadine (CLARITIN) 10 mg tablet Take 10 mg by mouth daily. active Problems Problem Status Onset Date Problem Type Date of Resoluti on Source Depression active 2016-11-21 ProblemAct [facility] Small bowel obstruction due to adhesions active 2015-11-28 ProblemAct [facility] Primary narcolepsy without cataplexy active 2017-12-30 ProblemAct [facility] Moderate episode of recurrent major depressive disorder active 2016-06-13 ProblemAct [facility] Low bone density in premenopausal patient active 2020-09-13 ProblemAct [facility] Crohn's disease of both small and large intestine active 2015-11-[address] [facility] Immunosuppression active 2016-11-21 ProblemAct [facility] Anxiety active 2016-06-13 ProblemAct [facility] History of resection of small bowel active 2016-06-13 ProblemAct [facility] Ileitis active 2014-12-12 ProblemAct [facility] Benign ovarian cyst active 2015-11-09 ProblemAct [facility] Right lower quadrant abdominal pain active 2014-12-12 ProblemAct [facility] Acute epigastric pain active 2015-11-21 ProblemAct [facility] Encounters Encounter Type Encounter Reason Primary Diagnosis Location Date Ambulatory [facility] 02/11/2022 Ambulatory [facility] 11/07/2021 Ambulatory Narcolepsy without cataplexy [facility] 06/19/2021 Ambulatory Crohn's disease of both small and large intestine with intestinal obstruction [facility] 05/21/2021 Ambulatory Follow-up [facility] 05/09/2021 Ambulatory Insomnia, unspecified [facility] 1 06/19/2020 Ambulatory Crohn's disease of both small and large intestine with intestinal obstruction [facility] 03/26/2021 Care Team Organization Name Specialty Phone Email Start Date End Da te [facility] COLTON GARZA Primary Care 01/31 [facility] COLTON GARZA Primary Care 04/0206/19/2021 [place] [employer] [facility] COLTON GARZA Primary Care 07/23/2017 07/23/2017
--- OUTSIDE RECORDS SUMMARY | 2024-12-14 15:06 | XMS_ITS | Encounter Summary ---
Author Organization [facility] Address [address] [place] [address] Care Team Providers Care Associate Of Science In Nursing Name Role Phone Steve Zamarripa MD Primary Care Provider [phone] Marco Mathur MD Unavailable [phone] Steve Zamarripa MD Unavailable [phone] Pcp, No Primary Care Provider Unavailabl e Steve Zamarripa MD Primary Care Provider [phone] Pcp, No Primary Care Provider Unavailabl e Encounter Details Date Type Department Care Team (Late st Contact Info) Description 08/24/2017 Scanned Document [address] [id number] Provider, Generic Social History Tobacco [...] on filedocumented in this encounter Care Teams Associate Of Science In Nursing Relationship Specialty Start Date End Date Steve Zamarripa MD PCP - General Family Medicine 06/04/16 02/05/21 Steve Zamarripa MD [facility] [place] [address] PCP - [place] [employer] Attributed 01/01/20 07/30/20 Pcp, No PCP - General General Medicine 02/06/21 06/10/22 Steve Zamarripa MD PCP - General 06/11/22 08/27/22 Pcp, No PCP - General General Medicine 08/28/22 Marco Mathur MD [address] [place] [id number] Automobile Service Advisor Pediatric Gastroenterology 11/26/18 documented as of this encounter
--- OUTSIDE RECORDS SUMMARY | 2024-12-14 15:06 | XMS_ITS | Encounter Summary ---
Author Organization [facility] Address [address] [place] [id number] Care Team Providers Care Director Mobile Name Role Phone Steve Zamarripa MD Primary Care Provider + [phone] Encounter Details Date Type Department Care Team (Late st Contact Info) Description 12/20/2021 Orders Only [facility] Department of Pulmonology [address] [place] [address] Cj Batista MD [address] [place] [address] Social History Tobacco Use Types Packs/Day Years [...] filedocumented in this encounter Care Teams Director Mobile Relationship Specialty Start Date End Date Steve Zamarripa MD PCP - General Internal Medicine 07/09/18 documented as of this encounter
== END 2024-12-14 14:17 | disposition home or self-care (01) ==
LOC: HO.HMCFM 13:44
PROVIDERS: PCP Nurse Practitioner Family; Visit Provider Nurse Practitioner Family
DX: M79.89 Other specified soft tissue disorders (principal)

== ENCOUNTER 2024-12-14 16:16 | Outpatient (REF) | payer OTHER, SELFPAY ==
--- NOTE | ~2024-12-14 | US_ITS ---
EXAMINATION: US TRIPLEX LOWER EXTREMITY, LEFT CLINICAL INFORMATION: Palpable lump behind left knee associated with some tenderness. COMPARISON: None available. TECHNIQUE: Color-flow triplex imaging with spectral analysis and compression Doppler were performed on the left lower extremity. FINDINGS: Respiratory variation, normal compression and augmented flow are noted throughout the left lower extremity. The visualized common femoral vein, superficial femoral vein, profunda femoral vein, popliteal vein and midcalf peroneal and posterior tibial venous segments show no evidence of deep venous thrombosis. There is a small Lew's cyst measuring 0.9 x 0.4 x 1.0 cm. US/US venous duplex LE LT IMPRESSION: 1. No evidence of deep venous thrombosis involving the left lower extremity. 2. Small Lew's cyst measuring up to 1.0 cm. This correlates with the palpable lump behind the knee. Electronically signed by: Swapnil Hendrix MD 12/14/2024 04:41 PM EDT
== END 2024-12-14 16:17 | disposition home or self-care (01) ==
LOC: HO.US 16:16
PROVIDERS: PCP Nurse Practitioner Family; Visit Provider Nurse Practitioner Family
DX: R60.0 Localized edema (principal)
CPT/HCPCS: 93971

== ENCOUNTER → 2024-12-14 16:16 | Outpatient (BNV) | payer OTHER, SELFPAY | PROVIDERS: PCP Nurse Practitioner Family; Visit Provider Radiology Diagnostic Radiology | DX: M71.22 Synovial cyst of popliteal space [Baker], left knee (principal) | CPT/HCPCS: 93971 ==

== ENCOUNTER 2025-02-08 09:29 | Outpatient (AMB) | payer OTHER, SELFPAY ==
--- OUTSIDE RECORDS SUMMARY | 2017-07-23 16:47 | XMS_ITS | Encounter Summary ---
Author Organization [facility] Address [address] [place] [address] Care Team Providers Care Battery Filler Name Role Phone Steve Zamarripa MD Primary Care Provider [phone] Encounter Details Date Type Department Care Team (Late st Contact Info) Description 07/23/2017 3:47 PM EST Hospital Encounter [facility] [address] [place] [address] Víctor Rutledge MD [address] [place] [phone] Social History Tobacco Use Types Packs/Day Years [...] PM EDT documented as of this encounter Plan of [...] on filedocumented in this encounter Care Teams Battery Filler Relationship Specialty Start Date End Date Steve Zamarripa MD PCP - General Family Medicine 06/04/16 02/05/21 documented as of this encounter
[2025-02-08 09:25] VITALS: BP 100/80; PULSE 88; O2SAT 99; BMI 21.4
--- NOTE | 2025-02-08 09:25 | A.OFFVIS_ITS ---
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 Required: No Accompanied by: Self / Same As Patient Allergies cat dander Allergy (Mild, Verified 02/08/25 09:33) sneezing pollen extracts Allergy (Verified 02/08/25 09:33) Unknown Medication List - Last Reconciled 02/08/25 by TIFFANIE Beltrán armodafinil 150 mg PO QAM 90 days ascorbate calcium (vitamin C) 500 mg PO DAILY bupropion HCl XL (Wellbutrin XL) 300 mg PO QAM calcium carb, citrate-vit D3 600 mg-12.5 mcg (500 unit) ER 2 tabs PO DAILY fluticasone propionate 50 mcg/actuation (Allergy Relief (fluticasone)) 2 sprays intranasal DAILY 1 month glycopyrrolate 1 mg PO BID-TID PRN 30 days infliximab-abda (Renflexis) 650 mg IV Q8W levonorgestrel (Mirena) intrauterine loratadine (Allergy Relief (loratadine)) 20 mg PO BID magnesium 250 mg PO DAILY mecobalamin (vitamin B12) 1,000 mcg PO DAILY melatonin mg PO PRN omega 0-hks-rov-fish oil 300-1,000 mg (Fish Oil) 1 cap PO DAILY pitolisant (Wakix) 17.8 mg PO DAILY 30 days propranolol ER 60 mg PO BEDTIME 90 days sodium fluoride-pot nitrate 1.1-5 % dental sodium oxybate ER (Lumryz) 9 grams PO BEDTIME 30 days tretinoin 0.025% 1 appl topical BEDTIME zinc 15 mg PO DAILY HPI Comments Details: 29-yr-old female presents for f/u visit for narcolepsy and tremor. PMH notable for Crohn's, RUE paresthesia, anxiety, depression. 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 She is currently managing this with sunblock and looking into closing with you for protection. She also notes she had had an increase in her Crohn's symptoms, and GI is considering adjusting her tx regimen. She also notes increased stress related to her recent health issues and her sister's weddings. She is finding she is having some difficulty managing her work demands, as her work is less structured. Her therapist has suggested she may have ADD. Patient states she was evaluated for ADD as a child; however, she was given treatment, which she did not tolerate, and so it is felt that she did not actually have ADD. The patient herself is unsure if her cognitive and work challenges could be due to an underlying ADD or instead to her other conditions, such as anxiety, narcolepsy, and Crohn's. 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 She reports that overall her narcolepsy symptoms are well controlled, and she is tolerating her narcolepsy regimen well. She continues to work on optimizing her sleep hygiene, such as minimizing sleep deprivation. She also resumed meditating before bedtime, which, historically, has been helpful. Patient reports that her tremor has been overall stable. She may notice it more if she takes more caffeine to compensate, especially if she hasn't slept as much as she would like. She may also see the tremor more if someone else points it out, or if she has pain where attention is focused on the tremor itself. [facility] Medical History (Updated 12/14/24 @ 14:13 by Fanta Meyers, [facility]) Seasonal allergies Crohn's disease Difficult intravenous access Tremor Narcolepsy Anxiety with depression Surgical History Hx of colonoscopy (~09/2024) History of esophagogastroduodenoscopy (EGD) History of wisdom tooth extraction History of laparoscopy History of appendectomy (~2014) Family History Paternal Grandmother Substance abuse Maternal Grandmother Substance abuse Maternal Uncle Substance abuse Mother Bipolar 2 disorder Sister Panic attack Depression Maternal Grandfather Prostate cancer Paternal Grandfather Prostate cancer Cancer of kidney Other Anxiety Social History Housing: Condominium Are you a primary urgent care physician assistant to a significant other at home: No Do you presently have visiting nurse or other home services: No Alcohol intake: never Patient Tobacco Use Status: Never used Tobacco e-Cigarette/Vaping Use: Never Used service: No Current occupational status: employed 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 @ [employer] Cognitive needs: No Hearing needs: No Vision needs: No Physical Exam Vital Signs: Last Vital Signs Pulse 88 02/08/25 09:25 BP 100/80 02/08/25 09:25 Pulse Ox 99 02/08/25 09:25 Oxygen Delivery Method Room Air 02/08/25 09:25 BMI result Body Mass Index 21.4 Const General: cooperative and no acute distress Orientation/consciousness: patient oriented x3 Resp Effort & Inspection: normal respiratory effort and able to speak in complete sentences Neuro Other: Very mild RUE postural tremor General: patient oriented x3, gait normal and CN's II-XI intact bilaterally Cognition (Neuro): normal cognition Motor exam (neuro): 5/5 motor strength present throughout Psych Appearance: grossly normal Mental Status: mental status grossly normal Speech and movement: Clear speech present Affect: normal affect Attitude: cooperative Thought process: Normal thought process present Assessment & Plan Assessment & Plan (1) Narcolepsy without cataplexy: Comment: MSLT results in setting of pt h/o hypersomnia, early onset REM c/w narcolepsy. Managed by [facility] Code(s): G47.419 - Narcolepsy without cataplexy Category: Medical (2) Tremor: Comment: Managed by Neurology with propranolol. Code(s): R25.1 - Tremor, unspecified Category: Medical (3) Paresthesia of right thumb: Comment: resolved s/p OT Code(s): R20.2 - Paresthesia of skin Category: Medical Plan For cognitive and executive functioning difficulties: * Concur with the patient that she would benefit from undergoing a comprehensive neuropsych evaluation to understand better her underlying diagnosis, which may be multifactorial in nature. * If her current psychiatric clinic can not perform this assessment, we can refer her to the [facility] or [facility] For narcolepsy: * Continue Lumryz 9 gm qhs- as pt is having good clinical effect from use. * Continue Pitolisant 17.8mg po qam. * Continue Armodafinil 150mg qam- keep locked up with/ her other narcolepsy tx 's. * Continue Propranol ER 60mg qhs- helping HR control and tremor. * Encouraged to continue to optimize sleep hygiene- including maintaining a consistent wake-up time. Previous discussion: regarding family planning- high-risk OB consult. Discussed if she were to come off her narcolepsy txs, we would develop a plan to minimize her narcolepsy s/s. Future considerations: [place]. Previous trials: Continue Xyrem 4.5G bid (during nighttime)- her insurance no longer covers this. For tremor: * Continue Propranolol ER 60 mg daily at bedtime For BUE L > R numbness and paresthesias: * Improved * LUE carpal-tunnel style wrist splint at night as needed * Continue PT exercises as needed and use workspace ergonomic equipment. * 01/22/23, BUE EMG/NCS- normal. F/u in 6 months or sooner prn new/worsening s/s. Medications: Refilled pitolisant (Wakix) 17.8 mg PO DAILY 30 tabs 6RF 30 days Coding Level of Care Code Est Pt Level 4 (76726) Diagnoses Narcolepsy without cataplexy G47.419 Tremor R25.1 Paresthesia of right thumb R20.2
--- OUTSIDE RECORDS SUMMARY | 2025-02-08 10:57 | XMS_ITS | Encounter Summary ---
Author Organization [facility] Address [address] [place] [address] Care Team Providers Care Postal Service Mail Processor Name Role Phone Steve Zamarripa MD Primary Care Provider [phone] Marco Mathur MD Unavailable [phone] Steve Zamarripa MD Unavailable [phone] Pcp, No Primary Care Provider Unavailabl e Steve Zamarripa MD Primary Care Provider [phone] Pcp, No Primary Care Provider Unavailabl e Encounter Details Date Type Department Care Team (Late st Contact Info) Description 08/24/2017 Scanned Document [address] [id number] Provider, Generic Social History Tobacco [...] on filedocumented in this encounter Care Teams Postal Service Mail Processor Relationship Specialty Start Date End Date Steve Zamarripa MD PCP - General Family Medicine 06/04/16 02/05/21 Steve Zamarripa MD [address] [place], [place] [address] [address] PCP - [place] Commercial Attributed 01/01/20 07/30/20 Pcp, No PCP - General General Medicine 02/06/21 06/10/22 Steve Zamarripa MD PCP - General 06/11/22 08/27/22 Pcp, No PCP - General General Medicine 08/28/22 Marco Mathur MD [address] [place] [address] Hair Spinning Machine Operator Pediatric Gastroenterology 11/26/18 documented as of this encounter
--- OUTSIDE RECORDS SUMMARY | 2025-02-08 10:57 | XMS_ITS | Encounter Summary ---
Author Organization [facility] Address [address] [place] [address] Care Team Providers Care Preschool Education Director Name Role Phone Steve Zamarripa MD Primary Care Provider [phone] Marco Mathur MD Unavailable [phone] Steve Zamarripa MD Unavailable [phone] Pcp, No Primary Care Provider Unavailabl e Steve Zamarripa MD Primary Care Provider [phone] Pcp, No Primary Care Provider Unavailabl e Encounter Details Date Type Department Care Team (Late st Contact Info) Description 10/01/2017 Scanned Document [address] [id number] Provider, Generic Social History Tobacco [...] on filedocumented in this encounter Care Teams Preschool Education Director Relationship Specialty Start Date End Date Steve Zamarripa MD PCP - General Family Medicine 06/04/16 02/05/21 Steve Zamarripa MD [address] [place], [place] [address] [address] PCP - [place] Commercial Attributed 01/01/20 07/30/20 Pcp, No PCP - General General Medicine 02/06/21 06/10/22 Steve Zamarripa MD PCP - General 06/11/22 08/27/22 Pcp, No PCP - General General Medicine 08/28/22 Marco Mathur MD [address] [place] [address] Corpsman Pediatric Gastroenterology 11/26/18 documented as of this encounter
--- OUTSIDE RECORDS SUMMARY | 2025-02-08 10:57 | XMS_ITS | Encounter Summary ---
Author Organization [facility] Address [address] [place] [address] Care Team Providers Care Notary Public Name Role Phone Jessica Cotto MD Primary Care Provider [phone] Steve Zamarripa MD Primary Care Provider [phone] Marco Mathur MD Unavailable [phone] Reason for Visit * Reason Comments Medication Refill Encounter Details Date Type Department Care Team (Late st Contact Info) Description 08/02/2015 Refill [facility] Gastroenterology, [address], [address] [place] [address] Marco Mathur MD [address] [place] [address] Crohn's disease of both small and large [...] Primary documented in this encounter Care Teams Notary Public Relationship Specialty Start Date End Date Jessica Cotto MD PCP - General 12/10/14 11/11/16 Steve Zamarripa MD [address] [place] [address] PCP - General Internal Medicine 11/12/16 Marco Mathur MD [address] [place] [address] Consulting Physician Gastroenterology 11/12/18 documented as of this encounter
--- OUTSIDE RECORDS SUMMARY | 2025-02-08 10:57 | XMS_ITS | Encounter Summary ---
Author Organization [facility] Address [address] [place] [address] Care Team Providers Care Landscape Supervisor Name Role Phone Steve Zamarirpa MD Primary Care Provider [phone] Marco Mathur MD Unavailable [phone] Steve Zamarripa MD Unavailable [phone] Pcp, No Primary Care Provider Unavailabl e Steve Zamarripa MD Primary Care Provider [phone] Pcp, No Primary Care Provider Unavailabl e Encounter Details Date Type Department Care Team (Late st Contact Info) Description 07/09/2018 Scanned Document [address] [phone] Pulmonary, Scan Social History Tobacco Use Types [...] on filedocumented in this encounter Care Teams Landscape Supervisor Relationship Specialty Start Date End Date Steve Zamarripa MD PCP - General Family Medicine 06/04/16 02/05/21 Steve Zamarripa MD [address] [place], [place] [address] [address] PCP - [place] Commercial Attributed 01/01/20 07/30/20 Pcp, No PCP - General General Medicine 02/06/21 06/10/22 Steve Zamarripa MD PCP - General 06/11/22 08/27/22 Pcp, No PCP - General General Medicine 08/28/22 Marco Mathur MD [address] [place] [address] Mine Development Engineer Pediatric Gastroenterology 11/26/18 documented as of this encounter
--- OUTSIDE RECORDS SUMMARY | 2025-02-08 10:57 | XMS_ITS | Encounter Summary ---
Author Organization [facility] Address [address] [place] [address] Care Team Providers Care Loading Dock Hand Name Role Phone Steve Zamarripa MD Primary Care Provider [phone] Marco Mathur MD Unavailable [phone] Steve Zamarripa MD Unavailable [phone] Pcp, No Primary Care Provider Unavailabl e Steve Zamarripa MD Primary Care Provider [phone] Pcp, No Primary Care Provider Unavailabl e Encounter Details Date Type Department Care Team (Late st Contact Info) Description 09/11/2018 Scanned Document [address] [phone] Steve Zamarripa MD [address] [place] [address] Social History Tobacco Use Types Packs/Day Years [...] on filedocumented in this encounter Care Teams Loading Dock Hand Relationship Specialty Start Date End Date Steve Zamarripa MD PCP - General Family Medicine 06/04/16 02/05/21 Steve Zamarripa MD [address] [place] [address] PCP - [place] Commercial Attributed 01/01/20 07/30/20 Pcp, No PCP - General General Medicine 02/06/21 06/10/22 Steve Zamarripa MD PCP - General 06/11/22 08/27/22 Pcp, No PCP - General General Medicine 08/28/22 Marco Mathur MD [address] [place] [address] Riverboat Captain Pediatric Gastroenterology 11/26/18 documented as of this encounter
--- OUTSIDE RECORDS SUMMARY | 2025-02-08 10:57 | XMS_ITS | Encounter Summary ---
Author Organization [facility] Address [address] [place] [address] Care Team Providers Care Wafer Cleaner Name Role Phone Steve Zamarripa MD Primary Care Provider [phone] Marco Mathur MD Unavailable [phone] Steve Zamarripa MD Unavailable [phone] Pcp, No Primary Care Provider Unavailabl e Steve Zamarripa MD Primary Care Provider [phone] Pcp, No Primary Care Provider Unavailabl e Encounter Details Date Type Department Care Team (Late st Contact Info) Description 11/27/2017 Scanned Document [address] [phone] Provider, Generic Social History Tobacco [...] on filedocumented in this encounter Care Teams Wafer Cleaner Relationship Specialty Start Date End Date Steve Zamarripa MD PCP - General Family Medicine 06/04/16 02/05/21 Steve Zamarripa MD [address] [place], [place] [address] [address] PCP - [place] Commercial Attributed 01/01/20 07/30/20 Pcp, No PCP - General General Medicine 02/06/21 06/10/22 Steve Zamarripa MD PCP - General 06/11/22 08/27/22 Pcp, No PCP - General General Medicine 08/28/22 Marco Mathur MD [address] [place] [address] Customer Account Specialist Pediatric Gastroenterology 11/26/18 documented as of this encounter
--- OUTSIDE RECORDS SUMMARY | 2025-02-08 10:57 | XMS_ITS | Encounter Summary ---
Author Organization [facility] Address [address] [place] [address] Care Team Providers Care Marquetry Worker Name Role Phone Steve Zamarripa MD Primary Care Provider [phone] Encounter Details Date Type Department Care Team (Late st Contact Info) Description 04/20/2021 Orders Only [facility] Department of Pulmonology [address] [place] [address] Cj Batista MD [address] [place] [address] Social History Tobacco Use Types Packs/Day Years [...] on filedocumented in this encounter Care Teams Marquetry Worker Relationship Specialty Start Date End Date Steve Zamarripa MD PCP - General Internal Medicine 07/09/18 documented as of this encounter
--- OUTSIDE RECORDS SUMMARY | 2025-02-08 10:57 | XMS_ITS | Encounter Summary ---
Author Organization [facility] Address [address] [place] [address] Care Team Providers Care Senior Project Coordinator Name Role Phone Steve Zamarripa MD Primary Care Provider [phone] Marco Mathur MD Unavailable [phone] Steve Zamarripa MD Unavailable [phone] Pcp, No Primary Care Provider Unavailabl e Steve Zamarripa MD Primary Care Provider [phone] Pcp, No Primary Care Provider Unavailabl e Encounter Details Date Type Department Care Team (Late st Contact Info) Description 06/18/2018 Scanned Document [address] [phone] Pediatric Gastroenterology, Scan Social History Tobacco Use [...] on filedocumented in this encounter Care Teams Senior Project Coordinator Relationship Specialty Start Date End Date Steve Zamarripa MD PCP - General Family Medicine 06/04/16 02/05/21 Steve Zamarripa MD [address] [place] [address] PCP - [place] Commercial Attributed 01/01/20 07/30/20 Pcp, No PCP - General General Medicine 02/06/21 06/10/22 Steve Zamarripa MD PCP - General 06/11/22 08/27/22 Pcp, No PCP - General General Medicine 08/28/22 Marco Mathur MD [address] [place] [address] Expense Analyst Pediatric Gastroenterology 11/26/18 documented as of this encounter
--- OUTSIDE RECORDS SUMMARY | 2025-02-08 10:57 | XMS_ITS | Clinical Summary ---
Author Organization [facility] Address [address] [place] [address] Care Team Providers Care Senior Water Resources Engineer Name Role Phone Steve Zamarripa MD Primary Care Provider [phone] Marco Mathur MD Unavailable [phone] Source Comments Please note that some or [...] so, obtain the minor's consent prior to disclosure.[facility] Allergies No known active allergies Medications [...] 97 11/20/2018 12:43 PM EDT Temperature 37.1 C (98.8 F) 11/20/2018 12:43 PM EDT Respiratory Rate 17 11/20/2018 12:43 PM EDT [...] 12/09/2003 ADOLESCENT HIV SCREENING 2009 COVID-19 Vaccine (1 - season) 2024 INFLUENZA (Season Ended) 2025 018, 03/03/2017 NIRSEVIMAB VACCINES UNDER 8 MONTHS Aged Out No longer eligible b ased on patient's age to complete this topic Insurance [facility] Care Teams Senior Water Resources Engineer Relationship Specialty Start Date End Date Steve Zamarripa MD [address] [place] [address] PCP - General Internal Medicine 11/12/16 Marco Mathur MD [address] [place] [address] Consulting Physician Gastroenterology 11/12/18
--- OUTSIDE RECORDS SUMMARY | 2025-02-08 10:57 | XMS_ITS | Encounter Summary ---
Author Organization [facility] Address [address] [place] [address] Care Team Providers Care Ski Production Supervisor Name Role Phone Steve Zamarripa MD Primary Care Provider [phone] Marco Mathur MD Unavailable [phone] Steve Zamarripa MD Unavailable [phone] Pcp, No Primary Care Provider Unavailabl e Steve Zamarripa MD Primary Care Provider [phone] Pcp, No Primary Care Provider Unavailabl e Encounter Details Date Type Department Care Team (Late st Contact Info) Description 12/09/2018 Scanned Document [address] [phone] Primary Care, Scan Social History [...] on filedocumented in this encounter Care Teams Ski Production Supervisor Relationship Specialty Start Date End Date Steve Zamarripa MD PCP - General Family Medicine 06/04/16 02/05/21 Steve Zamarripa MD [address] [place] [address] [place] [address] PCP - [place] Commercial Attributed 01/01/20 07/30/20 Pcp, No PCP - General General Medicine 02/06/21 06/10/22 Steve Zamarripa MD PCP - General 06/11/22 08/27/22 Pcp, No PCP - General General Medicine 08/28/22 Marco Mathur MD [address] [place] [address] Mechanical Intern Pediatric Gastroenterology 11/26/18 documented as of this encounter
--- OUTSIDE RECORDS SUMMARY | 2025-02-08 10:57 | XMS_ITS | Encounter Summary ---
Author Organization [facility] Address [address] [place] [address] Care Team Providers Care Dough Maker Name Role Phone Steve Zamarripa MD Primary Care Provider [phone] Marco Mathur MD Unavailable [phone] Steve Zamarripa MD Unavailable [phone] Pcp, No Primary Care Provider Unavailabl e Steve Zamarripa MD Primary Care Provider [phone] Pcp, No Primary Care Provider Unavailabl e Encounter Details Date Type Department Care Team (Late st Contact Info) Description 10/01/2017 Scanned Document [address] [phone] Provider, Generic Social History Tobacco [...] on filedocumented in this encounter Care Teams Dough Maker Relationship Specialty Start Date End Date Steve Zamarripa MD PCP - General Family Medicine 06/04/16 02/05/21 Steve Zamarripa MD [address] [place], [place] [address] [address] PCP - [place] Commercial Attributed 01/01/20 07/30/20 Pcp, No PCP - General General Medicine 02/06/21 06/10/22 Steve Zamarripa MD PCP - General 06/11/22 08/27/22 Pcp, No PCP - General General Medicine 08/28/22 Marco Mathur MD [address] [place] [address] Bag Loader Pediatric Gastroenterology 11/26/18 documented as of this encounter
--- OUTSIDE RECORDS SUMMARY | 2025-02-08 10:57 | XMS_ITS | Encounter Summary ---
Author Organization [facility] Address [address] [place] [address] Care Team Providers Care Regional Flatbed Truck Driver Name Role Phone Steve Zamarripa MD Primary Care Provider [phone] Marco Mathur MD Unavailable [phone] Steve Zamarripa MD Unavailable [phone] Pcp, No Primary Care Provider Unavailabl e Steve Zamarripa MD Primary Care Provider [phone] Pcp, No Primary Care Provider Unavailabl e Encounter Details Date Type Department Care Team (Late st Contact Info) Description 08/23/2017 Scanned Document [address] [phone] Provider, Generic Social History [...] on filedocumented in this encounter Care Teams Regional Flatbed Truck Driver Relationship Specialty Start Date End Date Steve Zamarripa MD PCP - General Family Medicine 06/04/16 02/05/21 Steve Zamarripa MD [address] [place], [place] [address] [address] PCP - [place] Commercial Attributed 01/01/20 07/30/20 Pcp, No PCP - General General Medicine 02/06/21 06/10/22 Steve Zamarripa MD PCP - General 06/11/22 08/27/22 Pcp, No PCP - General General Medicine 08/28/22 Marco Mathur MD [address] [place] [address] Obedience Trainer Pediatric Gastroenterology 11/26/18 documented as of this encounter
--- OUTSIDE RECORDS SUMMARY | 2025-02-08 10:57 | XMS_ITS | Clinical Summary ---
Author Organization [facility] Address [address] [place] [address] Care Team Providers Care Recruiting Operations Consultant Name Role Phone Marco Mathur MD Unavailable [phone] Pcp, No Primary Care Provider Unavailabl e [...] 116 02/06/2021 10:13 PM EDT Temperature 36.7 C (98 F) 02/06/2021 10:13 PM EDT Respiratory Rate 16 [...] HPV Vaccines Completed 11/30/2013, 03/0 06/2013, 06/02/2013 Insurance [facility] - PPO Care Teams Recruiting Operations Consultant Relationship Specialty Start Date End Date Pcp, No PCP - General General Medicine 08/28/22 Marco Mathur MD [address] [place] [address] Awning Craftsperson Pediatric Gastroenterology 11/26/18
--- OUTSIDE RECORDS SUMMARY | 2025-02-08 10:57 | XMS_ITS | Encounter Summary ---
Author Organization [facility] Address [address] [place] [address] Care Team Providers Care Middle School Music Teacher Name Role Phone Steve Zamarripa MD Primary Care Provider [phone] Marco Mathur MD Unavailable [phone] Steve Zamarripa MD Unavailable [phone] Pcp, No Primary Care Provider Unavailabl e Steve Zamarripa MD Primary Care Provider [phone] Pcp, No Primary Care Provider Unavailabl e Encounter Details Date Type Department Care Team (Late st Contact Info) Description 08/23/2017 Scanned Document [address] [phone] Provider, Generic Social History Tobacco [...] on filedocumented in this encounter Care Teams Middle School Music Teacher Relationship Specialty Start Date End Date Steve Zamarripa MD PCP - General Family Medicine 06/04/16 02/05/21 Steve Zamarripa MD [address] [place], [place] [address] [address] PCP - [place] Commercial Attributed 01/01/20 07/30/20 Pcp, No PCP - General General Medicine 02/06/21 06/10/22 Steve Zamarripa MD PCP - General 06/11/22 08/27/22 Pcp, No PCP - General General Medicine 08/28/22 Marco Mathur MD [address] [place] [address] Adult Caregiver Pediatric Gastroenterology 11/26/18 documented as of this encounter
--- OUTSIDE RECORDS SUMMARY | 2025-02-08 10:58 | XMS_ITS | Encounter Summary ---
Author Organization [facility] Address [address] [place] [address] Care Team Providers Care Securities And Real Estate Director Name Role Phone Steve Zamarripa MD Primary Care Provider [phone] Marco Mathur MD Unavailable [phone] Steve Zamarripa MD Unavailable [phone] Pcp, No Primary Care Provider Unavailabl e Steve Zamarripa MD Primary Care Provider [phone] Pcp, No Primary Care Provider Unavailabl e Encounter Details Date Type Department Care Team (Late st Contact Info) Description 06/12/2017 Scanned Document [address] [phone] Provider, Generic Social History Tobacco [...] on filedocumented in this encounter Care Teams Securities And Real Estate Director Relationship Specialty Start Date End Date Steve Zamarripa MD PCP - General Family Medicine 06/04/16 02/05/21 Steve Zamarripa MD [address] [place] [address] PCP - [place] Commercial Attributed 01/01/20 07/30/20 Pcp, No PCP - General General Medicine 02/06/21 06/10/22 Steve Zamarripa MD PCP - General 06/11/22 08/27/22 Pcp, No PCP - General General Medicine 08/28/22 Marco Mathur MD [address] [place] [address] Diesel Fleet Mechanic Pediatric Gastroenterology 11/26/18 documented as of this encounter
--- OUTSIDE RECORDS SUMMARY | 2025-02-08 10:58 | XMS_ITS | Encounter Summary ---
Author Organization [facility] Address [address] [place] [address] Care Team Providers Care Civil Project Engineer Name Role Phone Steve Zamarripa MD Primary Care Provider [phone] Marco Mathur MD Unavailable [phone] Reason for Visit * Reason Comments Medication Refill Encounter Details Date Type Department Care Team ([facility] st Contact Info) Description 04/29/2018 Refill [facility] [place] [phone] Kel Green MD Crohn's disease of both small and large [...] complication documented in this encounter Care Teams Civil Project Engineer Relationship Specialty Start Date End Date Steve Zamarripa MD [address] [place] [address] PCP - General Internal Medicine 11/12/16 Marco Mathur MD [address] [place] [address] Consulting Physician Gastroenterology 11/12/18 documented as of this encounter
--- OUTSIDE RECORDS SUMMARY | 2025-02-08 10:58 | XMS_ITS | Encounter Summary ---
Author Organization [facility] Address [address] [place] [address] Care Team Providers Care Aqueduct And Reservoir Keeper Name Role Phone Steve Zamarripa MD Primary Care Provider [phone] Marco Mathur MD Unavailable [phone] Reason for Visit * Reason Comments Medication Refill Encounter Details Date Type Department Care Team (Late st Contact Info) Description 11/27/2016 Refill [facility] Gastroenterology, [address], [address] [place] [address] Marco Mathur MD [address] [place] [address] Crohn's disease of both small and large [...] Primary documented in this encounter Care Teams Aqueduct And Reservoir Keeper Relationship Specialty Start Date End Date Steve Zamarripa MD [address] [place] [address] PCP - General Internal Medicine 11/12/16 Marco Mathur MD [address] [place] [address] Consulting Physician Gastroenterology 11/12/18 documented as of this encounter
--- OUTSIDE RECORDS SUMMARY | 2025-02-08 10:58 | XMS_ITS | Encounter Summary ---
Author Organization [facility] Address [address] [place] [address] Care Team Providers Care Branding Specialist Name Role Phone Steve Zamarripa MD Primary Care Provider [phone] Marco Mathur MD Unavailable [phone] Reason for Visit * Reason Comments Medication Refill Encounter Details Date Type Department Care Team (Late st Contact Info) Description 12/06/2016 Refill [facility] Gastroenterology, [address] [facility], [address] [place] [address] Marco Mathur MD [address] [place] [address] Crohn's disease of both small and large [...] Primary documented in this encounter Care Teams Branding Specialist Relationship Specialty Start Date End Date Steve Zamarripa MD [address] [place] [address] PCP - General Internal Medicine 11/12/16 Marco Mathur MD [address] [place] [address] Consulting Physician Gastroenterology 11/12/18 documented as of this encounter
--- OUTSIDE RECORDS SUMMARY | 2025-02-08 10:58 | XMS_ITS | Clinical Summary ---
Author Organization [facility] Address [address] [address] Care Team Providers Care Resident Care Provider Name Role Phone Steve Zamarripa MD Primary Care Provider [phone] Allergies No known active allergies Medications FLUoxetine [...] 96 11/07/2021 11:30 AM EDT Temperature 36.4 C (97.5 F) 05/21/2021 1:38 PM EST Respiratory Rate 15 11/07/2021 11:30 AM EDT [...] Pap Smear 09/20/2023 09/19/2020 Influenza Vaccine (#1) 2025 , 03/09/2021, 03/05/2020, Additional history exists DTaP,Tdap,and [...] age to complete this topic Insurance () [facility] PPO Care Teams Resident Care Provider Relationship Specialty Start Date End Date Steve Zamarripa MD PCP - General Internal Medicine 07/09/18
--- OUTSIDE RECORDS SUMMARY | 2025-02-08 10:58 | XMS_ITS | Encounter Summary ---
Author Organization [facility] Address [address] [place] [address] Care Team Providers Care Adjunct Instructor Chemistry Name Role Phone Jessica Cotto MD Primary Care Provider [phone] Steve Zamarripa MD Primary Care Provider [phone] Marco Mathur MD Unavailable [phone] Reason for Visit * Reason Comments Medication Refill Encounter Details Date Type Department Care Team (Late st Contact Info) Description 08/26/2016 Refill [facility] Gastroenterology, [address], [address] [place] [address] Marco Mathur MD [address] [place] [address] Crohn's disease of both small and large [...] Primary documented in this encounter Care Teams Adjunct Instructor Chemistry Relationship Specialty Start Date End Date Jessica Cotto MD PCP - General 12/10/14 11/11/16 Steve Zamarripa MD [address] [place] [address] PCP - General Internal Medicine 11/12/16 Marco Mathur MD [address] [place] [address] Consulting Physician Gastroenterology 11/12/18 documented as of this encounter
--- OUTSIDE RECORDS SUMMARY | 2025-02-08 10:58 | XMS_ITS | Encounter Summary ---
Author Organization [facility] Address [address] [place] [address] Care Team Providers Care Inspector Toys Name Role Phone Steve Zamarripa MD Primary Care Provider [phone] Marco Mathur MD Unavailable [phone] Steve Zamarripa MD Unavailable [phone] Pcp, No Primary Care Provider Unavailabl e Steve Zamarripa MD Primary Care Provider [phone] Pcp, No Primary Care Provider Unavailabl e Encounter Details Date Type Department Care Team (Late st Contact Info) Description 06/14/2016 Scanned Document [address] [phone] Provider, Generic Social History [...] on filedocumented in this encounter Care Teams Inspector Toys Relationship Specialty Start Date End Date Steve Zamarripa MD PCP - General Family Medicine 06/04/16 02/05/21 Steve Zamarripa MD [address] [place] [address] PCP - [place] Commercial Attributed 01/01/20 07/30/20 Pcp, No PCP - General General Medicine 02/06/21 06/10/22 Steve Zamarripa MD PCP - General 06/11/22 08/27/22 Pcp, No PCP - General General Medicine 08/28/22 Marco Mathur MD [address] [place] [address] Cyber Security Specialist Pediatric Gastroenterology 11/26/18 documented as of this encounter
--- OUTSIDE RECORDS SUMMARY | 2025-02-08 10:58 | XMS_ITS | Clinical Summary ---
Author Organization [facility] Address [address] [facility] [address] [place] [address] Phone Care Team Providers Care Intelligence Consultant Name Role Phone Steve Zamarripa MD Primary Care Provider Encounters Date Type Department Care Team Description 11/29/2024 Telephone [facility] [address] [place] [address] Rachel Gardner Referral from Last 3 Months Social History Tobacco Use Types Packs/Day Years Used Date Smoking Tobacco: Never Assessed Education Answer Date Recorded Are you interested in more education? Not on patricia e 09/27/2022 Are you concerned about learning? Not on file 09/27/2022 No 09/27/2022 No 09/27/2022 Digital Access Answer Date Recorded No 10/26/2022 No 10/26/2022 No 10/26/2022 Reliable internet access at home? Not on file 10/26/2022 Device with a working camera? Not on file Comments Unknown Sex and Gender Information Value Date Recorded Sex Assigned at Not on file Legal Sex Female 4:24 PM EDT Gender Identity Not on file Sexual Orientation Not on file Plan of Treatment Health Maintenance Due Date Last Done Comments Adult Td,Tdap Booster 1996 DEPRESSION SCREENING 2008 SMOKING Hx and SMOKELESS TOBACCO SCREENING 2009 HEPATITIS C SCREENING 2014 HIV ONE-TIME SCREENING (18-6 5 YEARS) 2014 PAP SMEAR 2017 INFLUENZA VACCINE (#1) 2024 1, 03/13/2018 COVID-19 VACCINE (2 - 2024-2 6 season) 2025 03/02/2021 HEPATITIS A VACCINES Aged Out 03/30/2021 No long er eligible based on patient's age to complete this topic HIB VACCINES Aged Out No longer eligi ble based on patient's age to complete this topic MENINGOCOCCAL VACCINES (ACWY) Aged Out No longer eligible based on patient's age to complete this topic MENINGOCOCCAL VACCINES (B) Aged Out N o longer eligible based on patient's age to complete this topic PNEUMOCOCCAL VACCINES (0-49 years) Aged Out No longer eligible b ased on patient's age to complete this topic Medical Devices Not on file Insurance [email or web address] PPO [email or web address] PPO [employer] PPO [place] [employer] PPO [employer] PPO Mimi COPE [place] [facility] PPO Mmii COPE [place] Mimi COPE [place] Mimi COPE [place] Care Teams Intelligence Consultant Relationship Specialty Start Date End Date Steve Zamarripa MD PCP - General Internal Medicine 11/07/17 Additional Source Comments The information contained in this document represents components of the legal health record. It is not the complete legal health record.[facility]
--- OUTSIDE RECORDS SUMMARY | 2025-02-08 10:58 | XMS_ITS | Encounter Summary ---
Author Organization [facility] Address [address] [place] [address] Care Team Providers Care Assembly Line Driver Name Role Phone Jessica Cotto MD Primary Care Provider [phone] Steve Zamarripa MD Primary Care Provider [phone] Marco Mathur MD Unavailable [phone] Reason for Visit * Reason Comments Medication Refill Encounter Details Date Type Department Care Team (Late st Contact Info) Description 07/04/2015 Refill [facility] Gastroenterology, [address], [address] [place] [address] Marco Mathur MD [address] [place] [address] Crohn's disease of both small and large [...] Primary documented in this encounter Care Teams Assembly Line Driver Relationship Specialty Start Date End Date Jessica Cotto MD PCP - General 12/10/14 11/11/16 Steve Zamarripa MD [address] [place] [address] PCP - General Internal Medicine 11/12/16 Marco Mathur MD [address] [place] [address] Consulting Physician Gastroenterology 11/12/18 documented as of this encounter
--- OUTSIDE RECORDS SUMMARY | 2025-02-08 10:58 | XMS_ITS | Encounter Summary ---
Author Organization [facility] Address [address] [place] [address] Care Team Providers Care Agricultural Education Teacher Name Role Phone Jessica Cotto MD Primary Care Provider [phone] Steve Zamarripa MD Primary Care Provider [phone] Marco Mathur MD Unavailable [phone] Reason for Visit * Reason Comments Medication Refill Encounter Details Date Type Department Care Team (Late st Contact Info) Description 06/05/2016 Refill [facility] Gastroenterology, [address], [address] [place] [address] Marco Mathur MD [address] [place] [address] Crohn's disease of both small and large [...] Primary documented in this encounter Care Teams Agricultural Education Teacher Relationship Specialty Start Date End Date Jessica Cotto MD PCP - General 12/10/14 11/11/16 Steve Zamarripa MD [address] [place] [address] PCP - General Internal Medicine 11/12/16 Marco Mathur MD [address] [place] [address] Consulting Physician Gastroenterology 11/12/18 documented as of this encounter
--- OUTSIDE RECORDS SUMMARY | 2025-02-08 10:58 | XMS_ITS | Encounter Summary ---
Author Organization [facility] Address [address] [place] [address] Care Team Providers Care Aircraft Charter Dispatcher Name Role Phone Steve Zamarripa MD Primary Care Provider [phone] Marco Mathur MD Unavailable [phone] Reason for Visit * Reason Comments Medication Refill Encounter Details Date Type Department Care Team (Late st Contact Info) Description 11/22/2016 Refill [facility] Gastroenterology, [address], [address] [place] [address] Marco Mathur MD [address] [place] [address] Crohn's disease of both [...] documented in this encounter Care Teams Aircraft Charter Dispatcher Relationship Specialty Start Date End Date Steve Zamarripa MD [address] [place] [address] PCP - General Internal Medicine 11/12/16 Macro Mathur MD [address] [place] [address] Consulting Physician Gastroenterology 11/12/18 documented as of this encounter
--- OUTSIDE RECORDS SUMMARY | 2025-02-08 10:58 | XMS_ITS | Encounter Summary ---
Author Organization [facility] Address [address] [place] [address] Care Team Providers Care Local Owner Operator Truck Driver Name Role Phone Steve Zamraripa MD Primary Care Provider [phone] Marco Mathur MD Unavailable [phone] Reason for Visit * Reason Comments Medication Refill Encounter Details Date Type Department Care Team (Late st Contact Info) Description 11/27/2017 Refill [facility] [place] [phone] Marco Mathur MD [address] [place] [address] Crohn's disease of both small and large [...] complication documented in this encounter Care Teams Local Owner Operator Truck Driver Relationship Specialty Start Date End Date Steve Zamarripa MD [address] [place] [address] PCP - General Internal Medicine 11/12/16 Marco Mathur MD [address] [place] [address] Consulting Physician Gastroenterology 11/12/18 documented as of this encounter
--- OUTSIDE RECORDS SUMMARY | 2025-02-08 10:58 | XMS_ITS | Encounter Summary ---
Author Organization [facility] Address [address] [place] [address] Care Team Providers Care Barrel Finisher Name Role Phone Jessica Cotto MD Primary Care Provider [phone] Steve Zamarripa MD Primary Care Provider [phone] Marco Mathur MD Unavailable [phone] Reason for Visit * Reason Comments Medication Refill Encounter Details Date Type Department Care Team (Late st Contact Info) Description 08/19/2016 Refill [facility] Gastroenterology, [address], [address] [place] [address] Marco Mathur MD [address] [place] [address] Crohn's disease of both small and large [...] Primary documented in this encounter Care Teams Barrel Finisher Relationship Specialty Start Date End Date Jessica Cotto MD PCP - General 12/10/14 11/11/16 Steve Zamarripa MD [address] [place] [address] PCP - General Internal Medicine 11/12/16 Marco Mathur MD [address] [place] [address] Consulting Physician Gastroenterology 11/12/18 documented as of this encounter
--- OUTSIDE RECORDS SUMMARY | 2025-02-08 10:58 | XMS_ITS | Encounter Summary ---
Author Organization [facility] Address [address] [place] [address] Care Team Providers Care Bottom Sprayer Name Role Phone Steve Zamarripa MD Primary Care Provider [phone] Marco Mathur MD Unavailable [phone] Reason for Visit * Reason Comments Medication Refill Encounter Details Date Type Department Care Team (Late st Contact Info) Description 10/08/2017 Refill [facility] Gastroenterology, [address] [facility], [address] [place] [address] Marco Mathur MD [address] [place] [address] Crohn's disease of both small and large [...] complication documented in this encounter Care Teams Bottom Sprayer Relationship Specialty Start Date End Date Steve Zamarripa MD [address] [place] [address] PCP - General Internal Medicine 11/12/16 Marco Mathur MD [address] [place] [address] Consulting Physician Gastroenterology 11/12/18 documented as of this encounter
--- OUTSIDE RECORDS SUMMARY | 2025-02-08 10:58 | XMS_ITS | Encounter Summary ---
Author Organization [facility] Address [address] [place] [address] Care Team Providers Care Lunch Truck Operator Name Role Phone Steve Zamarripa MD Primary Care Provider [phone] Marco Mathur MD Unavailable [phone] Steve Zamarripa MD Unavailable [phone] Pcp, No Primary Care Provider Unavailabl e Steve Zamarripa MD Primary Care Provider [phone] Pcp, No Primary Care Provider Unavailabl e Encounter Details Date Type Department Care Team (Late st Contact Info) Description 07/26/2017 Telephone [facility] [address] [phone] Verónica Vogel [address] [place] [address] Social History Tobacco Use Types Packs/Day Years [...] on filedocumented in this encounter Care Teams Lunch Truck Operator Relationship Specialty Start Date End Date Steve Zamarripa MD PCP - General Family Medicine 06/04/16 02/05/21 Steve Zamarripa MD [address] [place] [address] PCP - [place] Commercial Attributed 01/01/20 07/30/20 Pcp, No PCP - General General Medicine 02/06/21 06/10/22 Steve Zamarripa MD PCP - General 06/11/22 08/27/22 Pcp, No PCP - General General Medicine 08/28/22 Marco Mathur MD [address] [place] [address] End Touching Machine Operator Pediatric Gastroenterology 11/26/18 documented as of this encounter
--- OUTSIDE RECORDS SUMMARY | 2025-02-08 10:58 | XMS_ITS | Encounter Summary ---
Author Organization [facility] Address [address] [place] [address] Care Team Providers Care Folder Inspector Name Role Phone Steve Zamarripa MD Primary Care Provider [phone] Marco Mathur MD Unavailable [phone] Steve Zamarripa MD Unavailable [phone] Pcp, No Primary Care Provider Unavailabl e Steve Zamarripa MD Primary Care Provider [phone] Pcp, No Primary Care Provider Unavailabl e Encounter Details Date Type Department Care Team (Late st Contact Info) Description 10/22/2016 Scanned Document [address] [phone] Provider, Generic Social History Tobacco [...] on filedocumented in this encounter Care Teams Folder Inspector Relationship Specialty Start Date End Date Steve Zamarripa MD PCP - General Family Medicine 06/04/16 02/05/21 Steve Zamarripa MD [address] [place] [address] PCP - [place] Commercial Attributed 01/01/20 07/30/20 Pcp, No PCP - General General Medicine 02/06/21 06/10/22 Steve Zamarripa MD PCP - General 06/11/22 08/27/22 Pcp, No PCP - General General Medicine 08/28/22 Marco Mathur MD [address] [place] [address] Weighmaster Pediatric Gastroenterology 11/26/18 documented as of this encounter
--- OUTSIDE RECORDS SUMMARY | 2025-02-08 10:58 | XMS_ITS | Encounter Summary ---
Author Organization [facility] Address [address] [place] [address] Care Team Providers Care Quill Layer Name Role Phone Jessica Cotto MD Primary Care Provider [phone] Steve Zamarripa MD Primary Care Provider [phone] Marco Mathur MD Unavailable [phone] Reason for Visit * Reason Comments Medication Refill Encounter Details Date Type Department Care Team (Late st Contact Info) Description 08/11/2015 Refill [facility] Gastroenterology, [address], [address] [place] [address] Marco Mathur MD [address] [place] [address] Crohn's disease of both small and large [...] Primary documented in this encounter Care Teams Quill Layer Relationship Specialty Start Date End Date Jessica Cotto MD PCP - General 12/10/14 11/11/16 Steve Zamarripa MD [address] [place] [address] PCP - General Internal Medicine 11/12/16 Marco Mathur MD [address] [place] [address] Consulting Physician Gastroenterology 11/12/18 documented as of this encounter
--- OUTSIDE RECORDS SUMMARY | 2025-02-08 10:58 | XMS_ITS | Encounter Summary ---
Author Organization [facility] Address [address] [place] [address] Care Team Providers Care Brand Specialist Name Role Phone Steve Zamarripa MD Primary Care Provider [phone] Marco Mathur MD Unavailable [phone] Reason for Visit * Reason Comments Medication Refill Encounter Details Date Type Department Care Team (Late st Contact Info) Description 07/29/2018 Refill [facility] [place] [phone] Marco Mathur MD [address] [place] [address] Crohn's disease of both small and large [...] complication documented in this encounter Care Teams Brand Specialist Relationship Specialty Start Date End Date Steve Zamarripa MD [address] [place] [address] PCP - General Internal Medicine 11/12/16 Marco Mathur MD [address] [place] [address] Consulting Physician Gastroenterology 11/12/18 documented as of this encounter
--- OUTSIDE RECORDS SUMMARY | 2025-02-08 10:58 | XMS_ITS | Encounter Summary ---
Author Organization [facility] Address [address] [place] [address] Care Team Providers Care Phlebotomy Tech Name Role Phone Steve Zamarripa MD Primary Care Provider [phone] Encounter Details Date Type Department Care Team (Late st Contact Info) Description 12/20/2021 Orders Only [facility] Department of Pulmonology [address] [place] [address] Cj Batista MD [address] [place] [address] Social History Tobacco Use Types Packs/Day Years [...] on filedocumented in this encounter Care Teams Phlebotomy Tech Relationship Specialty Start Date End Date Steve Zamarripa MD PCP - General Internal Medicine 07/09/18 documented as of this encounter
--- OUTSIDE RECORDS SUMMARY | 2025-02-08 10:58 | XMS_ITS | Encounter Summary ---
Author Organization [facility] Address [address] [place] [address] Care Team Providers Care Hosiery Knitter Name Role Phone Steve Zamarripa MD Primary Care Provider [phone] Marco Mathur MD Unavailable [phone] Steve Zamarripa MD Unavailable [phone] Pcp, No Primary Care Provider Unavailabl e Steve Zamarripa MD Primary Care Provider [phone] Pcp, No Primary Care Provider Unavailabl e Encounter Details Date Type Department Care Team (Late st Contact Info) Description 09/20/2016 Scanned Document [address] [phone] Provider, Generic Social History Tobacco [...] on filedocumented in this encounter Care Teams Hosiery Knitter Relationship Specialty Start Date End Date Steve Zamarripa MD PCP - General Family Medicine 06/04/16 02/05/21 Steve Zamarripa MD [address] [place] [address] PCP - [place] Commercial Attributed 01/01/20 07/30/20 Pcp, No PCP - General General Medicine 02/06/21 06/10/22 Steve Zamarripa MD PCP - General 06/11/22 08/27/22 Pcp, No PCP - General General Medicine 08/28/22 Marco Mathur MD [address] [place] [address] Associate Store Director Pediatric Gastroenterology 11/26/18 documented as of this encounter
--- OUTSIDE RECORDS SUMMARY | 2025-02-08 10:58 | XMS_ITS | Encounter Summary ---
Author Organization [facility] Address [address] [place] [address] Care Team Providers Care Car Body Inspector Name Role Phone Steve Zamarripa MD Primary Care Provider [phone] Marco Mathur MD Unavailable [phone] Reason for Visit * Reason Comments Medication Refill Encounter Details Date Type Department Care Team (Late st Contact Info) Description 06/08/2018 Refill [facility] Gastroenterology, [address]st [facility], [address] [place] [address] Marco Mathur MD [address] [place] [address] Crohn's disease of both small and large [...] documented in this encounter Care Teams Car Body Inspector Relationship Specialty Start Date End Date Steve Zamarripa MD [address] [place] [address] PCP - General Internal Medicine 11/12/16 Marco Mathur MD [address] [place] [address] Consulting Physician Gastroenterology 11/12/18 documented as of this encounter
--- OUTSIDE RECORDS SUMMARY | 2025-02-08 10:58 | XMS_ITS | Encounter Summary ---
Author Organization [facility] Address [address] [place] [address] Care Team Providers Care Gasoline Catalyst Operator Name Role Phone Steve Zamarripa MD Primary Care Provider [phone] Marco Mathur MD Unavailable [phone] Reason for Visit * Reason Comments Medication Refill Encounter Details Date Type Department Care Team (Late st Contact Info) Description 10/31/2017 Refill [facility] [place] [phone] Marco Mathur MD [address] [place] [address] Crohn's disease of both small and large [...] complication documented in this encounter Care Teams Gasoline Catalyst Operator Relationship Specialty Start Date End Date Steve Zamarripa MD [address] [place] [address] PCP - General Internal Medicine 11/12/16 Marco Mathur MD [address] [place] [address] Consulting Physician Gastroenterology 11/12/18 documented as of this encounter
--- OUTSIDE RECORDS SUMMARY | 2025-02-08 10:58 | XMS_ITS | Encounter Summary ---
Author Organization [facility] Address [address] [facility] [address] [place] [address] Phone Care Team Providers Care Air Control/Anti Air Warfare Officer Name Role Phone Steve Zamarripa MD Primary Care Provider Reason for Visit * Reason Onset Date Comments Referral 11/29/2024 Encounter Details Date Type Department Care Team (Late st Contact Info) Description 11/29/2024 Telephone [facility] [address] [place] [address] Rachel [email or web address] Referral Social History Tobacco Use Types Packs/Day Years [...] on file documented as of this encounter Progress Notes * Saloni Payne - 12/06/2024 9:52 AM EDT Pt called back to book appt Central Support Plug Machine Operator (Please do not reply to this user; this inbox is not monitored.) Thank you. * Stacey Costa - 11/30/2024 11:14 AM EDT Pt still hasn't received her referral. Please contact and advise. Central Support Plug Machine Operator (Please do not reply to this user; this inbox is not monitored.) Thank you. * Rachel Gardner - 11/29/2024 11:52 AM EDT [facility] Top Smart Phrases: Locating Referral Fax Lorrie, We are notifying you that the patient called to schedule a new patient appointment. The referral is not listed on file or in the media tab. The patient has informed us that the referral was faxed out. Please review the SFA and contact the patient with the referral determination if it is on file or not. Thank you If caller not the patient: Name: Relationship: Referral Order Details provided by caller Diagnosis: N/A Reason/Specify: N/A Referred To Name:N/A Referral Fax Out Dates: 11/17/24 + 11/25/24 Additional information: N/A Agent Action: > Route Encounter to FD Pool > Reason for Call: Referral > Comment: Call Back & Locate Referral in SFA Needed > Reiterate Scripting: Provide our referral not on file scripting Required Scripting: If the referral is not on file: Lorrie, thank you for calling. I see that you'vementioned your provider faxed over a referral, but we have not yet received it on our end. Sometimes there can be a delay in processing or receiving faxes. Can you please confirm the date it was sent and the fax number that was used? Provide the caller with the office fax number. I will be happy to send a message over to the office for them to review their records and let you know if they've received it. documented in this encounter Plan of Treatment Not on file documented as of this encounter Visit Diagnoses Not on filedocumented in this encounter Care Teams Air Control/Anti Air Warfare Officer Relationship Specialty Start Date End Date Steve Zamarripa MD PCP - General Internal Medicine 11/07/17 documented as of this encounter Additional Source Comments The information contained in this document represents components of the legal health record. It is not the complete legal health record.[facility]
--- OUTSIDE RECORDS SUMMARY | 2025-02-08 10:58 | XMS_ITS | Encounter Summary ---
Author Organization [facility] Address [address] [place] [address] Care Team Providers Care Securities Research Analyst Name Role Phone Jessica Cotto MD Primary Care Provider [phone] Steve Zamarripa MD Primary Care Provider [phone] Marco Mathur MD Unavailable [phone] Reason for Visit * Reason Comments Medication Refill Encounter Details Date Type Department Care Team (Late st Contact Info) Description 02/09/2016 Refill [facility] Gastroenterology, [address], [address] [place] [address] Marco Mathur MD [address] [place] [address] Crohn's disease of both small and large [...] Primary documented in this encounter Care Teams Securities Research Analyst Relationship Specialty Start Date End Date Jessica Cotto MD PCP - General 12/10/14 11/11/16 Steve Zamarripa MD [address] [place] [address] PCP - General Internal Medicine 11/12/16 Marco Mathur MD [address] [place] [address] Consulting Physician Gastroenterology 11/12/18 documented as of this encounter
--- OUTSIDE RECORDS SUMMARY | 2025-02-08 10:58 | XMS_ITS | Encounter Summary ---
Author Organization [facility] Address [address] [place] [address] Care Team Providers Care Furrier Shop Supervisor Name Role Phone Steve Zamarripa MD Primary Care Provider [phone] Marco Mathur MD Unavailable [phone] Steve Zamarripa MD Unavailable [phone] Pcp, No Primary Care Provider Unavailabl e Steve Zamarripa MD Primary Care Provider [phone] Pcp, No Primary Care Provider Unavailabl e Encounter Details Date Type Department Care Team (Late st Contact Info) Description 05/29/2017 Scanned Document [address] [phone] Provider, Generic Social History Tobacco [...] on filedocumented in this encounter Care Teams Furrier Shop Supervisor Relationship Specialty Start Date End Date Steve Zamarripa MD PCP - General Family Medicine 06/04/16 02/05/21 Steve Zamarripa MD [address] [place] [address] PCP - [place] Commercial Attributed 01/01/20 07/30/20 Pcp, No PCP - General General Medicine 02/06/21 06/10/22 Steve Zamarripa MD PCP - General 06/11/22 08/27/22 Pcp, No PCP - General General Medicine 08/28/22 Marco Mathur MD [address] [place] [address] Head Greenskeeper Pediatric Gastroenterology 11/26/18 documented as of this encounter
== END 2025-02-08 10:54 | disposition home or self-care (01) ==
LOC: HO.HSMS 09:30
PROVIDERS: PCP Hospitalist; Visit Provider Nurse Practitioner Family
DX: G47.419 Narcolepsy without cataplexy (principal); R25.1 Tremor, unspecified; R20.2 Paresthesia of skin
CPT/HCPCS: 99214

== ENCOUNTER 2025-03-21 10:05 | Outpatient (AMB) | payer OTHER, SELFPAY ==
--- OUTSIDE RECORDS SUMMARY | 2017-07-23 16:47 | XMS_ITS | Encounter Summary ---
Author Organization [facility] Address [address] [place] [address] Care Team Providers Care Music Journalist Name Role Phone Steve Zamarripa MD Primary Care Provider [phone] Encounter Details Date Type Department Care Team (Late st Contact Info) Description 07/23/2017 3:47 PM EST Hospital Encounter Former[facility] named [facility] [address] [place] [address] Víctor Rutldege MD [address] [place] [phone] Social History Tobacco Use Types Packs/Day Years [...] on filedocumented in this encounter Care Teams Music Journalist Relationship Specialty Start Date End Date Steve Zamarripa MD PCP - General Family Medicine 06/04/16 02/05/21 documented as of this encounter
--- NOTE | 2025-03-21 10:08 | A.OFFVIS_ITS ---
Vital Signs 03/21/25 10:10 Height 5 ft 8 in Weight 138 lb 14.259 oz BMI 21.1 BP 117/64 Blood Pressure Location Lt brachial Position Sitting Pulse 95 Intake Visit Reasons: 5 months f/u Intake Note: Aislinn presents in the office as a 6 month follow up. CC: More GI symptoms happening the last few months. Diarrhea, constipation at times, blood in stool at times, cramping in the abdomen. Hospice Manager Required: No Allergies cat dander Allergy (Mild, Verified 03/21/25 10:10) sneezing pollen extracts Allergy (Verified 03/21/25 10:10) Unknown HPI HPI 5 months f/u: Details: 29 yr old f with hx of anxiety, narcolepsy, anxiety, Crohns disease being seen for f/u RECAP: Dx with Crohns 2014 aged 19 she had been having pain on her initial presentation at the time, She has disease of small and large bowels Has been receiving remicade 500 mg q 8 weeks with good response Has also tried MTX and folic acid for 1 yr in the past never smoker Surgeries: ileal resection, appendectomy, 2015 ovarian torsion and adhesions 2015 IMAGINg: MRe: 2018-- no inflammation EGD/colonoscopy-- 2020 at [place] and was apparently nml LABS: TB test neg 05/23 Vit c low vit D low hep b ab pos I increased the dose of inflectra due to undetectable trough level she was supposed to get colonoscopy but was cancelled as anesthesia could not get access repeat trough still low at 2.8, 08/2024 Colonoscopy:09/2024 chronic colitis, enteritis at anastomosis INTERIM: ongoing sx of diarrhea and RLQ tenderness she has anal irritation due to loose stools she has no sx of obstruction she denies joint pains, or mouth ulcers EXAM: GENERAL: The patient is well developed and nontoxic. VITAL SIGNS:see workflow HEENT: Nonicteric sclerae, PERRLA, EOMI. Oropharynx clear. Moist mucous membranes. Conjunctivae appear well perfused. No thyroid mass. CHEST: Chest wall is nontender. HEART: Regular rate and rhythm without murmurs. LUNGS: Clear to auscultation bilaterally. ABDOMEN: Soft, positive bowel sounds, tender RLQ, no organomegaly.no flank tenderness SKIN: No rash, no excessive bruising, petechiae, or purpura. NEUROLOGIC: Cranial nerves II-XII intact without motor/sensory deficit. Psych: normal affect A/P: 1/ Crohns -large and small bowel - dose increased to 650 mg due to undetectable trough, then changed to reflexis but still has sx , probably has BAM as well, kinbe incompletely controlled IBD PLAN: 1/option re-discussed of trying another biosimilar, or jumping class, prob entyvio 2/ we will rept fecal lactoferrin, try wlechol, and get MR enterogram [facility] Medical History Seasonal allergies Crohn's disease Difficult intravenous access Tremor Narcolepsy Anxiety with depression Surgical History Hx of colonoscopy (~09/2024) History of esophagogastroduodenoscopy (EGD) History of wisdom tooth extraction History of laparoscopy History of appendectomy (~2014) Family History Paternal Grandmother Substance abuse Maternal Grandmother Substance abuse Maternal Uncle Substance abuse Mother Bipolar 2 disorder Sister Panic attack Depression Maternal Grandfather Prostate cancer Paternal Grandfather Prostate cancer Cancer of kidney Other Anxiety Social History Housing: Condominium Are you a primary health care recruiter to a significant other at home: No Do you presently have visiting nurse or other home services: No Alcohol intake: never Patient Tobacco Use Status: Never used Tobacco e-Cigarette/Vaping Use: Never Used service: No Current occupational status: employed 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 Code(s): K50.80 - Crohn's disease of both small and large intestine without complications Category: Medical Qualifiers: Digestive disease complication type: without complication Qualified Code(s): K50.80 - Crohn's disease of both small and large intestine without complications Plan: as above Orders: Orders Promethcedrics ANSER IFX Today K50.80 - Crohn's disease of both small and large intestine without complications MR pelvis wo/w con Today K50.80 - Crohn's disease of both small and large intestine without complications Lactoferrin, Fecal, Quant. Today K50.80 - Crohn's disease of both small and large intestine without complications, K51.50 - Left sided colitis without complications MR abdomen wo/w con Today K50.80 - Crohn's disease of both small and large intestine without complications Medications: New colesevelam (WelChol) 1,250 mg (2 x 625 mg) PO BID 120 tabs 1RF Coding Level of Care Code Est Pt Level 4 (66531) Diagnoses Crohn's disease of both small and large intestine without complication K50.80 Digestive disease complication type: without complication
[2025-03-21 10:10] VITALS: BP 117/64; PULSE 95; BMI 21.1
--- OUTSIDE RECORDS SUMMARY | 2025-03-21 11:33 | XMS_ITS | Encounter Summary ---
Author Organization [facility] Address [address] [place] [address] Care Team Providers Care Lean Sensei Name Role Phone Steve Zamarripa MD Primary Care Provider [phone] Marco Mathur MD Unavailable [phone] Steve Zamarripa MD Unavailable [phone] Pcp, No Primary Care Provider Unavailabl e Steve Zamarripa MD Primary Care Provider [phone] Pcp, No Primary Care Provider Unavailabl e Encounter Details Date Type Department Care Team (Late st Contact Info) Description 08/24/2017 Scanned Document [address] [phone] Provider, Generic Social History Tobacco [...] on filedocumented in this encounter Care Teams Lean Sensei Relationship Specialty Start Date End Date Steve Zamarripa MD PCP - General Family Medicine 06/04/16 02/05/21 Steve Zamarripa MD [address] [place], [place] [address] [address] PCP - [place] Commercial Attributed 01/01/20 07/30/20 Pcp, No PCP - General General Medicine 02/06/21 06/10/22 Steve Zamarripa MD PCP - General 06/11/22 08/27/22 Pcp, No PCP - General General Medicine 08/28/22 Marco Mathur MD [address] [place] [address] Photo Mask Processor Pediatric Gastroenterology 11/26/18 documented as of this encounter
--- OUTSIDE RECORDS SUMMARY | 2025-03-21 11:34 | XMS_ITS | Encounter Summary ---
Author Organization [facility] Address [address] [place] [address] Care Team Providers Care Asphalt Raker Name Role Phone Steve Zamarripa MD Primary Care Provider [phone] Marco Mathur MD Unavailable [phone] Steve Zamarripa MD Unavailable [phone] Pcp, No Primary Care Provider Unavailabl e Steve Zamarripa MD Primary Care Provider [phone] Pcp, No Primary Care Provider Unavailabl e Encounter Details Date Type Department Care Team (Late st Contact Info) Description 07/09/2018 Scanned Document [address] [phone] Pulmonary, Scan Social History Tobacco Use Types [...] on filedocumented in this encounter Care Teams Asphalt Raker Relationship Specialty Start Date End Date Steve Zamarripa MD PCP - General Family Medicine 06/04/16 02/05/21 Steve Zamarripa MD [address] [place], [place] [address] [address] PCP - [place] Commercial Attributed 01/01/20 07/30/20 Pcp, No PCP - General General Medicine 02/06/21 06/10/22 Steve Zamarripa MD PCP - General 06/11/22 08/27/22 Pcp, No PCP - General General Medicine 08/28/22 Marco Mathur MD [address] [place] [address] Barn Manager Pediatric Gastroenterology 11/26/18 documented as of this encounter
--- OUTSIDE RECORDS SUMMARY | 2025-03-21 11:34 | XMS_ITS | Encounter Summary ---
Author Organization [facility] Address [address] [place] [address] Care Team Providers Care In Class Special Education Teacher Name Role Phone Steve Zamarripa MD Primary Care Provider [phone] Marco Mathur MD Unavailable [phone] Steve Zamarripa MD Unavailable [phone] Pcp, No Primary Care Provider Unavailabl e Steve Zamarripa MD Primary Care Provider [phone] Pcp, No Primary Care Provider Unavailabl e Encounter Details Date Type Department Care Team (Late st Contact Info) Description 06/18/2018 Scanned Document [address] [phone] Pediatric Gastroenterology, Scan Social History Tobacco Use [...] on filedocumented in this encounter Care Teams In Class Special Education Teacher Relationship Specialty Start Date End Date Steve Zamarripa MD PCP - General Family Medicine 06/04/16 02/05/21 Steve Zamarripa MD [address] [place] [address] PCP - [place] Commercial Attributed 01/01/20 07/30/20 Pcp, No PCP - General General Medicine 02/06/21 06/10/22 Steve Zamarripa MD PCP - General 06/11/22 08/27/22 Pcp, No PCP - General General Medicine 08/28/22 Marco Mathur MD [address] [place] [address] Fringe Weaver Pediatric Gastroenterology 11/26/18 documented as of this encounter
--- OUTSIDE RECORDS SUMMARY | 2025-03-21 11:35 | XMS_ITS | Clinical Summary ---
Author Organization [facility] Address [address] [place] [address] Care Team Providers Care Boat Designer Name Role Phone Marco Mathur MD Unavailable [phone] Pcp, No Primary Care Provider Unavailabl e [...] Vaccines Completed 11/30/2013, 03/0 06/2013, 06/02/2013 Insurance [facility] - PPO Care Teams Boat Designer Relationship Specialty Start Date End Date Pcp, No PCP - General General Medicine 08/28/22 Marco Mathur MD [address] [place] [address] Outboard Motor Assembler Pediatric Gastroenterology 11/26/18
--- OUTSIDE RECORDS SUMMARY | 2025-03-21 11:35 | XMS_ITS | Encounter Summary ---
Author Organization [facility] Address [address] [place] [address] Care Team Providers Care Teacher'S Aide Name Role Phone Steve Zamarripa MD Primary Care Provider [phone] Marco Mathur MD Unavailable [phone] Steve Zamarripa MD Unavailable [phone] Pcp, No Primary Care Provider Unavailabl e Steve Zamarripa MD Primary Care Provider [phone] Pcp, No Primary Care Provider Unavailabl e Encounter Details Date Type Department Care Team (Late st Contact Info) Description 11/27/2017 Scanned Document [address] [phone] Provider, Generic Social History Tobacco [...] on filedocumented in this encounter Care Teams Teacher'S Aide Relationship Specialty Start Date End Date Steve Zamarripa MD PCP - General Family Medicine 06/04/16 02/05/21 Steve Zamarripa MD [address] [place], [place] [address] [address] PCP - [place] Commercial Attributed 01/01/20 07/30/20 Pcp, No PCP - General General Medicine 02/06/21 06/10/22 Steve Zamarripa MD PCP - General 06/11/22 08/27/22 Pcp, No PCP - General General Medicine 08/28/22 Marco Mathur MD [address] [place] [address] Nodulizer Pediatric Gastroenterology 11/26/18 documented as of this encounter
--- OUTSIDE RECORDS SUMMARY | 2025-03-21 11:35 | XMS_ITS | Encounter Summary ---
Author Organization [facility] Address [address] [place] [address] Care Team Providers Care Sewing Machine Maintenance Mechanic Name Role Phone Steve Zamarripa MD Primary Care Provider [phone] Marco Mathur MD Unavailable [phone] Steve Zamarripa MD Unavailable [phone] Pcp, No Primary Care Provider Unavailabl e Steve Zamarripa MD Primary Care Provider [phone] Pcp, No Primary Care Provider Unavailabl e Encounter Details Date Type Department Care Team (Late st Contact Info) Description 12/09/2018 Scanned Document [address] [phone] Primary Care, Scan Social History [...] on filedocumented in this encounter Care Teams Sewing Machine Maintenance Mechanic Relationship Specialty Start Date End Date Steve Zamarripa MD PCP - General Family Medicine 06/04/16 02/05/21 Steve Zamarripa MD [address] [place] [address] [place] [address] PCP - [place] Commercial Attributed 01/01/20 07/30/20 Pcp, No PCP - General General Medicine 02/06/21 06/10/22 Steve Zamarripa MD PCP - General 06/11/22 08/27/22 Pcp, No PCP - General General Medicine 08/28/22 Marco Mathur MD [address] [place] [address] Solution Architect Pediatric Gastroenterology 11/26/18 documented as of this encounter
--- OUTSIDE RECORDS SUMMARY | 2025-03-21 11:35 | XMS_ITS | Clinical Summary ---
Author Organization [facility] Address [address] [place] [address] Care Team Providers Care Deputy Treasurer Name Role Phone Steve Zamarripa MD Primary Care Provider [phone] Marco Mathur MD Unavailable [phone] Source Comments Please note that some or [...] so, obtain the minor's consent prior to disclosure.[facility] Allergies No known active allergies Medications [...] SCREENING 2009 COVID-19 Vaccine (1 - season) 2025 INFLUENZA (#1) 2025 03/24/2018, 03/03/2017 NIRSEVIMAB VACCINES UNDER 8 MONTHS Aged Out No longer eligible b ased on patient's age to complete this topic Insurance [facility] Care Teams Deputy Treasurer Relationship Specialty Start Date End Date Steve Zamarripa MD [address] [place] [address] PCP - General Internal Medicine 11/12/16 Marco Mathur MD [address] [place] [address] Consulting Physician Gastroenterology 11/12/18
--- OUTSIDE RECORDS SUMMARY | 2025-03-21 11:35 | XMS_ITS | Encounter Summary ---
Author Organization [facility] Address [address] [place] [address] Care Team Providers Care Pharmacy Laboratory Technician Name Role Phone Steve Zamarripa MD Primary Care Provider [phone] Marco Mathur MD Unavailable [phone] Steve Zamarripa MD Unavailable [phone] Pcp, No Primary Care Provider Unavailabl e Steve Zamarripa MD Primary Care Provider [phone] Pcp, No Primary Care Provider Unavailabl e Encounter Details Date Type Department Care Team (Late st Contact Info) Description 09/11/2018 Scanned Document [address] [phone] Steve Zamarripa MD [address] [place] [address] Social History Tobacco Use Types Packs/Day [...] on filedocumented in this encounter Care Teams Pharmacy Laboratory Technician Relationship Specialty Start Date End Date Steve Zamarripa MD PCP - General Family Medicine 06/04/16 02/05/21 Steve Zamarripa MD [address] [place] [address] PCP - [place] Commercial Attributed 01/01/20 07/30/20 Pcp, No PCP - General General Medicine 02/06/21 06/10/22 Steve Zamarripa MD PCP - General 06/11/22 08/27/22 Pcp, No PCP - General General Medicine 08/28/22 Marco Mathur MD [address] [place] [address] Shirt Folding Machine Operator Pediatric Gastroenterology 11/26/18 documented as of this encounter
--- OUTSIDE RECORDS SUMMARY | 2025-03-21 11:35 | XMS_ITS | Encounter Summary ---
Author Organization [facility] Address [address] [place] [address] Care Team Providers Care Nutritional Chemist Name Role Phone Steve Zamarripa MD Primary Care Provider [phone] Marco Mathur MD Unavailable [phone] Steve Zamarripa MD Unavailable [phone] Pcp, No Primary Care Provider Unavailabl e Steve Zamarripa MD Primary Care Provider [phone] Pcp, No Primary Care Provider Unavailabl e Encounter Details Date Type Department Care Team (Late st Contact Info) Description 10/01/2017 Scanned Document [address] [id number] Provider, Generic Social History Tobacco [...] on filedocumented in this encounter Care Teams Nutritional Chemist Relationship Specialty Start Date End Date Steve Zamarripa MD PCP - General Family Medicine 06/04/16 02/05/21 Steve Zamarripa MD [address] [place], [place] [address] [address] PCP - [place] Commercial Attributed 01/01/20 07/30/20 Pcp, No PCP - General General Medicine 02/06/21 06/10/22 Steve Zamarripa MD PCP - General 06/11/22 08/27/22 Pcp, No PCP - General General Medicine 08/28/22 Marco Mathur MD [address] [place] [address] Clinical Laboratory Director Pediatric Gastroenterology 11/26/18 documented as of this encounter
--- OUTSIDE RECORDS SUMMARY | 2025-03-21 11:35 | XMS_ITS | Encounter Summary ---
Author Organization [facility] Address [address] [place] [address] Care Team Providers Care Director Project Management Name Role Phone Steve Zamarripa MD Primary Care Provider [phone] Marco Mathur MD Unavailable [phone] Steve Zamarripa MD Unavailable [phone] Pcp, No Primary Care Provider Unavailabl e Steve Zamarripa MD Primary Care Provider [phone] Pcp, No Primary Care Provider Unavailabl e Encounter Details Date Type Department Care Team (Late st Contact Info) Description 10/01/2017 Scanned Document [address] [address] Provider, Generic Social History Tobacco [...] filedocumented in this encounter Care Teams Director Project Management Relationship Specialty Start Date End Date Steve Zamarripa MD PCP - General Family Medicine 06/04/16 02/05/21 Steve Zamarripa MD [address] [place], [place] [address] [address] PCP - [place] Commercial Attributed 01/01/20 07/30/20 Pcp, No PCP - General General Medicine 02/06/21 06/10/22 Steve Zamarripa MD PCP - General 06/11/22 08/27/22 Pcp, No PCP - General General Medicine 08/28/22 Marco Mathur MD [address] [place] [address] Equip Maint Eng Pediatric Gastroenterology 11/26/18 documented as of this encounter
--- OUTSIDE RECORDS SUMMARY | 2025-03-21 11:35 | XMS_ITS | Encounter Summary ---
Author Organization [facility] Address [address] [place] [address] Care Team Providers Care Circus Supervisor Name Role Phone Steve Zamarripa MD Primary Care Provider [phone] Marco Mathur MD Unavailable [phone] Steve Zamarripa MD Unavailable [phone] Pcp, No Primary Care Provider Unavailabl e Steve Zamarripa MD Primary Care Provider [phone] Pcp, No Primary Care Provider Unavailabl e Encounter Details Date Type Department Care Team (Late st Contact Info) Description 08/23/2017 Scanned Document [address] [address] Provider, Generic Social History Tobacco [...] on filedocumented in this encounter Care Teams Circus Supervisor Relationship Specialty Start Date End Date Steve Zamarripa MD PCP - General Family Medicine 06/04/16 02/05/21 Steve Zamarripa MD [address] [place], [place] [address] [address] PCP - [place] Commercial Attributed 01/01/20 07/30/20 Pcp, No PCP - General General Medicine 02/06/21 06/10/22 Steve Zamarripa MD PCP - General 06/11/22 08/27/22 Pcp, No PCP - General General Medicine 08/28/22 Marco Mathur MD [address] [place] [address] Millinery Copyist Pediatric Gastroenterology 11/26/18 documented as of this encounter
--- OUTSIDE RECORDS SUMMARY | 2025-03-21 11:35 | XMS_ITS | Encounter Summary ---
Author Organization [facility] Address [address] [place] [address] Care Team Providers Care Door To Door Sales Representative Name Role Phone Steve Zamarripa MD Primary Care Provider [phone] Marco Mathur MD Unavailable [phone] Steve Zamarripa MD Unavailable [phone] Pcp, No Primary Care Provider Unavailabl e Steve Zamarripa MD Primary Care Provider [phone] Pcp, No Primary Care Provider Unavailabl e Encounter Details Date Type Department Care Team (Late st Contact Info) Description 08/23/2017 Scanned Document [address] [address] Provider, Generic Social History Tobacco [...] on filedocumented in this encounter Care Teams Door To Door Sales Representative Relationship Specialty Start Date End Date Steve Zamarripa MD PCP - General Family Medicine 06/04/16 02/05/21 Steve Zamarripa MD [address] [place], [place] [address] [address] PCP - [place] Commercial Attributed 01/01/20 07/30/20 Pcp, No PCP - General General Medicine 02/06/21 06/10/22 Steve Zamarripa MD PCP - General 06/11/22 08/27/22 Pcp, No PCP - General General Medicine 08/28/22 Marco Mathur MD [address] [place] [address] Chief Hospital Administrator Pediatric Gastroenterology 11/26/18 documented as of this encounter
--- OUTSIDE RECORDS SUMMARY | 2025-03-21 11:36 | XMS_ITS | Encounter Summary ---
Author Organization [facility] Address [address] [place] [address] Care Team Providers Care Electrical Control Assembler Name Role Phone Steve Zamarripa MD Primary Care Provider [phone] Marco Mathur MD Unavailable [phone] Steve Zamarripa MD Unavailable [phone] Pcp, No Primary Care Provider Unavailabl e Steve Zamarripa MD Primary Care Provider [phone] Pcp, No Primary Care Provider Unavailabl e Encounter Details Date Type Department Care Team (Late st Contact Info) Description 10/22/2016 Scanned Document [address] [address] Provider, Generic Social History Tobacco [...] on filedocumented in this encounter Care Teams Electrical Control Assembler Relationship Specialty Start Date End Date Steve Zamarripa MD PCP - General Family Medicine 06/04/16 02/05/21 Steve Zamarripa MD [address] [place] [address] PCP - [place] Commercial Attributed 01/01/20 07/30/20 Pcp, No PCP - General General Medicine 02/06/21 06/10/22 Steve Zamarripa MD PCP - General 06/11/22 08/27/22 Pcp, No PCP - General General Medicine 08/28/22 Marco Mathur MD [address] [place] [address] Airplane Gastank Liner Assembler Pediatric Gastroenterology 11/26/18 documented as of this encounter
--- OUTSIDE RECORDS SUMMARY | 2025-03-21 11:36 | XMS_ITS | Encounter Summary ---
Author Organization [facility] Address [address] [place] [address] Care Team Providers Care Freight Service Inspector Name Role Phone Jessica Cotto MD Primary Care Provider [phone] Steve Zamarripa MD Primary Care Provider [phone] Marco Mathur MD Unavailable [phone] Reason for Visit * Reason Comments Medication Refill Encounter Details Date Type Department Care Team (Late st Contact Info) Description 08/26/2016 Refill [facility] Gastroenterology, [address], [address] [place] [address] Marco Mathur MD [address] [place] [address] Crohn's disease of both small and large [...] Primary documented in this encounter Care Teams Freight Service Inspector Relationship Specialty Start Date End Date Jessica Cotto MD PCP - General 12/10/14 11/11/16 Steve Zamarripa MD [address] [place] [address] PCP - General Internal Medicine 11/12/16 Marco Mathur MD [address] [place] [address] Consulting Physician Gastroenterology 11/12/18 documented as of this encounter
--- OUTSIDE RECORDS SUMMARY | 2025-03-21 11:36 | XMS_ITS | Encounter Summary ---
Author Organization [facility] Address [address] [place] [address] Care Team Providers Care Seasonal Delivery Driver Name Role Phone Jessica Cotto MD Primary Care Provider [phone] Steve Zamarripa MD Primary Care Provider [phone] Marco Mathur MD Unavailable [phone] Reason for Visit * Reason Comments Medication Refill Encounter Details Date Type Department Care Team (Late st Contact Info) Description 08/02/2015 Refill [facility] Gastroenterology, [address], [address] [place] [address] Marco Mathur MD [address] [place] [address] Crohn's disease of both small and large [...] Primary documented in this encounter Care Teams Seasonal Delivery Driver Relationship Specialty Start Date End Date Jessica Cotto MD PCP - General 12/10/14 11/11/16 Steve Zamarripa MD [address] [place] [address] PCP - General Internal Medicine 11/12/16 Marco Mathur MD [address] [place] [address] Consulting Physician Gastroenterology 11/12/18 documented as of this encounter
--- OUTSIDE RECORDS SUMMARY | 2025-03-21 11:36 | XMS_ITS | Encounter Summary ---
Author Organization [facility] Address [address] [place] [address] Care Team Providers Care Financial Engineer Name Role Phone Steve Zamarripa MD Primary Care Provider [phone] Marco Mathur MD Unavailable [phone] Steve Zamarripa MD Unavailable [phone] Pcp, No Primary Care Provider Unavailabl e Steve Zamarripa MD Primary Care Provider [phone] Pcp, No Primary Care Provider Unavailabl e Encounter Details Date Type Department Care Team (Late st Contact Info) Description 06/14/2016 Scanned Document [address] [address] Provider, Generic Social History Tobacco [...] on filedocumented in this encounter Care Teams Financial Engineer Relationship Specialty Start Date End Date Steve Zamarripa MD PCP - General Family Medicine 06/04/16 02/05/21 Steve Zamarripa MD [address] [place] [address] PCP - [place] Commercial Attributed 01/01/20 07/30/20 Pcp, No PCP - General General Medicine 02/06/21 06/10/22 Steve Zamarripa MD PCP - General 06/11/22 08/27/22 Pcp, No PCP - General General Medicine 08/28/22 Marco Mathur MD [address] [place] [address] Heat Transfer Technician Pediatric Gastroenterology 11/26/18 documented as of this encounter
--- OUTSIDE RECORDS SUMMARY | 2025-03-21 11:36 | XMS_ITS | Encounter Summary ---
Author Organization [facility] Address [address] [place] [address] Care Team Providers Care Systems Software Engineer Name Role Phone Steve Zamarripa MD Primary Care Provider [phone] Marco Mathur MD Unavailable [phone] Steve Zamarripa MD Unavailable [phone] Pcp, No Primary Care Provider Unavailabl e Steve Zamarripa MD Primary Care Provider [phone] Pcp, No Primary Care Provider Unavailabl e Encounter Details Date Type Department Care Team (Late st Contact Info) Description 09/20/2016 Scanned Document [address] [address] Provider, Generic Social History Tobacco [...] on filedocumented in this encounter Care Teams Systems Software Engineer Relationship Specialty Start Date End Date Steve Zamarripa MD PCP - General Family Medicine 06/04/16 02/05/21 Steve Zamarripa MD [address] [place] [address] PCP - [place] Commercial Attributed 01/01/20 07/30/20 Pcp, No PCP - General General Medicine 02/06/21 06/10/22 Steve Zamarripa MD PCP - General 06/11/22 08/27/22 Pcp, No PCP - General General Medicine 08/28/22 Marco Mathur MD [address] [place] [address] Ramp Attendant Pediatric Gastroenterology 11/26/18 documented as of this encounter
--- OUTSIDE RECORDS SUMMARY | 2025-03-21 11:36 | XMS_ITS | Encounter Summary ---
Author Organization [facility] Address [address] [place] [address] Care Team Providers Care Matcher Operator Name Role Phone Jessica Cotto MD Primary Care Provider [phone] Steve Zamarripa MD Primary Care Provider [phone] Marco Mathur MD Unavailable [phone] Reason for Visit * Reason Comments Medication Refill Encounter Details Date Type Department Care Team (Late st Contact Info) Description 07/04/2015 Refill [facility] Gastroenterology, [address], [address] [place] [address] Marco Mathur MD [address] [place] [address] Crohn's disease of both small and large [...] Primary documented in this encounter Care Teams Matcher Operator Relationship Specialty Start Date End Date Jessica Cotto MD PCP - General 12/10/14 11/11/16 Steve Zamarripa MD [address] [place] [address] PCP - General Internal Medicine 11/12/16 Marco Mathur MD [address] [place] [address] Consulting Physician Gastroenterology 11/12/18 documented as of this encounter
--- OUTSIDE RECORDS SUMMARY | 2025-03-21 11:36 | XMS_ITS | Encounter Summary ---
Author Organization [facility] Address [address] [place] [address] Care Team Providers Care Tire Recapper Name Role Phone Steve Zamarripa MD Primary Care Provider [phone] Encounter Details Date Type Department Care Team (Late st Contact Info) Description 04/20/2021 Orders Only [facility] Department of Pulmonology [address] [place] [address] Cj Batista MD [address] [place] [address] Social History Tobacco Use Types Packs/Day Years [...] filedocumented in this encounter Care Teams Tire Recapper Relationship Specialty Start Date End Date Steve Zamarripa MD PCP - General Internal Medicine 07/09/18 documented as of this encounter
--- OUTSIDE RECORDS SUMMARY | 2025-03-21 11:36 | XMS_ITS | Encounter Summary ---
Author Organization [facility] Address [address] [place] [address] Care Team Providers Care Cuffer Name Role Phone Jessica Cotto MD Primary Care Provider [phone] Steve Zamarripa MD Primary Care Provider [phone] Marco Mathur MD Unavailable [phone] Reason for Visit * Reason Comments Medication Refill Encounter Details Date Type Department Care Team (Late st Contact Info) Description 08/19/2016 Refill [facility] Gastroenterology, [address], [address] [place] [address] Marco Mathur MD [address] [place] [address] Crohn's disease of both small and large [...] Primary documented in this encounter Care Teams Cuffer Relationship Specialty Start Date End Date Jessica Cotto MD PCP - General 12/10/14 11/11/16 Steve Zamarripa MD [address] [place] [address] PCP - General Internal Medicine 11/12/16 Marco Mathur MD [address] [place] [address] Consulting Physician Gastroenterology 11/12/18 documented as of this encounter
--- OUTSIDE RECORDS SUMMARY | 2025-03-21 11:36 | XMS_ITS | Encounter Summary ---
Author Organization [facility] Address [address] [place] [address] Care Team Providers Care Field Sales Manager Name Role Phone Jessica Cotto MD Primary Care Provider [phone] Steve Zamarripa MD Primary Care Provider [phone] Marco Mathur MD Unavailable [phone] Reason for Visit * Reason Comments Medication Refill Encounter Details Date Type Department Care Team (Late st Contact Info) Description 08/11/2015 Refill [facility] Gastroenterology, [address], [address] [place] [address] Marco Mathur MD [address] [place] [address] Crohn's disease of both small and large [...] Primary documented in this encounter Care Teams Field Sales Manager Relationship Specialty Start Date End Date Jessica Cotto MD PCP - General 12/10/14 11/11/16 Steve Zamarripa MD [address] [place] [address] PCP - General Internal Medicine 11/12/16 Marco Mathur MD [address] [place] [address] Consulting Physician Gastroenterology 11/12/18 documented as of this encounter
--- OUTSIDE RECORDS SUMMARY | 2025-03-21 11:37 | XMS_ITS | Encounter Summary ---
Author Organization [facility] Address [address] [place] [address] Care Team Providers Care Base Remover Name Role Phone Steve Zamarripa MD Primary Care Provider + [phone] Encounter Details Date Type Department Care Team (Late st Contact Info) Description 12/20/2021 Orders Only [facility] Department of Pulmonology [address] [place] [address] Cj Batista MD [address] [place] [address] Social History Tobacco Use Types Packs/Day Years [...] on filedocumented in this encounter Care Teams Base Remover Relationship Specialty Start Date End Date Steve Zamarripa MD PCP - General Internal Medicine 07/09/18 documented as of this encounter
--- OUTSIDE RECORDS SUMMARY | 2025-03-21 11:37 | XMS_ITS | Encounter Summary ---
Author Organization [facility] Address [address] [place] [address] Care Team Providers Care Hydrometer Tester Name Role Phone Jessica Cotto MD Primary Care Provider [phone] Steve Zamarripa MD Primary Care Provider [phone] Marco Mathur MD Unavailable [phone] Reason for Visit * Reason Comments Medication Refill Encounter Details Date Type Department Care Team (Late st Contact Info) Description 06/05/2016 Refill [facility] Gastroenterology, [address], [address] [place] [address] Marco Mathur MD [address] [place] [address] Crohn's disease of both small and large [...] Primary documented in this encounter Care Teams Hydrometer Tester Relationship Specialty Start Date End Date Jessica Cotto MD PCP - General 12/10/14 11/11/16 Steve Zamarripa MD [address] [place] [address] PCP - General Internal Medicine 11/12/16 Marco Mathur MD [address] [place] [address] Consulting Physician Gastroenterology 11/12/18 documented as of this encounter
--- OUTSIDE RECORDS SUMMARY | 2025-03-21 11:37 | XMS_ITS | Encounter Summary ---
Author Organization [facility] Address [address] [place] [address] Care Team Providers Care Sap Technical Architect Name Role Phone Steve Zamarripa MD Primary Care Provider [phone] Marco Mathur MD Unavailable [phone] Steve Zamarripa MD Unavailable [phone] Pcp, No Primary Care Provider Unavailabl e Steve Zamarripa MD Primary Care Provider [phone] Pcp, No Primary Care Provider Unavailabl e Encounter Details Date Type Department Care Team (Late st Contact Info) Description 05/29/2017 Scanned Document [address] [address] Provider, Generic Social History Tobacco [...] on filedocumented in this encounter Care Teams Sap Technical Architect Relationship Specialty Start Date End Date Steve Zamarripa MD PCP - General Family Medicine 06/04/16 02/05/21 Steve Zamarripa MD [address] [place] [address] PCP - [place] Commercial Attributed 01/01/20 07/30/20 Pcp, No PCP - General General Medicine 02/06/21 06/10/22 Steve Zamarripa MD PCP - General 06/11/22 08/27/22 Pcp, No PCP - General General Medicine 08/28/22 Marco Mathur MD [address] [place] [address] Laundry Press Operator Pediatric Gastroenterology 11/26/18 documented as of this encounter
--- OUTSIDE RECORDS SUMMARY | 2025-03-21 11:37 | XMS_ITS | Encounter Summary ---
Author Organization [facility] Address [address] [place] [address] Care Team Providers Care Baseball Coach Name Role Phone Jessica Cotto MD Primary Care Provider [phone] Steve Zamarripa MD Primary Care Provider [phone] Marco Mathur MD Unavailable [phone] Reason for Visit * Reason Comments Medication Refill Encounter Details Date Type Department Care Team (Late st Contact Info) Description 02/09/2016 Refill [facility] Gastroenterology, [address], [address] [place] [address] Marco Mathur MD [address] [place] [address] Crohn's disease of both small and large [...] Primary documented in this encounter Care Teams Baseball Coach Relationship Specialty Start Date End Date Jessica Cotto MD PCP - General 12/10/14 11/11/16 Steve Zamarripa MD [address] [place] [address] PCP - General Internal Medicine 11/12/16 Marco Mathur MD [address] [place] [address] Consulting Physician Gastroenterology 11/12/18 documented as of this encounter
--- OUTSIDE RECORDS SUMMARY | 2025-03-21 11:37 | XMS_ITS | Encounter Summary ---
Author Organization [facility] Address [address] [place] [address] Care Team Providers Care Manager Mail Name Role Phone Steve Zamarripa MD Primary Care Provider [phone] Marco Mathur MD Unavailable [phone] Steve Zamarripa MD Unavailable [phone] Pcp, No Primary Care Provider Unavailabl e Steve Zamarripa MD Primary Care Provider [phone] Pcp, No Primary Care Provider Unavailabl e Encounter Details Date Type Department Care Team (Late st Contact Info) Description 06/12/2017 Scanned Document [address] [address] Provider, Generic Social History Tobacco [...] on filedocumented in this encounter Care Teams Manager Mail Relationship Specialty Start Date End Date Steve Zamarripa MD PCP - General Family Medicine 06/04/16 02/05/21 Steve Zamarripa MD [address] [place] [address] PCP - [place] Commercial Attributed 01/01/20 07/30/20 Pcp, No PCP - General General Medicine 02/06/21 06/10/22 Steve Zamarripa MD PCP - General 06/11/22 08/27/22 Pcp, No PCP - General General Medicine 08/28/22 Marco Mathur MD [address] [place] [address] Application Development Project Manager Pediatric Gastroenterology 11/26/18 documented as of this encounter
--- OUTSIDE RECORDS SUMMARY | 2025-03-21 11:37 | XMS_ITS | Encounter Summary ---
Author Organization [facility] Address [address] [place] [address] Care Team Providers Care Filter Tip Inspector Name Role Phone Steve Zamarripa MD Primary Care Provider [phone] Marco Mathur MD Unavailable [phone] Steve Zamarripa MD Unavailable [phone] Pcp, No Primary Care Provider Unavailabl e Steve Zamarripa MD Primary Care Provider [phone] Pcp, No Primary Care Provider Unavailabl e Encounter Details Date Type Department Care Team (Late st Contact Info) Description 07/26/2017 Telephone [facility] [address] [id number] Verónica Vogel [address] [place] [address] Social History Tobacco Use Types Packs/Day Years [...] on filedocumented in this encounter Care Teams Filter Tip Inspector Relationship Specialty Start Date End Date Steve Zamarripa MD PCP - General Family Medicine 06/04/16 02/05/21 Steve Zamarripa MD [address] [place] [address] PCP - [place] Commercial Attributed 01/01/20 07/30/20 Pcp, No PCP - General General Medicine 02/06/21 06/10/22 Steve Zamarripa MD PCP - General 06/11/22 08/27/22 Pcp, No PCP - General General Medicine 08/28/22 Marco Mathur MD [address] [place] [address] Derrick Helper Pediatric Gastroenterology 11/26/18 documented as of this encounter
--- OUTSIDE RECORDS SUMMARY | 2025-03-21 11:40 | XMS_ITS | Encounter Summary ---
Author Organization [facility] Address [address] [place] [address] Care Team Providers Care Home Health Speech Therapist Name Role Phone Steve Zamarripa MD Primary Care Provider [phone] Marco Mathur MD Unavailable [phone] Reason for Visit * Reason Comments Medication Refill Encounter Details Date Type Department Care Team (Late st Contact Info) Description 10/31/2017 Refill [facility] [place] [phone] Marco Mathur MD [address] [place] [address] Crohn's disease of both small and large [...] complication documented in this encounter Care Teams Home Health Speech Therapist Relationship Specialty Start Date End Date Steve Zamarripa MD [address] [place] [address] PCP - General Internal Medicine 11/12/16 Marco Mathur MD [address] [place] [address] Consulting Physician Gastroenterology 11/12/18 documented as of this encounter
--- OUTSIDE RECORDS SUMMARY | 2025-03-21 11:40 | XMS_ITS | Encounter Summary ---
Author Organization [facility] Address [address] [place] [address] Care Team Providers Care Commercial Maintenance Technician Name Role Phone Steve Zamarripa MD Primary Care Provider [phone] Marco Mathur MD Unavailable [phone] Reason for Visit * Reason Comments Medication Refill Encounter Details Date Type Department Care Team (Late st Contact Info) Description 11/27/2016 Refill [facility] Gastroenterology, [address], [address] [place] [address] Marco Mathur MD [address] [place] [address] Crohn's disease of both small and large [...] Primary documented in this encounter Care Teams Commercial Maintenance Technician Relationship Specialty Start Date End Date Steve Zamarripa MD [address] [place] [address] PCP - General Internal Medicine 11/12/16 Marco Mathur MD [address] [place] [address] Consulting Physician Gastroenterology 11/12/18 documented as of this encounter
--- OUTSIDE RECORDS SUMMARY | 2025-03-21 11:40 | XMS_ITS | Encounter Summary ---
Author Organization [facility] Address [address] [place] [address] Care Team Providers Care Facility Specialist Name Role Phone Steve Zamarripa MD Primary Care Provider [phone] Marco Mathur MD Unavailable [phone] Reason for Visit * Reason Comments Medication Refill Encounter Details Date Type Department Care Team (Late st Contact Info) Description 11/22/2016 Refill [facility] Gastroenterology, [address], [address] [place] [address] Marco Mathur MD [address] [place] [address] Crohn's disease of both small and large [...] Primary documented in this encounter Care Teams Facility Specialist Relationship Specialty Start Date End Date Steve Zamarripa MD [address] [place] [address] PCP - General Internal Medicine 11/12/16 Marco Mathur MD [address] [place] [address] Consulting Physician Gastroenterology 11/12/18 documented as of this encounter
--- OUTSIDE RECORDS SUMMARY | 2025-03-21 11:40 | XMS_ITS | Encounter Summary ---
Author Organization [facility] Address [address] [place] [address] Care Team Providers Care Deputy Coroner Name Role Phone tSeve Zamarripa MD Primary Care Provider [phone] Marco Mathur MD Unavailable [phone] Reason for Visit * Reason Comments Medication Refill Encounter Details Date Type Department Care Team (Late st Contact Info) Description 11/27/2017 Refill [facility] [place] [phone] Marco Mathur MD [address] [place] [address] Crohn's disease of both small and large [...] complication documented in this encounter Care Teams Deputy Coroner Relationship Specialty Start Date End Date Steve Zamarripa MD [address] [place] [address] PCP - General Internal Medicine 11/12/16 Marco Mathur MD [address] [place] [address] Consulting Physician Gastroenterology 11/12/18 documented as of this encounter
--- OUTSIDE RECORDS SUMMARY | 2025-03-21 11:40 | XMS_ITS | Encounter Summary ---
Author Organization [facility] Address [address] [place] [address] Care Team Providers Care Harbor Engineer Name Role Phone Steve Zamarripa MD Primary Care Provider [phone] Marco Mathur MD Unavailable [phone] Reason for Visit * Reason Comments Medication Refill Encounter Details Date Type Department Care Team (Late st Contact Info) Description 10/08/2017 Refill [facility] Gastroenterology, [address] [facility], [address] [place] [address] Marco Mathur MD [address] [place] [address] Crohn's disease of both small and large [...] complication documented in this encounter Care Teams Harbor Engineer Relationship Specialty Start Date End Date Steve Zamarripa MD [address] [place] [address] PCP - General Internal Medicine 11/12/16 Marco Mathur MD [address] [place] [address] Consulting Physician Gastroenterology 11/12/18 documented as of this encounter
--- OUTSIDE RECORDS SUMMARY | 2025-03-21 11:41 | XMS_ITS | Encounter Summary ---
Author Organization [facility] Address [address] [place] [address] Care Team Providers Care Box Finisher Name Role Phone Steve Zamarripa MD Primary Care Provider [phone] Marco Mathur MD Unavailable [phone] Reason for Visit * Reason Comments Medication Refill Encounter Details Date Type Department Care Team (Late st Contact Info) Description 06/08/2018 Refill [facility] Gastroenterology, [address] 1st [facility], [address] [place] [address] Marco Mathur MD [address] [place] [address] Crohn's disease of both small and large [...] alone documented in this encounter Care Teams Box Finisher Relationship Specialty Start Date End Date Steve Zamarripa MD [address] [place] [address] PCP - General Internal Medicine 11/12/16 Marco Mathur MD [address] [place] [address] Consulting Physician Gastroenterology 11/12/18 documented as of this encounter
--- OUTSIDE RECORDS SUMMARY | 2025-03-21 11:41 | XMS_ITS | Encounter Summary ---
Author Organization [facility] Address [address] [place] [address] Care Team Providers Care Bee Producer Name Role Phone Steve Zamarripa MD Primary Care Provider [phone] Marco Mathur MD Unavailable [phone] Reason for Visit * Reason Comments Medication Refill Encounter Details Date Type Department Care Team ([facility] st Contact Info) Description 04/29/2018 Refill [facility] Gastroenterology[place] [phone] Kel Green MD Crohn's disease of both [...] complication documented in this encounter Care Teams Bee Producer Relationship Specialty Start Date End Date Steve Zamarripa MD [address] [place] [address] PCP - General Internal Medicine 11/12/16 Marco Mathur MD [address] [place] [address] Consulting Physician Gastroenterology 11/12/18 documented as of this encounter
--- OUTSIDE RECORDS SUMMARY | 2025-03-21 11:41 | XMS_ITS | Encounter Summary ---
Author Organization [facility] Address [address] [place] [address] Care Team Providers Care Steam Plant Records Clerk Name Role Phone Steve Zamarripa MD Primary Care Provider [phone] Marco Mathur MD Unavailable [phone] Reason for Visit * Reason Comments Medication Refill Encounter Details Date Type Department Care Team (Late st Contact Info) Description 12/06/2016 Refill [facility] Gastroenterology, [address] [facility], [address] [place] [address] Marco Mathur MD [address] [place] [address] Crohn's disease of both small and large [...] Primary documented in this encounter Care Teams Steam Plant Records Clerk Relationship Specialty Start Date End Date Steve Zamarripa MD [address] [place] [address] PCP - General Internal Medicine 11/12/16 Marco Mathur MD [address] [place] [address] Consulting Physician Gastroenterology 11/12/18 documented as of this encounter
--- OUTSIDE RECORDS SUMMARY | 2025-03-21 11:41 | XMS_ITS | Clinical Summary ---
Author Organization [facility] Address [address] [facility] [address] [place] [address] Phone Care Team Providers Care Allergist Immunologist Name Role Phone Steve Zamarripa MD Primary Care Provider Social History Tobacco Use Types Packs/Day Years [...] PAP SMEAR 2017 INFLUENZA VACCINE (#1) 2024 , 03/13/2018 COVID-19 VACCINE (2024-2 6 season) 2025 03/02/2021 HEPATITIS A VACCINES [...] topic Medical Devices Not on file Insurance [employer] PILGRIM PPO [employer] PPO [employer] PPO [employer] PPO [employer] PPO [employer] PPO Care Teams Allergist Immunologist Relationship Specialty Start Date End Date Steve Zamarripa MD PCP - General Internal Medicine 11/07/17 Additional Source Comments The information contained in this document represents components of the legal health record. It is not the complete legal health record.[facility]
--- OUTSIDE RECORDS SUMMARY | 2025-03-21 11:41 | XMS_ITS | Encounter Summary ---
Author Organization [facility] Address [address] [place] [address] Care Team Providers Care Needlemaker Name Role Phone Steve Zamarripa MD Primary Care Provider [phone] Marco Mathur MD Unavailable [phone] Reason for Visit * Reason Comments Medication Refill Encounter Details Date Type Department Care Team (Late st Contact Info) Description 07/29/2018 Refill [facility] [place]astroenterology[place] [phone] Marco Mathur MD [address] [place] [address] Crohn's disease of both small and large [...] complication documented in this encounter Care Teams Needlemaker Relationship Specialty Start Date End Date Steve Zamarripa MD [address] [place] [address] PCP - General Internal Medicine 11/12/16 Marco Mathur MD [address] [place] [address] Consulting Physician Gastroenterology 11/12/18 documented as of this encounter
== END 2025-03-21 10:33 | disposition home or self-care (01) ==
LOC: HO.HGI 10:06
PROVIDERS: PCP Hospitalist; Visit Provider Internal Medicine Gastroenterology
DX: K50.80 Crohn's disease of both small and large intestine without complications (principal)
CPT/HCPCS: 99214

== ENCOUNTER 2025-03-21 10:05 | Outpatient (REF) | payer OTHER, SELFPAY | END 2025-03-21 10:06 | disposition home or self-care (01) | LOC: HO.LAB 10:05 | PROVIDERS: PCP Internal Medicine Gastroenterology; Visit Provider Internal Medicine Gastroenterology | DX: Z13.89 Encounter for screening for other disorder (principal) ==

== ENCOUNTER 2025-03-24 11:29 | Outpatient (REF) | payer OTHER, SELFPAY ==
--- OUTSIDE RECORDS SUMMARY | 2017-07-23 16:47 | XMS_ITS | Encounter Summary ---
Author Organization [facility] Address [address] [place] [address] Care Team Providers Care Date Pitter Name Role Phone Steve Zamarripa MD Primary Care Provider [phone] Encounter Details Date Type Department Care Team (Late st Contact Info) Description 07/23/2017 3:47 PM EST Hospital Encounter [facility] [address] [place] [address] Víctor Rutledge MD [address] [place] [phone] Social History Tobacco Use Types Packs/Day Years [...] on filedocumented in this encounter Care Teams Date Pitter Relationship Specialty Start Date End Date Steve Zamarripa MD PCP - General Family Medicine 06/04/16 02/05/21 documented as of this encounter
--- OUTSIDE RECORDS SUMMARY | 2025-03-26 11:32 | XMS_ITS | Encounter Summary ---
Author Organization [facility] Address [address] [place] [address] Care Team Providers Care Fiberglass Autobody Repairer Name Role Phone Steve Zamarripa MD Primary Care Provider [phone] Marco Mathur MD Unavailable [phone] Steve Zamarripa MD Unavailable [phone] Pcp, No Primary Care Provider Unavailabl e Steve Zamarripa MD Primary Care Provider [phone] Pcp, No Primary Care Provider Unavailabl e Encounter Details Date Type Department Care Team (Late st Contact Info) Description 07/09/2018 Scanned Document [address] [phone] Pulmonary, Scan Social History Tobacco Use Types [...] on filedocumented in this encounter Care Teams Fiberglass Autobody Repairer Relationship Specialty Start Date End Date Steve Zamarripa MD PCP - General Family Medicine 06/04/16 02/05/21 Steve Zamarripa MD [address] [place], [place] [address] [address] PCP - [place] Commercial Attributed 01/01/20 07/30/20 Pcp, No PCP - General General Medicine 02/06/21 06/10/22 Steve Zamarripa MD PCP - General 06/11/22 08/27/22 Pcp, No PCP - General General Medicine 08/28/22 Marco Mathur MD [address] [place] [address] Technology Assistant Pediatric Gastroenterology 11/26/18 documented as of this encounter
--- OUTSIDE RECORDS SUMMARY | 2025-03-26 11:32 | XMS_ITS | Encounter Summary ---
Author Organization [facility] Address [address] [place] [address] Care Team Providers Care Steel Fixer Name Role Phone Steve Zamarripa MD Primary Care Provider [phone] Marco Mathur MD Unavailable [phone] Steve Zamarripa MD Unavailable [phone] Pcp, No Primary Care Provider Unavailabl e Steve Zamarripa MD Primary Care Provider [phone] Pcp, No Primary Care Provider Unavailabl e Encounter Details Date Type Department Care Team (Late st Contact Info) Description 10/01/2017 Scanned Document [address] [phone] Provider, Generic Social History Tobacco [...] on filedocumented in this encounter Care Teams Steel Fixer Relationship Specialty Start Date End Date Steve Zamarripa MD PCP - General Family Medicine 06/04/16 02/05/21 Steve Zamarripa MD [address] [place], [place] [address] [address] PCP - [place] Commercial Attributed 01/01/20 07/30/20 Pcp, No PCP - General General Medicine 02/06/21 06/10/22 Steve Zamarripa MD PCP - General 06/11/22 08/27/22 Pcp, No PCP - General General Medicine 08/28/22 Marco Mathur MD [address] [place] [address] Business Planning Analyst Pediatric Gastroenterology 11/26/18 documented as of this encounter
--- OUTSIDE RECORDS SUMMARY | 2025-03-26 11:32 | XMS_ITS | Encounter Summary ---
Author Organization [facility] Address [address] [place] [address] Care Team Providers Care Tobacco Cutter Name Role Phone Steve Zamarripa MD Primary Care Provider [phone] Marco Mathur MD Unavailable [phone] Steve Zamarripa MD Unavailable [phone] Pcp, No Primary Care Provider Unavailabl e Steve Zamarripa MD Primary Care Provider [phone] Pcp, No Primary Care Provider Unavailabl e Encounter Details Date Type Department Care Team (Late st Contact Info) Description 11/27/2017 Scanned Document [address] [phone] Provider, Generic Social History Tobacco [...] on filedocumented in this encounter Care Teams Tobacco Cutter Relationship Specialty Start Date End Date Steve Zamarripa MD PCP - General Family Medicine 06/04/16 02/05/21 Steve Zamarripa MD [address] [place], [place] [address] [address] PCP - [place] Commercial Attributed 01/01/20 07/30/20 Pcp, No PCP - General General Medicine 02/06/21 06/10/22 Steve Zamarripa MD PCP - General 06/11/22 08/27/22 Pcp, No PCP - General General Medicine 08/28/22 Marco Mathur MD [address] [place] [address] General Studies Program Chair Pediatric Gastroenterology 11/26/18 documented as of this encounter
--- OUTSIDE RECORDS SUMMARY | 2025-03-26 11:32 | XMS_ITS | Encounter Summary ---
Author Organization [facility] Address [address] [place] [address] Care Team Providers Care Stone Splitter Name Role Phone Steve Zamarripa MD Primary Care Provider [phone] Marco Mathur MD Unavailable [phone] Steve Zamarripa MD Unavailable [phone] Pcp, No Primary Care Provider Unavailabl e Steve Zamarripa MD Primary Care Provider [phone] Pcp, No Primary Care Provider Unavailabl e Encounter Details Date Type Department Care Team (Late st Contact Info) Description 06/18/2018 Scanned Document [address] [phone] Pediatric Gastroenterology, Scan Social History Tobacco Use [...] on filedocumented in this encounter Care Teams Stone Splitter Relationship Specialty Start Date End Date Steve Zamarripa MD PCP - General Family Medicine 06/04/16 02/05/21 Steve Zamarripa MD [address] [place] [address] PCP - [place] Commercial Attributed 01/01/20 07/30/20 Pcp, No PCP - General General Medicine 02/06/21 06/10/22 Steve Zamarripa MD PCP - General 06/11/22 08/27/22 Pcp, No PCP - General General Medicine 08/28/22 Marco Mathur MD [address] [place] [address] Health Physics Technician Pediatric Gastroenterology 11/26/18 documented as of this encounter
--- OUTSIDE RECORDS SUMMARY | 2025-03-26 11:32 | XMS_ITS | Encounter Summary ---
Author Organization [facility] Address [address] [place] [address] Care Team Providers Care Industrial Maintenance Tech Name Role Phone Steve Zamarripa MD Primary Care Provider [phone] Marco Mathur MD Unavailable [phone] Steve Zamarripa MD Unavailable [phone] Pcp, No Primary Care Provider Unavailabl e Steve Zamarripa MD Primary Care Provider [phone] Pcp, No Primary Care Provider Unavailabl e Encounter Details Date Type Department Care Team (Late st Contact Info) Description 08/24/2017 Scanned Document [address] [phone] Provider, Generic Social History Tobacco [...] on filedocumented in this encounter Care Teams Industrial Maintenance Tech Relationship Specialty Start Date End Date Steve Zamarripa MD PCP - General Family Medicine 06/04/16 02/05/21 Steve Zamarripa MD [address] [place], [place] [address] [place] [address] PCP - [place] Commercial Attributed 01/01/20 07/30/20 Pcp, No PCP - General General Medicine 02/06/21 06/10/22 Steve Zamarripa MD PCP - General 06/11/22 08/27/22 Pcp, No PCP - General General Medicine 08/28/22 Marco Mathur MD [address] [place] [address] [place] Boatman Pediatric Gastroenterology 11/26/18 documented as of this encounter
--- OUTSIDE RECORDS SUMMARY | 2025-03-26 11:32 | XMS_ITS | Encounter Summary ---
Author Organization [facility] Address [address] [place] [address] Care Team Providers Care Furnace Stock Inspector Name Role Phone Steve Zamarripa MD Primary Care Provider [phone] Marco Mathur MD Unavailable [phone] Steve Zamarripa MD Unavailable [phone] Pcp, No Primary Care Provider Unavailabl e Steve Zamarripa MD Primary Care Provider [phone] Pcp, No Primary Care Provider Unavailabl e Encounter Details Date Type Department Care Team (Late st Contact Info) Description 10/01/2017 Scanned Document [address] [phone] Provider, Generic Social History Tobacco [...] on filedocumented in this encounter Care Teams Furnace Stock Inspector Relationship Specialty Start Date End Date Steve Zamarripa MD PCP - General Family Medicine 06/04/16 02/05/21 Steve Zamarripa MD [address] [place], [place] [address] [place] [address] PCP - [place] Commercial Attributed 01/01/20 07/30/20 Pcp, No PCP - General General Medicine 02/06/21 06/10/22 Setve Zamarripa MD PCP - General 06/11/22 08/27/22 Pcp, No PCP - General General Medicine 08/28/22 Marco Mathur MD [address] [place] [address] Yoke Setter Pediatric Gastroenterology 11/26/18 documented as of this encounter
--- OUTSIDE RECORDS SUMMARY | 2025-03-26 11:33 | XMS_ITS | Encounter Summary ---
Author Organization [facility] Address [address] [place] [address] Care Team Providers Care Medical Office Coordinator Name Role Phone Steve Zamarripa MD Primary Care Provider [phone] Marco Mathur MD Unavailable [phone] Reason for Visit * Reason Comments Medication Refill Encounter Details Date Type Department Care Team (Late st Contact Info) Description 10/31/2017 Refill [facility] [place]astroenterology[place] [phone] Marco Mathur MD [address] [place] [address] Crohn's disease of both small and large [...] complication documented in this encounter Care Teams Medical Office Coordinator Relationship Specialty Start Date End Date Steve Zamarripa MD [address] [place] [address] PCP - General Internal Medicine 11/12/16 Marco Mathur MD [address] [place] [address] Consulting Physician Gastroenterology 11/12/18 documented as of this encounter
--- OUTSIDE RECORDS SUMMARY | 2025-03-26 11:33 | XMS_ITS | Encounter Summary ---
Author Organization [facility] Address [address] [place] [address] Care Team Providers Care Heavy Mobile Equipment Operator Name Role Phone Steve Zamarripa MD Primary Care Provider [phone] Marco Mathur MD Unavailable [phone] Reason for Visit * Reason Comments Medication Refill Encounter Details Date Type Department Care Team (Late st Contact Info) Description 06/08/2018 Refill [facility] Gastroenterology, [address] [facility], [address] [place] [address] Marco Mathur MD [address] [place] [address] Crohn's disease of both small and large [...] alone documented in this encounter Care Teams Heavy Mobile Equipment Operator Relationship Specialty Start Date End Date Steve Zamarripa MD [address] [place] [address] PCP - General Internal Medicine 11/12/16 Marco Mathur MD [address] [place] [address] Consulting Physician Gastroenterology 11/12/18 documented as of this encounter
--- OUTSIDE RECORDS SUMMARY | 2025-03-26 11:33 | XMS_ITS | Encounter Summary ---
Author Organization [facility] Address [address] [place] [address] Care Team Providers Care Vocational Teacher Name Role Phone Steve Zamarripa MD Primary Care Provider [phone] Marco Mathur MD Unavailable [phone] Steve Zamarripa MD Unavailable [phone] Pcp, No Primary Care Provider Unavailabl e Steve Zamarripa MD Primary Care Provider [phone] Pcp, No Primary Care Provider Unavailabl e Encounter Details Date Type Department Care Team (Late st Contact Info) Description 06/14/2016 Scanned Document [address] [phone] Provider, Generic Social History Tobacco [...] on filedocumented in this encounter Care Teams Vocational Teacher Relationship Specialty Start Date End Date Steve Zamarripa MD PCP - General Family Medicine 06/04/16 02/05/21 Steve Zamarripa MD [address] [place] [address] PCP - [place] Commercial Attributed 01/01/20 07/30/20 Pcp, No PCP - General General Medicine 02/06/21 06/10/22 Steve Zamarripa MD PCP - General 06/11/22 08/27/22 Pcp, No PCP - General General Medicine 08/28/22 Marco Mathur MD [address] [place] [address] Chair Post Machine Operator Pediatric Gastroenterology 11/26/18 documented as of this encounter
--- OUTSIDE RECORDS SUMMARY | 2025-03-26 11:33 | XMS_ITS | Clinical Summary ---
Author Organization [facility] Address [address] [place] [address] Care Team Providers Care Software Quality Engineer Name Role Phone Steve Zamarripa MD Primary Care Provider [phone] Marco Mathur MD Unavailable [phone] Source Comments Please note that some or [...] so, obtain the minor's consent prior to disclosure.[facility] Allergies No known active allergies Medications [...] patient's age to complete this topic Insurance [facility] Care Teams Software Quality Engineer Relationship Specialty Start Date End Date Steve Zamarripa MD [address] [place] [address] PCP - General Internal Medicine 11/12/16 Marco Mathur MD [address] [place] [address] Consulting Physician Gastroenterology 11/12/18
--- OUTSIDE RECORDS SUMMARY | 2025-03-26 11:33 | XMS_ITS | Encounter Summary ---
Author Organization [facility] Address [address] [place] [address] Care Team Providers Care Moss Gatherer Name Role Phone Steve Zamarripa MD Primary Care Provider [phone] Marco Mathur MD Unavailable [phone] Reason for Visit * Reason Comments Medication Refill Encounter Details Date Type Department Care Team (Late st Contact Info) Description 11/27/2016 Refill [facility] Gastroenterology, [address], [address] [place] [address] Marco Mathur MD [address] [place] [address] Crohn's disease of both small and large [...] Primary documented in this encounter Care Teams Moss Gatherer Relationship Specialty Start Date End Date Steve Zamarripa MD [address] [place] [address] PCP - General Internal Medicine 11/12/16 Marco Mathur MD [address] [place] [address] Consulting Physician Gastroenterology 11/12/18 documented as of this encounter
--- OUTSIDE RECORDS SUMMARY | 2025-03-26 11:33 | XMS_ITS | Encounter Summary ---
Author Organization [facility] Address [address] [place] [address] Care Team Providers Care Wad Printing Machine Operator Name Role Phone Steve Zamarripa MD Primary Care Provider [phone] Marco Mathur MD Unavailable [phone] Reason for Visit * Reason Comments Medication Refill Encounter Details Date Type Department Care Team ([facility] st Contact Info) Description 04/29/2018 Refill [facility] Gastroenterology[place] [phone] Kel Green MD Crohn's disease of both [...] complication documented in this encounter Care Teams Wad Printing Machine Operator Relationship Specialty Start Date End Date Steve Zamarripa MD [address] [place] [address] PCP - General Internal Medicine 11/12/16 Marco Mathur MD [address] [place] [address] Consulting Physician Gastroenterology 11/12/18 documented as of this encounter
--- OUTSIDE RECORDS SUMMARY | 2025-03-26 11:33 | XMS_ITS | Encounter Summary ---
Author Organization [facility] Address [address] [place] [address] Care Team Providers Care Associate Spa Director Name Role Phone Steve Zamarripa MD Primary Care Provider [phone] Marco Mathur MD Unavailable [phone] Steve Zamarripa MD Unavailable [phone] Pcp, No Primary Care Provider Unavailabl e Steve Zamarripa MD Primary Care Provider [phone] Pcp, No Primary Care Provider Unavailabl e Encounter Details Date Type Department Care Team (Late st Contact Info) Description 08/23/2017 Scanned Document [address] [address] Provider, Generic Social History [...] filedocumented in this encounter Care Teams Associate Spa Director Relationship Specialty Start Date End Date Steve Zamarripa MD PCP - General Family Medicine 06/04/16 02/05/21 Steve Zamarripa MD [address] [place], [place] [address] [address] PCP - [place] Commercial Attributed 01/01/20 07/30/20 Pcp, No PCP - General General Medicine 02/06/21 06/10/22 Steve Zamarripa MD PCP - General 06/11/22 08/27/22 Pcp, No PCP - General General Medicine 08/28/22 Marco Mathur MD [address] [place] [address] Rehabilitator Pediatric Gastroenterology 11/26/18 documented as of this encounter
--- OUTSIDE RECORDS SUMMARY | 2025-03-26 11:33 | XMS_ITS | Encounter Summary ---
Author Organization [facility] Address [address] [place] [address] Care Team Providers Care Service Center Specialist Name Role Phone Jessica Cotto MD Primary Care Provider [phone] Steve Zamarripa MD Primary Care Provider [phone] Marco Mathur MD Unavailable [phone] Reason for Visit * Reason Comments Medication Refill Encounter Details Date Type Department Care Team (Late st Contact Info) Description 08/02/2015 Refill [facility] Gastroenterology, [address], [address] [place] [address] Marco Mathur MD [address] [place] [address] Crohn's disease of both small and large [...] documented in this encounter Care Teams Service Center Specialist Relationship Specialty Start Date End Date Jessica Cotto MD PCP - General 12/10/14 11/11/16 Steve Zamarripa MD [address] [place] [address] PCP - General Internal Medicine 11/12/16 Marco Mathur MD [address] [place] [address] Consulting Physician Gastroenterology 11/12/18 documented as of this encounter
--- OUTSIDE RECORDS SUMMARY | 2025-03-26 11:33 | XMS_ITS | Encounter Summary ---
Author Organization [facility] Address [address] [place] [address] Care Team Providers Care Building Code Inspector Name Role Phone Steve Zamarripa MD Primary Care Provider [phone] Marco Mathur MD Unavailable [phone] Steve Zamarripa MD Unavailable [phone] Pcp, No Primary Care Provider Unavailabl e Steve Zamarripa MD Primary Care Provider [phone] Pcp, No Primary Care Provider Unavailabl e Encounter Details Date Type Department Care Team (Late st Contact Info) Description 08/23/2017 Scanned Document [address] [address] Provider, Generic Social History Tobacco [...] on filedocumented in this encounter Care Teams Building Code Inspector Relationship Specialty Start Date End Date Steve Zamarripa MD PCP - General Family Medicine 06/04/16 02/05/21 Steve Zamarripa MD [address] [place], [place] [address] [address] PCP - [place] Commercial Attributed 01/01/20 07/30/20 Pcp, No PCP - General General Medicine 02/06/21 06/10/22 Steve Zamarripa MD PCP - General 06/11/22 08/27/22 Pcp, No PCP - General General Medicine 08/28/22 Marco Mathur MD [address] [place] [address] Reinforcing Metal Worker Pediatric Gastroenterology 11/26/18 documented as of this encounter
--- OUTSIDE RECORDS SUMMARY | 2025-03-26 11:33 | XMS_ITS | Encounter Summary ---
Author Organization [facility] Address [address] [place] [address] Care Team Providers Care Clinical Trial Leader Name Role Phone Jessica Cotto MD Primary Care Provider [phone] Steve Zamarripa MD Primary Care Provider [phone] Marco Mathur MD Unavailable [phone] Reason for Visit * Reason Comments Medication Refill Encounter Details Date Type Department Care Team (Late st Contact Info) Description 08/11/[address] [facility] Gastroenterology, [address], [address] [place] [address] Marco Mathur MD [address] [place] [address] Crohn's disease of both small and large [...] Primary documented in this encounter Care Teams Clinical Trial Leader Relationship Specialty Start Date End Date Jessica Cotto MD PCP - General 12/10/14 11/11/16 Steve Zamarripa MD [address] [place] [address] PCP - General Internal Medicine 11/12/16 Marco Mathur MD [address] [place] [address] Consulting Physician Gastroenterology 11/12/18 documented as of this encounter
--- OUTSIDE RECORDS SUMMARY | 2025-03-26 11:33 | XMS_ITS | Clinical Summary ---
Author Organization [facility] Address [address] [place] [address] Care Team Providers Care Director Nursery School Name Role Phone Marco Mathur MD Unavailable [phone] Pcp, No Primary Care Provider Unavailabl e [...] Vaccines Completed 11/30/2013, 03/0 06/2013, 06/02/2013 Insurance PSYCHIATRIC - PPO Care Teams Director Nursery School Relationship Specialty Start Date End Date Pcp, No PCP - General General Medicine 08/28/22 Marco Mathur MD [address] [place] [address] Cabinet And Trim Installer Pediatric Gastroenterology 11/26/18
--- OUTSIDE RECORDS SUMMARY | 2025-03-26 11:33 | XMS_ITS | Encounter Summary ---
Author Organization [facility] Address [address] [place] [address] Care Team Providers Care Shopping Inspector Name Role Phone Jessica Cotto MD Primary Care Provider [phone] Steve Zamarripa MD Primary Care Provider [phone] Marco Mathur MD Unavailable [phone] Reason for Visit * Reason Comments Medication Refill Encounter Details Date Type Department Care Team (Late st Contact Info) Description 08/26/2016 Refill [facility] Group Gastroenterology, [address], [address] [place] [address] Marco Mathur MD [address] [place] [address] Crohn's disease of both small and large [...] Primary documented in this encounter Care Teams Shopping Inspector Relationship Specialty Start Date End Date Jessica Cotto MD PCP - General 12/10/14 11/11/16 Steve Zamarripa MD [address] [place] [address] PCP - General Internal Medicine 11/12/16 Marco Mathur MD [address] [place] [address] Consulting Physician Gastroenterology 11/12/18 documented as of this encounter
--- OUTSIDE RECORDS SUMMARY | 2025-03-26 11:33 | XMS_ITS | Encounter Summary ---
Author Organization [facility] Address [address] [place] [address] Care Team Providers Care Door Repairman Name Role Phone Steve Zamarripa MD Primary Care Provider [phone] Marco Mathur MD Unavailable [phone] Steve Zamarripa MD Unavailable [phone] Pcp, No Primary Care Provider Unavailabl e Steve Zamarripa MD Primary Care Provider [phone] Pcp, No Primary Care Provider Unavailabl e Encounter Details Date Type Department Care Team (Late st Contact Info) Description 12/09/2018 Scanned Document [address] [address] Primary Care, Scan Social History [...] filedocumented in this encounter Care Teams Door Repairman Relationship Specialty Start Date End Date Steve Zamarripa MD PCP - General Family Medicine 06/04/16 02/05/21 Steve Zamarripa MD [address] [place] [address] [place] [address] PCP - [place] Commercial Attributed 01/01/20 07/30/20 Pcp, No PCP - General General Medicine 02/06/21 06/10/22 Steve Zamarripa MD PCP - General 06/11/22 08/27/22 Pcp, No PCP - General General Medicine 08/28/22 Marco Mathur MD [address] [place] [address] Patient Accounts Coordinator Pediatric Gastroenterology 11/26/18 documented as of this encounter
--- OUTSIDE RECORDS SUMMARY | 2025-03-26 11:33 | XMS_ITS | Encounter Summary ---
Author Organization [facility] Address [address] [place] [address] Care Team Providers Care Sack Lifter Name Role Phone Steve Zamarripa MD Primary Care Provider [phone] Marco Mathur MD Unavailable [phone] Steve Zamarripa MD Unavailable [phone] Pcp, No Primary Care Provider Unavailabl e Steve Zamarripa MD Primary Care Provider [phone] Pcp, No Primary Care Provider Unavailabl e Encounter Details Date Type Department Care Team (Late st Contact Info) Description 10/22/2016 Scanned Document [address] [address] Provider, Generic Social History Tobacco [...] on filedocumented in this encounter Care Teams Sack Lifter Relationship Specialty Start Date End Date Steve Zamarripa MD PCP - General Family Medicine 06/04/16 02/05/21 Steve Zamarripa MD [address] [place] [address] PCP - [place] Commercial Attributed 01/01/20 07/30/20 Pcp, No PCP - General General Medicine 02/06/21 06/10/22 Steve Zamarripa MD PCP - General 06/11/22 08/27/22 Pcp, No PCP - General General Medicine 08/28/22 Marco Mathur MD [address] [place] [address] Wax Cutter Pediatric Gastroenterology 11/26/18 documented as of this encounter
--- OUTSIDE RECORDS SUMMARY | 2025-03-26 11:33 | XMS_ITS | Encounter Summary ---
Author Organization [facility] Address [address] [place] [address] Care Team Providers Care Tow Operator Name Role Phone Steve Zamarripa MD Primary Care Provider [phone] Marco Mathur MD Unavailable Reason for Visit * Reason Comments Medication Refill Encounter Details Date Type Department Care Team (Late st Contact Info) Description 10/08/2017 Refill [facility] Gastroenterology, [address] [facility], [address] [place] [address] Marco Mathur MD [address] [place] [address] Crohn's disease of both small and large [...] complication documented in this encounter Care Teams Tow Operator Relationship Specialty Start Date End Date Steve Zamarripa MD [address] [place] [address] PCP - General Internal Medicine 11/12/16 Marco Mathur MD [address] [place] [address] Consulting Physician Gastroenterology 11/12/18 documented as of this encounter
--- OUTSIDE RECORDS SUMMARY | 2025-03-26 11:33 | XMS_ITS | Encounter Summary ---
Author Organization [facility] Address [address] [place] [address] Care Team Providers Care Body Technician Name Role Phone Jessica Cotto MD Primary Care Provider [phone] Steve Zamarripa MD Primary Care Provider [phone] Marco Mathur MD Unavailable [phone] Reason for Visit * Reason Comments Medication Refill Encounter Details Date Type Department Care Team (Late st Contact Info) Description 07/04/2015 Refill [facility] Gastroenterology, [address], [address] [place] [address] Marco Mathur MD [address] [place] [address] Crohn's disease of both small and large [...] Primary documented in this encounter Care Teams Body Technician Relationship Specialty Start Date End Date Jessica Cotto MD PCP - General 12/10/14 11/11/16 Steve Zamarripa MD [address] [place] [address] PCP - General Internal Medicine 11/12/16 Marco Mathur MD [address] [place] [address] Consulting Physician Gastroenterology 11/12/18 documented as of this encounter
--- OUTSIDE RECORDS SUMMARY | 2025-03-26 11:33 | XMS_ITS | Encounter Summary ---
Author Organization [facility] Address [address] [place] [address] Care Team Providers Care Critical Care Unit Nurse Name Role Phone Steve Zamarripa MD Primary Care Provider [phone] Marco Mathur MD Unavailable [phone] Reason for Visit * Reason Comments Medication Refill Encounter Details Date Type Department Care Team (Late st Contact Info) Description 11/27/2017 Refill [facility] [place] [phone] Marco Mathur MD [address] [place] [address] Crohn's disease of both small and large [...] complication documented in this encounter Care Teams Critical Care Unit Nurse Relationship Specialty Start Date End Date Steve Zamarripa MD [address] [place] [address] PCP - General Internal Medicine 11/12/16 Marco Mathur MD [address] [place] [address] Consulting Physician Gastroenterology 11/12/18 documented as of this encounter
--- OUTSIDE RECORDS SUMMARY | 2025-03-26 11:33 | XMS_ITS | Encounter Summary ---
Author Organization [facility] Address [address] [place] [address] Care Team Providers Care Price Lister Name Role Phone Jessica Cotto MD Primary Care Provider [phone] Steve Zamarripa MD Primary Care Provider [phone] Marco Mathur MD Unavailable [phone] Reason for Visit * Reason Comments Medication Refill Encounter Details Date Type Department Care Team (Late st Contact Info) Description 08/19/2016 Refill [facility] Gastroenterology, [address], [address] [place] [address] Marco Mathur MD [address] [place] [address] Crohn's disease of both small and large [...] Primary documented in this encounter Care Teams Price Lister Relationship Specialty Start Date End Date Jessica Cotto MD PCP - General 12/10/14 11/11/16 Steve Zamarripa MD [address] [place] [address] PCP - General Internal Medicine 11/12/16 Marco Mathur MD [address] [place] [address] Consulting Physician Gastroenterology 11/12/18 documented as of this encounter
--- OUTSIDE RECORDS SUMMARY | 2025-03-26 11:33 | XMS_ITS | Encounter Summary ---
Author Organization [facility] Address [address] [place] [address] Care Team Providers Care Education Research Analyst Name Role Phone Steve Zamarripa MD Primary Care Provider [phone] Marco Mathur MD Unavailable [phone] Reason for Visit * Reason Comments Medication Refill Encounter Details Date Type Department Care Team (Late st Contact Info) Description 07/29/2018 Refill [facility] [place] [phone] Marco Mathur MD [address] [place] [address] Crohn's disease of both small and large [...] complication documented in this encounter Care Teams Education Research Analyst Relationship Specialty Start Date End Date Steve Zamarripa MD [address] [place] [address] PCP - General Internal Medicine 11/12/16 Marco Mathur MD [address] [place] [address] Consulting Physician Gastroenterology 11/12/18 documented as of this encounter
--- OUTSIDE RECORDS SUMMARY | 2025-03-26 11:33 | XMS_ITS | Encounter Summary ---
Author Organization [facility] Address [address] [place] [address] Care Team Providers Care Steeler Name Role Phone Steve Zamarripa MD Primary Care Provider [phone] Marco Mathur MD Unavailable [phone] Reason for Visit * Reason Comments Medication Refill Encounter Details Date Type Department Care Team (Late st Contact Info) Description 11/22/2016 Refill [facility] Group Gastroenterology, [address] 1[address], [address] [place] [address] Marco Mathur MD [address] [place] [address] Crohn's disease of both small and large [...] Primary documented in this encounter Care Teams Steeler Relationship Specialty Start Date End Date Steve Zamarripa MD [address] [place] [address] PCP - General Internal Medicine 11/12/16 Marco Mathur MD [address] [place] [address] Consulting Physician Gastroenterology 11/12/18 documented as of this encounter
--- OUTSIDE RECORDS SUMMARY | 2025-03-26 11:33 | XMS_ITS | Encounter Summary ---
Author Organization [facility] Address [address] [place] [address] Care Team Providers Care Auto Radio Mechanic Name Role Phone Steve Zamarripa MD Primary Care Provider [phone] Marco Mathur MD Unavailable [phone] Steve Zamarripa MD Unavailable [phone] Pcp, No Primary Care Provider Unavailabl e Steve Zamarripa MD Primary Care Provider [phone] Pcp, No Primary Care Provider Unavailabl e Encounter Details Date Type Department Care Team (Late st Contact Info) Description 09/20/2016 Scanned Document [address] [phone] Provider, Generic Social History Tobacco [...] filedocumented in this encounter Care Teams Auto Radio Mechanic Relationship Specialty Start Date End Date Steve Zamarripa MD PCP - General Family Medicine 06/04/16 02/05/21 Steve Zamarripa MD [address] [place] [address] PCP - [place] Commercial Attributed 01/01/20 07/30/20 Pcp, No PCP - General General Medicine 02/06/21 06/10/22 Steve Zamarripa MD PCP - General 06/11/22 08/27/22 Pcp, No PCP - General General Medicine 08/28/22 Marco Mathur MD [address] [place] [address] Motor Pool Clerk Pediatric Gastroenterology 11/26/18 documented as of this encounter
--- OUTSIDE RECORDS SUMMARY | 2025-03-26 11:33 | XMS_ITS | Encounter Summary ---
Author Organization [facility] Address [address] [place] [address] Care Team Providers Care Marketing Services Coordinator Name Role Phone Steve Zamarripa MD Primary Care Provider [phone] Marco Mathur MD Unavailable [phone] Steve Zamarripa MD Unavailable [phone] Pcp, No Primary Care Provider Unavailabl e Steve Zamarripa MD Primary Care Provider [phone] Pcp, No Primary Care Provider Unavailabl e Encounter Details Date Type Department Care Team (Late st Contact Info) Description 09/11/2018 Scanned Document [address] [address] Steve Zamarripa MD [address] [place] [address] Social History Tobacco Use Types Packs/Day [...] on filedocumented in this encounter Care Teams Marketing Services Coordinator Relationship Specialty Start Date End Date Steve Zamarripa MD PCP - General Family Medicine 06/04/16 02/05/21 Steve Zamarripa MD [address] [place] [address] PCP - [place] Commercial Attributed 01/01/20 07/30/20 Pcp, No PCP - General General Medicine 02/06/21 06/10/22 Steve Zamarripa MD PCP - General 06/11/22 08/27/22 Pcp, No PCP - General General Medicine 08/28/22 Marco Mathur MD [address] [place] [address] Motor Tune Up Specialist Pediatric Gastroenterology 11/26/18 documented as of this encounter
--- OUTSIDE RECORDS SUMMARY | 2025-03-26 11:33 | XMS_ITS | Encounter Summary ---
Author Organization [facility] Address [address] [place] [address] Care Team Providers Care Stock Digger Name Role Phone Steve Zamarripa MD Primary Care Provider [phone] Marco Mathur MD Unavailable [phone] Reason for Visit * Reason Comments Medication Refill Encounter Details Date Type Department Care Team (Late st Contact Info) Description 12/06/2016 Refill [facility] Gastroenterology, [address] [facility], [address] [place] [address] Marco Mathur MD [address] [place] [address] Crohn's disease of both small and large [...] documented in this encounter Care Teams Stock Digger Relationship Specialty Start Date End Date Steve Zamarripa MD [address] [place] [address] PCP - General Internal Medicine 11/12/16 Marco Mathur MD [address] [place] [address] Consulting Physician Gastroenterology 11/12/18 documented as of this encounter
--- OUTSIDE RECORDS SUMMARY | 2025-03-26 11:33 | XMS_ITS | Encounter Summary ---
Author Organization [facility] Address [address] [place] [address] Care Team Providers Care Yarn Texture Machine Operator Name Role Phone Jessica Cotto MD Primary Care Provider [phone] Steve Zamarripa MD Primary Care Provider [phone] Mraco Mathur MD Unavailable [phone] Reason for Visit * Reason Comments Medication Refill Encounter Details Date Type Department Care Team (Late st Contact Info) Description 06/05/2016 Refill [facility] Gastroenterology, [address], [address] [place] [address] Marco Mathur MD [address] [place] [address] Crohn's disease of both small and large [...] Primary documented in this encounter Care Teams Yarn Texture Machine Operator Relationship Specialty Start Date End Date Jessica Cotto MD PCP - General 12/10/14 11/11/16 Steve Zamarripa MD [address] [place] [address] PCP - General Internal Medicine 11/12/16 Marco Mathur MD [address] [place] [address] Consulting Physician Gastroenterology 11/12/18 documented as of this encounter
--- OUTSIDE RECORDS SUMMARY | 2025-03-26 11:34 | XMS_ITS | Clinical Summary ---
Author Organization [facility] Address [address] [facility] [place] [address] Care Team Providers Care Dirt Supervisor Name Role Phone Steve Zamarripa MD Primary Care Provider [phone] Allergies No known active allergies Medications FLUoxetine [...] age to complete this topic Insurance () [facility] PPO Care Teams Dirt Supervisor Relationship Specialty Start Date End Date Steve Zamarripa MD PCP - General Internal Medicine 07/09/18
--- OUTSIDE RECORDS SUMMARY | 2025-03-26 11:34 | XMS_ITS | Encounter Summary ---
Author Organization [facility] Address [address] [place] [address] Care Team Providers Care Money Manager Name Role Phone Steve Zamarripa MD Primary Care Provider [phone] Encounter Details Date Type Department Care Team (Late st Contact Info) Description 04/20/2021 Orders Only [facility] Department of Pulmonology [address] [place] [address] Cj Batista MD [address] [place] [address] Social History Tobacco Use Types Packs/Day Years [...] on filedocumented in this encounter Care Teams Money Manager Relationship Specialty Start Date End Date Steve Zamarripa MD PCP - General Internal Medicine 07/09/18 documented as of this encounter
--- OUTSIDE RECORDS SUMMARY | 2025-03-26 11:34 | XMS_ITS | Encounter Summary ---
Author Organization [facility] Address [address] [place] [address] Care Team Providers Care Shellfish Dredge Operator Name Role Phone Steve Zamarripa MD Primary Care Provider [phone] Marco Mathur MD Unavailable [phone] Steve Zamarripa MD Unavailable [phone] Pcp, No Primary Care Provider Unavailabl e Steve Zamarripa MD Primary Care Provider [phone] Pcp, No Primary Care Provider Unavailabl e Encounter Details Date Type Department Care Team (Late st Contact Info) Description 07/26/2017 Telephone [facility] [address] [phone] Verónica Vogel [address] [place] [address] Social History Tobacco Use Types Packs/Day Years [...] on filedocumented in this encounter Care Teams Shellfish Dredge Operator Relationship Specialty Start Date End Date Steve Zamarripa MD PCP - General Family Medicine 06/04/16 02/05/21 Steve Zamarripa MD [address] [place] [address] PCP - [place] Commercial Attributed 01/01/20 07/30/20 Pcp, No PCP - General General Medicine 02/06/21 06/10/22 Steve Zamarripa MD PCP - General 06/11/22 08/27/22 Pcp, No PCP - General General Medicine 08/28/22 Marco Mathur MD [address] [place] [address] Squad Leader Pediatric Gastroenterology 11/26/18 documented as of this encounter
--- OUTSIDE RECORDS SUMMARY | 2025-03-26 11:34 | XMS_ITS | Encounter Summary ---
Author Organization [facility] Address [address] [place] [address] Care Team Providers Care Yarn Man Name Role Phone Steve Zamarripa MD Primary Care Provider + [phone] Encounter Details Date Type Department Care Team (Late st Contact Info) Description 12/20/2021 Orders Only [facility] Department of Pulmonology [address] [place] [address] Cj Batista MD [address] [place] [address] Social History Tobacco Use Types Packs/Day Years [...] on filedocumented in this encounter Care Teams Yarn Man Relationship Specialty Start Date End Date Steve Zamarripa MD PCP - General Internal Medicine 07/09/18 documented as of this encounter
--- OUTSIDE RECORDS SUMMARY | 2025-03-26 11:34 | XMS_ITS | Clinical Summary ---
Author Organization [facility] Address [address] [address] [place] [address] Phone Care Team Providers Care Plate Printer Name Role Phone Steve Zamarripa MD Primary [...] topic Medical Devices Not on file Insurance [employer]GRIM PPO [employer] PPO [employer] PPO [employer] PPO [employer] PPO [employer] PPO Care Teams Plate Printer Relationship Specialty Start Date End Date Steve Zamarripa MD PCP - General Internal Medicine 11/07/17 Additional Source Comments The information contained in this document represents components of the legal health record. It is not the complete legal health record.[facility]
--- OUTSIDE RECORDS SUMMARY | 2025-03-26 11:34 | XMS_ITS | Encounter Summary ---
Author Organization [facility] Address [address] [place] [address] Care Team Providers Care Plumbing Hardware Assembler Name Role Phone Steve Zamarripa MD Primary Care Provider [phone] Marco Mathur MD Unavailable [phone] Steve Zamarripa MD Unavailable [phone] Pcp, No Primary Care Provider Unavailabl e Steve Zamarripa MD Primary Care Provider [phone] Pcp, No Primary Care Provider Unavailabl e Encounter Details Date Type Department Care Team (Late st Contact Info) Description 06/12/2017 Scanned Document [address] [id number] Provider, Generic Social History Tobacco [...] on filedocumented in this encounter Care Teams Plumbing Hardware Assembler Relationship Specialty Start Date End Date Steve Zamarripa MD PCP - General Family Medicine 06/04/16 02/05/21 Steve Zamarripa MD [address] [place] [address] PCP - [place] Commercial Attributed 01/01/20 07/30/20 Pcp, No PCP - General General Medicine 02/06/21 06/10/22 Steve Zamarripa MD PCP - General 06/11/22 08/27/22 Pcp, No PCP - General General Medicine 08/28/22 Marco Mathur MD [address] [place] [address] Edge Trimmer Mechanic Pediatric Gastroenterology 11/26/18 documented as of this encounter
--- OUTSIDE RECORDS SUMMARY | 2025-03-26 11:34 | XMS_ITS | Encounter Summary ---
Author Organization [facility] Address [address] [place] [address] Care Team Providers Care World History Teacher Name Role Phone Jessica Cotto MD Primary Care Provider [phone] Steve Zamarripa MD Primary Care Provider [phone] Marco Mathur MD Unavailable [phone] Reason for Visit * Reason Comments Medication Refill Encounter Details Date Type Department Care Team (Late st Contact Info) Description 02/09/2016 Refill [facility] Gastroenterology, [address], [address] [place] [address] Marco Mathur MD [address] [place] [address] Crohn's disease of both small and large [...] Primary documented in this encounter Care Teams World History Teacher Relationship Specialty Start Date End Date Jessica Cotto MD PCP - General 12/10/14 11/11/16 Steve Zamarripa MD [address] [place] [address] PCP - General Internal Medicine 11/12/16 Marco Mathur MD [address] [place] [address] Consulting Physician Gastroenterology 11/12/18 documented as of this encounter
--- OUTSIDE RECORDS SUMMARY | 2025-03-26 11:34 | XMS_ITS | Encounter Summary ---
Author Organization Formerly [facility] Address [address] [place] [address] Care Team Providers Care Car Spotter Name Role Phone Steve Zamarripa MD Primary Care Provider [phone] Marco Mathur MD Unavailable [phone] Steve Zamarripa MD Unavailable [phone] Pcp, No Primary Care Provider Unavailabl e Steve Zamarripa MD Primary Care Provider [phone] Pcp, No Primary Care Provider Unavailabl e Encounter Details Date Type Department Care Team (Late st Contact Info) Description 05/29/2017 Scanned Document [address] [address] Provider, Generic Social History Tobacco [...] filedocumented in this encounter Care Teams Car Spotter Relationship Specialty Start Date End Date Steve Zamarripa MD PCP - General Family Medicine 06/04/16 02/05/21 Steve Zamarripa MD [address] [place] [address] PCP - [place] Commercial Attributed 01/01/20 07/30/20 Pcp, No PCP - General General Medicine 02/06/21 06/10/22 Steve Zamarripa MD PCP - General 06/11/22 08/27/22 Pcp, No PCP - General General Medicine 08/28/22 Marco Mathur MD [address] [place] [address] Slubber Runner Pediatric Gastroenterology 11/26/18 documented as of this encounter
[2025-04-01 22:03] LABS: Lactoferrin, Fecal, Quant. <6.25 mcg/mL (<7.25)
== END 2025-03-24 11:30 | disposition home or self-care (01) ==
LOC: HO.LNP 11:29
PROVIDERS: Visit Provider Internal Medicine Gastroenterology
DX: K50.80 Crohn's disease of both small and large intestine without complications (principal)
CPT/HCPCS: 83631

== ENCOUNTER 2025-04-12 15:07 | Outpatient (REF) | payer OTHER, SELFPAY ==
--- OUTSIDE RECORDS SUMMARY | 2017-07-23 15:47 | XMS_ITS | Encounter Summary ---
Author Organization [facility] Address [address] [place] [address] Care Team Providers Care Form Coverer Name Role Phone Steve Zamarripa MD Primary Care Provider [phone] Encounter Details Date Type Department Care Team (Late st Contact Info) Description 07/23/2017 3:47 PM EST Hospital Encounter [facility] [address] [place] [address] Víctor Rutledge MD [address] [place] [phone] Social History Tobacco Use Types Packs/Day Years Used Date Smoking Tobacco: Never Smokeless Tobacco: Never Alcohol Use Standard Drinks/Week Comments Yes 0 (1 standard drink = 0.6 oz pur e alcohol) drinks once or twice a month Comments No Sex and Gender Information Value Date Recorded Sex Assigned at Not on file Legal Sex Female 7:02 PM EDT Gender Identity Not on file Sexual Orientation Not on file COVID-19 Exposure Response Date Recorded In the last month, have you been in contact with someone who was confirmed or suspected to have Coronavirus / COVID-19? No / Unsure 02/06/2021 10:14 PM EDT documented as of this encounter Functional Status documented as of this encounter Plan of Treatment Not on file documented as of this encounter Procedures Procedure Name Priority Date/Time Associated Diagnosis Comments XR CHEST 2 VIEWS STAT 07/23/2017 4:09 PM EST Cough documented in this encounter Results * XR Chest 2 views (07/23/2017 4:09 PM EST) Anatomical Region Laterality Modality Chest Computed Radiogr aphy 07/23/2017 4:09 PM EST Impressions 07/23/2017 4:10 PM EST Normal chest. Narrative 07/23/2017 4:10 PM EST XR CHEST 2 VIEWS: 07/23/2017 3:47 PM CLINICAL HISTORY: Cough. Cough. FINDINGS: Lungs are clear. Cardiomediastinal and hilar silhouette are unremarkable. Pulmonary vascularity is normal. No pleural effusion or pneumothorax. Osseous structures are intact for age. Procedure Note Gopi Gonzalez MD - 07/23/2017 XR CHEST 2 VIEWS: 07/23/2017 3:47 PM CLINICAL HISTORY: Cough. Cough. FINDINGS: Lungs are clear. Cardiomediastinal and hilar silhouette are unremarkable.Pulmonary vascularity is normal. No pleural effusion or pneumothorax.Osseous structures are intact for age. IMPRESSION: Normal chest. [facility]OTT IMG DIAGNOSTIC IMAGING ORDERABL ES Final Result documented in this encounter Visit Diagnoses Not on filedocumented in this encounter Care Teams Form Coverer Relationship Specialty Start Date End Date Steve Zamarripa MD PCP - General Family Medicine 06/04/16 02/05/21 documented as of this encounter
--- OUTSIDE RECORDS SUMMARY | 2025-04-12 16:55 | XMS_ITS | Encounter Summary ---
Author Organization [facility] Address [address] [place] [address] Care Team Providers Care Railroad Carman Name Role Phone Steve Zamarripa MD Primary Care Provider [phone] Marco Mathur MD Unavailable [phone] Steve Zamarripa MD Unavailable [phone] Pcp, No Primary Care Provider Unavailabl e Steve Zamarripa MD Primary Care Provider [phone] Pcp, No Primary Care Provider Unavailabl e Encounter Details Date Type Department Care Team (Late st Contact Info) Description 11/27/2017 Scanned Document [address] [id number] Provider, Generic Social History Tobacco [...] on filedocumented in this encounter Care Teams Railroad Carman Relationship Specialty Start Date End Date Steve Zamarripa MD PCP - General Family Medicine 06/04/16 02/05/21 Steve Zamarripa MD [address] [place], [place] [address] [address] PCP - [place] Commercial Attributed 01/01/20 07/30/20 Pcp, No PCP - General General Medicine 02/06/21 06/10/22 Steve Zamarripa MD PCP - General 06/11/22 08/27/22 Pcp, No PCP - General General Medicine 08/28/22 Marco Mathur MD [address] [place] [address] Flow Coordinator Pediatric Gastroenterology 11/26/18 documented as of this encounter
--- OUTSIDE RECORDS SUMMARY | 2025-04-12 16:55 | XMS_ITS | Encounter Summary ---
Author Organization [facility] Address [address] [place] [address] Care Team Providers Care Cushion Cover Inspector Name Role Phone Steve Zamarripa MD Primary Care Provider [phone] Encounter Details Date Type Department Care Team (Late st Contact Info) Description 04/20/2021 Orders Only [facility] Department of Pulmonology [address] [facility] [place] [address] Cj Batista MD Social History Tobacco Use Types Packs/Day Years [...] on filedocumented in this encounter Care Teams Cushion Cover Inspector Relationship Specialty Start Date End Date Steve Zamarripa MD PCP - General Internal Medicine 07/09/18 documented as of this encounter
--- OUTSIDE RECORDS SUMMARY | 2025-04-12 16:55 | XMS_ITS | Encounter Summary ---
Author Organization [facility] Address [address] [place] [address] Care Team Providers Care Digital Marketing Lead Name Role Phone Steve Zamarripa MD Primary Care Provider [phone] Marco Mathur MD Unavailable [phone] Steve Zamarripa MD Unavailable [phone] Pcp, No Primary Care Provider Unavailabl e Steve Zamarripa MD Primary Care Provider [phone] Pcp, No Primary Care Provider Unavailabl e Encounter Details Date Type Department Care Team (Late st Contact Info) Description 10/22/2016 Scanned Document [address] [address] Provider, Generic Social History Tobacco [...] on filedocumented in this encounter Care Teams Digital Marketing Lead Relationship Specialty Start Date End Date Steve Zamarripa MD PCP - General Family Medicine 06/04/16 02/05/21 Steve Zamarripa MD [address] [place] [address] PCP - [place] Commercial Attributed 01/01/20 07/30/20 Pcp, No PCP - General General Medicine 02/06/21 06/10/22 Steve Zamarripa MD PCP - General 06/11/22 08/27/22 Pcp, No PCP - General General Medicine 08/28/22 Marco Mathur MD [address] [place] [address] Country Printer Pediatric Gastroenterology 11/26/18 documented as of this encounter
--- OUTSIDE RECORDS SUMMARY | 2025-04-12 16:55 | XMS_ITS | Encounter Summary ---
Author Organization [facility] Address [address] [place] [address] Care Team Providers Care Heel Reducer Name Role Phone Steve Zamarripa MD Primary Care Provider [phone] Marco Mathur MD Unavailable [phone] Steve Zamarripa MD Unavailable [phone] Pcp, No Primary Care Provider Unavailabl e Steve Zamarripa MD Primary Care Provider [phone] Pcp, No Primary Care Provider Unavailabl e Encounter Details Date Type Department Care Team (Late st Contact Info) Description 09/11/2018 Scanned Document [address] [address] Steve Zamarripa MD [address] [place] [address] Social History Tobacco Use Types Packs/Day [...] on filedocumented in this encounter Care Teams Heel Reducer Relationship Specialty Start Date End Date Steve Zamarripa MD PCP - General Family Medicine 06/04/16 02/05/21 Steve Zamarripa MD [address] [place] [address] PCP - [place] Commercial Attributed 01/01/20 07/30/20 Pcp, No PCP - General General Medicine 02/06/21 06/10/22 Steve Zamarripa MD PCP - General 06/11/22 08/27/22 Pcp, No PCP - General General Medicine 08/28/22 Marco Mathur MD [address] [place] [address] Phd Intern Pediatric Gastroenterology 11/26/18 documented as of this encounter
--- OUTSIDE RECORDS SUMMARY | 2025-04-12 16:55 | XMS_ITS | Encounter Summary ---
Author Organization [facility] Address [address] [place] [address] Care Team Providers Care Solar Installer Pv Name Role Phone Steve Zamarripa MD Primary Care Provider [phone] Marco Mathur MD Unavailable [phone] Steve Zamarripa MD Unavailable [phone] Pcp, No Primary Care Provider Unavailabl e Steve Zamarripa MD Primary Care Provider [phone] Pcp, No Primary Care Provider Unavailabl e Encounter Details Date Type Department Care Team (Late st Contact Info) Description 07/09/2018 Scanned Document [address] [id number] Pulmonary, Scan Social History Tobacco Use Types [...] on filedocumented in this encounter Care Teams Solar Installer Pv Relationship Specialty Start Date End Date Steve Zamarripa MD PCP - General Family Medicine 06/04/16 02/05/21 Steve Zamarripa MD [address] [place], [place] [address] [address] PCP - [place] Commercial Attributed 01/01/20 07/30/20 Pcp, No PCP - General General Medicine 02/06/21 06/10/22 Steve Zamarripa MD PCP - General 06/11/22 08/27/22 Pcp, No PCP - General General Medicine 08/28/22 Marco Mathur MD [address] [place] [address] Heavy Equipment Field Mechanic Pediatric Gastroenterology 11/26/18 documented as of this encounter
--- OUTSIDE RECORDS SUMMARY | 2025-04-12 16:55 | XMS_ITS | Encounter Summary ---
Author Organization [facility] Address [address] [place] [address] Care Team Providers Care Prints And Drawings Curator Name Role Phone Steve Zamarripa MD Primary Care Provider [phone] Marco Mathur MD Unavailable [phone] Steve Zamarripa MD Unavailable [phone] Pcp, No Primary Care Provider Unavailabl e Steve Zamarripa MD Primary Care Provider [phone] Pcp, No Primary Care Provider Unavailabl e Encounter Details Date Type Department Care Team (Late st Contact Info) Description 05/29/2017 Scanned Document [address] [phone] Provider, Generic Social History Tobacco [...] on filedocumented in this encounter Care Teams Prints And Drawings Curator Relationship Specialty Start Date End Date Steve Zamarripa MD PCP - General Family Medicine 06/04/16 02/05/21 Steve Zamarripa MD [address] [place] [address] PCP - [place] Commercial Attributed 01/01/20 07/30/20 Pcp, No PCP - General General Medicine 02/06/21 06/10/22 Steve Zamarripa MD PCP - General 06/11/22 08/27/22 Pcp, No PCP - General General Medicine 08/28/22 Marco Mathur MD [address] [place] [address] Crown Wheel Assembler Pediatric Gastroenterology 11/26/18 documented as of this encounter
--- OUTSIDE RECORDS SUMMARY | 2025-04-12 16:55 | XMS_ITS | Clinical Summary ---
Author Organization [facility] Address [address] [place] [address] Care Team Providers Care Sand Technician Name Role Phone Marco Mathur MD Unavailable Pcp, No Primary Care Provider Unavailabl e [...] Vaccines Completed 11/30/2013, 03/0 06/2013, 06/02/2013 Insurance [facility] - PPO Care Teams Sand Technician Relationship Specialty Start Date End Date Pcp, No PCP - General General Medicine 08/28/22 Marco Mathur MD [address] [place] [address] Glass Blowing Instructor Pediatric Gastroenterology 11/26/18
--- OUTSIDE RECORDS SUMMARY | 2025-04-12 16:55 | XMS_ITS | Clinical Summary ---
Author Organization [facility] Address [address] [place] [address] Care Team Providers Care Home Appraiser Name Role Phone Steve Zamarripa MD Primary Care Provider [phone] Marco Mathur MD Unavailable [phone] Source Comments Please note that some or [...] obtain the minor's consent prior to disclosure.[facility] Allergies No known active allergies Medications [...] to complete this topic Insurance [facility] Care Teams Home Appraiser Relationship Specialty Start Date End Date Steve Zamarripa MD [address] [place] [address] PCP - General Internal Medicine 11/12/16 Marco Mathur MD [address] [place] [address] Consulting Physician Gastroenterology 11/12/18
--- OUTSIDE RECORDS SUMMARY | 2025-04-12 16:55 | XMS_ITS | Encounter Summary ---
Author Organization [facility] Address [address] [place] [address] Care Team Providers Care Coil Former Name Role Phone Jessica Cotto MD Primary Care Provider [phone] Steve Zamarripa MD Primary Care Provider [phone] Marco Mathur MD Unavailable [phone] Reason for Visit * Reason Comments Medication Refill Encounter Details Date Type Department Care Team (Late st Contact Info) Description 06/05/2016 Refill [facility] Gastroenterology, [address], [address] [place] [address] Marco Mathur MD [address] [place] [address] Crohn's disease of both small and large [...] Primary documented in this encounter Care Teams Coil Former Relationship Specialty Start Date End Date Jessica Cotto MD PCP - General 12/10/14 11/11/16 Steve Zamarripa MD [address] [place] [address] PCP - General Internal Medicine 11/12/16 Marco Mathur MD [address] [place] [address] Consulting Physician Gastroenterology 11/12/18 documented as of this encounter
--- OUTSIDE RECORDS SUMMARY | 2025-04-12 16:55 | XMS_ITS | Encounter Summary ---
Author Organization [facility] Address [address] [place] [address] Care Team Providers Care Pig Machine Supervisor Name Role Phone Steve Zamarripa MD Primary Care Provider [phone] Marco Mathur MD Unavailable [phone] Steve Zamarripa MD Unavailable [phone] Pcp, No Primary Care Provider Unavailabl e Steve Zamarripa MD Primary Care Provider [phone] Pcp, No Primary Care Provider Unavailabl e Encounter Details Date Type Department Care Team (Late st Contact Info) Description 06/18/2018 Scanned Document [address] [phone] Pediatric Gastroenterology, Scan Social History Tobacco Use [...] on filedocumented in this encounter Care Teams Pig Machine Supervisor Relationship Specialty Start Date End Date Steve Zamarripa MD PCP - General Family Medicine 06/04/16 02/05/21 Steve Zamarripa MD [address] [place] [address] PCP - [place] Commercial Attributed 01/01/20 07/30/20 Pcp, No PCP - General General Medicine 02/06/21 06/10/22 Steve Zamarripa MD PCP - General 06/11/22 08/27/22 Pcp, No PCP - General General Medicine 08/28/22 Marco Mathur MD [address] [place] [address] Custom Dressmaker Pediatric Gastroenterology 11/26/18 documented as of this encounter
--- OUTSIDE RECORDS SUMMARY | 2025-04-12 16:55 | XMS_ITS | Encounter Summary ---
Author Organization [facility] Address [address] [place] [address] Care Team Providers Care Engineering Professor Name Role Phone Steve Zamarripa MD Primary Care Provider [phone] Encounter Details Date Type Department Care Team (Late st Contact Info) Description 12/20/2021 Orders Only [facility] Department of Pulmonology [address] [facility] [place] [address] Cj Batista MD Social History Tobacco Use [...] filedocumented in this encounter Care Teams Engineering Professor Relationship Specialty Start Date End Date Steve Zamarripa MD PCP - General Internal Medicine 07/09/18 documented as of this encounter
--- OUTSIDE RECORDS SUMMARY | 2025-04-12 16:55 | XMS_ITS | Encounter Summary ---
Author Organization [facility] Address [address] [place] [address] Care Team Providers Care Human Resources Hr Representative Name Role Phone Jessica Cotto MD Primary Care Provider [phone] Steve Zamarripa MD Primary Care Provider [phone] Marco Mathur MD Unavailable [phone] Reason for Visit * Reason Comments Medication Refill Encounter Details Date Type Department Care Team (Late st Contact Info) Description 08/02/2015 Refill [facility] Gastroenterology, [address], [address] [place] [address] Marco Mathur MD [address] [place] [address] Crohn's disease of both small and large [...] Primary documented in this encounter Care Teams Human Resources Hr Representative Relationship Specialty Start Date End Date Jessica Cotto MD PCP - General 12/10/14 11/11/16 Steve Zamarripa MD [address] [place] [address] PCP - General Internal Medicine 11/12/16 Marco Mathur MD [address] [place] [address] Consulting Physician Gastroenterology 11/12/18 documented as of this encounter
--- OUTSIDE RECORDS SUMMARY | 2025-04-12 16:55 | XMS_ITS | Clinical Summary ---
Author Organization [facility] Address [address] [facility] [place] [address] Care Team Providers Care Egg Trayer Name Role Phone Steve Zamarripa MD Primary Care Provider [phone] Allergies No known active allergies Medications FLUoxetine [...] Insurance () [facility] P[facility] Care Teams Egg Trayer Relationship Specialty Start Date End Date Steve Zamarripa MD PCP - General Internal Medicine 07/09/18
--- OUTSIDE RECORDS SUMMARY | 2025-04-12 16:55 | XMS_ITS | Encounter Summary ---
Author Organization [facility] Address [address] [place] [address] Care Team Providers Care Cream Hauler Name Role Phone Steve Zamarripa MD Primary Care Provider [phone] Marco Mathur MD Unavailable [phone] Steve Zamarripa MD Unavailable [phone] Pcp, No Primary Care Provider Unavailabl e Steve Zamarripa MD Primary Care Provider [phone] Pcp, No Primary Care Provider Unavailabl e Encounter Details Date Type Department Care Team (Late st Contact Info) Description 12/09/2018 Scanned Document [address] [phone] Primary Care, Scan Social History [...] on filedocumented in this encounter Care Teams Cream Hauler Relationship Specialty Start Date End Date Steve Zamarripa MD PCP - General Family Medicine 06/04/16 02/05/21 Steve Zamarripa MD [address] [place] [address] [place] [address] PCP - [place] Commercial Attributed 01/01/20 07/30/20 Pcp, No PCP - General General Medicine 02/06/21 06/10/22 Steve Zamarripa MD PCP - General 06/11/22 08/27/22 Pcp, No PCP - General General Medicine 08/28/22 Marco Mathur MD [address] [place] [address] Consumer Affairs Specialist Pediatric Gastroenterology 11/26/18 documented as of this encounter
--- OUTSIDE RECORDS SUMMARY | 2025-04-12 16:55 | XMS_ITS | Encounter Summary ---
Author Organization [facility] Address [address] [place] [address] Care Team Providers Care Welder Fitter Name Role Phone Jessica Cotto MD Primary Care Provider [phone] Steve Zamarripa MD Primary Care Provider [phone] Marco Mathur MD Unavailable [phone] Reason for Visit * Reason Comments Medication Refill Encounter Details Date Type Department Care Team (Late st Contact Info) Description 08/19/2016 Refill [facility] Gastroenterology, [address], [address] [place] [address] Marco Mathur MD [address] [place] [address] Crohn's disease of both small and large [...] Primary documented in this encounter Care Teams Welder Fitter Relationship Specialty Start Date End Date Jessica Cotto MD PCP - General 12/10/14 11/11/16 Steve Zamarripa MD [address] [place] [address] PCP - General Internal Medicine 11/12/16 Marco Mathur MD [address] [place] [address] Consulting Physician Gastroenterology 11/12/18 documented as of this encounter
--- OUTSIDE RECORDS SUMMARY | 2025-04-12 16:55 | XMS_ITS | Encounter Summary ---
Author Organization [facility] Address [address] [place] [address] Care Team Providers Care Node Js Developer Name Role Phone Steve Zamarripa MD Primary Care Provider [phone] Marco Mathur MD Unavailable [phone] Steve Zamarripa MD Unavailable [phone] Pcp, No Primary Care Provider Unavailabl e Steve Zamarripa MD Primary Care Provider [phone] Pcp, No Primary Care Provider Unavailabl e Encounter Details Date Type Department Care Team (Late st Contact Info) Description 06/12/2017 Scanned Document [address] [phone] Provider, Generic Social History Tobacco [...] on filedocumented in this encounter Care Teams Node Js Developer Relationship Specialty Start Date End Date Steve Zamarripa MD PCP - General Family Medicine 06/04/16 02/05/21 Steve Zamarripa MD [address] [place] [address] PCP - [place] Commercial Attributed 01/01/20 07/30/20 Pcp, No PCP - General General Medicine 02/06/21 06/10/22 Steve Zamarripa MD PCP - General 06/11/22 08/27/22 Pcp, No PCP - General General Medicine 08/28/22 Marco Mathur MD [address] [place] [address] Microfilm Mounter Pediatric Gastroenterology 11/26/18 documented as of this encounter
--- OUTSIDE RECORDS SUMMARY | 2025-04-12 16:55 | XMS_ITS | Encounter Summary ---
Author Organization [facility] Address [address] [place] [address] Care Team Providers Care Sand And Gravel Plant Operator Name Role Phone Steve Zamarripa MD Primary Care Provider [phone] Marco Mathur MD Unavailable [phone] Steve Zamarripa MD Unavailable [phone] Pcp, No Primary Care Provider Unavailabl e Steve Zamarripa MD Primary Care Provider [phone] Pcp, No Primary Care Provider Unavailabl e Encounter Details Date Type Department Care Team (Late st Contact Info) Description 10/01/2017 Scanned Document [address] [phone] Provider, Generic Social History Tobacco [...] filedocumented in this encounter Care Teams Sand And Gravel Plant Operator Relationship Specialty Start Date End Date Steve Zamarripa MD PCP - General Family Medicine 06/04/16 02/05/21 Steve Zamarripa MD [address] [place], [place] [address] [address] PCP - [place] Commercial Attributed 01/01/20 07/30/20 Pcp, No PCP - General General Medicine 02/06/21 06/10/22 Steve Zamarripa MD PCP - General 06/11/22 08/27/22 Pcp, No PCP - General General Medicine 08/28/22 Marco Mathur MD [address] [place] [address] Developer Trading Systems Pediatric Gastroenterology 11/26/18 documented as of this encounter
--- OUTSIDE RECORDS SUMMARY | 2025-04-12 16:55 | XMS_ITS | Encounter Summary ---
Author Organization [facility] Address [address] [place] [address] Care Team Providers Care Student Admissions Clerk Name Role Phone Jessica Cotto MD Primary Care Provider [phone] Steve Zamarripa MD Primary Care Provider [phone] Marco Mathur MD Unavailable [phone] Reason for Visit * Reason Comments Medication Refill Encounter Details Date Type Department Care Team (Late st Contact Info) Description 08/11/2015 Refill [facility] Gastroenterology, [address], [address] [place] [address] Marco Mathur MD [address] [place] [address] Crohn's disease of both small and large [...] Primary documented in this encounter Care Teams Student Admissions Clerk Relationship Specialty Start Date End Date Jessica Cotto MD PCP - General 12/10/14 11/11/16 Steve Zamarripa MD [address] [place] [address] PCP - General Internal Medicine 11/12/16 Marco Mathur MD [address] [place] [address] Consulting Physician Gastroenterology 11/12/18 documented as of this encounter
--- OUTSIDE RECORDS SUMMARY | 2025-04-12 16:55 | XMS_ITS | Encounter Summary ---
Author Organization [facility] Address [address] [place] [address] Care Team Providers Care Recruiting And Selection Consultant Name Role Phone Steve Zamarripa MD Primary Care Provider [phone] Marco Mathur MD Unavailable [phone] Steve Zamarripa MD Unavailable [phone] Pcp, No Primary Care Provider Unavailabl e Steve Zamarripa MD Primary Care Provider [phone] Pcp, No Primary Care Provider Unavailabl e Encounter Details Date Type Department Care Team (Late st Contact Info) Description 09/20/2016 Scanned Document [address] [address] Provider, Generic Social History Tobacco [...] on filedocumented in this encounter Care Teams Recruiting And Selection Consultant Relationship Specialty Start Date End Date Steve Zamarripa MD PCP - General Family Medicine 06/04/16 02/05/21 Steve Zamarripa MD [address] [place] [address] PCP - [place] Commercial Attributed 01/01/20 07/30/20 Pcp, No PCP - General General Medicine 02/06/21 06/10/22 Steve Zamarripa MD PCP - General 06/11/22 08/27/22 Pcp, No PCP - General General Medicine 08/28/22 Marco Mathur MD [address] [place] [address] Resident In Diagnostic Radiology Pediatric Gastroenterology 11/26/18 documented as of this encounter
--- OUTSIDE RECORDS SUMMARY | 2025-04-12 16:55 | XMS_ITS | Encounter Summary ---
Author Organization [facility] Address [address] [place] [address] Care Team Providers Care Machine Pan Greaser Name Role Phone Jessica Cotto MD Primary Care Provider [phone] Steve Zamarripa MD Primary Care Provider [phone] Marco Mathur MD Unavailable [phone] Reason for Visit * Reason Comments Medication Refill Encounter Details Date Type Department Care Team (Late st Contact Info) Description 07/04/2015 Refill [facility] Gastroenterology, [address], [address] [place] [address] Marco Mathur MD [address] [place] [address] Crohn's disease of both small and large [...] Primary documented in this encounter Care Teams Machine Pan Greaser Relationship Specialty Start Date End Date Jessica Cotto MD PCP - General 12/10/14 11/11/16 Steve Zamarripa MD [address] [place] [address] PCP - General Internal Medicine 11/12/16 Marco Mathur MD [address] [place] [address] Consulting Physician Gastroenterology 11/12/18 documented as of this encounter
--- OUTSIDE RECORDS SUMMARY | 2025-04-12 16:55 | XMS_ITS | Encounter Summary ---
Author Organization [facility] Address [address] [place] [address] Care Team Providers Care Truck Unloader Name Role Phone Steve Zamarripa MD Primary Care Provider [phone] Marco Mathur MD Unavailable [phone] Steve Zamarripa MD Unavailable [phone] Pcp, No Primary Care Provider Unavailabl e Steve Zamarripa MD Primary Care Provider [phone] Pcp, No Primary Care Provider Unavailabl e Encounter Details Date Type Department Care Team (Late st Contact Info) Description 08/23/2017 Scanned Document [address] [address] Provider, Generic Social History Tobacco [...] on filedocumented in this encounter Care Teams Truck Unloader Relationship Specialty Start Date End Date Steve Zamarripa MD PCP - General Family Medicine 06/04/16 02/05/21 Steve Zamarripa MD [address] [place], [place] [address] [place] [address] PCP - [place] Commercial Attributed 01/01/20 07/30/20 Pcp, No PCP - General General Medicine 02/06/21 06/10/22 Steve Zamarripa MD PCP - General 06/11/22 08/27/22 Pcp, No PCP - General General Medicine 08/28/22 Marco Mathur MD [address] [place] [address] Armor Reconnaissance Specialist Pediatric Gastroenterology 11/26/18 documented as of this encounter
--- OUTSIDE RECORDS SUMMARY | 2025-04-12 16:55 | XMS_ITS | Encounter Summary ---
Author Organization [facility] Address [address] [place] [address] Care Team Providers Care Reception Interviewer Name Role Phone Jessica Cotto MD Primary Care Provider [phone] Steve Zamarripa MD Primary Care Provider [phone] Marco Mathur MD Unavailable [phone] Reason for Visit * Reason Comments Medication Refill Encounter Details Date Type Department Care Team (Late st Contact Info) Description 08/26/2016 Refill [facility] Gastroenterology, [address], [address] [place] [address] Marco Mathur MD [address] [place] [address] Crohn's disease of both small and large [...] Primary documented in this encounter Care Teams Reception Interviewer Relationship Specialty Start Date End Date Jessica Cotto MD PCP - General 12/10/14 11/11/16 Steve Zamarripa MD [address] [place] [address] PCP - General Internal Medicine 11/12/16 Marco Mathur MD [address] [place] [address] Consulting Physician Gastroenterology 11/12/18 documented as of this encounter
--- OUTSIDE RECORDS SUMMARY | 2025-04-12 16:55 | XMS_ITS | Encounter Summary ---
Author Organization [facility] Address [address] [place] [address] Care Team Providers Care Car Salesman Name Role Phone Steve Zamarripa MD Primary Care Provider [phone] Marco Mathur MD Unavailable [phone] Steve Zamarripa MD Unavailable [phone] Pcp, No Primary Care Provider Unavailabl e Steve Zamarripa MD Primary Care Provider [phone] Pcp, No Primary Care Provider Unavailabl e Encounter Details Date Type Department Care Team (Late st Contact Info) Description 06/14/2016 Scanned Document [address] [address] Provider, Generic Social History [...] filedocumented in this encounter Care Teams Car Salesman Relationship Specialty Start Date End Date Steve Zamarripa MD PCP - General Family Medicine 06/04/16 02/05/21 Steve Zamarripa MD [address] [place] [address] PCP - [place] Commercial Attributed 01/01/20 07/30/20 Pcp, No PCP - General General Medicine 02/06/21 06/10/22 Steve Zamarripa MD PCP - General 06/11/22 08/27/22 Pcp, No PCP - General General Medicine 08/28/22 Marco Mathur MD [address] [place] [address] Crane Helper Pediatric Gastroenterology 11/26/18 documented as of this encounter
--- OUTSIDE RECORDS SUMMARY | 2025-04-12 16:55 | XMS_ITS | Encounter Summary ---
Author Organization [facility] Address [address] [place] [address] Care Team Providers Care Cascara Bark Cutter Name Role Phone Steve Zamarripa MD Primary Care Provider [phone] Marco Mathur MD Unavailable [phone] Steve Zamarripa MD Unavailable [phone] Pcp, No Primary Care Provider Unavailabl e Steve Zamarripa MD Primary Care Provider [phone] Pcp, No Primary Care Provider Unavailabl e Encounter Details Date Type Department Care Team (Late st Contact Info) Description 10/01/2017 Scanned Document [address] [address] Provider, Generic Social History Tobacco [...] on filedocumented in this encounter Care Teams Cascara Bark Cutter Relationship Specialty Start Date End Date Steve Zamarripa MD PCP - General Family Medicine 06/04/16 02/05/21 Steve Zamarripa MD [address] [place], [place] [address] [address] PCP - [place] Commercial Attributed 01/01/20 07/30/20 Pcp, No PCP - General General Medicine 02/06/21 06/10/22 Steve Zamarripa MD PCP - General 06/11/22 08/27/22 Pcp, No PCP - General General Medicine 08/28/22 Marco Mathur MD [address] [place] [address] Catheterization Laboratory Technician Pediatric Gastroenterology 11/26/18 documented as of this encounter
--- OUTSIDE RECORDS SUMMARY | 2025-04-12 16:55 | XMS_ITS | Encounter Summary ---
Author Organization [facility] Address [address] [place] [address] Care Team Providers Care Decoration Checker Name Role Phone Steve Zamarripa MD Primary Care Provider [phone] Marco Mathur MD Unavailable [phone] Steve Zamarripa MD Unavailable [phone] Pcp, No Primary Care Provider Unavailabl e Steve Zamarripa MD Primary Care Provider [phone] Pcp, No Primary Care Provider Unavailabl e Encounter Details Date Type Department Care Team (Late st Contact Info) Description 08/24/2017 Scanned Document [address] [address] Provider, Generic Social History Tobacco [...] on filedocumented in this encounter Care Teams Decoration Checker Relationship Specialty Start Date End Date Steve Zamarripa MD PCP - General Family Medicine 06/04/16 02/05/21 Steve Zamarripa MD [address] [place], [place] [address] [address] PCP - [place] Commercial Attributed 01/01/20 07/30/20 Pcp, No PCP - General General Medicine 02/06/21 06/10/22 Steve Zamarripa MD PCP - General 06/11/22 08/27/22 Pcp, No PCP - General General Medicine 08/28/22 Marco Mathur MD [address] [place] [address] Storage Manager Pediatric Gastroenterology 11/26/18 documented as of this encounter
--- OUTSIDE RECORDS SUMMARY | 2025-04-12 16:55 | XMS_ITS | Encounter Summary ---
Author Organization [facility] Address [address] [place] [address] Care Team Providers Care Road Crew Member Name Role Phone Jessica Cotto MD Primary Care Provider [phone] Steve Zamarripa MD Primary Care Provider [phone] Marco Mathur MD Unavailable [phone] Reason for Visit * Reason Comments Medication Refill Encounter Details Date Type Department Care Team (Late st Contact Info) Description 02/09/2016 Refill [facility] Gastroenterology, [address], [address] [place] [address] Marco Mathur MD [address] [place] [address] Crohn's disease of both small and large [...] Primary documented in this encounter Care Teams Road Crew Member Relationship Specialty Start Date End Date Jessica Cotto MD PCP - General 12/10/14 11/11/16 Steve Zamarripa MD [address] [place] [address] PCP - General Internal Medicine 11/12/16 Marco Mathur MD [address] [place] [address] Consulting Physician Gastroenterology 11/12/18 documented as of this encounter
--- OUTSIDE RECORDS SUMMARY | 2025-04-12 16:55 | XMS_ITS | Encounter Summary ---
Author Organization [facility] Address [address] [place] [address] Care Team Providers Care Synthetic Soil Blocks Pulper Name Role Phone Steve Zamarripa MD Primary Care Provider [phone] Marco Mathur MD Unavailable [phone] Steve Zamarripa MD Unavailable [phone] Pcp, No Primary Care Provider Unavailabl e Steev Zamarripa MD Primary Care Provider [phone] Pcp, No Primary Care Provider Unavailabl e Encounter Details Date Type Department Care Team (Late st Contact Info) Description 08/23/2017 Scanned Document [address] [address] Provider, Generic Social History Tobacco [...] on filedocumented in this encounter Care Teams Synthetic Soil Blocks Pulper Relationship Specialty Start Date End Date Steve Zamarripa MD PCP - General Family Medicine 06/04/16 02/05/21 Steve Zamarripa MD [address] [place], [place] [address] [address] PCP - [place] Commercial Attributed 01/01/20 07/30/20 Pcp, No PCP - General General Medicine 02/06/21 06/10/22 Steve Zamarripa MD PCP - General 06/11/22 08/27/22 Pcp, No PCP - General General Medicine 08/28/22 Marco Mathur MD [address] [place] [address] Paleology Teacher Pediatric Gastroenterology 11/26/18 documented as of this encounter
--- OUTSIDE RECORDS SUMMARY | 2025-04-12 16:56 | XMS_ITS | Clinical Summary ---
Author Organization [facility] Address [address] [facility] [address] [place] [address] Phone Care Team Providers Care Manager Database Name Role Phone Stvee Zamarripa MD Primary Care Provider Social History [...] on patient's age to complete this topic IPV VACCINES Aged Out No longer eligi ble [...] topic Medical Devices Not on file Insurance [employer], [place] [employer]PO [employer] PPO [employer] [place] [address] Care Teams Manager Database Relationship Specialty Start Date End Date Steve Zamarripa MD PCP - General Internal Medicine 11/07/17 Additional Source Comments The information contained in this document represents components of the legal health record. It is not the complete legal health record.[facility]
--- OUTSIDE RECORDS SUMMARY | 2025-04-12 16:56 | XMS_ITS | Encounter Summary ---
Author Organization [facility] Address [address] [place] [address] Care Team Providers Care Hide Curer Name Role Phone Steve Zamarripa MD Primary Care Provider [phone] Marco Mathur MD Unavailable [phone] Reason for Visit * Reason Comments Medication Refill Encounter Details Date Type Department Care Team (Late st Contact Info) Description 07/29/2018 Refill [facility] [place] [phone] Marco Mathur MD [address] [place] [address] Crohn's disease of both small and large [...] complication documented in this encounter Care Teams Hide Curer Relationship Specialty Start Date End Date Steve Zamarripa MD [address] [place] [address] PCP - General Internal Medicine 11/12/16 Marco Mathur MD [address] [place] [address] Consulting Physician Gastroenterology 11/12/18 documented as of this encounter
--- OUTSIDE RECORDS SUMMARY | 2025-04-12 16:56 | XMS_ITS | Encounter Summary ---
Author Organization [facility] Address [address] [place] [address] Care Team Providers Care Senior Electrical Design Engineer Name Role Phone Steve Zamarripa MD Primary Care Provider [phone] Marco Mathur MD Unavailable [phone] Reason for Visit * Reason Comments Medication Refill Encounter Details Date Type Department Care Team (Late st Contact Info) Description 11/27/2016 Refill [facility] Gastroenterology, [address], [address] [place] [address] Marco Mathur MD [address] [place] [address] Crohn's disease of both small and large [...] documented in this encounter Care Teams Senior Electrical Design Engineer Relationship Specialty Start Date End Date Steve Zamarripa MD [address] [place] [address] PCP - General Internal Medicine 11/12/16 Marco Mathur MD [address] [place] [address] Consulting Physician Gastroenterology 11/12/18 documented as of this encounter
--- OUTSIDE RECORDS SUMMARY | 2025-04-12 16:56 | XMS_ITS | Encounter Summary ---
Author Organization [facility] Address [address] [place] [address] Care Team Providers Care Community Service Manager Name Role Phone Steve Zamarripa MD Primary Care Provider [phone] Marco Mathur MD Unavailable [phone] Reason for Visit * Reason Comments Medication Refill Encounter Details Date Type Department Care Team (Late st Contact Info) Description 11/22/2016 Refill [facility] Gastroenterology, [address], [address] [place] [address] Marco Mathur MD [address] [place] [address] Crohn's disease of both small and large [...] Primary documented in this encounter Care Teams Community Service Manager Relationship Specialty Start Date End Date Steve Zamarripa MD [address] [place] [address] PCP - General Internal Medicine 11/12/16 Marco Mathur MD [address] [place] [address] Consulting Physician Gastroenterology 11/12/18 documented as of this encounter
--- OUTSIDE RECORDS SUMMARY | 2025-04-12 16:56 | XMS_ITS | Encounter Summary ---
Author Organization [facility] Address [address] [place] [address] Care Team Providers Care Special Education Preschool Teacher Name Role Phone Steve Zamarripa MD Primary Care Provider [phone] Marco Mathur MD Unavailable [phone] Reason for Visit * Reason Comments Medication Refill Encounter Details Date Type Department Care Team (Late st Contact Info) Description 12/06/2016 Refill [facility] Gastroenterology, [address] [facility], [address] [place] [address] Marco Mathur MD [address] [place] [address] Crohn's disease of both small and large [...] Primary documented in this encounter Care Teams Special Education Preschool Teacher Relationship Specialty Start Date End Date Steve Zamarripa MD [address] [place] [address] PCP - General Internal Medicine 11/12/16 Marco Mathur MD [address] [place] [address] Consulting Physician Gastroenterology 11/12/18 documented as of this encounter
--- OUTSIDE RECORDS SUMMARY | 2025-04-12 16:56 | XMS_ITS | Encounter Summary ---
Author Organization [facility] Address [address] [place] [address] Care Team Providers Care Director Part Name Role Phone Steve Zamarripa MD Primary Care Provider [phone] Marco Mathur MD Unavailable [phone] Reason for Visit * Reason Comments Medication Refill Encounter Details Date Type Department Care Team (Late st Contact Info) Description 10/31/2017 Refill [facility] [place] [phone] Marco Mathur MD [address] [place] [address] Crohn's disease of both small and large [...] documented in this encounter Care Teams Director Part Relationship Specialty Start Date End Date Steve Zamarripa MD [address] [place] [address] PCP - General Internal Medicine 11/12/16 Marco Mathur MD [address] [place] [address] Consulting Physician Gastroenterology 11/12/18 documented as of this encounter
--- OUTSIDE RECORDS SUMMARY | 2025-04-12 16:56 | XMS_ITS | Encounter Summary ---
Author Organization [facility] Address [address] [place] [address] Care Team Providers Care Financial Planning Adviser Name Role Phone Steve Zamarrpia MD Primary Care Provider [phone] Marco Mathur MD Unavailable [phone] Reason for Visit * Reason Comments Medication Refill Encounter Details Date Type Department Care Team (Late st Contact Info) Description 10/08/2017 Refill [facility] Gastroenterology, [address] [facility], [address] [place] [address] Marco Mathur MD [address] [place] [address] Crohn's disease of both small and large [...] complication documented in this encounter Care Teams Financial Planning Adviser Relationship Specialty Start Date End Date Steve Zamarripa MD [address] [place] [address] PCP - General Internal Medicine 11/12/16 Marco Mathur MD [address] [place] [address] Consulting Physician Gastroenterology 11/12/18 documented as of this encounter
--- OUTSIDE RECORDS SUMMARY | 2025-04-12 16:56 | XMS_ITS | Encounter Summary ---
Author Organization [facility] Address [address] [place] [address] Care Team Providers Care Licensed Massage Therapist Name Role Phone Steve Zamarripa MD Primary Care Provider [phone] Marco Mathur MD Unavailable [phone] Reason for Visit * Reason Comments Medication Refill Encounter Details Date Type Department Care Team ([facility] st Contact Info) Description 04/29/2018 Refill [facility] [place] [phone] Kel Green MD Crohn's disease of both [...] complication documented in this encounter Care Teams Licensed Massage Therapist Relationship Specialty Start Date End Date Steve Zamarripa MD [address] [place] [address] PCP - General Internal Medicine 11/12/16 Marco Mathur MD [address] [place] [address] Consulting Physician Gastroenterology 11/12/18 documented as of this encounter
--- OUTSIDE RECORDS SUMMARY | 2025-04-12 16:56 | XMS_ITS | Encounter Summary ---
Author Organization [facility] Address [address] [place] [address] Care Team Providers Care Gluing Crew Leader Name Role Phone Steve Zamarripa MD Primary Care Provider [phone] Marco Mathur MD Unavailable [phone] Reason for Visit * Reason Comments Medication Refill Encounter Details Date Type Department Care Team (Late st Contact Info) Description 06/08/2018 Refill [facility] Gastroenterology, [address] [facility], [address] [place] [address] Marco Mathur MD [address] [place] [address] Crohn's disease of both small and large [...] alone documented in this encounter Care Teams Gluing Crew Leader Relationship Specialty Start Date End Date Steve Zamarripa MD [address] [place] [address] PCP - General Internal Medicine 11/12/16 Marco Mathur MD [address] [place] [address] Consulting Physician Gastroenterology 11/12/18 documented as of this encounter
--- OUTSIDE RECORDS SUMMARY | 2025-04-12 16:56 | XMS_ITS | Encounter Summary ---
Author Organization [facility] Address [address] [place] [address] Care Team Providers Care Deputy General Counsel Name Role Phone Steve Zamarripa MD Primary Care Provider [phone] Marco Mathur MD Unavailable [phone] Reason for Visit * Reason Comments Medication Refill Encounter Details Date Type Department Care Team (Late st Contact Info) Description 11/27/2017 Refill [facility] [place] [phone] Marco Mathur MD [address] [place] [address] Crohn's disease of both small and large [...] documented in this encounter Care Teams Deputy General Counsel Relationship Specialty Start Date End Date Steve Zamarripa MD [address] [place] [address] PCP - General Internal Medicine 11/12/16 Marco Mathur MD [address] [place] [address] Consulting Physician Gastroenterology 11/12/18 documented as of this encounter
--- OUTSIDE RECORDS SUMMARY | 2025-04-12 16:56 | XMS_ITS | Encounter Summary ---
Author Organization [facility] Address [address] [place] [address] Phone Care Team Providers Care Sales Exec Name Role Phone Steve Zamarripa MD Primary Care Provider Reason for Visit * Reason Onset Date Comments Referral 11/29/2024 Encounter Details Date Type Department Care Team (Late st Contact Info) Description 11/29/2024 Telephone [facility] [address] [place] [address] Rachel [email or web address] Referral Social History Tobacco Use Types Packs/Day [...] as of this encounter Progress Notes * Mona Castaneda - 04/08/2025 1:45 PM EST Faxed Rheumatology referral back to [facility] referrals department. We do not treat Crohn's and osteoporosis. * Connie Beard - 03/01/2025 2:40 PM EDT No referral sent * Saloni Payne - 12/06/2024 9:52 AM EDT Pt [facility] Central Support Wood Casket Maker (Please do not reply to this user; this inbox is not monitored.) Thank you. * Stacey Costa - 11/30/2024 11:14 AM EDT Pt still hasn't received her referral. Please contact and advise. Central Support Wood Casket Maker (Please do not reply to this user; this inbox is not monitored.) Thank you. * Rachel Gardner - 11/29/2024 11:52 AM EDT CD PEN Top Smart Phrases: Locating Referral Fax Hello, We are notifying you that the patient [...] If the referral is not on file: Hello, thank you for calling. I see that [...] filedocumented in this encounter Care Teams Sales Exec Relationship Specialty Start Date End Date Steve Zamarripa MD PCP - General Internal Medicine 11/07/17 documented as of this encounter Additional Source Comments The information contained in this document represents components of the legal health record. It is not the complete legal health record.[facility]
== END 2025-04-12 15:08 | disposition home or self-care (01) ==
LOC: HO.LAB 15:07
PROVIDERS: PCP Nurse Practitioner Family; Visit Provider Internal Medicine Gastroenterology
DX: K50.80 Crohn's disease of both small and large intestine without complications (principal)
CPT/HCPCS: 36415; 80230; 82542

== ENCOUNTER 2025-05-24 09:10 | Outpatient (REF) | payer OTHER, SELFPAY ==
--- OUTSIDE RECORDS SUMMARY | 2017-07-23 15:47 | XMS_ITS | Encounter Summary ---
Author Organization [facility] Address [address] [place] [address] Care Team Providers Care Director Group Sales Name Role Phone Steve Zamarripa MD Primary Care Provider [phone] Encounter Details Date Type Department Care Team (Late st Contact Info) Description 07/23/2017 3:47 PM EST Hospital Encounter [facility] [address] [place] [address] Víctor Rutledge MD [address] [place] [phone] Social History Tobacco Use Types Packs/Day Years [...] on filedocumented in this encounter Care Teams Director Group Sales Relationship Specialty Start Date End Date Steve Zamarripa MD PCP - General Family Medicine 06/04/16 02/05/21 documented as of this encounter
--- NOTE | ~2025-05-24 | MR_ITS ---
EXAMINATION: MR PELVIS WITHOUT THEN WITH IV CONTRAST, MR ABDOMEN WITHOUT THEN WITH IV CONTRAST HISTORY: K50.80 - Crohn's disease of both small and large intestine without complication... COMPARISON: There are no prior studies available for comparison. TECHNIQUE: Axial in and out of phase T1-weighted gradient echo, and axial and coronal HASTE T2 with fat saturation images were obtained through the abdomen. Sine images were also obtained to evaluate bowel peristalsis. Subsequently, fat suppressed axial and coronal T1-weighted images were obtained after the intravenous administration of 6.5 mL Gadavist. FINDINGS: The small bowel is normal in caliber. There is no small bowel wall thickening, edema, or abnormal contrast enhancement. There is normal small bowel peristalsis. There is a large amount of stool throughout the colon. The liver, spleen, pancreas, adrenals, and kidneys are unremarkable. No signal loss is seen within the liver on opposed phase imaging to suggest steatosis. There is cholelithiasis. No ascites is identified. An IUD is noted in the endometrial cavity of the uterus. The ovaries are unremarkable. No lymphadenopathy is identified. MR/MR pelvis wo/w con IMPRESSION: Unremarkable MR enterography examination. Electronically signed by: Aiden England MD 05/24/2025 11:25 AM [facility]
--- NOTE | ~2025-05-24 | MR_ITS ---
EXAMINATION: MR PELVIS WITHOUT THEN WITH IV CONTRAST, MR ABDOMEN WITHOUT THEN WITH IV CONTRAST HISTORY: K50.80 - Crohn's disease of both small and large intestine without complication... COMPARISON: There are no prior studies available for comparison. TECHNIQUE: Axial in and out of phase T1-weighted gradient echo, and axial and coronal HASTE T2 with fat saturation images were obtained through the abdomen. Sine images were also obtained to evaluate bowel peristalsis. Subsequently, fat suppressed axial and coronal T1-weighted images were obtained after the intravenous administration of 6.5 mL Gadavist. FINDINGS: The small bowel is normal in caliber. There is no small bowel wall thickening, edema, or abnormal contrast enhancement. There is normal small bowel peristalsis. There is a large amount of stool throughout the colon. The liver, spleen, pancreas, adrenals, and kidneys are unremarkable. No signal loss is seen within the liver on opposed phase imaging to suggest steatosis. There is cholelithiasis. No ascites is identified. An IUD is noted in the endometrial cavity of the uterus. The ovaries are unremarkable. No lymphadenopathy is identified. MR/MR abdomen wo/w con IMPRESSION: Unremarkable MR enterography examination. Electronically signed by: Aiden England MD 05/24/2025 11:25 AM [facility]
--- OUTSIDE RECORDS SUMMARY | 2025-05-24 09:44 | XMS_ITS | Encounter Summary ---
Author Organization [facility] Address [address] [place] [address] Care Team Providers Care Form Presser Name Role Phone Steve Zamarripa MD Primary Care Provider [phone] Marco Mathur MD Unavailable [phone] Reason for Visit * Reason Comments Medication Refill Encounter Details Date Type Department Care Team (Late st Contact Info) Description 11/27/2017 Refill [facility] [place] [phone] Marco Mathur MD [address] [place] [address] Crohn's disease of both small and large [...] complication documented in this encounter Care Teams Form Presser Relationship Specialty Start Date End Date Steve Zamarripa MD [address] [place] [address] PCP - General Internal Medicine 11/12/16 Marco Mathur MD [address] [place] [address] Consulting Physician Gastroenterology 11/12/18 documented as of this encounter
--- OUTSIDE RECORDS SUMMARY | 2025-05-24 09:44 | XMS_ITS | Encounter Summary ---
Author Organization [facility] Address [address] [place] [address] Care Team Providers Care Inspector Hairspring Name Role Phone Steve Zamarripa MD Primary Care Provider [phone] Marco Mathur MD Unavailable [phone] Reason for Visit * Reason Comments Medication Refill Encounter Details Date Type Department Care Team (Late st Contact Info) Description 07/29/2018 Refill [facility] [place] [phone] Marco Mathur MD [address] [place] [address] Crohn's disease of both small and large [...] complication documented in this encounter Care Teams Inspector Hairspring Relationship Specialty Start Date End Date Steve Zamarripa MD [address] [place] [address] PCP - General Internal Medicine 11/12/16 Marco Mathur MD [address] [place] [address] Consulting Physician Gastroenterology 11/12/18 documented as of this encounter
--- OUTSIDE RECORDS SUMMARY | 2025-05-24 09:44 | XMS_ITS | Encounter Summary ---
Author Organization [facility] Address [address] [place] [address] Care Team Providers Care Profile Saw Operator Name Role Phone Steve Zamarripa MD Primary Care Provider [phone] Marco Mathur MD Unavailable [phone] Reason for Visit * Reason Comments Medication Refill Encounter Details Date Type Department Care Team (Late st Contact Info) Description 11/27/2016 Refill [facility] Gastroenterology, [address], [address] [place] [address] Marco Mathur MD [address] [place] [address] Crohn's disease of both small and large [...] Primary documented in this encounter Care Teams Profile Saw Operator Relationship Specialty Start Date End Date Steve Zamarripa MD [address] [place] [address] PCP - General Internal Medicine 11/12/16 Marco Mathur MD [address] [place] [address] Consulting Physician Gastroenterology 11/12/18 documented as of this encounter
--- OUTSIDE RECORDS SUMMARY | 2025-05-24 09:44 | XMS_ITS | Encounter Summary ---
Author Organization [facility] Address [address] [place] [address] Care Team Providers Care Tongue Lining Stitcher Name Role Phone Steve Zamarripa MD Primary Care Provider [phone] Marco Mathur MD Unavailable [phone] Steve Zamarripa MD Unavailable [phone] Pcp, No Primary Care Provider Unavailabl e Steve Zamarripa MD Primary Care Provider [phone] Pcp, No Primary Care Provider Unavailabl e Encounter Details Date Type Department Care Team (Late st Contact Info) Description 09/11/2018 Scanned Document [address] [phone] Steve Zamarripa MD [address] [place] [address] Social History Tobacco Use Types Packs/Day [...] on filedocumented in this encounter Care Teams Tongue Lining Stitcher Relationship Specialty Start Date End Date Steve Zamarripa MD PCP - General Family Medicine 06/04/16 02/05/21 Steve Zamarripa MD [address] [place] [address] PCP - [place] Commercial Attributed 01/01/20 07/30/20 Pcp, No PCP - General General Medicine 02/06/21 06/10/22 Steve Zamarripa MD PCP - General 06/11/22 08/27/22 Pcp, No PCP - General General Medicine 08/28/22 Marco Mathur MD [address] [place] [address] Aws Architect Pediatric Gastroenterology 11/26/18 documented as of this encounter
--- OUTSIDE RECORDS SUMMARY | 2025-05-24 09:44 | XMS_ITS | Encounter Summary ---
Author Organization [facility] Address [address] [place] [address] Care Team Providers Care Reset Merchandiser Name Role Phone Steve Zamarripa MD Primary Care Provider [phone] Marco Mathur MD Unavailable [phone] Reason for Visit * Reason Comments Medication Refill Encounter Details Date Type Department Care Team (Late st Contact Info) Description 06/08/2018 Refill [facility] Gastroenterology, [address] 1st [facility], [address] [place] [address] Marco Mathur MD [address] [place] [address] Crohn's disease of both small and large [...] alone documented in this encounter Care Teams Reset Merchandiser Relationship Specialty Start Date End Date Steve Zamarripa MD [address] [place] [address] PCP - General Internal Medicine 11/12/16 Marco Mathur MD [address] [place] [address] Consulting Physician Gastroenterology 11/12/18 documented as of this encounter
--- OUTSIDE RECORDS SUMMARY | 2025-05-24 09:44 | XMS_ITS | Encounter Summary ---
Author Organization [facility] Address [address] [place] [address] Care Team Providers Care Court Bailiff Or Sheriff Name Role Phone Steve Zamarripa MD Primary Care Provider [phone] Marco Mathur MD Unavailable [phone] Steve Zamarripa MD Unavailable [phone] Pcp, No Primary Care Provider Unavailabl e Steve Zamarripa MD Primary Care Provider [phone] Pcp, No Primary Care Provider Unavailabl e Encounter Details Date Type Department Care Team (Late st Contact Info) Description 08/23/2017 Scanned Document [address] [phone] Provider, Generic Social History Tobacco [...] on filedocumented in this encounter Care Teams Court Bailiff Or Sheriff Relationship Specialty Start Date End Date Steve Zamarripa MD PCP - General Family Medicine 06/04/16 02/05/21 Steve Zamarripa MD [address] [place], [place] [address] [address] PCP - [place] Commercial Attributed 01/01/20 07/30/20 Pcp, No PCP - General General Medicine 02/06/21 06/10/22 Steve Zamarripa MD PCP - General 06/11/22 08/27/22 Pcp, No PCP - General General Medicine 08/28/22 Marco Mathur MD [address] [place] [address] Supervisor Whipped Topping Pediatric Gastroenterology 11/26/18 documented as of this encounter
--- OUTSIDE RECORDS SUMMARY | 2025-05-24 09:44 | XMS_ITS | Encounter Summary ---
Author Organization [facility] Address [address] [place] [address] Care Team Providers Care Leather Goods Sales Representative Name Role Phone Steve Zamarripa MD Primary Care Provider [phone] Marco Mathur MD Unavailable [phone] Steve Zamarripa MD Unavailable [phone] Pcp, No Primary Care Provider Unavailabl e Steve Zamarripa MD Primary Care Provider [phone] Pcp, No Primary Care Provider Unavailabl e Encounter Details Date Type Department Care Team (Late st Contact Info) Description 08/24/2017 Scanned Document [address] [address] Provider, Generic Social History Tobacco [...] on filedocumented in this encounter Care Teams Leather Goods Sales Representative Relationship Specialty Start Date End Date Steve Zamarripa MD PCP - General Family Medicine 06/04/16 02/05/21 Steve Zamarripa MD [address] [place], [place] [address] [place] [address] PCP - [place] Commercial Attributed 01/01/20 07/30/20 Pcp, No PCP - General General Medicine 02/06/21 06/10/22 Steve Zamarripa MD PCP - General 06/11/22 08/27/22 Pcp, No PCP - General General Medicine 08/28/22 Marco Mathur MD [address] [place] [address] Travel Service Consultant Pediatric Gastroenterology 11/26/18 documented as of this encounter
--- OUTSIDE RECORDS SUMMARY | 2025-05-24 09:44 | XMS_ITS | Encounter Summary ---
Author Organization [facility] Address [address] [place] [address] Care Team Providers Care Cash Control Specialist Name Role Phone Jessica Cotto MD Primary Care Provider [phone] Steve Zamarripa MD Primary Care Provider [phone] Marco Mathur MD Unavailable [phone] Reason for Visit * Reason Comments Medication Refill Encounter Details Date Type Department Care Team (Late st Contact Info) Description 08/11/2015 Refill [facility] Gastroenterology, [address], [address] [place] [address] Marco Mathur MD [address] [place] [address] Crohn's disease of both small and large [...] Primary documented in this encounter Care Teams Cash Control Specialist Relationship Specialty Start Date End Date Jessica Cotto MD PCP - General 12/10/14 11/11/16 Steve Zamarripa MD [address] [place] [address] PCP - General Internal Medicine 11/12/16 Marco Mathur MD [address] [place] [address] Consulting Physician Gastroenterology 11/12/18 documented as of this encounter
--- OUTSIDE RECORDS SUMMARY | 2025-05-24 09:44 | XMS_ITS | Encounter Summary ---
Author Organization [facility] Address [address] [place] [address] Care Team Providers Care Manager Presentation Name Role Phone Jessica Cotto MD Primary Care Provider [phone] Steve Zamarripa MD Primary Care Provider [phone] Marco Mathur MD Unavailable [phone] Reason for Visit * Reason Comments Medication Refill Encounter Details Date Type Department Care Team (Late st Contact Info) Description 08/02/2015 Refill [facility] Gastroenterology, [address], [address] [place] [address] Marco Mathur MD [address] [place] [address] Crohn's disease of both small and large [...] Primary documented in this encounter Care Teams Manager Presentation Relationship Specialty Start Date End Date Jessica Cotto MD PCP - General 12/10/14 11/11/16 Steve Zamarripa MD [address] [place] [address] PCP - General Internal Medicine 11/12/16 Marco Mathur MD [address] [place] [address] Consulting Physician Gastroenterology 11/12/18 documented as of this encounter
--- OUTSIDE RECORDS SUMMARY | 2025-05-24 09:44 | XMS_ITS | Encounter Summary ---
Author Organization [facility] Address [address] [place] [address] Care Team Providers Care Websphere Consultant Name Role Phone Steve Zamarripa MD Primary Care Provider [phone] Marco Mathur MD Unavailable [phone] Steve Zamarripa MD Unavailable [phone] Pcp, No Primary Care Provider Unavailabl e Steve Zamarripa MD Primary Care Provider [phone] Pcp, No Primary Care Provider Unavailabl e Encounter Details Date Type Department Care Team (Late st Contact Info) Description 10/01/2017 Scanned Document [address] [phone] Provider, Generic Social History [...] on filedocumented in this encounter Care Teams Websphere Consultant Relationship Specialty Start Date End Date Steve Zamarripa MD PCP - General Family Medicine 06/04/16 02/05/21 Steve Zamarripa MD [address] [place], [place] [address] [address] PCP - [place] Commercial Attributed 01/01/20 07/30/20 Pcp, No PCP - General General Medicine 02/06/21 06/10/22 Steve Zamarripa MD PCP - General 06/11/22 08/27/22 Pcp, No PCP - General General Medicine 08/28/22 Marco Mathur MD [address] [place] [address] Senior Administrative Assistant Pediatric Gastroenterology 11/26/18 documented as of this encounter
--- OUTSIDE RECORDS SUMMARY | 2025-05-24 09:44 | XMS_ITS | Encounter Summary ---
Author Organization [facility] Address [address] [place] [address] Care Team Providers Care Geoscience Specialist Name Role Phone Steve Zamarripa MD Primary Care Provider [phone] Marco Mathur MD Unavailable [phone] Reason for Visit * Reason Comments Medication Refill Encounter Details Date Type Department Care Team (Late st Contact Info) Description 10/31/2017 Refill [facility] [place] [phone] Marco Mathur MD [address] [place] [address] Crohn's disease of both small and large [...] complication documented in this encounter Care Teams Geoscience Specialist Relationship Specialty Start Date End Date Steve Zamarripa MD [address] [place] [address] PCP - General Internal Medicine 11/12/16 Marco Mathur MD [address] [place] [address] Consulting Physician Gastroenterology 11/12/18 documented as of this encounter
--- OUTSIDE RECORDS SUMMARY | 2025-05-24 09:44 | XMS_ITS | Encounter Summary ---
Author Organization [facility] Address [address] [place] [place] [address] Care Team Providers Care Production Counter Name Role Phone Steve Zamarripa MD Primary Care Provider [phone] Marco Mathur MD Unavailable [phone] Reason for Visit * Reason Comments Medication Refill Encounter Details Date Type Department Care Team (Late st Contact Info) Description 12/06/2016 Refill [facility] Gastroenterology, [address] [facility], [address] [place] [address] Marco Mathur MD [address] [place] [address] Crohn's disease of both small and large [...] Primary documented in this encounter Care Teams Production Counter Relationship Specialty Start Date End Date Steve Zamarripa MD [address] [place] [address] PCP - General Internal Medicine 11/12/16 Marco Mathur MD [address] [place] [address] Consulting Physician Gastroenterology 11/12/18 documented as of this encounter
--- OUTSIDE RECORDS SUMMARY | 2025-05-24 09:44 | XMS_ITS | Encounter Summary ---
Author Organization [facility] Address [address] [place] [address] Care Team Providers Care Consumer Credit Counselor Name Role Phone Steve Zamarripa MD Primary Care Provider [phone] Marco Mathur MD Unavailable [phone] Steve Zamarripa MD Unavailable [phone] Pcp, No Primary Care Provider Unavailabl e Steve Zamarripa MD Primary Care Provider [phone] Pcp, No Primary Care Provider Unavailabl e Encounter Details Date Type Department Care Team (Late st Contact Info) Description 10/22/2016 Scanned Document [address] [phone] Provider, Generic Social History Tobacco [...] on filedocumented in this encounter Care Teams Consumer Credit Counselor Relationship Specialty Start Date End Date Steve Zamarripa MD PCP - General Family Medicine 06/04/16 02/05/21 Steve Zamarripa MD [address] [place] [address] PCP - [place] Commercial Attributed 01/01/20 07/30/20 Pcp, No PCP - General General Medicine 02/06/21 06/10/22 Steve Zamarripa MD PCP - General 06/11/22 08/27/22 Pcp, No PCP - General General Medicine 08/28/22 Marco Mathur MD [address] [place] [address] Floor Trader Pediatric Gastroenterology 11/26/18 documented as of this encounter
--- OUTSIDE RECORDS SUMMARY | 2025-05-24 09:44 | XMS_ITS | Encounter Summary ---
Author Organization [facility] Address [address] [place] [address] Care Team Providers Care Marketing Communications Coordinator Name Role Phone Steve Zamarripa MD Primary Care Provider [phone] Marco Mathur MD Unavailable [phone] Steve Zamarripa MD Unavailable [phone] Pcp, No Primary Care Provider Unavailabl e Steve Zamarripa MD Primary Care Provider [phone] Pcp, No Primary Care Provider Unavailabl e Encounter Details Date Type Department Care Team (Late st Contact Info) Description 09/20/2016 Scanned Document [address] [phone] Provider, Generic Social History [...] filedocumented in this encounter Care Teams Marketing Communications Coordinator Relationship Specialty Start Date End Date Steve Zamarripa MD PCP - General Family Medicine 06/04/16 02/05/21 Steve Zamarripa MD [address] [place] [address] PCP - [place] Commercial Attributed 01/01/20 07/30/20 Pcp, No PCP - General General Medicine 02/06/21 06/10/22 Steve Zamarripa MD PCP - General 06/11/22 08/27/22 Pcp, No PCP - General General Medicine 08/28/22 Marco Mathur MD [address] [place] [address] Service Parts Coordinator Pediatric Gastroenterology 11/26/18 documented as of this encounter
--- OUTSIDE RECORDS SUMMARY | 2025-05-24 09:44 | XMS_ITS | Encounter Summary ---
Author Organization [facility] Address [address] [place] [address] Care Team Providers Care Power Washer Name Role Phone Steve Zamarripa MD Primary Care Provider [phone] Marco Mathur MD Unavailable [phone] Reason for Visit * Reason Comments Medication Refill Encounter Details Date Type Department Care Team (Late st Contact Info) Description 10/08/2017 Refill [facility] Gastroenterology, [address] [facility], [address] [place] [address] Marco Mathur MD [address] [place] [address] Crohn's disease of both small and large [...] complication documented in this encounter Care Teams Power Washer Relationship Specialty Start Date End Date Steve Zamarripa MD [address] [place] [address] PCP - General Internal Medicine 11/12/16 Marco Mathur MD [address] [place] [address] Consulting Physician Gastroenterology 11/12/18 documented as of this encounter
--- OUTSIDE RECORDS SUMMARY | 2025-05-24 09:44 | XMS_ITS | Encounter Summary ---
Author Organization [facility] Address [address] [place] [address] Care Team Providers Care Knitter Operator Name Role Phone Steve Zamarripa MD Primary Care Provider [phone] Marco Mathur MD Unavailable [phone] Steve Zamarripa MD Unavailable [phone] Pcp, No Primary Care Provider Unavailabl e Steve Zamarripa MD Primary Care Provider [phone] Pcp, No Primary Care Provider Unavailabl e Encounter Details Date Type Department Care Team (Late st Contact Info) Description 06/18/2018 Scanned Document [address] [phone] Pediatric Gastroenterology, Scan Social History Tobacco Use [...] on filedocumented in this encounter Care Teams Knitter Operator Relationship Specialty Start Date End Date Steve Zamarripa MD PCP - General Family Medicine 06/04/16 02/05/21 Steve Zamarripa MD [address] [place] [address] PCP - [place] Commercial Attributed 01/01/20 07/30/20 Pcp, No PCP - General General Medicine 02/06/21 06/10/22 Steve Zamarripa MD PCP - General 06/11/22 08/27/22 Pcp, No PCP - General General Medicine 08/28/22 Marco Mathur MD [address] [place] [address] Warp Spinner Pediatric Gastroenterology 11/26/18 documented as of this encounter
--- OUTSIDE RECORDS SUMMARY | 2025-05-24 09:44 | XMS_ITS | Encounter Summary ---
Author Organization [facility] Address [address] [place] [address] Care Team Providers Care Diabetes Territory Manager Name Role Phone Steve Zamarripa MD Primary Care Provider [phone] Marco Mathur MD Unavailable [phone] Steve Zamarripa MD Unavailable [phone] Pcp, No Primary Care Provider Unavailabl e Steve Zamarripa MD Primary Care Provider [phone] Pcp, No Primary Care Provider Unavailabl e Encounter Details Date Type Department Care Team (Late st Contact Info) Description 11/27/2017 Scanned Document [address] [phone] Provider, Generic Social History Tobacco [...] on filedocumented in this encounter Care Teams Diabetes Territory Manager Relationship Specialty Start Date End Date Steve Zamarripa MD PCP - General Family Medicine 06/04/16 02/05/21 Steve Zamarripa MD [address] [place], [place] [address] [address] PCP - [place] Commercial Attributed 01/01/20 07/30/20 Pcp, No PCP - General General Medicine 02/06/21 06/10/22 Steve Zamarripa MD PCP - General 06/11/22 08/27/22 Pcp, No PCP - General General Medicine 08/28/22 Marco Mathur MD [address] [place] [address] Regional Maintenance Manager Pediatric Gastroenterology 11/26/18 documented as of this encounter
--- OUTSIDE RECORDS SUMMARY | 2025-05-24 09:44 | XMS_ITS | Clinical Summary ---
Author Organization [facility] Address [address] [place] [address] Care Team Providers Care Infectious Disease Technician Name Role Phone Steve Zamarripa MD Primary Care Provider [phone] Marco Mathur MD Unavailable [phone] Source Comments Please note that some or [...] patient's age to complete this topic Insurance [facility] Care Teams Infectious Disease Technician Relationship Specialty Start Date End Date Steve Zamarripa MD [address] [place] [address] PCP - General Internal Medicine 11/12/16 Marco Mathur MD [address] [place] [address] Consulting Physician Gastroenterology 11/12/18
--- OUTSIDE RECORDS SUMMARY | 2025-05-24 09:44 | XMS_ITS | Encounter Summary ---
Author Organization [facility] Address [address] [place] [address] Care Team Providers Care White Hat Hacker Name Role Phone Steve Zamarripa MD Primary Care Provider [phone] Encounter Details Date Type Department Care Team (Late st Contact Info) Description 04/20/2021 Orders Only [facility] Department of Pulmonology [address] [facility] [place] [address] Cj Batista MD Social History Tobacco Use [...] on filedocumented in this encounter Care Teams White Hat Hacker Relationship Specialty Start Date End Date Steve Zamarripa MD PCP - General Internal Medicine 07/09/18 documented as of this encounter
--- OUTSIDE RECORDS SUMMARY | 2025-05-24 09:44 | XMS_ITS | Encounter Summary ---
Author Organization [facility] Address [address] [place] [address] Care Team Providers Care Autoglazier Name Role Phone Steve Zamarripa MD Primary Care Provider [phone] Encounter Details Date Type Department Care Team (Late st Contact Info) Description 12/20/2021 Orders Only [facility] Department of Pulmonology [address] [facility] [place] [address] Cj Batista MD Social History Tobacco Use [...] on filedocumented in this encounter Care Teams Autoglazier Relationship Specialty Start Date End Date Steve Zamarripa MD PCP - General Internal Medicine 07/09/18 documented as of this encounter
--- OUTSIDE RECORDS SUMMARY | 2025-05-24 09:44 | XMS_ITS | Encounter Summary ---
Author Organization [facility] Address [address] [place] [address] Care Team Providers Care Commissioned Police Officer Name Role Phone Steve Zamarripa MD Primary Care Provider [phone] Marco Mathur MD Unavailable [phone] Steve Zamarripa MD Unavailable [phone] Pcp, No Primary Care Provider Unavailabl e Steve Zamarripa MD Primary Care Provider [phone] Pcp, No Primary Care Provider Unavailabl e Encounter Details Date Type Department Care Team (Late st Contact Info) Description 07/09/2018 Scanned Document [address] [id number] Pulmonary, Scan Social History Tobacco Use Types [...] on filedocumented in this encounter Care Teams Commissioned Police Officer Relationship Specialty Start Date End Date Steve Zamarripa MD PCP - General Family Medicine 06/04/16 02/05/21 Steve Zamarripa MD [address] [place], [place] [address] [address] PCP - [place] Commercial Attributed 01/01/20 07/30/20 Pcp, No PCP - General General Medicine 02/06/21 06/10/22 Steve Zamarripa MD PCP - General 06/11/22 08/27/22 Pcp, No PCP - General General Medicine 08/28/22 Marco Mathur MD [address] [place] [address] Pipe Machine Operator Pediatric Gastroenterology 11/26/18 documented as of this encounter
--- OUTSIDE RECORDS SUMMARY | 2025-05-24 09:44 | XMS_ITS | Clinical Summary ---
Author Organization [facility] Address [address] [place] [address] Care Team Providers Care Solderer Barrel Ribs Name Role Phone Marco Mathur MD Unavailable [phone] Pcp, No Primary Care Provider Unavailabl e [...] C Virus Screening 1996 COVID-19 Vaccine (#1) 06/10/1997 Quantiferon Gold TB 2006 HIV Screening 2009 [...] [facility] Care Teams Solderer Barrel Ribs Relationship Specialty Start Date End Date Pcp, No PCP - General General Medicine 08/28/22 Marco Mathur MD [address] [place] [address] Wire Products Inspector Pediatric Gastroenterology 11/26/18
--- OUTSIDE RECORDS SUMMARY | 2025-05-24 09:44 | XMS_ITS | Encounter Summary ---
Author Organization [facility] Address [address] [place] [address] Care Team Providers Care Sales Administration Manager Name Role Phone Steve Zamarripa MD Primary Care Provider [phone] Marco Mathur MD Unavailable [phone] Steve Zamarripa MD Unavailable [phone] Pcp, No Primary Care Provider Unavailabl e Steve Zamarrpia MD Primary Care Provider [phone] Pcp, No Primary Care Provider Unavailabl e Encounter Details Date Type Department Care Team (Late st Contact Info) Description 12/09/2018 Scanned Document [address] [phone] Primary Care, Scan Social History [...] filedocumented in this encounter Care Teams Sales Administration Manager Relationship Specialty Start Date End Date Steve Zamarripa MD PCP - General Family Medicine 06/04/16 02/05/21 Steve Zamarripa MD [address] [place] [address] [place] [address] PCP - [place] Commercial Attributed 01/01/20 07/30/20 Pcp, No PCP - General General Medicine 02/06/21 06/10/22 Steve Zamarripa MD PCP - General 06/11/22 08/27/22 Pcp, No PCP - General General Medicine 08/28/22 Marco Mathur MD [address] [place] [address] Information Systems Operator Pediatric Gastroenterology 11/26/18 documented as of this encounter
--- OUTSIDE RECORDS SUMMARY | 2025-05-24 09:44 | XMS_ITS | Clinical Summary ---
Author Organization [facility] Address [address] [place] [address] Care Team Providers Care Lapeler Name Role Phone Steve Zamarripa MD Primary Care Provider [phone] Allergies No known active allergies Medications FLUoxetine [...] Vaccines (1 of 2) 12/09/2015 Pneumococcal Vaccine: At-Risk and Pediatric Patients (0 to 49 Years) (2 of 2 - [...] Tdap) 11/26/2028 11/26/2018 HPV Vaccines Completed 11/30/2013, 0306/2013, 06/02/2013 Hepatitis A Vaccines Aged Out 10/26/2020, 09/28/2020, 02/02/2019 No longer eligible based on patient's age to complete this topic MMR Vaccines Aged Out No longer eligi ble based on patient's age to complete this topic Meningococcal Vaccine Aged Out No franklin chris eligible based on patient's age to complete this topic Insurance () [facility] PPO Care Teams Lapeler Relationship Specialty Start Date End Date Steve Zamarripa MD PCP - General Internal Medicine 07/09/18
--- OUTSIDE RECORDS SUMMARY | 2025-05-24 09:44 | XMS_ITS | Encounter Summary ---
Author Organization [facility] Address [address] [place] [address] Care Team Providers Care Goodwill Representative Name Role Phone Steve Zamarripa MD Primary Care Provider [phone] Marco Mathur MD Unavailable [phone] Reason for Visit * Reason Comments Medication Refill Encounter Details Date Type Department Care Team (Late st Contact Info) Description 11/22/2016 Refill [facility] Gastroenterology, [address], [address] [place] [address] Marco Mathur MD [address] [place] [address] Crohn's disease of both small and large [...] Primary documented in this encounter Care Teams Goodwill Representative Relationship Specialty Start Date End Date Steve Zamarripa MD [address] [place] [address] PCP - General Internal Medicine 11/12/16 Marco Mathur MD [address] [place] [address] Consulting Physician Gastroenterology 11/12/18 documented as of this encounter
--- OUTSIDE RECORDS SUMMARY | 2025-05-24 09:44 | XMS_ITS | Encounter Summary ---
Author Organization [facility] Address [address] [place] [address] Care Team Providers Care Planer Stone Name Role Phone Steve Zamarripa MD Primary Care Provider [phone] Marco Mathur MD Unavailable [phone] Steve Zamarripa MD Unavailable [phone] Pcp, No Primary Care Provider Unavailabl e Steve Zamarripa MD Primary Care Provider [phone] Pcp, No Primary Care Provider Unavailabl e Encounter Details Date Type Department Care Team (Late st Contact Info) Description 08/23/2017 Scanned Document [address] [phone] Provider, Generic Social History Tobacco [...] on filedocumented in this encounter Care Teams Planer Stone Relationship Specialty Start Date End Date Steve Zamarripa MD PCP - General Family Medicine 06/04/16 02/05/21 Steve Zamarripa MD [address] [place], [place] [address] [address] PCP - [place] Commercial Attributed 01/01/20 07/30/20 Pcp, No PCP - General General Medicine 02/06/21 06/10/22 Steve Zamarripa MD PCP - General 06/11/22 08/27/22 Pcp, No PCP - General General Medicine 08/28/22 Marco Mathur MD [address] [place] [address] Rebar Fabricator Pediatric Gastroenterology 11/26/18 documented as of this encounter
--- OUTSIDE RECORDS SUMMARY | 2025-05-24 09:44 | XMS_ITS | Encounter Summary ---
Author Organization [facility] Address [address] [place] [address] Care Team Providers Care Saxophone Assembler Name Role Phone Steve Zamarripa MD Primary Care Provider [phone] Marco Mathur MD Unavailable [phone] Steve Zamarripa MD Unavailable [phone] Pcp, No Primary Care Provider Unavailabl e Steve Zamarripa MD Primary Care Provider [phone] Pcp, No Primary Care Provider Unavailabl e Encounter Details Date Type Department Care Team (Late st Contact Info) Description 10/01/2017 Scanned Document [address] [phone] Provider, Generic Social History Tobacco [...] on filedocumented in this encounter Care Teams Saxophone Assembler Relationship Specialty Start Date End Date Steve Zamarripa MD PCP - General Family Medicine 06/04/16 02/05/21 Steve Zamarripa MD [address] [place], [place] [address] [place] [address] PCP - [place] Commercial Attributed 01/01/20 07/30/20 Pcp, No PCP - General General Medicine 02/06/21 06/10/22 Steve Zamarripa MD PCP - General 06/11/22 08/27/22 Pcp, No PCP - General General Medicine 08/28/22 Marco Mathur MD [address] [place] [address] Concrete Paver Pediatric Gastroenterology 11/26/18 documented as of this encounter
--- OUTSIDE RECORDS SUMMARY | 2025-05-24 09:44 | XMS_ITS | Encounter Summary ---
Author Organization [facility] Address [address] [place] [address] Care Team Providers Care Senior Maintenance Machinist Name Role Phone Jessica Cotto MD Primary Care Provider [phone] Steve Zamarripa MD Primary Care Provider [phone] Macro Mathur MD Unavailable [phone] Reason for Visit * Reason Comments Medication Refill Encounter Details Date Type Department Care Team (Late st Contact Info) Description 07/04/2015 Refill [facility] Gastroenterology, [address], [address] [place] [address] Marco Mathur MD [address] [place] [address] Crohn's disease of both small and large [...] documented in this encounter Care Teams Senior Maintenance Machinist Relationship Specialty Start Date End Date Jessica Cotto MD PCP - General 12/10/14 11/11/16 Steve Zamarripa MD [address] [place] [address] PCP - General Internal Medicine 11/12/16 Marco Mathur MD [address] [place] [address] Consulting Physician Gastroenterology 11/12/18 documented as of this encounter
--- OUTSIDE RECORDS SUMMARY | 2025-05-24 09:44 | XMS_ITS | Encounter Summary ---
Author Organization [facility] Address [address] [place] [address] Care Team Providers Care Scalper Operator Name Role Phone Steve Zamarripa MD Primary Care Provider [phone] Marco Mathur MD Unavailable [phone] Reason for Visit * Reason Comments Medication Refill Encounter Details Date Type Department Care Team ([facility] st Contact Info) Description 04/29/2018 Refill [facility] [place] [phone] Kel Green MD Crohn's disease of both [...] complication documented in this encounter Care Teams Scalper Operator Relationship Specialty Start Date End Date Steve Zamarripa MD [address] [place] [address] PCP - General Internal Medicine 11/12/16 Marco Mathur MD [address] [place] [address] Consulting Physician Gastroenterology 11/12/18 documented as of this encounter
--- OUTSIDE RECORDS SUMMARY | 2025-05-24 09:45 | XMS_ITS | Encounter Summary ---
Author Organization [facility] Address [address] [place] [address] Care Team Providers Care Fence Supervisor Name Role Phone Jessica Cotto MD Primary Care Provider [phone] Steve Zamarripa MD Primary Care Provider [phone] Marco Mathur MD Unavailable [phone] Reason for Visit * Reason Comments Medication Refill Encounter Details Date Type Department Care Team (Late st Contact Info) Description 08/26/2016 Refill [facility] Gastroenterology, [address], [address] [place] [address] Marco Mathur MD [address] [place] [address] Crohn's disease of both small and large [...] Primary documented in this encounter Care Teams Fence Supervisor Relationship Specialty Start Date End Date Jessica Cotto MD PCP - General 12/10/14 11/11/16 Steve Zamarripa MD [address] [place] [address] PCP - General Internal Medicine 11/12/16 Marco Mathur MD [address] [place] [address] Consulting Physician Gastroenterology 11/12/18 documented as of this encounter
--- OUTSIDE RECORDS SUMMARY | 2025-05-24 09:45 | XMS_ITS | Encounter Summary ---
Author Organization [facility] Address [address] [place] [address] Care Team Providers Care Land Commissioner Name Role Phone Steve Zamarripa MD Primary Care Provider [phone] Marco Mathur MD Unavailable [phone] Steve Zamarripa MD Unavailable [phone] Pcp, No Primary Care Provider Unavailabl e Steve Zamarripa MD Primary Care Provider [phone] Pcp, No Primary Care Provider Unavailabl e Encounter Details Date Type Department Care Team (Late st Contact Info) Description 05/29/2017 Scanned Document [address] [phone] Provider, Generic Social History [...] on filedocumented in this encounter Care Teams Land Commissioner Relationship Specialty Start Date End Date Steve Zamarripa MD PCP - General Family Medicine 06/04/16 02/05/21 Steve Zamarripa MD [address] [place] [address] PCP - [place] Commercial Attributed 01/01/20 07/30/20 Pcp, No PCP - General General Medicine 02/06/21 06/10/22 Steve Zamarripa MD PCP - General 06/11/22 08/27/22 Pcp, No PCP - General General Medicine 08/28/22 Marco Mathur MD [address] [place] [address] Photo Engraver Pediatric Gastroenterology 11/26/18 documented as of this encounter
--- OUTSIDE RECORDS SUMMARY | 2025-05-24 09:45 | XMS_ITS | Encounter Summary ---
Author Organization [facility] Address [address] [place] [address] Care Team Providers Care Sales Forecast Analyst Name Role Phone Jessica Cotto MD Primary Care Provider [phone] Steve Zamarripa MD Primary Care Provider [phone] Marco Mathur MD Unavailable [phone] Reason for Visit * Reason Comments Medication Refill Encounter Details Date Type Department Care Team (Late st Contact Info) Description 08/19/2016 Refill [facility] Gastroenterology, [address] 1[address], [address] [place] [address] Marco Mathur MD [address] [place] [address] Crohn's disease of both small and large [...] documented in this encounter Care Teams Sales Forecast Analyst Relationship Specialty Start Date End Date Jessica Cotto MD PCP - General 12/10/14 11/11/16 Steve Zamarripa MD [address] [place] [address] PCP - General Internal Medicine 11/12/16 Marco Mathur MD [address] [place] [address] Consulting Physician Gastroenterology 11/12/18 documented as of this encounter
--- OUTSIDE RECORDS SUMMARY | 2025-05-24 09:45 | XMS_ITS | Encounter Summary ---
Author Organization [facility] Address [address] [place] [address] Care Team Providers Care Equipment Inspector Name Role Phone Jessica Cotto MD Primary Care Provider [phone] Steve Zamarripa MD Primary Care Provider [phone] Marco Mathur MD Unavailable [phone] Reason for Visit * Reason Comments Medication Refill Encounter Details Date Type Department Care Team (Late st Contact Info) Description 02/09/2016 Refill [facility] Gastroenterology, [address], [address] [place] [address] Marco Mathur MD [address] [place] [address] Crohn's disease of both small and large [...] Primary documented in this encounter Care Teams Equipment Inspector Relationship Specialty Start Date End Date Jessica Cotto MD PCP - General 12/10/14 11/11/16 Steve Zamarripa MD [address] [place] [address] PCP - General Internal Medicine 11/12/16 Marco Mathur MD [address] [place] [address] Consulting Physician Gastroenterology 11/12/18 documented as of this encounter
--- OUTSIDE RECORDS SUMMARY | 2025-05-24 09:45 | XMS_ITS | Encounter Summary ---
Author Organization [facility] Address [address] [place] [address] Care Team Providers Care Public Health Service Officer Name Role Phone Steve Zamarripa MD Primary Care Provider [phone] Marco Mathur MD Unavailable [phone] Steve Zamarripa MD Unavailable [phone] Pcp, No Primary Care Provider Unavailabl e Steve Zamarripa MD Primary Care Provider [phone] Pcp, No Primary Care Provider Unavailabl e Encounter Details Date Type Department Care Team (Late st Contact Info) Description 06/12/2017 Scanned Document [address] [phone] Provider, Generic Social History Tobacco [...] on filedocumented in this encounter Care Teams Public Health Service Officer Relationship Specialty Start Date End Date Steve Zamarripa MD PCP - General Family Medicine 06/04/16 02/05/21 Steve Zamarripa MD [address] [place] [address] PCP - [place] Commercial Attributed 01/01/20 07/30/20 Pcp, No PCP - General General Medicine 02/06/21 06/10/22 Steve Zamarripa MD PCP - General 06/11/22 08/27/22 Pcp, No PCP - General General Medicine 08/28/22 Marco Mathur MD [address] [place] [address] Dumper Central [employer]crete Mixing [employer] Pediatric Gastroenterology 11/26/18 documented as of this encounter
--- OUTSIDE RECORDS SUMMARY | 2025-05-24 09:45 | XMS_ITS | Encounter Summary ---
Author Organization [facility] Address [address] [place] [address] Care Team Providers Care Institutional Cook Name Role Phone Steve Zamarripa MD Primary Care Provider [phone] Marco Mathur MD Unavailable [phone] Steve Zamarripa MD Unavailable [phone] Pcp, No Primary Care Provider Unavailabl e Steve Zamarripa MD Primary Care Provider [phone] Pcp, No Primary Care Provider Unavailabl e Encounter Details Date Type Department Care Team (Late st Contact Info) Description 06/14/2016 Scanned Document [address] [phone] Provider, Generic Social History Tobacco [...] on filedocumented in this encounter Care Teams Institutional Cook Relationship Specialty Start Date End Date Steve Zamarripa MD PCP - General Family Medicine 06/04/16 02/05/21 Steve Zamarripa MD [address] [place] [address] PCP - [place] Commercial Attributed 01/01/20 07/30/20 Pcp, No PCP - General General Medicine 02/06/21 06/10/22 Steve Zamarripa MD PCP - General 06/11/22 08/27/22 Pcp, No PCP - General General Medicine 08/28/22 Marco Mathru MD [address] [place] [address] International Logistics Analyst Pediatric Gastroenterology 11/26/18 documented as of this encounter
--- OUTSIDE RECORDS SUMMARY | 2025-05-24 09:45 | XMS_ITS | Clinical Summary ---
Author Organization [facility] Address [address] [facility] [address] [place] [address] Phone Care Team Providers Care Lifestyle Consultant Name Role Phone Steve Zamarripa MD [...] topic Medical Devices Not on file Insurance [employer] PPO [employer] PPO [employer] PPO Care Teams Lifestyle Consultant Relationship Specialty Start Date End Date Steve Zamarripa MD PCP - General Internal Medicine 11/07/17 Additional Source Comments The information contained in this document represents components of the legal health record. It is not the complete legal health record.[facility]
--- OUTSIDE RECORDS SUMMARY | 2025-05-24 09:45 | XMS_ITS | Encounter Summary ---
Author Organization [facility] Address [address] [place] [address] Care Team Providers Care Pharmacy Clinical Coordinator Name Role Phone Jessica Cotto MD Primary Care Provider [phone] Steve Zamarripa MD Primary Care Provider [phone] Marco Mathur MD Unavailable [phone] Reason for Visit * Reason Comments Medication Refill Encounter Details Date Type Department Care Team (Late st Contact Info) Description 06/05/2016 Refill [facility] Gastroenterology, [address] 1[address], [address] [place] [address] Marco Mathur MD [address] [place] [address] Crohn's disease of both small and large [...] Primary documented in this encounter Care Teams Pharmacy Clinical Coordinator Relationship Specialty Start Date End Date Jessica Cotto MD PCP - General 12/10/14 11/11/16 Steve Zamarripa MD [address] [place] [address] PCP - General Internal Medicine 11/12/16 Marco Mathur MD [address] [place] [address] Consulting Physician Gastroenterology 11/12/18 documented as of this encounter
[2025-05-24] MEDS: Sorbitol/Mannit/Xanth Imaging 500 ML LIQUID 1500 ML PO (10:45)
== END 2025-05-24 09:11 | disposition home or self-care (01) ==
LOC: HO.MRI 09:10
PROVIDERS: PCP Nurse Practitioner Family; Visit Provider Internal Medicine Gastroenterology
DX: K50.80 Crohn's disease of both small and large intestine without complications (principal)
CPT/HCPCS: 72197; 74183; A9585

== ENCOUNTER → 2025-05-24 09:26 | Outpatient (BNV) | payer OTHER, SELFPAY | PROVIDERS: PCP Nurse Practitioner Family; Visit Provider Radiology Diagnostic Radiology | DX: K50.80 Crohn's disease of both small and large intestine without complications (principal) | CPT/HCPCS: 72197; 74183 ==